=== PATIENT | female | born 1940 | race Native Hawaiian/Other Pacific Islander ===

== ENCOUNTER 2018-08-18 05:52 | Day surgery (SDC) | payer MEDICARE ==
[2018-08-13 08:36] VITALS: BMI 22.1
[2018-08-18] MEDS ORDERED: ceFAZolin IV 1 gm in Dextrose 1 GM/50 ML BAG IVPB ONE (06:59)
[2018-08-18] MEDS ORDERED: HEPARIN-NS 5,000 UNITS/500 ML 10,000 UNIT/1,000 ML BAG IV ONE (06:59)
[2018-08-18 07:07] LABS: CALCIUM 9.6 mg/dl (8.6-10.4)
[2018-08-18] MEDS ORDERED: Propofol 10 mg/ml Inj (20 ML) ONE (07:57)
[2018-08-18] MEDS ORDERED: Midazolam 2 MG/2 ML VIAL ONE (07:57)
[2018-08-18] MEDS ORDERED: Lidocaine Hydrochloride 5 ML INJ ONE (08:01)
--- NOTE | 2018-08-18 10:10 | PCM.SURG1 ---
Surgeon's Initial Post Op Note - Surgeon's Notes Surgeon: Linda Senior Executive Assistant: Pritesh Krause PGY-3 Jose J Murphy MS3 Type of Anesthesia: General LMA Anesthesia Administered By: Luis F Pre-Operative Diagnosis: ESRD Operative Findings: patent right IJ, good left radial and cephalic vein Post-Operative Diagnosis: ESRD Operation Performed: Right IJ permacath, Left radial cephalic snuffbox AV fistula Specimen/Specimens Removed: none Estimated Blood Loss: EBL {In ML}: 10 Blood Products Given: N/A Drains Used: No Drains Post-Op Condition: Good Date of Surgery/Procedure: 08/18/18 Time of Surgery/Procedure: 09:00
[2018-08-18] MEDS ORDERED: HYDROmorphone 0.5 mg/0.5 ml ISec IVP PRN (10:13)
[2018-08-18] MEDS ORDERED: Oxycodone/Acetaminophen 5/325 mg Tab PO PRN (10:15)
--- NOTE | 2018-08-18 11:47 | RAD ---
Date of service: 08/18/2018 HISTORY: permacath in PACU COMPARISON: 08/13/2018 FINDINGS: Right-sided PermCath terminates at the cavoatrial junction. LUNGS: The lungs are clear. PLEURA: No pleural effusions or pneumothorax. CARDIOVASCULAR: There is mild cardiomegaly. There are atherosclerotic aortic arch calcification present. OSSEOUS STRUCTURES: Within normal limits for the patient's age. VISUALIZED UPPER ABDOMEN: Normal. OTHER FINDINGS: None. IMPRESSION: Right PermCath terminates at the cavoatrial junction. No acute findings.
[2018-08-18 12:56] VITALS: RESP 16
[2018-08-18 15:42] VITALS: BP 147/68; PULSE 80; TEMP 97.8; O2SAT 100
--- NOTE | 2018-08-18 19:29 | OP ---
PROCEDURE DATE: 08/18/2018 PREOPERATIVE DIAGNOSIS: Renal failure. POSTOPERATIVE DIAGNOSIS: Renal failure. PROCEDURES CARRIED OUT: Placement of Perm-A-Cath right jugular vein with C-arm fluoroscopy ultrasound guidance with micropuncture technique and two snuffbox fistula left wrist. SURGEON: Jignesh Mckeon Jr., MD PHYSICIAN OFFICE NURSE: Pritesh Krause DO ANESTHESIOLOGIST: Elliott Kerns DO INDICATIONS: The patient is an older woman with renal insufficiency, now here requiring dialysis. OPERATIVE FINDINGS: Perm-A-Cath was inserted uneventfully via the right jugular vein, originally on the right chest wall, went to the right jugular vein, terminated at superior vena cava and right atrium. DESCRIPTION OF PROCEDURE: The patient was given general anesthesia, intravenous antibiotics. Using ultrasound guidance, the right jugular vein was punctured and under fluoroscopic control, guidewire was advanced centrally and exchanged for an 0.03 FiberWire into the inferior vena cava. Sheath dilator passed. Catheter passed. Catheter positioned appropriately, checked for flow and secured to the skin, sutured into position. Blood loss 10 mL. We then re-draped and turned our attention to the left arm, though there was not a good cephalic vein in the upper arm. This vein was actually a basilic brachial vein, but because of the need for two stages, I went with the snuffbox fistula at the wrist. This went quite well. The donor vessel was 1.5 mm to 2.5 mm cephalic vein. The patient's vessels were exposed, controlled, Afrin given, and end-to-side anastomosis carried out from the end of the cephalic vein to the side of the superficial radial artery. After this had been done, there was excellent flow. This was carried out using loop magnification and heparin anticoagulation. After this had been appropriately placed into position, the skin was closed with nylon sutures. Blood loss for both procedures was primarily about 10 to 15 mL. OPERATION CARRIED OUT: Perm-A-Cath right jugular vein with C-arm fluoroscopy, ultrasound-guided puncture, and micropuncture technique and two arteriovenous fistula snuffbox type left arm. Ultrasound image of the neck shows the vein was 12 mm in diameter with normal compressibility and no intraluminal thrombosis. Jignesh Mckeon Jr., MD cc: Ajay Thomas MD
--- NOTE | 2018-08-19 12:34 | RAD ---
Date of service: 08/18/2018 PROCEDURE: Intraoperative Fluoroscopy. HISTORY: END RENAL FAILURE FINDINGS: Fluoroscopic assistance was provided for right-sided PermCath placement. Please refer to the operative report from DAVID Talavera.
== END 2018-08-18 15:40 | disposition home or self-care (01) ==
LOC: C.SDS 05:52
PROVIDERS: ATTEND Surgery Vascular Surgery
DX: I12.0 Hypertensive chronic kidney disease with stage 5 chronic kidney disease or end stage renal disease (principal); N18.6 End stage renal disease; Q61.2 Polycystic kidney, adult type
CPT/HCPCS: 36415; 36558; 36821; 71045; 77001; 80048; C1750; J0690; J1170; J1644; J2250; J2405; J2704; J3010

== ENCOUNTER 2018-08-22 11:48 | Inpatient (IN) | payer MEDICARE ==
[2018-08-22 11:48] VITALS: BMI 22.1
[2018-08-22 12:53] LABS: BASO % 0.3 % (0.0-2.0); EOS # 0.1 K/uL (0.0-0.7); EOS % 1.4 % (0.0-4.0); HEMOGLOBIN 8.5 g/dL (11.0-16.0); LYMPH # 1.7 K/uL (1.0-4.3); LYMPH % 22.7 % (20.0-40.0); MEAN CELL VOLUME 95.4 fL (81.0-99.0); MEAN CORPUSCULAR HEMOGLOBIN 31.2 pg (27.0-31.0); MEAN CORPUSCULAR HGB CONC 32.7 g/dL (33.0-37.0); MEAN PLATELET VOLUME 8.1 fL (7.2-11.7); MONO # 0.8 K/uL (0.0-0.8); MONO % 10.7 % (0.0-10.0); NEUT # 4.8 K/uL (1.8-7.0); NEUT % 64.9 % (50.0-75.0); RBC 2.71 Mil/uL (3.80-5.20); RED CELL DISTRIBUTION WIDTH 12.5 % (11.5-14.5); WHITE BLOOD COUNT 7.4 K/uL (4.8-10.8)
[2018-08-22 13:01] LABS: INR 0.9
[2018-08-22 13:11] LABS: ALB/GLOB RATIO 1.3 (1.0-2.1); ALBUMIN 4.2 g/dL (3.5-5.0); ALT/SGPT 12 U/L (9-52); AST/SGOT 47 U/L (14-36); BLOOD UREA NITROGEN 72 mg/dL (7-17); CALCIUM 9.6 mg/dl (8.6-10.4); GFR NON-AFRICAN AMERICAN 10
[2018-08-22 13:18] LABS: PROTHROMBIN TIME 9.7 SECONDS (9.7-12.2)
[2018-08-22 13:23] LABS: B-TYPE NATRIURETIC PEPTIDE 702 pg/mL (0-900)
--- NOTE | 2018-08-22 13:47 | C.PDOC ---
History Of Present Illness 78 y/o female presents to ED sent by Dr. Thomas for admission for dialysis. Patient was recently at his office and was sent to ED for first time dialysis. Patient has no physical complaints at this time. Time Seen by Provider: 08/22/18 12:09 Chief Complaint (Nursing): Female Genitourinary History Per: Patient History/Exam Limitations: no limitations Onset/Duration Of Symptoms: Days Current Symptoms Are (Timing): Still Present Past Medical History Reviewed: Historical Data, Nursing Documentation, Vital Signs Vital Signs: Last Vital Signs Temp 99.2 F 08/22/18 12:03 Pulse 90 08/22/18 12:03 Resp 17 08/22/18 12:03 BP 165/96 H 08/22/18 12:03 Pulse Ox 100 08/22/18 12:03 - Medical History PMH: Anemia, Anxiety, Arthritis, Gall Bladder Disease, HTN, Hypercholesterolemia, Hyperlipidemia, Osteoporosis, Chronic Kidney Disease Surgical History: Cholecystectomy Family History: States: No Known Family Hx - Social History Hx Alcohol Use: No Hx Substance Use: No - Immunization History Hx Tetanus Toxoid Vaccination: Yes Hx Influenza Vaccination: Yes Hx Pneumococcal Vaccination: Yes Review Of Systems Constitutional: Negative for: Fever, Chills Cardiovascular: Negative for: Chest Pain Respiratory: Negative for: Cough, Shortness of Breath Gastrointestinal: Negative for: Nausea, Vomiting Physical Exam - Physical Exam Appears: Non-toxic, No Acute Distress Skin: Warm, Dry, No Rash Head: Atraumatic, Normacephalic Eye(s): bilateral: Normal Inspection Oral Mucosa: Moist Neck: Supple Chest: Other (Right chest catheter) Cardiovascular: Rhythm Regular Respiratory: Normal Breath Sounds, No Rales, No Rhonchi, No Wheezing Gastrointestinal/Abdominal: Soft, No Tenderness, No Guarding, No Rebound Extremity: Normal ROM, Capillary Refill (<2 seconds), No Deformity, Other (left wrist shunt with good thrill and bruit) Neurological/Psych: Oriented x3, Normal Speech, Normal Cognition ED Course And Treatment - Laboratory Results Result Diagrams: 08/22/18 12:49 08/22/18 12:49 ECG: Interpreted By Me, Viewed By Me ECG Rhythm: Sinus Rhythm Rate From EC (BPM) O2 Sat by Pulse Oximetry: 100 (RA) Pulse Ox Interpretation: Normal Disposition - Disposition Disposition: HOSPITALIZED Disposition Time: 13:15 Condition: STABLE - Clinical Impression Clinical Impression: ESRD (end stage renal disease), ESRD needing dialysis - Scribe Statement The provider has reviewed the documentation as recorded by the Dharmeshibmarine Corbett All medical record entries made by the Dharmeshibmarine were at my direction and personally dictated by me. I have reviewed the chart and agree that the record accurately reflects my personal performance of the history, physical exam, medical decision making, and the department course for this patient. I have also personally directed, reviewed, and agree with the discharge instructions and disposition.
--- NOTE | 2018-08-22 15:09 | CP.PCM.CON ---
History of Present Illness - History of Present Illness History of Present Illness: 78y/o FF sent to ED with uremic symptoms Recently pt with weight loss, increasing poor appetite associated with rising creatinine. Known CKD related to HTN Other PMH: HTN DDD Osteoporosis Dyslipidemia Chronic anemia PSH: choleycystectomy AV fistula cataracts FH- No CKD Social- no ETOH. ssmoking, illicit drug use Meds- see list Review of Systems - Constitutional Constitutional: Lethargy, Weakness - EENT Eyes: absent: As Per HPI, Blind Spots, Blurred Vision, Change in Vision, Decreased Night Vision, Diplopia, Discharge, Dry Eye, Exophthalmos, Floaters, Irritation, Itchy Eyes, Loss of Peripheral Vision, Pain, Photophobia, Requires Corrective Lenses, Sees Flashes, Spots in Vision, Tunnel Vision, Other Visual Disturbances, Loss of Vision, Other Nose/Mouth/Throat: absent: As Per HPI, Epistaxis, Nasal Congestion, Nasal Discharge, Nasal Obstruction, Nasal Trauma, Nose Pain, Post Nasal Drip, Sinus Pain, Sinus Pressure, Bleeding Gums, Change in Voice, Dental Pain, Dry Mouth, Dysphagia, Halitosis, Hoarsness, Lip Swelling, Mouth Lesions, Mouth Pain, Odynophagia, Sore Throat, Throat Swelling, Tongue Swelling, Facial Pain, Neck Pain, Neck Mass, Other - Cardiovascular Cardiovascular: Dyspnea on Exertion, Lightheadedness - Respiratory Respiratory: Dyspnea on Exertion - Gastrointestinal Gastrointestinal: Early Satiety, Nausea - Genitourinary Genitourinary: Voiding Freq/Small Amts - Musculoskeletal Musculoskeletal: Muscle Weakness, Myalgias - Neurological Neurological: Weakness Past Patient History - Infectious Disease Hx of Infectious Diseases: None - Past Medical History & Family History Past Medical History?: Yes - Past Social History Smoking Status: Never Smoked Chewing Tobacco Use: No Cigar Use: No Alcohol: None Drugs: Denies Home Situation {Lives}: Alone - CARDIAC Hx Hypercholesterolemia: Yes Hx Hypertension: Yes - PULMONARY Hx Respiratory Disorders: No - NEUROLOGICAL Hx Neurological Disorder: No - HEENT Hx HEENT Problems: Yes Hx Cataracts: Yes (iol) - RENAL Hx Chronic Kidney Disease: Yes - ENDOCRINE/METABOLIC Hx Endocrine Disorders: No - HEMATOLOGICAL/ONCOLOGICAL Hx Anemia: Yes - INTEGUMENTARY Hx Dermatological Problems: No - MUSCULOSKELETAL/RHEUMATOLOGICAL Hx Arthritis: Yes Hx Osteoporosis: Yes - GASTROINTESTINAL Hx Gall Bladder Disease: Yes - GENITOURINARY/GYNECOLOGICAL Hx Genitourinary Disorders: No - PSYCHIATRIC Hx Anxiety: Yes Hx Substance Use: No - SURGICAL HISTORY Hx Cholecystectomy: Yes - ANESTHESIA Hx Anesthesia: Yes Hx Anesthesia Reactions: No Hx Malignant Hyperthermia: No Meds Allergies/Adverse Reactions: Allergies Allergy/AdvReac Type Severity Reaction Status Date / Time aspirin Allergy Intermediate RASH Verified 08/22/18 11:58 shellfish derived Allergy Intermediate RASH Verified 08/22/18 11:58 seafood Allergy Intermediate RASH Uncoded 08/22/18 11:58 Physical Exam - Constitutional Appears: Non-toxic, Chronically Ill - Head Exam Head Exam: ATRAUMATIC, NORMAL INSPECTION - Eye Exam Eye Exam: EOMI, Normal appearance - Neck Exam Neck exam: Positive for: Normal Inspection. Negative for: Tenderness - Respiratory Exam Respiratory Exam: Clear to Auscultation Bilateral, NORMAL BREATHING PATTERN - Cardiovascular Exam Cardiovascular Exam: REGULAR RHYTHM, +S1 - GI/Abdominal Exam GI & Abdominal Exam: Soft. absent: Tenderness - Extremities Exam Extremities exam: Positive for: normal inspection. Negative for: tenderness - Neurological Exam Neurological exam: Alert, CN II-XII Intact - Skin Skin Exam: Dry, Warm Results - Vital Signs Recent Vital Signs: Last Vital Signs Temp 99.2 F 08/22/18 12:03 Pulse 90 08/22/18 12:03 Resp 17 08/22/18 12:03 BP 165/96 H 08/22/18 12:03 Pulse Ox 100 08/22/18 13:54 - Labs Result Diagrams: 08/22/18 12:49 08/22/18 12:49 Labs: Laboratory Results - last 24 hr 08/22/18 08/22/18 08/22/18 12:49 12:49 12:49 WBC 7.4 RBC 2.71 L Hgb 8.5 L Hct 25.9 L MCV 95.4 MCH 31.2 H MCHC 32.7 L RDW 12.5 Plt Count 142 MPV 8.1 Neut % (Auto) 64.9 Lymph % (Auto) 22.7 Mcclain % (Auto) 10.7 H Eos % (Auto) 1.4 Baso % (Auto) 0.3 Neut # (Auto) 4.8 Lymph # (Auto) 1.7 Mcclain # (Auto) 0.8 Eos # (Auto) 0.1 Baso # (Auto) 0.0 PT 9.7 INR 0.9 APTT 34 Sodium 142 Potassium 5.1 Chloride 109 H Carbon Dioxide 20 L Anion Gap 18 BUN 72 H Creatinine 4.3 H Est GFR ( Amer) 12 Est GFR (Non-Af Amer) 10 Random Glucose 93 Calcium 9.6 Phosphorus 4.2 Magnesium 2.1 Total Bilirubin 0.5 AST 47 H ALT 12 Alkaline Phosphatase 97 Troponin I < 0.0120 NT-Pro-B Natriuret Pep 702 Total Protein 7.5 Albumin 4.2 Globulin 3.3 Albumin/Globulin Ratio 1.3 Assessment & Plan (1) CKD (chronic kidney disease) stage 5, GFR less than 15 ml/min Status: Acute (2) Hypertensive chronic kidney disease with stage 5 chronic kidney disease or end stage renal disease Status: Acute (3) Chronic disease anemia Status: Acute (4) DDD (degenerative disc disease), cervical Status: Acute - Assessment and Plan (Free Text) Plan: Arrange for HD Use permcath; await AV F maturation Check hep panel, PTH. iron stores Will need outpt dialysis placement
[2018-08-22 17:29] LABS: HEPATITIS B SURFACE AG Negative (NEGATIVE)
[2018-08-22 17:34] LABS: HEPATITIS B CORE AB NEGATIVE (NEGATIVE)
[2018-08-22] MEDS ORDERED: Epoetin Alfa 10,000 unit/ml Dialysis IV ONE (17:43)
[2018-08-22 17:46] LABS: HEPATITIS C ANTIBODY NEGATIVE (NEGATIVE)
[2018-08-22 17:48] LABS: IRON 16 ug/dL (37-170)
[2018-08-22 17:58] LABS: % IRON SATURATION 6 (20-55); TOTAL IRON BINDING CAPACITY 258 ug/dL (250-450)
--- NOTE | 2018-08-23 10:32 | CP.PCM.PN ---
Subjective - Date & Time of Evaluation Date of Evaluation: 08/23/18 Time of Evaluation: 10:30 - Subjective Subjective: presently on dialysis comfortable supine states sob usual neck,hand and knee pain ROS no cheest pain no abdomenal pain n,v,d no dysuria see above Objective - Vital Signs/Intake and Output Vital Signs (last 24 hours): Temp Pulse Resp BP Pulse Ox 97.6 F 89 20 135/80 99 08/23/18 09:20 08/23/18 09:20 08/23/18 09:20 08/23/18 09:50 08/23/18 09:20 - Medications Medications: Current Medications Acetaminophen (Tylenol 325mg Tab) 650 mg PO Q4 PRN PRN Reason: Pain, moderate (4-7) Last Admin: 08/23/18 07:53 Dose: 650 mg Amlodipine Besylate (Norvasc) 5 mg PO DAILY [facility] Epoetin Santosh (Procrit) 10,000 unit IV MWF [facility] Ferrous Sulfate (Feosol) 325 mg PO DAILY [facility] Heparin Sodium (Porcine) (Heparin) 3,700 units IVP ONCE ONE Stop: 08/23/18 17:55 Heparin Sodium (Porcine) (Heparin) 5,000 units SC Q12 [facility] Metoprolol Succinate (Toprol Xl) 25 mg PO BID [facility] Pantoprazole Sodium (Protonix Ec Tab) 40 mg PO DAILY [facility] Rosuvastatin Calcium (Crestor) 2.5 mg PO HS SUE - Labs Labs: 08/22/18 12:49 08/22/18 12:49 PT 9.7 SECONDS (9.7-12.2) 08/22/18 12:49 INR 0.9 08/22/18 12:49 APTT 34 SECONDS (21-34) 08/22/18 12:49 - Constitutional Appears: No Acute Distress - Eye Exam Eye Exam: Normal appearance - ENT Exam ENT Exam: Mucous Membranes Moist - Respiratory Exam Respiratory Exam: Clear to Ausculation Bilateral - Cardiovascular Exam Cardiovascular Exam: REGULAR RHYTHM. absent: JVD - GI/Abdominal Exam GI & Abdominal Exam: Soft. absent: Distended, Tenderness - Extremities Exam Extremities Exam: absent: Calf Tenderness - Neurological Exam Neurological Exam: Altered, Awake - Psychiatric Exam Psychiatric exam: Flat Affect - Skin Skin Exam: Dry Assessment and Plan (1) DDD (degenerative disc disease), cervical Status: Acute (2) ESRD needing dialysis Status: Acute - Assessment and Plan (Free Text) Plan: try to remove one kg next dialysis 08/25
[2018-08-23] MEDS: Metoprolol Succinate 25 mg XL Tab PO SCH ×2 (10:46→17:52)
[2018-08-23] MEDS: Pantoprazole 40 mg EC Tab PO SCH (12:31)
--- NOTE | 2018-08-23 17:58 | CP.PCM.HP ---
History of Present Illness - History of Present Illness History of Present Illness: 78 yo female was sent by her match marker( Dr Thomas ) to [facility] for a hemodialysis. Known to have a hypertension, an ESRD from a polycystic disease, a hypercholesterolemia, an emphysema, an anemia of chronic disease, a degenerative cervical and lumbar dics disease, a diverticulosis of the colon, an osteoporosis, she has been feeling generalized weakness with poor appetite. Her BUN and creatinine have been raising recently. Her medications include Protonix, Amlodipine, Metoprolol, Pravachol. She denies any cigarette smoking, any alcohol abuse, Present on Admission - Present on Admission Any Indicators Present on Admission: No Review of Systems - Constitutional Constitutional: Anorexia, Daytime Sleepiness, Fatigue, Frequent Falls, Weakness - Musculoskeletal Musculoskeletal: Arthralgias, Muscle Weakness - Neurological Neurological: Disequilibrium, Weakness - Psychiatric Psychiatric: Anxiety - Endocrine Endocrine: Fatigue Past Patient History - Infectious Disease Hx of Infectious Diseases: None - Past Medical History & Family History Past Medical History?: Yes - Past Social History Smoking Status: Never Smoked Chewing Tobacco Use: No Cigar Use: No Alcohol: None Drugs: Denies Home Situation {Lives}: Alone Domestic Violence: Negative - CARDIAC Hx Hypercholesterolemia: Yes Hx Hypertension: Yes - PULMONARY Hx Respiratory Disorders: No - NEUROLOGICAL Hx Neurological Disorder: No - HEENT Hx HEENT Problems: Yes Hx Cataracts: Yes (iol) - RENAL Hx Chronic Kidney Disease: Yes - ENDOCRINE/METABOLIC Hx Endocrine Disorders: No - HEMATOLOGICAL/ONCOLOGICAL Hx Anemia: Yes - INTEGUMENTARY Hx Dermatological Problems: No - MUSCULOSKELETAL/RHEUMATOLOGICAL Hx Arthritis: Yes Hx Osteoporosis: Yes Hx Unsteady Gait: Yes - GASTROINTESTINAL Hx Gall Bladder Disease: Yes - GENITOURINARY/GYNECOLOGICAL Hx Genitourinary Disorders: No - PSYCHIATRIC Hx Anxiety: Yes Hx Substance Use: No - SURGICAL HISTORY Hx Surgeries: Yes Hx Cataract Extraction: Yes Hx Cholecystectomy: Yes - ANESTHESIA Hx Anesthesia: Yes Hx Anesthesia Reactions: No Hx Malignant Hyperthermia: No Meds Allergies/Adverse Reactions: Allergies Allergy/AdvReac Type Severity Reaction Status Date / Time aspirin Allergy Intermediate RASH Verified 08/22/18 11:58 shellfish derived Allergy Intermediate RASH Verified 08/22/18 11:58 seafood Allergy Intermediate RASH Uncoded 08/22/18 11:58 Physical Exam - Constitutional Appears: No Acute Distress, Chronically Ill - Head Exam Head Exam: NORMAL INSPECTION - Eye Exam Eye Exam: Normal appearance Pupil Exam: NORMAL ACCOMODATION - ENT Exam ENT Exam: Normal Exam - Neck Exam Neck exam: Positive for: Normal Inspection - Respiratory Exam Respiratory Exam: Clear to Auscultation Bilateral, NORMAL BREATHING PATTERN - Cardiovascular Exam Cardiovascular Exam: REGULAR RHYTHM, Systolic Murmur - GI/Abdominal Exam GI & Abdominal Exam: Normal Bowel Sounds, Soft - Rectal Exam Rectal Exam: Deferred - Extremities Exam Extremities exam: Positive for: normal inspection - Back Exam Back exam: NORMAL INSPECTION - Neurological Exam Neurological exam: Alert, CN II-XII Intact, Oriented x3, Reflexes Normal - Psychiatric Exam Psychiatric exam: Anxious - Skin Skin Exam: Dry, Intact, Normal Color, Warm Results - Vital Signs Recent Vital Signs: Last Vital Signs Temp 98.7 F 08/23/18 15:35 Pulse 75 08/23/18 15:47 Resp 20 08/23/18 15:35 BP 113/68 08/23/18 15:35 Pulse Ox 99 08/23/18 15:35 - Labs Result Diagrams: 08/22/18 12:49 08/22/18 12:49 Labs: Laboratory Results - last 24 hr 08/22/18 08/22/18 08/22/18 16:22 17:23 17:23 TIBC 258 % Saturation 6 L Ferritin 197.0 Hep Bs Antibody Negative Assessment & Plan (1) CKD (chronic kidney disease) stage 5, GFR less than 15 ml/min Assessment and Plan: For HD as per nephrologists. Status: Acute (2) Chronic disease anemia Assessment and Plan: On Procrit. Status: Acute (3) Hypertension Assessment and Plan: On Amlodipine, Metoprolol. Status: Acute Decision To Admit - Pt Status Changed To: Hospital Disposition Of: Inpatient - Admit Certification Admit to Inpatient:: After my assessment, the patient will require h ospitalization for at least two midnights. This is because of the severity of symptoms shown, intensity of services needed, and/or the medical risk in this patient being treated as an outpatient. - InPatient: Physician Admission Certification:: After my assessments, the patient needs hospitalization for at least 2 midnights. - . Bed Request Type: Telemetry Admitting Physician: Justin Nazario
[2018-08-23] MEDS: Rosuvastatin Calcium 2.5 mg Tab PO SCH (21:36)
[2018-08-24] MEDS: Pantoprazole 40 mg EC Tab PO SCH (10:46)
[2018-08-24] MEDS: Metoprolol Succinate 25 mg XL Tab PO SCH ×2 (10:46→17:32)
[2018-08-24] MEDS: Rosuvastatin Calcium 2.5 mg Tab PO SCH (21:14)
--- NOTE | 2018-08-25 02:46 | CP.PCM.PCO ---
Addendum entered and electronically signed by Giovanni Stafford 08/25/18 02:46: House Doctor Note: Paged for itchy & SOB. Per nursing staff, patient is complaining of severe itch following her dose of ultram. Patient seen and examined at bedside. Patient lying in bed, in no acute distress. Patient vitals WNL. Physical exam reveals no SOB, chest pain, hives on skin. 1 X Benadryl ordered for itch. No further intervention warranted at this time. Original Note:
[2018-08-25] MEDS: Pantoprazole 40 mg EC Tab PO SCH (09:52)
[2018-08-25] MEDS: Metoprolol Succinate 25 mg XL Tab PO SCH ×2 (09:53→18:34)
[2018-08-25 10:58] LABS: BASO % 0.6 % (0.0-2.0); EOS # 0.2 K/uL (0.0-0.7); EOS % 3.3 % (0.0-4.0); HEMOGLOBIN 8.5 g/dL (11.0-16.0); LYMPH # 2.1 K/uL (1.0-4.3); MEAN CELL VOLUME 95.2 fL (81.0-99.0); MEAN CORPUSCULAR HEMOGLOBIN 31.7 pg (27.0-31.0); MEAN CORPUSCULAR HGB CONC 33.3 g/dL (33.0-37.0); MEAN PLATELET VOLUME 8.4 fL (7.2-11.7); MONO # 0.6 K/uL (0.0-0.8); MONO % 10.5 % (0.0-10.0); NEUT # 3.2 K/uL (1.8-7.0); NEUT % 51.6 % (50.0-75.0); RBC 2.68 Mil/uL (3.80-5.20); RED CELL DISTRIBUTION WIDTH 12.6 % (11.5-14.5); WHITE BLOOD COUNT 6.1 K/uL (4.8-10.8)
--- NOTE | 2018-08-25 12:13 | CP.PCM.PN ---
Subjective - Date & Time of Evaluation Date of Evaluation: 08/25/18 Time of Evaluation: 12:11 - Subjective Subjective: Feels better BP was low post HD 08/23 Fe stores very low appetite same Objective - Vital Signs/Intake and Output Vital Signs (last 24 hours): Temp Pulse Resp BP Pulse Ox 98.3 F 74 18 160/71 H 97 08/25/18 07:07 08/25/18 09:49 08/25/18 07:07 08/25/18 09:49 08/25/18 08:00 Intake and Output: 08/25/18 08/25/18 06:59 18:59 Intake Total 300 Balance 300 - Medications Medications: Current Medications Acetaminophen (Tylenol 325mg Tab) 650 mg PO Q4 PRN PRN Reason: Pain, Mild (1-3) Amlodipine Besylate (Norvasc) 5 mg PO DAILY [facility] Last Admin: 08/25/18 09:53 Dose: Not Given Docusate Sodium (Colace) 100 mg PO BID [facility] Last Admin: 08/25/18 09:52 Dose: 100 mg Epoetin Santosh (Procrit) 10,000 unit IV MWF [facility] Ferrous Sulfate (Feosol) 325 mg PO DAILY [facility] Last Admin: 08/25/18 09:52 Dose: 325 mg Heparin Sodium (Porcine) (Heparin) 5,000 units SC Q12 [facility] Last Admin: 08/25/18 09:52 Dose: 5,000 units Metoprolol Succinate (Toprol Xl) 25 mg PO BID [facility] Last Admin: 08/25/18 09:53 Dose: Not Given Pantoprazole Sodium (Protonix Ec Tab) 40 mg PO DAILY [facility] Last Admin: 08/25/18 09:52 Dose: 40 mg Rosuvastatin Calcium (Crestor) 2.5 mg PO HS [facility] Last Admin: 08/24/18 21:14 Dose: 2.5 mg Tramadol HCl (Ultram) 50 mg PO Q6 PRN PRN Reason: Pain, moderate (4-7) Last Admin: 08/24/18 21:18 Dose: 50 mg - Labs Labs: 08/25/18 10:40 08/22/18 12:49 PT 9.7 SECONDS (9.7-12.2) 08/22/18 12:49 INR 0.9 08/22/18 12:49 APTT 34 SECONDS (21-34) 08/22/18 12:49 - Constitutional Appears: No Acute Distress, Chronically Ill - Head Exam Head Exam: ATRAUMATIC, NORMAL INSPECTION - Eye Exam Eye Exam: EOMI, Normal appearance - Neck Exam Neck Exam: Normal Inspection. absent: Tenderness - Respiratory Exam Respiratory Exam: Clear to Ausculation Bilateral, NORMAL BREATHING PATTERN - Cardiovascular Exam Cardiovascular Exam: REGULAR RHYTHM, +S1 - GI/Abdominal Exam GI & Abdominal Exam: Soft. absent: Tenderness - Extremities Exam Extremities Exam: Normal Inspection. absent: Tenderness - Neurological Exam Neurological Exam: Awake, CN II-XII Intact - Skin Skin Exam: Dry, Warm Assessment and Plan (1) CKD (chronic kidney disease) stage 5, GFR less than 15 ml/min Status: Acute (2) Hypertensive chronic kidney disease with stage 5 chronic kidney disease or end stage renal disease Status: Acute (3) Chronic disease anemia Status: Acute (4) DDD (degenerative disc disease), cervical Status: Acute (5) ESRD (end stage renal disease) Status: Acute - Assessment and Plan (Free Text) Plan: IV Fe check PTH Dialysis MWF, less UF Will need HD placement
[2018-08-25] MEDS ORDERED: Ferric Sodium Gluconat Complex 62.5 mg/5 ml Vial IVPB SCH (12:15)
[2018-08-25] MEDS: Ferric Sodium Gluconat Complex 125 MG in Sodium Chloride 0.9% 100 ML IVPB SCH (16:28)
[2018-08-25] MEDS: Epoetin Alfa 10,000 unit/ml Dialysis IV SCH (16:36)
--- NOTE | 2018-08-25 17:16 | CARD ---
APPROVED REPORT Date of service: 08/22/2018 EKG Measurement Heart [id number] <Conclusion> Normal sinus rhythm Septal infarct, age undetermined Abnormal ECG
[2018-08-25] MEDS ORDERED: Pantoprazole 40 mg EC Tab PO ONE (20:45)
[2018-08-25] MEDS: Rosuvastatin Calcium 2.5 mg Tab PO SCH (21:12)
--- NOTE | 2018-08-25 23:14 | CP.PCM.PN ---
Subjective - Date & Time of Evaluation Date of Evaluation: 08/25/18 Time of Evaluation: 21:00 - Subjective Subjective: Patient had one episode of chest tonight. Stat ECG reveals an RSR with a first degree AV block but no acute ST-T wave change. The chest pain resolved spontaneously. One stat dose of Protonix 40 mg Po was ordered. The patient had a normal Lexiscan stress test a few weeks ago. Objective - Vital Signs/Intake and Output Vital Signs (last 24 hours): Temp Pulse Resp BP Pulse Ox 98.4 F 79 20 133/63 100 08/25/18 20:22 08/25/18 21:35 08/25/18 20:22 08/25/18 20:37 08/25/18 20:22 Intake and Output: 08/25/18 08/26/18 18:59 06:59 Intake Total 450 400 Balance 450 400 - Medications Medications: Current Medications Acetaminophen (Tylenol 325mg Tab) 650 mg PO Q4 PRN PRN Reason: Pain, Mild (1-3) Last Admin: 08/25/18 18:33 Dose: 650 mg Amlodipine Besylate (Norvasc) 5 mg PO DAILY [facility] Last Admin: 08/25/18 09:53 Dose: Not Given Docusate Sodium (Colace) 100 mg PO BID [facility] Last Admin: 08/25/18 18:32 Dose: 100 mg Epoetin Santosh (Procrit) 10,000 unit IV MWF [facility] Last Admin: 08/25/18 16:36 Dose: 10,000 unit Heparin Sodium (Porcine) (Heparin) 5,000 units SC Q12 [facility] Last Admin: 08/25/18 21:12 Dose: 5,000 units Ferric Sodium Gluconate Complex 125 mg/ Sodium Chloride 110 mls @ 110 mls/hr IVPB DAILY [facility] Stop: 09/02/18 13:01 Last Admin: 08/25/18 16:28 Dose: 110 mls/hr Metoprolol Succinate (Toprol Xl) 25 mg PO BID [facility] Last Admin: 08/25/18 18:34 Dose: Not Given Pantoprazole Sodium (Protonix Ec Tab) 40 mg PO DAILY [facility] Last Admin: 08/25/18 09:52 Dose: 40 mg Rosuvastatin Calcium (Crestor) 2.5 mg PO HS [facility] Last Admin: 08/25/18 21:12 Dose: 2.5 mg - Labs Labs: 08/25/18 10:40 08/22/18 12:49 PT 9.7 SECONDS (9.7-12.2) 08/22/18 12:49 INR 0.9 08/22/18 12:49 APTT 34 SECONDS (21-34) 08/22/18 12:49 - Constitutional Appears: Well, No Acute Distress - Head Exam Head Exam: NORMAL INSPECTION - Eye Exam Eye Exam: Normal appearance Pupil Exam: NORMAL ACCOMODATION - ENT Exam ENT Exam: Normal Exam - Neck Exam Neck Exam: Normal Inspection - Respiratory Exam Respiratory Exam: Clear to Ausculation Bilateral, NORMAL BREATHING PATTERN - Cardiovascular Exam Cardiovascular Exam: REGULAR RHYTHM - GI/Abdominal Exam GI & Abdominal Exam: Soft, Normal Bowel Sounds - Rectal Exam Rectal Exam: Deferred - Extremities Exam Extremities Exam: Normal Inspection - Back Exam Back Exam: NORMAL INSPECTION - Neurological Exam Neurological Exam: Alert, Awake - Psychiatric Exam Psychiatric exam: Anxious - Skin Skin Exam: Dry, Intact, Normal Color, Warm Assessment and Plan (1) CKD (chronic kidney disease) stage 5, GFR less than 15 ml/min Assessment & Plan: Hemodialysis as per Nephrologists. Status: Chronic (2) Chronic disease anemia Assessment & Plan: Patient is on Ferlicit IV. Status: Chronic (3) Hypertension Status: Chronic
[2018-08-26] MEDS: Metoprolol Succinate 25 mg XL Tab PO SCH ×2 (10:07→17:29)
[2018-08-26] MEDS: Pantoprazole 40 mg EC Tab PO SCH (10:08)
[2018-08-26] MEDS: Ferric Sodium Gluconat Complex 125 MG in Sodium Chloride 0.9% 100 ML IVPB SCH (10:09)
--- NOTE | 2018-08-26 10:13 | CP.PCM.PN ---
Subjective - Date & Time of Evaluation Date of Evaluation: 08/26/18 Time of Evaluation: 10:12 - Subjective Subjective: seen and examined no events bp stable felt tired after hd yesterday c/o pain at [facility] site Objective - Vital Signs/Intake and Output Vital Signs (last 24 hours): Temp Pulse Resp BP Pulse Ox 98.2 F 80 20 130/71 97 08/26/18 08:01 08/26/18 10:05 08/26/18 08:01 08/26/18 10:05 08/26/18 08:01 Intake and Output: 08/26/18 08/26/18 06:59 18:59 Intake Total 400 Balance 400 - Medications Medications: Current Medications Acetaminophen (Tylenol 325mg Tab) 650 mg PO Q4 PRN PRN Reason: Pain, Mild (1-3) Last Admin: 08/25/18 18:33 Dose: 650 mg Docusate Sodium (Colace) 100 mg PO BID [facility] Last Admin: 08/26/18 10:07 Dose: 100 mg Epoetin Santosh (Procrit) 10,000 unit IV MWF [facility] Last Admin: 08/25/18 16:36 Dose: 10,000 unit Ferric Sodium Gluconate Complex 125 mg/ Sodium Chloride 110 mls @ 110 mls/hr IVPB DAILY [facility] Stop: 09/02/18 13:01 Last Admin: 08/26/18 10:09 Dose: 110 mls/hr Metoprolol Succinate (Toprol Xl) 25 mg PO BID [facility] Last Admin: 08/26/18 10:07 Dose: 25 mg Pantoprazole Sodium (Protonix Ec Tab) 40 mg PO DAILY [facility] Last Admin: 08/26/18 10:08 Dose: 40 mg Rosuvastatin Calcium (Crestor) 2.5 mg PO HS [facility] Last Admin: 08/25/18 21:12 Dose: 2.5 mg - Labs Labs: 08/25/18 10:40 08/22/18 12:49 PT 9.7 SECONDS (9.7-12.2) 08/22/18 12:49 INR 0.9 08/22/18 12:49 APTT 34 SECONDS (21-34) 08/22/18 12:49 - Constitutional Appears: Non-toxic, No Acute Distress - Head Exam Head Exam: NORMAL INSPECTION, NORMOCEPHALIC - Eye Exam Eye Exam: Normal appearance, PERRL - ENT Exam ENT Exam: Mucous Membranes Moist, Normal Exam - Neck Exam Neck Exam: Full ROM, Normal Inspection - Respiratory Exam Respiratory Exam: Clear to Ausculation Bilateral, NORMAL BREATHING PATTERN - Cardiovascular Exam Cardiovascular Exam: REGULAR RHYTHM, RRR - GI/Abdominal Exam GI & Abdominal Exam: Soft, Normal Bowel Sounds - Extremities Exam Extremities Exam: Full ROM (lue avf w/ thrill. rt chest permcath), Normal Inspection - Neurological Exam Neurological Exam: Alert, Awake, Oriented x3 - Psychiatric Exam Psychiatric exam: Normal Affect, Normal Mood - Skin Skin Exam: Dry, Intact Assessment and Plan (1) ESRD (end stage renal disease) Status: Acute (2) Chronic disease anemia Status: Chronic (3) Hypertension Status: Chronic - Assessment and Plan (Free Text) Assessment: plan for hd tomorrow christina / iv iron dc norvasc outpt placement
--- NOTE | 2018-08-26 12:22 | CARD ---
APPROVED REPORT Date of service: 08/25/2018 EKG Measurement Heart [id number] <Conclusion> Sinus rhythm with AV dissociation and Accelerated Junctional rhythm Abnormal ECG
--- NOTE | 2018-08-26 15:13 | CP.PCM.PN ---
Subjective - Date & Time of Evaluation Date of Evaluation: 08/26/18 Time of Evaluation: 14:30 - Subjective Subjective: Patient complaining of weakness with HD> Is receiving PT. She expressed the desire to be discharged to a subacute rehab because she lives alone at home, and she will not be able to care for herself. Objective - Vital Signs/Intake and Output Vital Signs (last 24 hours): Temp Pulse Resp BP Pulse Ox 98.2 F 80 20 130/71 97 08/26/18 08:01 08/26/18 10:05 08/26/18 08:01 08/26/18 10:05 08/26/18 08:01 Intake and Output: 08/26/18 08/26/18 06:59 18:59 Intake Total 400 300 Balance 400 300 - Medications Medications: Current Medications Acetaminophen (Tylenol 325mg Tab) 650 mg PO Q4 PRN PRN Reason: Pain, Mild (1-3) Last Admin: 08/25/18 18:33 Dose: 650 mg Docusate Sodium (Colace) 100 mg PO BID [facility] Last Admin: 08/26/18 10:07 Dose: 100 mg Epoetin Santosh (Procrit) 10,000 unit IV MWF [facility] Last Admin: 08/25/18 16:36 Dose: 10,000 unit Ferric Sodium Gluconate Complex 125 mg/ Sodium Chloride 110 mls @ 110 mls/hr IVPB DAILY [facility] Stop: 09/02/18 13:01 Last Admin: 08/26/18 10:09 Dose: 110 mls/hr Metoprolol Succinate (Toprol Xl) 25 mg PO BID [facility] Last Admin: 08/26/18 10:07 Dose: 25 mg Pantoprazole Sodium (Protonix Ec Tab) 40 mg PO DAILY [facility] Last Admin: 08/26/18 10:08 Dose: 40 mg Rosuvastatin Calcium (Crestor) 2.5 mg PO HS [facility] Last Admin: 08/25/18 21:12 Dose: 2.5 mg - Labs Labs: 08/25/18 10:40 08/22/18 12:49 PT 9.7 SECONDS (9.7-12.2) 08/22/18 12:49 INR 0.9 08/22/18 12:49 APTT 34 SECONDS (21-34) 08/22/18 12:49 - Constitutional Appears: Well, No Acute Distress - Head Exam Head Exam: NORMAL INSPECTION - Eye Exam Eye Exam: Normal appearance Pupil Exam: NORMAL ACCOMODATION - ENT Exam ENT Exam: Normal Exam - Neck Exam Neck Exam: Normal Inspection - Respiratory Exam Respiratory Exam: Clear to Ausculation Bilateral, NORMAL BREATHING PATTERN - Cardiovascular Exam Cardiovascular Exam: REGULAR RHYTHM, Murmur - GI/Abdominal Exam GI & Abdominal Exam: Soft, Normal Bowel Sounds - Rectal Exam Rectal Exam: Deferred - Extremities Exam Extremities Exam: Normal Inspection - Back Exam Back Exam: NORMAL INSPECTION - Neurological Exam Neurological Exam: Alert, Awake, Oriented x3 - Psychiatric Exam Psychiatric exam: Anxious - Skin Skin Exam: Dry, Intact, Normal Color, Warm Assessment and Plan (1) CKD (chronic kidney disease) stage 5, GFR less than 15 ml/min Assessment & Plan: HD as per nephrologists. Status: Chronic (2) Chronic disease anemia Assessment & Plan: On Ferrilicit IV. Status: Chronic (3) Hypertension Assessment & Plan: To continue BP meds. Status: Chronic
[2018-08-26] MEDS: Rosuvastatin Calcium 2.5 mg Tab PO SCH (21:18)
[2018-08-27] MEDS: Ferric Sodium Gluconat Complex 125 MG in Sodium Chloride 0.9% 100 ML IVPB SCH (09:33)
[2018-08-27] MEDS: Metoprolol Succinate 25 mg XL Tab PO SCH ×2 (09:38→19:00)
[2018-08-27] MEDS: Pantoprazole 40 mg EC Tab PO SCH (09:38)
--- NOTE | 2018-08-27 13:45 | CP.PCM.PN ---
Subjective - Date & Time of Evaluation Date of Evaluation: 08/27/18 Time of Evaluation: 13:43 - Subjective Subjective: For dialysis now Had c/o weakness post last HD BP controlled Still with poor appetite Objective - Vital Signs/Intake and Output Vital Signs (last 24 hours): Temp Pulse Resp BP Pulse Ox 97.7 F 79 20 160/70 H 97 08/27/18 07:00 08/27/18 09:32 08/27/18 07:00 08/27/18 09:32 08/27/18 07:00 Intake and Output: 08/27/18 08/27/18 06:59 18:59 Intake Total 400 Balance 400 - Medications Medications: Current Medications Acetaminophen (Tylenol 325mg Tab) 650 mg PO Q4 PRN PRN Reason: Pain, Mild (1-3) Last Admin: 08/26/18 21:55 Dose: 650 mg Docusate Sodium (Colace) 100 mg PO BID [facility] Last Admin: 08/27/18 09:38 Dose: 100 mg Epoetin Santosh (Procrit) 10,000 unit IV MWF [facility] Last Admin: 08/25/18 16:36 Dose: 10,000 unit Ferric Sodium Gluconate Complex 125 mg/ Sodium Chloride 110 mls @ 110 mls/hr IVPB DAILY [facility] Stop: 09/02/18 13:01 Last Admin: 08/27/18 09:33 Dose: 110 mls/hr Metoprolol Succinate (Toprol Xl) 25 mg PO BID [facility] Last Admin: 08/27/18 09:38 Dose: Not Given Pantoprazole Sodium (Protonix Ec Tab) 40 mg PO DAILY [facility] Last Admin: 08/27/18 09:38 Dose: 40 mg Rosuvastatin Calcium (Crestor) 2.5 mg PO HS [facility] Last Admin: 08/26/18 21:18 Dose: 2.5 mg - Labs Labs: 08/25/18 10:40 08/22/18 12:49 PT 9.7 SECONDS (9.7-12.2) 08/22/18 12:49 INR 0.9 08/22/18 12:49 APTT 34 SECONDS (21-34) 08/22/18 12:49 - Constitutional Appears: No Acute Distress, Chronically Ill - Head Exam Head Exam: ATRAUMATIC, NORMAL INSPECTION - Eye Exam Eye Exam: EOMI, Normal appearance - Neck Exam Neck Exam: Normal Inspection. absent: Tenderness - Respiratory Exam Respiratory Exam: Clear to Ausculation Bilateral, NORMAL BREATHING PATTERN - Cardiovascular Exam Cardiovascular Exam: REGULAR RHYTHM, +S1 - GI/Abdominal Exam GI & Abdominal Exam: Soft. absent: Tenderness - Extremities Exam Extremities Exam: Normal Inspection. absent: Tenderness - Neurological Exam Neurological Exam: Awake, CN II-XII Intact - Skin Skin Exam: Dry, Warm Assessment and Plan (1) CKD (chronic kidney disease) stage 5, GFR less than 15 ml/min Status: Chronic (2) Hypertensive chronic kidney disease with stage 5 chronic kidney disease or end stage renal disease Status: Acute (3) Chronic disease anemia Status: Chronic (4) DDD (degenerative disc disease), cervical Status: Acute (5) ESRD (end stage renal disease) Status: Acute - Assessment and Plan (Free Text) Plan: Decrease UF goal at dialysis HD MWF [facility], IV Fe Will need outpt dialysis placement
[2018-08-27] MEDS: Epoetin Alfa 10,000 unit/ml Dialysis IV SCH (15:34)
[2018-08-27] MEDS: Rosuvastatin Calcium 2.5 mg Tab PO SCH (22:06)
--- NOTE | 2018-08-27 23:51 | CP.PCM.PN ---
Subjective - Date & Time of Evaluation Date of Evaluation: 08/27/18 Time of Evaluation: 14:00 - Subjective Subjective: Patient still complaining of generalized weakness. Objective - Vital Signs/Intake and Output Vital Signs (last 24 hours): Temp Pulse Resp BP Pulse Ox 97.9 F 75 18 157/85 H 100 08/27/18 17:43 08/27/18 17:43 08/27/18 17:43 08/27/18 17:43 08/27/18 17:43 - Medications Medications: Current Medications Acetaminophen (Tylenol 325mg Tab) 650 mg PO Q4 PRN PRN Reason: Pain, Mild (1-3) Last Admin: 08/26/18 21:55 Dose: 650 mg Docusate Sodium (Colace) 100 mg PO BID [facility] Last Admin: 08/27/18 19:00 Dose: 100 mg Epoetin Santosh (Procrit) 10,000 unit IV MWF [facility] Last Admin: 08/27/18 15:34 Dose: 10,000 unit Ferric Sodium Gluconate Complex 125 mg/ Sodium Chloride 110 mls @ 110 mls/hr IVPB DAILY [facility] Stop: 09/02/18 13:01 Last Admin: 08/27/18 09:33 Dose: 110 mls/hr Metoprolol Succinate (Toprol Xl) 25 mg PO BID [facility] Last Admin: 08/27/18 19:00 Dose: 25 mg Pantoprazole Sodium (Protonix Ec Tab) 40 mg PO DAILY [facility] Last Admin: 08/27/18 09:38 Dose: 40 mg Rosuvastatin Calcium (Crestor) 2.5 mg PO HS [facility] Last Admin: 08/27/18 22:06 Dose: 2.5 mg - Labs Labs: 08/25/18 10:40 08/22/18 12:49 PT 9.7 SECONDS (9.7-12.2) 08/22/18 12:49 INR 0.9 08/22/18 12:49 APTT 34 SECONDS (21-34) 08/22/18 12:49 - Constitutional Appears: Well, No Acute Distress - Head Exam Head Exam: NORMAL INSPECTION - Eye Exam Eye Exam: Normal appearance - ENT Exam ENT Exam: Normal Exam - Neck Exam Neck Exam: Normal Inspection - Respiratory Exam Respiratory Exam: Clear to Ausculation Bilateral, NORMAL BREATHING PATTERN - Cardiovascular Exam Cardiovascular Exam: REGULAR RHYTHM - GI/Abdominal Exam GI & Abdominal Exam: Soft, Normal Bowel Sounds - Rectal Exam Rectal Exam: Deferred - Extremities Exam Extremities Exam: Normal Inspection - Back Exam Back Exam: NORMAL INSPECTION - Neurological Exam Neurological Exam: Alert, Awake - Psychiatric Exam Psychiatric exam: Anxious - Skin Skin Exam: Dry, Intact, Normal Color, Warm Assessment and Plan (1) CKD (chronic kidney disease) stage 5, GFR less than 15 ml/min Assessment & Plan: To continue HD as pe Nephrologists. Status: Chronic (2) Chronic disease anemia Assessment & Plan: On Ferrous sulfate. Status: Chronic (3) Hypertension Status: Chronic
[2018-08-28] MEDS: Metoprolol Succinate 25 mg XL Tab PO SCH ×2 (09:33→17:16)
--- NOTE | 2018-08-28 09:34 | CP.PCM.PN ---
Subjective - Date & Time of Evaluation Date of Evaluation: 08/28/18 Time of Evaluation: : - Subjective Subjective: s/p dialysis 08/27 Feels better not dyspnea, better appetite wants to go to rehab/OR center on rx for chronic anemia Objective - Vital Signs/Intake and Output Vital Signs (last 24 hours): Temp Pulse Resp BP Pulse Ox 98.5 F 60 19 136/70 20 L 08/28/18 08:00 08/28/18 08:00 08/28/18 08:00 08/28/18 08:00 08/28/18 08:00 - Medications Medications: Current Medications Acetaminophen (Tylenol 325mg Tab) 650 mg PO Q4 PRN PRN Reason: Pain, Mild (1-3) Last Admin: 08/26/18 21:55 Dose: 650 mg Docusate Sodium (Colace) 100 mg PO BID [facility] Last Admin: 08/27/18 19:00 Dose: 100 mg Epoetin Santosh (Procrit) 10,000 unit IV MWF [facility] Last Admin: 08/27/18 15:34 Dose: 10,000 unit Ferric Sodium Gluconate Complex 125 mg/ Sodium Chloride 110 mls @ 110 mls/hr IVPB DAILY [facility] Stop: 09/02/18 13:01 Last Admin: 08/27/18 09:33 Dose: 110 mls/hr Metoprolol Succinate (Toprol Xl) 25 mg PO BID [facility] Last Admin: 08/27/18 19:00 Dose: 25 mg Pantoprazole Sodium (Protonix Ec Tab) 40 mg PO DAILY [facility] Last Admin: 08/27/18 09:38 Dose: 40 mg Rosuvastatin Calcium (Crestor) 2.5 mg PO HS [facility] Last Admin: 08/27/18 22:06 Dose: 2.5 mg - Labs Labs: 08/25/18 10:40 08/22/18 12:49 PT 9.7 SECONDS (9.7-12.2) 08/22/18 12:49 INR 0.9 08/22/18 12:49 APTT 34 SECONDS (21-34) 08/22/18 12:49 - Constitutional Appears: No Acute Distress, Chronically Ill - Head Exam Head Exam: ATRAUMATIC, NORMAL INSPECTION - Eye Exam Eye Exam: EOMI, Normal appearance - Neck Exam Neck Exam: Normal Inspection. absent: Tenderness - Respiratory Exam Respiratory Exam: Clear to Ausculation Bilateral, Respiratory Distress, NORMAL BREATHING PATTERN - Cardiovascular Exam Cardiovascular Exam: REGULAR RHYTHM, +S1 - GI/Abdominal Exam GI & Abdominal Exam: Soft. absent: Tenderness - Extremities Exam Extremities Exam: Normal Inspection. absent: Tenderness - Neurological Exam Neurological Exam: Awake, CN II-XII Intact - Skin Skin Exam: Dry, Warm Assessment and Plan (1) CKD (chronic kidney disease) stage 5, GFR less than 15 ml/min Status: Chronic (2) Hypertensive chronic kidney disease with stage 5 chronic kidney disease or end stage renal disease Status: Acute (3) Chronic disease anemia Status: Chronic (4) DDD (degenerative disc disease), cervical Status: Acute (5) ESRD (end stage renal disease) Status: Acute - Assessment and Plan (Free Text) Plan: Dialysis MWF Same meds Outpt dialysis arranged
[2018-08-28] MEDS: Pantoprazole 40 mg EC Tab PO SCH (09:38)
[2018-08-28] MEDS: Ferric Sodium Gluconat Complex 125 MG in Sodium Chloride 0.9% 100 ML IVPB SCH (09:46)
[2018-08-28] MEDS: Rosuvastatin Calcium 2.5 mg Tab PO SCH (21:21)
--- NOTE | 2018-08-28 23:32 | CP.PCM.PN ---
Subjective - Date & Time of Evaluation Date of Evaluation: 08/28/18 Time of Evaluation: 20:00 - Subjective Subjective: Patient feels better, stronger, with better appetite. Objective - Vital Signs/Intake and Output Vital Signs (last 24 hours): Temp Pulse Resp BP Pulse Ox 98.3 F 73 20 136/69 97 08/28/18 15:41 08/28/18 22:32 08/28/18 15:41 08/28/18 15:41 08/28/18 15:41 Intake and Output: 08/28/18 08/29/18 18:59 06:59 Intake Total 500 Balance 500 - Medications Medications: Current Medications Acetaminophen (Tylenol 325mg Tab) 650 mg PO Q4 PRN PRN Reason: Pain, Mild (1-3) Last Admin: 08/26/18 21:55 Dose: 650 mg Docusate Sodium (Colace) 100 mg PO BID [facility] Last Admin: 08/28/18 17:16 Dose: 100 mg Epoetin Santosh (Procrit) 10,000 unit IV MWF [facility] Last Admin: 08/27/18 15:34 Dose: 10,000 unit Ferric Sodium Gluconate Complex 125 mg/ Sodium Chloride 110 mls @ 110 mls/hr IVPB DAILY [facility] Stop: 09/02/18 13:01 Last Admin: 08/28/18 09:46 Dose: 110 mls/hr Metoprolol Succinate (Toprol Xl) 25 mg PO BID [facility] Last Admin: 08/28/18 17:16 Dose: 25 mg Pantoprazole Sodium (Protonix Ec Tab) 40 mg PO DAILY [facility] Last Admin: 08/28/18 09:38 Dose: 40 mg Rosuvastatin Calcium (Crestor) 2.5 mg PO HS [facility] Last Admin: 08/28/18 21:21 Dose: 2.5 mg - Labs Labs: 08/25/18 10:40 08/22/18 12:49 PT 9.7 SECONDS (9.7-12.2) 08/22/18 12:49 INR 0.9 08/22/18 12:49 APTT 34 SECONDS (21-34) 08/22/18 12:49 - Constitutional Appears: Well, No Acute Distress - Head Exam Head Exam: NORMAL INSPECTION - Eye Exam Eye Exam: Normal appearance Pupil Exam: NORMAL ACCOMODATION - ENT Exam ENT Exam: Normal Exam - Neck Exam Neck Exam: Normal Inspection - Respiratory Exam Respiratory Exam: Clear to Ausculation Bilateral, NORMAL BREATHING PATTERN - Cardiovascular Exam Cardiovascular Exam: REGULAR RHYTHM - GI/Abdominal Exam GI & Abdominal Exam: Soft, Normal Bowel Sounds - Rectal Exam Rectal Exam: Deferred - Extremities Exam Extremities Exam: Normal Inspection - Back Exam Back Exam: NORMAL INSPECTION - Neurological Exam Neurological Exam: Alert, Awake, Oriented x3 - Psychiatric Exam Psychiatric exam: Anxious - Skin Skin Exam: Dry, Intact, Normal Color, Warm Assessment and Plan (1) CKD (chronic kidney disease) stage 5, GFR less than 15 ml/min Assessment & Plan: Hemodialysis as per Nephrologists. Status: Chronic (2) Chronic disease anemia Assessment & Plan: On Ferrous sulfate. Status: Chronic (3) Hypertension Assessment & Plan: Controlled. Status: Chronic
[2018-08-29] MEDS: Metoprolol Succinate 25 mg XL Tab PO SCH ×2 (09:53→17:04)
[2018-08-29] MEDS: Pantoprazole 40 mg EC Tab PO SCH (09:53)
[2018-08-29] MEDS: Ferric Sodium Gluconat Complex 125 MG in Sodium Chloride 0.9% 100 ML IVPB SCH (11:20)
[2018-08-29] MEDS: Epoetin Alfa 10,000 unit/ml Dialysis IV SCH (11:21)
--- NOTE | 2018-08-29 14:06 | CP.PCM.PN ---
Subjective - Date & Time of Evaluation Date of Evaluation: 08/29/18 Time of Evaluation: 14:04 - Subjective Subjective: Stable dialysis now BP controlled Better appetite AV fistula with thrill Objective - Vital Signs/Intake and Output Vital Signs (last 24 hours): Temp Pulse Resp BP Pulse Ox 98.5 F 60 18 124/65 98 08/29/18 12:50 08/29/18 12:50 08/29/18 12:50 08/29/18 12:50 08/29/18 12:50 Intake and Output: 08/29/18 08/29/18 06:59 18:59 Intake Total 500 Balance 500 - Medications Medications: Current Medications Acetaminophen (Tylenol 325mg Tab) 650 mg PO Q4 PRN PRN Reason: Pain, Mild (1-3) Last Admin: 08/26/18 21:55 Dose: 650 mg Docusate Sodium (Colace) 100 mg PO BID [facility] Last Admin: 08/29/18 09:52 Dose: Not Given Epoetin Santosh (Procrit) 10,000 unit IV MWF [facility] Last Admin: 08/29/18 11:21 Dose: 10,000 unit Ferric Sodium Gluconate Complex 125 mg/ Sodium Chloride 110 mls @ 110 mls/hr IVPB DAILY [facility] Stop: 09/02/18 13:01 Last Admin: 08/29/18 11:20 Dose: 110 mls/hr Metoprolol Succinate (Toprol Xl) 25 mg PO BID [facility] Last Admin: 08/29/18 09:53 Dose: Not Given Pantoprazole Sodium (Protonix Ec Tab) 40 mg PO DAILY [facility] Last Admin: 08/29/18 09:53 Dose: Not Given Rosuvastatin Calcium (Crestor) 2.5 mg PO HS [facility] Last Admin: 08/28/18 21:21 Dose: 2.5 mg - Labs Labs: 08/25/18 10:40 08/22/18 12:49 PT 9.7 SECONDS (9.7-12.2) 08/22/18 12:49 INR 0.9 08/22/18 12:49 APTT 34 SECONDS (21-34) 08/22/18 12:49 - Constitutional Appears: No Acute Distress, Chronically Ill - Head Exam Head Exam: ATRAUMATIC, NORMAL INSPECTION - Eye Exam Eye Exam: EOMI, Normal appearance - Neck Exam Neck Exam: Normal Inspection. absent: Tenderness - Cardiovascular Exam Cardiovascular Exam: REGULAR RHYTHM, +S1 - GI/Abdominal Exam GI & Abdominal Exam: Soft. absent: Tenderness - Extremities Exam Extremities Exam: Normal Inspection. absent: Tenderness - Neurological Exam Neurological Exam: Awake, CN II-XII Intact - Skin Skin Exam: Dry, Warm Assessment and Plan (1) CKD (chronic kidney disease) stage 5, GFR less than 15 ml/min Status: Chronic (2) Hypertensive chronic kidney disease with stage 5 chronic kidney disease or end stage renal disease Status: Acute (3) Chronic disease anemia Status: Chronic (4) DDD (degenerative disc disease), cervical Status: Acute (5) ESRD (end stage renal disease) Status: Acute - Assessment and Plan (Free Text) Plan: Same dialysis await outpt HD placement
[2018-08-29] MEDS: Rosuvastatin Calcium 2.5 mg Tab PO SCH (21:10)
--- NOTE | 2018-08-29 23:55 | CP.PCM.PN ---
Subjective - Date & Time of Evaluation Date of Evaluation: 08/29/18 Time of Evaluation: 20:30 - Subjective Subjective: Patient feels better, stronger and with better appetite. Objective - Vital Signs/Intake and Output Vital Signs (last 24 hours): Temp Pulse Resp BP Pulse Ox 98.9 F 73 20 138/77 100 08/29/18 15:00 08/29/18 16:29 08/29/18 15:00 08/29/18 15:00 08/29/18 15:00 Intake and Output: 08/29/18 08/30/18 18:59 06:59 Intake Total 300 400 Balance 300 400 - Medications Medications: Current Medications Acetaminophen (Tylenol 325mg Tab) 650 mg PO Q4 PRN PRN Reason: Pain, Mild (1-3) Last Admin: 08/29/18 18:58 Dose: 650 mg Docusate Sodium (Colace) 100 mg PO BID [facility] Last Admin: 08/29/18 17:04 Dose: 100 mg Epoetin Santosh (Procrit) 10,000 unit IV MWF [facility] Last Admin: 08/29/18 11:21 Dose: 10,000 unit Ferric Sodium Gluconate Complex 125 mg/ Sodium Chloride 110 mls @ 110 mls/hr IVPB DAILY [facility] Stop: 09/02/18 13:01 Last Admin: 08/29/18 11:20 Dose: 110 mls/hr Metoprolol Succinate (Toprol Xl) 25 mg PO BID [facility] Last Admin: 08/29/18 17:04 Dose: 25 mg Pantoprazole Sodium (Protonix Ec Tab) 40 mg PO DAILY [facility] Last Admin: 08/29/18 09:53 Dose: Not Given Rosuvastatin Calcium (Crestor) 2.[address] [facility] Last Admin: 08/29/18 21:10 Dose: 2.5 mg - Labs Labs: 08/25/18 10:40 08/22/18 12:49 PT 9.7 SECONDS (9.7-12.2) 08/22/18 12:49 INR 0.9 08/22/18 12:49 APTT 34 SECONDS (21-34) 08/22/18 12:49 - Constitutional Appears: Well, No Acute Distress - Head Exam Head Exam: NORMOCEPHALIC - Eye Exam Eye Exam: Normal appearance Pupil Exam: NORMAL ACCOMODATION - ENT Exam ENT Exam: Normal Exam - Neck Exam Neck Exam: Normal Inspection - Respiratory Exam Respiratory Exam: Clear to Ausculation Bilateral, NORMAL BREATHING PATTERN - Cardiovascular Exam Cardiovascular Exam: REGULAR RHYTHM - GI/Abdominal Exam GI & Abdominal Exam: Soft, Normal Bowel Sounds - Rectal Exam Rectal Exam: Deferred - Extremities Exam Extremities Exam: Normal Inspection - Back Exam Back Exam: NORMAL INSPECTION - Neurological Exam Neurological Exam: Alert, Awake, Oriented x3 - Psychiatric Exam Psychiatric exam: Anxious - Skin Skin Exam: Dry, Intact, Warm Assessment and Plan (1) CKD (chronic kidney disease) stage 5, GFR less than 15 ml/min Assessment & Plan: HD as per Nephrologists. Status: Chronic (2) Chronic disease anemia Status: Chronic (3) Hypertension Status: Chronic
[2018-08-30] MEDS: Pantoprazole 40 mg EC Tab PO SCH (09:25)
[2018-08-30] MEDS: Metoprolol Succinate 25 mg XL Tab PO SCH ×2 (09:26→18:09)
[2018-08-30] MEDS: Ferric Sodium Gluconat Complex 125 MG in Sodium Chloride 0.9% 100 ML IVPB SCH (09:29)
--- NOTE | 2018-08-30 10:03 | CP.PCM.PN ---
Subjective - Date & Time of Evaluation Date of Evaluation: 08/30/18 Time of Evaluation: 10:01 - Subjective Subjective: Notes reviewed Sitting up in bed Feels better overall Tolerating dialysis No cp or palp No sob or cough IV IRon received Appetite ok 10 point ros negative other than stated above Objective - Vital Signs/Intake and Output Vital Signs (last 24 hours): Temp Pulse Resp BP Pulse Ox 98.4 F 76 20 123/72 99 08/30/18 07:00 08/30/18 09:26 08/30/18 07:00 08/30/18 09:26 08/30/18 07:00 Intake and Output: 08/30/18 08/30/18 06:59 18:59 Intake Total 400 Balance 400 - Medications Medications: Current Medications Acetaminophen (Tylenol 325mg Tab) 650 mg PO Q4 PRN PRN Reason: Pain, Mild (1-3) Last Admin: 08/29/18 18:58 Dose: 650 mg Docusate Sodium (Colace) 100 mg PO BID [facility] Last Admin: 08/30/18 09:26 Dose: 100 mg Epoetin Santosh (Procrit) 10,000 unit IV MWF [facility] Last Admin: 08/29/18 11:21 Dose: 10,000 unit Ferric Sodium Gluconate Complex 125 mg/ Sodium Chloride 110 mls @ 110 mls/hr IVPB DAILY [facility] Stop: 09/02/18 13:01 Last Admin: 08/30/18 09:29 Dose: 110 mls/hr Metoprolol Succinate (Toprol Xl) 25 mg PO BID [facility] Last Admin: 08/30/18 09:26 Dose: 25 mg Pantoprazole Sodium (Protonix Ec Tab) 40 mg PO DAILY [facility] Last Admin: 08/30/18 09:25 Dose: 40 mg Rosuvastatin Calcium (Crestor) 2.5 mg PO HS [facility] Last Admin: 08/29/18 21:10 Dose: 2.5 mg - Labs Labs: 08/25/18 10:40 08/22/18 12:49 PT 9.7 SECONDS (9.7-12.2) 08/22/18 12:49 INR 0.9 08/22/18 12:49 APTT 34 SECONDS (21-34) 08/22/18 12:49 - Constitutional Appears: Well, Non-toxic - Head Exam Head Exam: ATRAUMATIC, NORMAL INSPECTION - ENT Exam ENT Exam: Mucous Membranes Moist, Normal Oropharynx - Neck Exam Neck Exam: absent: Lymphadenopathy, Thyromegaly - Respiratory Exam Respiratory Exam: Clear to Ausculation Bilateral. absent: Rhonchi, Wheezes - Cardiovascular Exam Cardiovascular Exam: +S1, +S2. absent: JVD - GI/Abdominal Exam GI & Abdominal Exam: Soft, Normal Bowel Sounds - Extremities Exam Extremities Exam: Pedal Edema. absent: Tenderness - Neurological Exam Neurological Exam: Alert, Awake, Oriented x3 - Psychiatric Exam Psychiatric exam: Normal Affect, Normal Mood - Skin Skin Exam: Dry, Intact Assessment and Plan (1) DDD (degenerative disc disease), cervical Status: Acute (2) ESRD (end stage renal disease) Status: Acute (3) Chronic disease anemia Status: Chronic (4) Hypertension Status: Chronic - Assessment and Plan (Free Text) Assessment: Tolerating dialysis well Maintain schedule Bp acceptable Continue christina for anemia Continue current care
--- NOTE | 2018-08-30 17:12 | CP.PCM.PN ---
Subjective - Date & Time of Evaluation Date of Evaluation: 08/30/18 Time of Evaluation: 17:09 - Subjective Subjective: Patient feels stronger, with better appetite, but constipated. Objective - Vital Signs/Intake and Output Vital Signs (last 24 hours): Temp Pulse Resp BP Pulse Ox 98.4 F 64 20 126/61 99 08/30/18 15:00 08/30/18 16:44 08/30/18 15:00 08/30/18 15:00 08/30/18 15:00 Intake and Output: 08/30/18 08/30/18 06:59 18:59 Intake Total 400 Balance 400 - Medications Medications: Current Medications Acetaminophen (Tylenol 325mg Tab) 650 mg PO Q4 PRN PRN Reason: Pain, Mild (1-3) Last Admin: 08/29/18 18:58 Dose: 650 mg Docusate Sodium (Colace) 100 mg PO BID [facility] Last Admin: 08/30/18 09:26 Dose: 100 mg Epoetin Santosh (Procrit) 10,000 unit IV MWF [facility] Last Admin: 08/29/18 11:21 Dose: 10,000 unit Ferric Sodium Gluconate Complex 125 mg/ Sodium Chloride 110 mls @ 110 mls/hr IVPB DAILY [facility] Stop: 09/02/18 13:01 Last Admin: 08/30/18 09:29 Dose: 110 mls/hr Metoprolol Succinate (Toprol Xl) 25 mg PO BID [facility] Last Admin: 08/30/18 09:26 Dose: 25 mg Pantoprazole Sodium (Protonix Ec Tab) 40 mg PO DAILY [facility] Last Admin: 08/30/18 09:25 Dose: 40 mg Rosuvastatin Calcium (Crestor) 2.5 mg PO [facility] Last Admin: 08/29/18 21:10 Dose: 2.5 mg - Labs Labs: 08/25/18 10:40 08/22/18 12:49 PT 9.7 SECONDS (9.7-12.2) 08/22/18 12:49 INR 0.9 08/22/18 12:49 APTT 34 SECONDS (21-34) 08/22/18 12:49 - Constitutional Appears: Well, No Acute Distress - Head Exam Head Exam: NORMAL INSPECTION - Eye Exam Eye Exam: Normal appearance - ENT Exam ENT Exam: Normal Exam - Neck Exam Neck Exam: Normal Inspection - Respiratory Exam Respiratory Exam: Clear to Ausculation Bilateral, NORMAL BREATHING PATTERN - Cardiovascular Exam Cardiovascular Exam: REGULAR RHYTHM - GI/Abdominal Exam GI & Abdominal Exam: Soft, Normal Bowel Sounds - Rectal Exam Rectal Exam: Deferred - Extremities Exam Extremities Exam: Normal Inspection - Back Exam Back Exam: NORMAL INSPECTION - Neurological Exam Neurological Exam: Alert, Awake, Normal Gait, Oriented x3 - Psychiatric Exam Psychiatric exam: Anxious - Skin Skin Exam: Dry, Intact, Normal Color, Warm Assessment and Plan (1) CKD (chronic kidney disease) stage 5, GFR less than 15 ml/min Status: Chronic (2) Chronic disease anemia Status: Chronic (3) Hypertension Status: Chronic
[2018-08-30] MEDS: Rosuvastatin Calcium 2.5 mg Tab PO SCH (21:17)
[2018-08-31] MEDS: Metoprolol Succinate 25 mg XL Tab PO SCH ×2 (09:02→17:00)
[2018-08-31] MEDS: Pantoprazole 40 mg EC Tab PO SCH (09:03)
[2018-08-31] MEDS: Ferric Sodium Gluconat Complex 125 MG in Sodium Chloride 0.9% 100 ML IVPB SCH (09:56)
[2018-08-31] MEDS: Rosuvastatin Calcium 2.5 mg Tab PO SCH (21:09)
[2018-09-01] MEDS: Pantoprazole 40 mg EC Tab PO SCH (09:07)
[2018-09-01] MEDS: Metoprolol Succinate 25 mg XL Tab PO SCH ×2 (09:07→17:05)
--- NOTE | 2018-09-01 10:54 | CP.PCM.PN ---
Subjective - Date & Time of Evaluation Date of Evaluation: 09/01/18 Time of Evaluation: 10:51 - Subjective Subjective: Seen at dialysis Feels better, no dyspnea, CPs, n, v. Better appetite UF 700ml Outpt dialysis arranged Objective - Vital Signs/Intake and Output Vital Signs (last 24 hours): Temp Pulse Resp BP Pulse Ox 98.1 F 74 16 184/88 H 100 09/01/18 09:10 09/01/18 09:10 09/01/18 09:10 09/01/18 09:10 09/01/18 08:23 Intake and Output: 09/01/18 09/01/18 06:59 18:59 Intake Total 540 Balance 540 - Medications Medications: Current Medications Acetaminophen (Tylenol 325mg Tab) 650 mg PO Q4 PRN PRN Reason: Pain, Mild (1-3) Last Admin: 08/29/18 18:58 Dose: 650 mg Docusate Sodium (Colace) 100 mg PO BID [facility] Last Admin: 09/01/18 09:07 Dose: Not Given Epoetin Santosh (Procrit) 10,000 unit IV MWF [facility] Last Admin: 08/29/18 11:21 Dose: 10,000 unit Ferric Sodium Gluconate Complex 125 mg/ Sodium Chloride 110 mls @ 110 mls/hr IVPB DAILY [facility] Stop: 09/02/18 13:01 Last Admin: 08/31/18 09:56 Dose: 110 mls/hr Lactulose (Enulose) 20 gm PO HS PRN PRN Reason: Constipation Last Admin: 08/30/18 22:01 Dose: 20 gm Metoprolol Succinate (Toprol Xl) 25 mg PO BID [facility] Last Admin: 09/01/18 09:07 Dose: Not Given Pantoprazole Sodium (Protonix Ec Tab) 40 mg PO DAILY [facility] Last Admin: 09/01/18 09:07 Dose: Not Given Rosuvastatin Calcium (Crestor) 2.5 mg PO HS [facility] Last Admin: 08/31/18 21:09 Dose: 2.5 mg - Labs Labs: 08/25/18 10:40 08/22/18 12:49 PT 9.7 SECONDS (9.7-12.2) 08/22/18 12:49 INR 0.9 08/22/18 12:49 APTT 34 SECONDS (21-34) 08/22/18 12:49 - Constitutional Appears: No Acute Distress, Chronically Ill - Head Exam Head Exam: ATRAUMATIC, NORMAL INSPECTION - Eye Exam Eye Exam: EOMI, Normal appearance - Neck Exam Neck Exam: Normal Inspection. absent: Tenderness - Respiratory Exam Respiratory Exam: Clear to Ausculation Bilateral, NORMAL BREATHING PATTERN - Cardiovascular Exam Cardiovascular Exam: REGULAR RHYTHM, +S1 - GI/Abdominal Exam GI & Abdominal Exam: Soft. absent: Tenderness - Extremities Exam Extremities Exam: Normal Inspection. absent: Tenderness - Neurological Exam Neurological Exam: Awake, CN II-XII Intact - Skin Skin Exam: Dry, Warm Assessment and Plan (1) CKD (chronic kidney disease) stage 5, GFR less than 15 ml/min Status: Chronic (2) Hypertensive chronic kidney disease with stage 5 chronic kidney disease or end stage renal disease Status: Acute (3) Chronic disease anemia Status: Chronic (4) DDD (degenerative disc disease), cervical Status: Acute (5) ESRD (end stage renal disease) Status: Acute - Assessment and Plan (Free Text) Plan: Doing well now Same meds Dialysis MWF Outpt dialysis arranged Can be sent home post dialysis as deemed by medicine
[2018-09-01] MEDS ORDERED: Ferric Sodium Gluconat Complex 62.5 mg/5 ml Vial ONE (11:24)
[2018-09-01] MEDS: Epoetin Alfa 10,000 unit/ml Dialysis IV SCH (11:24)
[2018-09-01] MEDS: Ferric Sodium Gluconat Complex 125 MG in Sodium Chloride 0.9% 100 ML IVPB SCH (12:23)
[2018-09-01] MEDS: Rosuvastatin Calcium 2.5 mg Tab PO SCH (21:21)
--- NOTE | 2018-09-01 22:51 | CP.PCM.PN ---
Subjective - Date & Time of Evaluation Date of Evaluation: 09/01/18 Time of Evaluation: 20:30 - Subjective Subjective: Patient feels well.Tolerates HD . Objective - Vital Signs/Intake and Output Vital Signs (last 24 hours): Temp Pulse Resp BP Pulse Ox 98.6 F 76 20 145/71 98 09/01/18 15:00 09/01/18 15:00 09/01/18 15:00 09/01/18 15:00 09/01/18 15:00 Intake and Output: 09/01/18 09/02/18 18:59 06:59 Intake Total 300 Balance 300 - Medications Medications: Current Medications Acetaminophen (Tylenol 325mg Tab) 650 mg PO Q4 PRN PRN Reason: Pain, Mild (1-3) Last Admin: 09/01/18 22:33 Dose: 650 mg Docusate Sodium (Colace) 100 mg PO BID [facility] Last Admin: 09/01/18 17:05 Dose: 100 mg Epoetin Santosh (Procrit) 10,000 unit IV MWF [facility] Last Admin: 09/01/18 11:24 Dose: 10,000 unit Heparin Sodium (Porcine) (Heparin) 3,700 units IVP MWF [facility] Last Admin: 09/01/18 12:27 Dose: 3,700 units Ferric Sodium Gluconate Complex 125 mg/ Sodium Chloride 110 mls @ 110 mls/hr IVPB DAILY [facility] Stop: 09/02/18 13:01 Last Admin: 09/01/18 12:23 Dose: 110 mls/hr Lactulose (Enulose) 20 gm PO HS PRN PRN Reason: Constipation Last Admin: 08/30/18 22:01 Dose: 20 gm Metoprolol Succinate (Toprol Xl) 25 mg PO BID [facility] Last Admin: 09/01/18 17:05 Dose: 25 mg Pantoprazole Sodium (Protonix Ec Tab) 40 mg PO DAILY [facility] Last Admin: 09/01/18 09:07 Dose: Not Given Rosuvastatin Calcium (Crestor) 2.5 mg PO HS [facility] Last Admin: 09/01/18 21:21 Dose: 2.5 mg - Labs Labs: 08/25/18 10:40 08/22/18 12:49 PT 9.7 SECONDS (9.7-12.2) 08/22/18 12:49 INR 0.9 08/22/18 12:49 APTT 34 SECONDS (21-34) 08/22/18 12:49 - Constitutional Appears: Well, No Acute Distress - Head Exam Head Exam: NORMAL INSPECTION - Eye Exam Eye Exam: Normal appearance Pupil Exam: NORMAL ACCOMODATION - ENT Exam ENT Exam: Normal Exam - Neck Exam Neck Exam: Normal Inspection - Respiratory Exam Respiratory Exam: Clear to Ausculation Bilateral, NORMAL BREATHING PATTERN - Cardiovascular Exam Cardiovascular Exam: REGULAR RHYTHM - GI/Abdominal Exam GI & Abdominal Exam: Soft, Hernia, Normal Bowel Sounds - Rectal Exam Rectal Exam: Deferred - Exam Exam: NORMAL INSPECTION - Extremities Exam Extremities Exam: Normal Inspection - Back Exam Back Exam: NORMAL INSPECTION - Neurological Exam Neurological Exam: Alert, Awake, Normal Gait, Oriented x3 - Psychiatric Exam Psychiatric exam: Anxious - Skin Skin Exam: Dry, Intact, Normal Color, Warm Assessment and Plan (1) CKD (chronic kidney disease) stage 5, GFR less than 15 ml/min Assessment & Plan: HD as per Nephrologists. Status: Chronic (2) Chronic disease anemia Assessment & Plan: On Ferrous sulfate. Status: Chronic (3) Hypertension Assessment & Plan: Controlled. Status: Chronic
[2018-09-02 07:56] LABS: BASO % 0.6 % (0.0-2.0); EOS # 0.1 K/uL (0.0-0.7); EOS % 1.9 % (0.0-4.0); HEMOGLOBIN 9.8 g/dL (11.0-16.0); MONO # 0.9 K/uL (0.0-0.8); WHITE BLOOD COUNT 6.1 K/uL (4.8-10.8)
[2018-09-02 08:04] LABS: LYMPH % 32.8 % (20.0-40.0); MEAN CORPUSCULAR HEMOGLOBIN 32.5 pg (27.0-31.0); MEAN CORPUSCULAR HGB CONC 32.8 g/dL (33.0-37.0); MEAN PLATELET VOLUME 8.5 fL (7.2-11.7); MONO % 14.6 % (0.0-10.0); NEUT % 50.1 % (50.0-75.0); NRBC % 0.3 % (0.0-2.0); RBC 3.01 Mil/uL (3.80-5.20); RED CELL DISTRIBUTION WIDTH 16.5 % (11.5-14.5)
[2018-09-02 08:05] LABS: MEAN CELL VOLUME 99.1 fL (81.0-99.0)
[2018-09-02 08:28] LABS: ALB/GLOB RATIO 1.3 (1.0-2.1); ALBUMIN 3.8 g/dL (3.5-5.0); CALCIUM 8.7 mg/dl (8.6-10.4)
[2018-09-02] MEDS: Ferric Sodium Gluconat Complex 125 MG in Sodium Chloride 0.9% 100 ML IVPB SCH (09:27)
[2018-09-02] MEDS: Pantoprazole 40 mg EC Tab PO SCH (09:27)
[2018-09-02] MEDS: Metoprolol Succinate 25 mg XL Tab PO SCH ×2 (09:27→17:08)
--- NOTE | 2018-09-02 11:31 | CP.PCM.PN ---
Subjective - Date & Time of Evaluation Date of Evaluation: 09/02/18 Time of Evaluation: 11:30 - Subjective Subjective: seen and examined no complaints s/p hd yesterday Objective - Vital Signs/Intake and Output Vital Signs (last 24 hours): Temp Pulse Resp BP Pulse Ox 98.2 F 65 20 165/79 H 99 09/02/18 07:00 09/02/18 09:02 09/02/18 07:00 09/02/18 09:02 09/02/18 07:00 Intake and Output: 09/02/18 09/02/18 06:59 18:59 Intake Total 300 Balance 300 - Medications Medications: Current Medications Acetaminophen (Tylenol 325mg Tab) 650 mg PO Q4 PRN PRN Reason: Pain, Mild (1-3) Last Admin: 09/01/18 22:33 Dose: 650 mg Docusate Sodium (Colace) 100 mg PO BID [facility] Last Admin: 09/02/18 09:26 Dose: 100 mg Epoetin Santosh (Procrit) 10,000 unit IV MWF [facility] Last Admin: 09/01/18 11:24 Dose: 10,000 unit Heparin Sodium (Porcine) (Heparin) 3,700 units IVP MWF [facility] Last Admin: 09/01/18 12:27 Dose: 3,700 units Ferric Sodium Gluconate Complex 125 mg/ Sodium Chloride 110 mls @ 110 mls/hr IVPB DAILY [facility] Stop: 09/02/18 13:01 Last Admin: 09/02/18 09:27 Dose: 110 mls/hr Lactulose (Enulose) 20 gm PO HS PRN PRN Reason: Constipation Last Admin: 08/30/18 22:01 Dose: 20 gm Metoprolol Succinate (Toprol Xl) 25 mg PO BID [facility] Last Admin: 09/02/18 09:27 Dose: 25 mg Pantoprazole Sodium (Protonix Ec Tab) 40 mg PO DAILY [facility] Last Admin: 09/02/18 09:27 Dose: 40 mg Rosuvastatin Calcium (Crestor) 2.5 mg PO HS [facility] Last Admin: 09/01/18 21:21 Dose: 2.5 mg - Labs Labs: 09/02/18 07:46 09/02/18 07:46 PT 9.7 SECONDS (9.7-12.2) 08/22/18 12:49 INR 0.9 08/22/18 12:49 APTT 34 SECONDS (21-34) 08/22/18 12:49 - Constitutional Appears: No Acute Distress, Chronically Ill - Head Exam Head Exam: NORMAL INSPECTION, NORMOCEPHALIC - Eye Exam Eye Exam: Normal appearance, PERRL - ENT Exam ENT Exam: Mucous Membranes Moist, Normal Exam - Respiratory Exam Respiratory Exam: Clear to Ausculation Bilateral, NORMAL BREATHING PATTERN - Cardiovascular Exam Cardiovascular Exam: REGULAR RHYTHM, RRR - GI/Abdominal Exam GI & Abdominal Exam: Distended, Soft - Extremities Exam Extremities Exam: Full ROM, Normal Inspection - Neurological Exam Neurological Exam: Alert, Awake - Psychiatric Exam Psychiatric exam: Normal Affect, Normal Mood - Skin Skin Exam: Dry, Intact, Warm Assessment and Plan (1) ESRD (end stage renal disease) Status: Acute (2) Chronic disease anemia Status: Chronic (3) Hypertension Status: Chronic - Assessment and Plan (Free Text) Assessment: maintain hd mwf bp acceptable hgb stable stable for dc from renal standpoint
[2018-09-02] MEDS: Rosuvastatin Calcium 2.5 mg Tab PO SCH (21:11)
--- NOTE | 2018-09-03 01:01 | CP.PCM.PN ---
Subjective - Date & Time of Evaluation Date of Evaluation: 09/02/18 Time of Evaluation: 21:00 - Subjective Subjective: Patient feels better, but still weak. Tolerates HD well. Objective - Vital Signs/Intake and Output Vital Signs (last 24 hours): Temp Pulse Resp BP Pulse Ox 98.9 F 63 20 166/79 H 95 09/03/18 00:00 09/03/18 00:00 09/03/18 00:00 09/03/18 00:00 09/03/18 00:00 Intake and Output: 09/02/18 09/03/18 18:59 06:59 Intake Total 400 500 Balance 400 500 - Medications Medications: Current Medications Acetaminophen (Tylenol 325mg Tab) 650 mg PO Q4 PRN PRN Reason: Pain, Mild (1-3) Last Admin: 09/01/18 22:33 Dose: 650 mg Docusate Sodium (Colace) 100 mg PO BID [facility] Last Admin: 09/02/18 17:08 Dose: 100 mg Epoetin Santosh (Procrit) 10,000 unit IV [facility] Last Admin: 09/01/18 11:24 Dose: 10,000 unit Heparin Sodium (Porcine) (Heparin) 3,700 units IVP [facility] Last Admin: 09/01/18 12:27 Dose: 3,700 units Lactulose (Enulose) 20 gm PO HS PRN PRN Reason: Constipation Last Admin: 08/30/18 22:01 Dose: 20 gm Metoprolol Succinate (Toprol Xl) 25 mg PO BID [facility] Last Admin: 09/02/18 17:08 Dose: 25 mg Pantoprazole Sodium (Protonix Ec Tab) 40 mg PO DAILY [facility] Last Admin: 09/02/18 09:27 Dose: 40 mg Rosuvastatin Calcium (Crestor) 2.5 mg PO HS [facility] Last Admin: 09/02/18 21:11 Dose: 2.5 mg - Labs Labs: 09/02/18 07:46 09/02/18 07:46 PT 9.7 SECONDS (9.7-12.2) 08/22/18 12:49 INR 0.9 08/22/18 12:49 APTT 34 SECONDS (21-34) 08/22/18 12:49 - Constitutional Appears: No Acute Distress - Head Exam Head Exam: NORMAL INSPECTION - Eye Exam Eye Exam: Normal appearance - ENT Exam ENT Exam: Normal Exam - Neck Exam Neck Exam: Normal Inspection - Respiratory Exam Respiratory Exam: Clear to Ausculation Bilateral, NORMAL BREATHING PATTERN - Cardiovascular Exam Cardiovascular Exam: REGULAR RHYTHM - GI/Abdominal Exam GI & Abdominal Exam: Soft, Normal Bowel Sounds - Rectal Exam Rectal Exam: Deferred - Exam Exam: NORMAL INSPECTION - Extremities Exam Extremities Exam: Normal Inspection - Back Exam Back Exam: NORMAL INSPECTION - Neurological Exam Neurological Exam: Alert, Awake, Oriented x3 - Psychiatric Exam Psychiatric exam: Anxious - Skin Skin Exam: Dry, Intact, Warm Assessment and Plan (1) CKD (chronic kidney disease) stage 5, GFR less than 15 ml/min Status: Chronic (2) Chronic disease anemia Status: Chronic (3) Hypertension Status: Chronic
[2018-09-03] MEDS: Epoetin Alfa 10,000 unit/ml Dialysis IV SCH (09:59)
[2018-09-03] MEDS: Pantoprazole 40 mg EC Tab PO SCH (11:00)
[2018-09-03] MEDS: Metoprolol Succinate 25 mg XL Tab PO SCH ×2 (11:00→17:10)
--- NOTE | 2018-09-03 13:29 | CP.PCM.PN ---
Subjective - Date & Time of Evaluation Date of Evaluation: 09/03/18 Time of Evaluation: 13:27 - Subjective Subjective: seen on HD 2.5 kg uf AVF with good bruit feels better waiting for rehab no fever no chest pain no sob no nausea no vomiting no change in urine no rash Objective - Vital Signs/Intake and Output Vital Signs (last 24 hours): Temp Pulse Resp BP Pulse Ox 97.8 F 70 18 125/77 99 09/03/18 09:00 09/03/18 09:00 09/03/18 09:00 09/03/18 11:30 09/03/18 09:00 Intake and Output: 09/03/18 09/03/18 06:59 18:59 Intake Total 500 Balance 500 - Medications Medications: Current Medications Acetaminophen (Tylenol 325mg Tab) 650 mg PO Q4 PRN PRN Reason: Pain, Mild (1-3) Last Admin: 09/01/18 22:33 Dose: 650 mg Docusate Sodium (Colace) 100 mg PO BID [facility] Last Admin: 09/03/18 11:00 Dose: Not Given Epoetin Santosh (Procrit) 10,000 unit IV [facility] Last Admin: 09/03/18 09:59 Dose: 10,000 unit Heparin Sodium (Porcine) (Heparin) 3,700 units IVP [facility] Last Admin: 09/03/18 09:59 Dose: 3,700 units Lactulose (Enulose) 20 gm PO HS PRN PRN Reason: Constipation Last Admin: 08/30/18 22:01 Dose: 20 gm Metoprolol Succinate (Toprol Xl) 25 mg PO BID [facility] Last Admin: 09/03/18 11:00 Dose: Not Given Pantoprazole Sodium (Protonix Ec Tab) 40 mg PO DAILY [facility] Last Admin: 09/03/18 11:00 Dose: Not Given Rosuvastatin Calcium (Crestor) 2.5 mg PO HS [facility] Last Admin: 09/02/18 21:11 Dose: 2.5 mg - Labs Labs: 09/02/18 07:46 09/02/18 07:46 PT 9.7 SECONDS (9.7-12.2) 08/22/18 12:49 INR 0.9 08/22/18 12:49 APTT 34 SECONDS (21-34) 08/22/18 12:49 - Constitutional Appears: No Acute Distress, Chronically Ill - Head Exam Head Exam: ATRAUMATIC, NORMAL INSPECTION - Eye Exam Eye Exam: EOMI, Normal appearance - ENT Exam ENT Exam: Mucous Membranes Moist - Neck Exam Neck Exam: Full ROM. absent: Lymphadenopathy - Respiratory Exam Respiratory Exam: Clear to Ausculation Bilateral. absent: Decreased Breath Sounds - Cardiovascular Exam Cardiovascular Exam: REGULAR RHYTHM. absent: Rubs - GI/Abdominal Exam GI & Abdominal Exam: Soft. absent: Tenderness - Extremities Exam Extremities Exam: Full ROM. absent: Pedal Edema Assessment and Plan - Assessment and Plan (Free Text) Assessment: stable from renal for discharge planning, micheline placement
[2018-09-03] MEDS: Rosuvastatin Calcium 2.5 mg Tab PO SCH (21:28)
--- NOTE | 2018-09-03 22:49 | CP.PCM.PN ---
Subjective - Date & Time of Evaluation Date of Evaluation: 09/03/18 Time of Evaluation: 20:00 - Subjective Subjective: Patient tolerated HD. Still with generalized weakness. Objective - Vital Signs/Intake and Output Vital Signs (last 24 hours): Temp Pulse Resp BP Pulse Ox 98.2 F 72 20 121/65 100 09/03/18 15:00 09/03/18 15:00 09/03/18 15:00 09/03/18 15:00 09/03/18 15:00 Intake and Output: 09/03/18 09/04/18 18:59 06:59 Intake Total 400 Balance 400 - Medications Medications: Current Medications Acetaminophen (Tylenol 325mg Tab) 650 mg PO Q4 PRN PRN Reason: Pain, Mild (1-3) Last Admin: 09/01/18 22:33 Dose: 650 mg Docusate Sodium (Colace) 100 mg PO BID [facility] Last Admin: 09/03/18 17:10 Dose: 100 mg Epoetin Santosh (Procrit) 10,000 unit IV MWF [facility] Last Admin: 09/03/18 09:59 Dose: 10,000 unit Heparin Sodium (Porcine) (Heparin) 3,700 units IVP MWF [facility] Last Admin: 09/03/18 09:59 Dose: 3,700 units Lactulose (Enulose) 20 gm PO HS PRN PRN Reason: Constipation Last Admin: 08/30/18 22:01 Dose: 20 gm Metoprolol Succinate (Toprol Xl) 25 mg PO BID [facility] Last Admin: 09/03/18 17:10 Dose: Not Given Pantoprazole Sodium (Protonix Ec Tab) 40 mg PO DAILY [facility] Last Admin: 09/03/18 11:00 Dose: Not Given Rosuvastatin Calcium (Crestor) 2.5 mg PO HS [facility] Last Admin: 09/03/18 21:28 Dose: 2.5 mg - Labs Labs: 09/02/18 07:46 09/02/18 07:46 PT 9.7 SECONDS (9.7-12.2) 08/22/18 12:49 INR 0.9 08/22/18 12:49 APTT 34 SECONDS (21-34) 08/22/18 12:49 - Constitutional Appears: Well, No Acute Distress - Head Exam Head Exam: NORMAL INSPECTION - Eye Exam Eye Exam: Normal appearance Pupil Exam: NORMAL ACCOMODATION - ENT Exam ENT Exam: Normal Exam - Neck Exam Neck Exam: Normal Inspection - Respiratory Exam Respiratory Exam: Clear to Ausculation Bilateral, NORMAL BREATHING PATTERN - Cardiovascular Exam Cardiovascular Exam: REGULAR RHYTHM - GI/Abdominal Exam GI & Abdominal Exam: Soft, Normal Bowel Sounds - Rectal Exam Rectal Exam: Deferred - Exam Exam: NORMAL INSPECTION - Extremities Exam Extremities Exam: Normal Inspection - Back Exam Back Exam: NORMAL INSPECTION - Neurological Exam Neurological Exam: Alert, Awake, Oriented x3 - Psychiatric Exam Psychiatric exam: Anxious - Skin Skin Exam: Dry, Intact, Normal Color, Warm Assessment and Plan (1) CKD (chronic kidney disease) stage 5, GFR less than 15 ml/min Assessment & Plan: On HD Status: Chronic (2) Chronic disease anemia Assessment & Plan: On ferrous sulfate. Status: Chronic (3) Hypertension Assessment & Plan: controlled. Status: Chronic
[2018-09-04] MEDS: Metoprolol Succinate 25 mg XL Tab PO SCH ×2 (09:08→17:30)
[2018-09-04] MEDS: Pantoprazole 40 mg EC Tab PO SCH (09:29)
--- NOTE | 2018-09-04 09:32 | CP.PCM.PN ---
Subjective - Date & Time of Evaluation Date of Evaluation: 09/04/18 Time of Evaluation: 09:30 - Subjective Subjective: Doing better overall Last HD 09/03- well tolerated Hg increased to 9.8 Still weak, considering rehab Outpt dialysis arranged Objective - Vital Signs/Intake and Output Vital Signs (last 24 hours): Temp Pulse Resp BP Pulse Ox 98.6 F 65 20 105/62 95 09/04/18 07:00 09/04/18 07:00 09/04/18 07:00 09/04/18 07:00 09/04/18 07:00 Intake and Output: 09/04/18 09/04/18 06:59 18:59 Intake Total 400 Balance 400 - Medications Medications: Current Medications Acetaminophen (Tylenol 325mg Tab) 650 mg PO Q4 PRN PRN Reason: Pain, Mild (1-3) Last Admin: 09/01/18 22:33 Dose: 650 mg Docusate Sodium (Colace) 100 mg PO BID [facility] Last Admin: 09/04/18 09:29 Dose: 100 mg Epoetin Santosh (Procrit) 10,000 unit IV MWF [facility] Last Admin: 09/03/18 09:59 Dose: 10,000 unit Heparin Sodium (Porcine) (Heparin) 3,700 units IVP MWF [facility] Last Admin: 09/03/18 09:59 Dose: 3,700 units Lactulose (Enulose) 20 gm PO HS PRN PRN Reason: Constipation Last Admin: 08/30/18 22:01 Dose: 20 gm Metoprolol Succinate (Toprol Xl) 25 mg PO BID [facility] Last Admin: 09/04/18 09:08 Dose: Not Given Pantoprazole Sodium (Protonix Ec Tab) 40 mg PO DAILY [facility] Last Admin: 09/04/18 09:29 Dose: 40 mg Rosuvastatin Calcium (Crestor) 2.5 mg PO HS [facility] Last Admin: 09/03/18 21:28 Dose: 2.5 mg - Labs Labs: 09/02/18 07:46 09/02/18 07:46 PT 9.7 SECONDS (9.7-12.2) 08/22/18 12:49 INR 0.9 08/22/18 12:49 APTT 34 SECONDS (21-34) 08/22/18 12:49 - Constitutional Appears: No Acute Distress, Chronically Ill - Head Exam Head Exam: ATRAUMATIC, NORMAL INSPECTION - Eye Exam Eye Exam: EOMI, Normal appearance - Neck Exam Neck Exam: Normal Inspection. absent: Tenderness - Respiratory Exam Respiratory Exam: Clear to Ausculation Bilateral, NORMAL BREATHING PATTERN - Cardiovascular Exam Cardiovascular Exam: REGULAR RHYTHM, +S1 - GI/Abdominal Exam GI & Abdominal Exam: Soft. absent: Tenderness - Extremities Exam Extremities Exam: Normal Inspection. absent: Tenderness - Neurological Exam Neurological Exam: Awake, CN II-XII Intact - Skin Skin Exam: Dry, Warm Assessment and Plan (1) CKD (chronic kidney disease) stage 5, GFR less than 15 ml/min Status: Chronic (2) Hypertensive chronic kidney disease with stage 5 chronic kidney disease or end stage renal disease Status: Acute (3) Chronic disease anemia Status: Chronic (4) DDD (degenerative disc disease), cervical Status: Acute (5) ESRD (end stage renal disease) Status: Acute - Assessment and Plan (Free Text) Plan: Same dialysis MWF Outpt dialysis when stable
[2018-09-04] MEDS: Rosuvastatin Calcium 2.5 mg Tab PO SCH (21:27)
--- NOTE | 2018-09-04 23:43 | CP.PCM.PN ---
Subjective - Date & Time of Evaluation Date of Evaluation: 09/04/18 Time of Evaluation: 20:00 - Subjective Subjective: Patient tolerates HD, but still weak, with slight unsteady gait and episodes of palpitation from exertion. Objective - Vital Signs/Intake and Output Vital Signs (last 24 hours): Temp Pulse Resp BP Pulse Ox 98.6 F 68 20 104/64 100 09/04/18 23:26 09/04/18 23:26 09/04/18 23:26 09/04/18 23:26 09/04/18 23:26 - Medications Medications: Current Medications Acetaminophen (Tylenol 325mg Tab) 650 mg PO Q4 PRN PRN Reason: Pain, Mild (1-3) Last Admin: 09/01/18 22:33 Dose: 650 mg Docusate Sodium (Colace) 100 mg PO BID [facility] Last Admin: 09/04/18 17:30 Dose: 100 mg Epoetin Santosh (Procrit) 10,000 unit IV MWF [facility] Last Admin: 09/03/18 09:59 Dose: 10,000 unit Heparin Sodium (Porcine) (Heparin) 3,700 units IVP F [facility] Last Admin: 09/03/18 09:59 Dose: 3,700 units Lactulose (Enulose) 20 gm PO HS PRN PRN Reason: Constipation Last Admin: 08/30/18 22:01 Dose: 20 gm Metoprolol Succinate (Toprol Xl) 25 mg PO BID [facility] Last Admin: 09/04/18 17:30 Dose: 25 mg Pantoprazole Sodium (Protonix Ec Tab) 40 mg PO DAILY [facility] Last Admin: 09/04/18 09:29 Dose: 40 mg Rosuvastatin Calcium (Crestor) 2.5 mg PO HS [facility] Last Admin: 09/04/18 21:27 Dose: 2.5 mg - Labs Labs: 09/02/18 07:46 09/02/18 07:46 PT 9.7 SECONDS (9.7-12.2) 08/22/18 12:49 INR 0.9 08/22/18 12:49 APTT 34 SECONDS (21-34) 08/22/18 12:49 - Constitutional Appears: Well, No Acute Distress - Head Exam Head Exam: NORMAL INSPECTION - Eye Exam Eye Exam: Normal appearance Pupil Exam: NORMAL ACCOMODATION - ENT Exam ENT Exam: Normal Exam - Neck Exam Neck Exam: Normal Inspection - Respiratory Exam Respiratory Exam: Clear to Ausculation Bilateral, NORMAL BREATHING PATTERN - Cardiovascular Exam Cardiovascular Exam: REGULAR RHYTHM - GI/Abdominal Exam GI & Abdominal Exam: Soft, Normal Bowel Sounds - Rectal Exam Rectal Exam: Deferred - Back Exam Back Exam: NORMAL INSPECTION - Neurological Exam Neurological Exam: Alert, Awake, Oriented x3 - Psychiatric Exam Psychiatric exam: Anxious - Skin Skin Exam: Dry, Intact Assessment and Plan (1) CKD (chronic kidney disease) stage 5, GFR less than 15 ml/min Assessment & Plan: HD as per Nephrologists. Patient is still weak, needs more PT, and she lives alone at home. Status: Chronic (2) Chronic disease anemia Status: Chronic (3) Hypertension Status: Chronic
[2018-09-05] MEDS: Metoprolol Succinate 25 mg XL Tab PO SCH ×2 (09:13→17:14)
[2018-09-05] MEDS: Pantoprazole 40 mg EC Tab PO SCH (09:13)
[2018-09-05 10:17] LABS: BASO % 0.5 % (0.0-2.0); EOS # 0.2 K/uL (0.0-0.7); EOS % 2.8 % (0.0-4.0); HEMOGLOBIN 10.8 g/dL (11.0-16.0); LYMPH # 1.7 K/uL (1.0-4.3); LYMPH % 28.5 % (20.0-40.0); MEAN CELL VOLUME 100.5 fL (81.0-99.0); MEAN CORPUSCULAR HEMOGLOBIN 32.7 pg (27.0-31.0); MEAN CORPUSCULAR HGB CONC 32.5 g/dL (33.0-37.0); MEAN PLATELET VOLUME 8.8 fL (7.2-11.7); MONO # 0.7 K/uL (0.0-0.8); MONO % 12.8 % (0.0-10.0); NEUT # 3.2 K/uL (1.8-7.0); NEUT % 55.4 % (50.0-75.0); NRBC % 0.2 % (0.0-2.0); RBC 3.3 Mil/uL (3.80-5.20); RED CELL DISTRIBUTION WIDTH 17.1 % (11.5-14.5); WHITE BLOOD COUNT 5.9 K/uL (4.8-10.8)
[2018-09-05] MEDS: Epoetin Alfa 10,000 unit/ml Dialysis IV SCH (10:21)
[2018-09-05 10:30] LABS: ALB/GLOB RATIO 1.3 (1.0-2.1); ALBUMIN 4.1 g/dL (3.5-5.0); CALCIUM 9.1 mg/dl (8.6-10.4)
--- NOTE | 2018-09-05 13:16 | CP.PCM.PN ---
Subjective - Date & Time of Evaluation Date of Evaluation: 09/05/18 Time of Evaluation: 13:14 - Subjective Subjective: Seen at dialysis Feels better Rehab denied? HTN controlled labs acceptable Objective - Vital Signs/Intake and Output Vital Signs (last 24 hours): Temp Pulse Resp BP Pulse Ox 97.7 F 70 18 138/77 100 09/05/18 12:30 09/05/18 12:30 09/05/18 12:30 09/05/18 12:30 09/05/18 12:30 - Medications Medications: Current Medications Acetaminophen (Tylenol 325mg Tab) 650 mg PO Q4 PRN PRN Reason: Pain, Mild (1-3) Last Admin: 09/01/18 22:33 Dose: 650 mg Docusate Sodium (Colace) 100 mg PO BID [facility] Last Admin: 09/05/18 09:13 Dose: Not Given Epoetin Santosh (Procrit) 10,000 unit IV MWF [facility] Last Admin: 09/05/18 10:21 Dose: 10,000 unit Heparin Sodium (Porcine) (Heparin) 3,700 units IVP MWF [facility] Last Admin: 09/05/18 10:20 Dose: 3,700 units Lactulose (Enulose) 20 gm PO HS PRN PRN Reason: Constipation Last Admin: 08/30/18 22:01 Dose: 20 gm Metoprolol Succinate (Toprol Xl) 25 mg PO BID [facility] Last Admin: 09/05/18 09:13 Dose: Not Given Pantoprazole Sodium (Protonix Ec Tab) 40 mg PO DAILY [facility] Last Admin: 09/05/18 09:13 Dose: Not Given Rosuvastatin Calcium (Crestor) 2.5 mg PO HS [facility] Last Admin: 09/04/18 21:27 Dose: 2.5 mg - Labs Labs: 09/05/18 10:06 09/05/18 10:06 PT 9.7 SECONDS (9.7-12.2) 08/22/18 12:49 INR 0.9 08/22/18 12:49 APTT 34 SECONDS (21-34) 08/22/18 12:49 - Constitutional Appears: No Acute Distress, Chronically Ill - Head Exam Head Exam: ATRAUMATIC, NORMAL INSPECTION - Eye Exam Eye Exam: EOMI, Normal appearance - Neck Exam Neck Exam: Normal Inspection. absent: Tenderness - Respiratory Exam Respiratory Exam: Clear to Ausculation Bilateral, NORMAL BREATHING PATTERN - Cardiovascular Exam Cardiovascular Exam: REGULAR RHYTHM, +S1 - GI/Abdominal Exam GI & Abdominal Exam: Soft. absent: Tenderness - Extremities Exam Extremities Exam: Normal Inspection. absent: Tenderness - Neurological Exam Neurological Exam: Awake, CN II-XII Intact - Skin Skin Exam: Dry, Warm Assessment and Plan (1) CKD (chronic kidney disease) stage 5, GFR less than 15 ml/min Status: Chronic (2) Hypertensive chronic kidney disease with stage 5 chronic kidney disease or end stage renal disease Status: Acute (3) Chronic disease anemia Status: Chronic (4) DDD (degenerative disc disease), cervical Status: Acute (5) ESRD (end stage renal disease) Status: Acute - Assessment and Plan (Free Text) Plan: dialysis MWF Same meds Await placement
[2018-09-05] MEDS: Rosuvastatin Calcium 2.5 mg Tab PO SCH (21:52)
--- NOTE | 2018-09-05 23:39 | CP.PCM.PN ---
Subjective - Date & Time of Evaluation Date of Evaluation: 09/05/18 Time of Evaluation: 21:00 - Subjective Subjective: Patient tolerates HD today, but still weak, with unsteady gait. Objective - Vital Signs/Intake and Output Vital Signs (last 24 hours): Temp Pulse Resp BP Pulse Ox 98.0 F 75 20 137/73 99 09/05/18 15:10 09/05/18 15:10 09/05/18 15:10 09/05/18 15:10 09/05/18 15:10 - Medications Medications: Current Medications Acetaminophen (Tylenol 325mg Tab) 650 mg PO Q4 PRN PRN Reason: Pain, Mild (1-3) Last Admin: 09/01/18 22:33 Dose: 650 mg Docusate Sodium (Colace) 100 mg PO BID [facility] Last Admin: 09/05/18 17:14 Dose: 100 mg Epoetin Santosh ([facility]crit) [facility] Last Admin: 09/05/18 10:21 Dose: 10,000 unit Heparin Sodium (Porcine) (Heparin) 3,700 units IVP [facility] Last Admin: 09/05/18 10:20 Dose: 3,700 units Lactulose (Enulose) 20 gm PO HS PRN PRN Reason: Constipation Last Admin: 08/30/18 22:01 Dose: 20 gm Metoprolol Succinate (Toprol Xl) 25 mg PO BID [facility] Last Admin: 09/05/18 17:14 Dose: 25 mg Pantoprazole Sodium (Protonix Ec Tab) 40 mg PO DAILY [facility] Last Admin: 09/05/18 09:13 Dose: Not Given Rosuvastatin Calcium (Crestor) 2.5 mg PO HS [facility] Last Admin: 09/05/18 21:52 Dose: 2.5 mg - Labs Labs: 09/05/18 10:06 09/05/18 10:06 PT 9.7 SECONDS (9.7-12.2) 08/22/18 12:49 INR 0.9 08/22/18 12:49 APTT 34 SECONDS (21-34) 08/22/18 12:49 - Constitutional Appears: Well, No Acute Distress - Head Exam Head Exam: NORMAL INSPECTION - Eye Exam Eye Exam: Normal appearance Pupil Exam: NORMAL ACCOMODATION - ENT Exam ENT Exam: Normal Exam - Neck Exam Neck Exam: Normal Inspection - Respiratory Exam Respiratory Exam: Clear to Ausculation Bilateral, NORMAL BREATHING PATTERN - Cardiovascular Exam Cardiovascular Exam: REGULAR RHYTHM - GI/Abdominal Exam GI & Abdominal Exam: Soft, Normal Bowel Sounds - Rectal Exam Rectal Exam: Deferred - Exam Exam: NORMAL INSPECTION - Extremities Exam Extremities Exam: Normal Inspection - Back Exam Back Exam: NORMAL INSPECTION - Neurological Exam Neurological Exam: Alert, Awake, Oriented x3 - Psychiatric Exam Psychiatric exam: Anxious - Skin Skin Exam: Dry, Intact, Normal Color, Warm Assessment and Plan (1) CKD (chronic kidney disease) stage 5, GFR less than 15 ml/min Assessment & Plan: On HD. Status: Chronic (2) Chronic disease anemia Assessment & Plan: On Procrit. Today Hgb: 10.8 Status: Chronic (3) Hypertension Assessment & Plan: Controlled with meds. Status: Chronic
[2018-09-06] MEDS: Metoprolol Succinate 25 mg XL Tab PO SCH ×3 (09:24→18:13)
[2018-09-06] MEDS: Pantoprazole 40 mg EC Tab PO SCH (09:24)
--- NOTE | 2018-09-06 10:08 | CP.PCM.PN ---
Subjective - Date & Time of Evaluation Date of Evaluation: 09/06/18 Time of Evaluation: 10:06 - Subjective Subjective: pt seen and examine doing well no complaints no SOB had HD yesterday ROS- 10 point ros negative Objective - Vital Signs/Intake and Output Vital Signs (last 24 hours): Temp Pulse Resp BP Pulse Ox 97.9 F 65 20 108/66 98 09/06/18 08:03 09/06/18 08:03 09/06/18 08:03 09/06/18 08:03 09/06/18 08:03 - Medications Medications: Current Medications Acetaminophen (Tylenol 325mg Tab) 650 mg PO Q4 PRN PRN Reason: Pain, Mild (1-3) Last Admin: 09/01/18 22:33 Dose: 650 mg Docusate Sodium (Colace) 100 mg PO BID [facility] Last Admin: 09/06/18 09:24 Dose: 100 mg Epoetin Santosh (Procrit) 10,000 unit IV MWF [facility] Last Admin: 09/05/18 10:21 Dose: 10,000 unit Heparin Sodium (Porcine) (Heparin) 3,700 units IVP [facility] Last Admin: 09/05/18 10:20 Dose: 3,700 units Lactulose (Enulose) 20 gm PO HS PRN PRN Reason: Constipation Last Admin: 08/30/18 22:01 Dose: 20 gm Metoprolol Succinate (Toprol Xl) 25 mg PO BID [facility] Last Admin: 09/06/18 09:24 Dose: 25 mg Pantoprazole Sodium (Protonix Ec Tab) 40 mg PO DAILY [facility] Last Admin: 09/06/18 09:24 Dose: 40 mg Rosuvastatin Calcium (Crestor) 2.5 mg PO HS [facility] Last Admin: 09/05/18 21:52 Dose: 2.5 mg - Labs Labs: 09/05/18 10:06 09/05/18 10:06 PT 9.7 SECONDS (9.7-12.2) 08/22/18 12:49 INR 0.9 08/22/18 12:49 APTT 34 SECONDS (21-34) 08/22/18 12:49 - Constitutional Appears: Well, Non-toxic - Head Exam Head Exam: ATRAUMATIC, NORMOCEPHALIC - Eye Exam Eye Exam: EOMI, PERRL - ENT Exam ENT Exam: Mucous Membranes Moist - Neck Exam Neck Exam: Full ROM - Respiratory Exam Respiratory Exam: Clear to Ausculation Bilateral. absent: Rhonchi, Wheezes - Cardiovascular Exam Cardiovascular Exam: REGULAR RHYTHM, +S1, +S2 - GI/Abdominal Exam GI & Abdominal Exam: Soft. absent: Tenderness - Extremities Exam Extremities Exam: Full ROM. absent: Pedal Edema - Neurological Exam Neurological Exam: Alert, Awake, Oriented x3 - Psychiatric Exam Psychiatric exam: Normal Affect, Normal Mood - Skin Skin Exam: Normal Color, Warm Assessment and Plan (1) DDD (degenerative disc disease), cervical Status: Acute (2) ESRD (end stage renal disease) Status: Acute (3) Hypertensive chronic kidney disease with stage 5 chronic kidney disease or end stage renal disease Status: Acute (4) Chronic disease anemia Status: Chronic (5) Hypertension Status: Chronic - Assessment and Plan (Free Text) Plan: HD MWF next HD saturday BP stable discharge planning
[2018-09-06] MEDS: Rosuvastatin Calcium 2.5 mg Tab PO SCH (22:09)
--- NOTE | 2018-09-07 01:02 | CP.PCM.PN ---
Subjective - Date & Time of Evaluation Date of Evaluation: 09/06/18 Time of Evaluation: 20:30 - Subjective Subjective: Patient has no specific complaint. Weak, receiving PT. Objective - Vital Signs/Intake and Output Vital Signs (last 24 hours): Temp Pulse Resp BP Pulse Ox 98.0 F 70 20 105/60 95 09/07/18 00:00 09/07/18 00:00 09/07/18 00:00 09/07/18 00:00 09/07/18 00:00 - Medications Medications: Current Medications Acetaminophen (Tylenol 325mg Tab) 650 mg PO Q4 PRN PRN Reason: Pain, Mild (1-3) Last Admin: 09/01/18 22:33 Dose: 650 mg Docusate Sodium (Colace) 100 mg PO BID [facility] Last Admin: 09/06/18 18:12 Dose: 100 mg Epoetin Santosh (Procrit) 10,000 unit IV MWF [facility] Last Admin: 09/05/18 10:21 Dose: 10,000 unit Heparin Sodium (Porcine) (Heparin) 3,700 units IVP [facility] Last Admin: 09/05/18 10:20 Dose: 3,700 units Lactulose (Enulose) 20 gm PO HS PRN PRN Reason: Constipation Last Admin: 08/30/18 22:01 Dose: 20 gm Metoprolol Succinate (Toprol Xl) 25 mg PO BID [facility] Last Admin: 09/06/18 18:13 Dose: Not Given Pantoprazole Sodium (Protonix Ec Tab) 40 mg PO DAILY [facility] Last Admin: 09/06/18 09:24 Dose: 40 mg Rosuvastatin Calcium (Crestor) 2.5 mg PO HS [facility] Last Admin: 09/06/18 22:09 Dose: 2.5 mg - Labs Labs: 09/05/18 10:06 09/05/18 10:06 PT 9.7 SECONDS (9.7-12.2) 08/22/18 12:49 INR 0.9 08/22/18 12:49 APTT 34 SECONDS (21-34) 08/22/18 12:49 - Constitutional Appears: Well, No Acute Distress - Head Exam Head Exam: NORMAL INSPECTION - Eye Exam Eye Exam: Normal appearance - ENT Exam ENT Exam: Normal Exam - Neck Exam Neck Exam: Normal Inspection - Respiratory Exam Respiratory Exam: Clear to Ausculation Bilateral, NORMAL BREATHING PATTERN - Cardiovascular Exam Cardiovascular Exam: REGULAR RHYTHM - GI/Abdominal Exam GI & Abdominal Exam: Soft, Normal Bowel Sounds - Rectal Exam Rectal Exam: Deferred - Extremities Exam Extremities Exam: Normal Inspection - Back Exam Back Exam: NORMAL INSPECTION - Neurological Exam Neurological Exam: Alert, Awake, Oriented x3 - Psychiatric Exam Psychiatric exam: Anxious - Skin Skin Exam: Dry, Intact, Warm Assessment and Plan (1) CKD (chronic kidney disease) stage 5, GFR less than 15 ml/min Assessment & Plan: HD as per Nephrologists. Status: Chronic (2) Chronic disease anemia Assessment & Plan: On Procrit Status: Chronic (3) Hypertension Assessment & Plan: Controlled by meds. Status: Chronic
[2018-09-07] MEDS: Pantoprazole 40 mg EC Tab PO SCH (10:00)
[2018-09-07] MEDS: Metoprolol Succinate 25 mg XL Tab PO SCH ×2 (10:00→17:52)
[2018-09-07] MEDS: Rosuvastatin Calcium 2.5 mg Tab PO SCH (21:56)
--- NOTE | 2018-09-08 10:01 | CP.PCM.PN ---
Subjective - Date & Time of Evaluation Date of Evaluation: 09/08/18 Time of Evaluation: 10:00 - Subjective Subjective: seen and examined in hd no complaints 10 point ROS negative Objective - Vital Signs/Intake and Output Vital Signs (last 24 hours): Temp Pulse Resp BP Pulse Ox 98.4 F 67 16 160/90 H 97 09/08/18 09:20 09/08/18 09:20 09/08/18 09:20 09/08/18 09:35 09/08/18 09:20 - Medications Medications: Current Medications Acetaminophen (Tylenol 325mg Tab) 650 mg PO Q4 PRN PRN Reason: Pain, Mild (1-3) Last Admin: 09/01/18 22:33 Dose: 650 mg Docusate Sodium (Colace) 100 mg PO BID [facility] Last Admin: 09/07/18 17:52 Dose: 100 mg Epoetin Santosh (Procrit) 10,000 unit IV MWF [facility] Last Admin: 09/05/18 10:21 Dose: 10,000 unit Heparin Sodium (Porcine) (Heparin) 3,700 units IVP [facility] Last Admin: 09/05/18 10:20 Dose: 3,700 units Lactulose (Enulose) 20 gm PO HS PRN PRN Reason: Constipation Last Admin: 08/30/18 22:01 Dose: 20 gm Metoprolol Succinate (Toprol Xl) 25 mg PO BID [facility] Last Admin: 09/07/18 17:52 Dose: 25 mg Pantoprazole Sodium (Protonix Ec Tab) 40 mg PO DAILY [facility] Last Admin: 09/07/18 10:00 Dose: 40 mg Rosuvastatin Calcium (Crestor) 2.5 mg PO HS [facility] Last Admin: 09/07/18 21:56 Dose: 2.5 mg - Labs Labs: 09/05/18 10:06 09/05/18 10:06 PT 9.7 SECONDS (9.7-12.2) 08/22/18 12:49 INR 0.9 08/22/18 12:49 APTT 34 SECONDS (21-34) 08/22/18 12:49 - Constitutional Appears: No Acute Distress, Chronically Ill - Head Exam Head Exam: NORMAL INSPECTION, NORMOCEPHALIC - Eye Exam Eye Exam: Normal appearance, PERRL - ENT Exam ENT Exam: Mucous Membranes Moist, Normal Exam - Neck Exam Neck Exam: Full ROM, Normal Inspection - Respiratory Exam Respiratory Exam: Clear to Ausculation Bilateral, NORMAL BREATHING PATTERN - Cardiovascular Exam Cardiovascular Exam: REGULAR RHYTHM, RRR - GI/Abdominal Exam GI & Abdominal Exam: Distended, Soft - Extremities Exam Extremities Exam: Normal Inspection (lue avf) - Neurological Exam Neurological Exam: Alert, Awake, Oriented x3 - Psychiatric Exam Psychiatric exam: Normal Affect, Normal Mood - Skin Skin Exam: Normal Color, Warm Assessment and Plan (1) ESRD (end stage renal disease) Status: Acute (2) Chronic disease anemia Status: Chronic (3) Hypertension Status: Chronic - Assessment and Plan (Free Text) Assessment: maintain hd outpt hd placement hgb at goal
[2018-09-08] MEDS: Metoprolol Succinate 25 mg XL Tab PO SCH (10:08)
[2018-09-08] MEDS: Pantoprazole 40 mg EC Tab PO SCH (10:08)
[2018-09-08] MEDS: Epoetin Alfa 10,000 unit/ml Dialysis IV SCH (10:56)
[2018-09-08 15:39] VITALS: BP 112/70; PULSE 72; RESP 20; TEMP 98; O2SAT 96
--- NOTE | 2018-09-08 16:05 | CP.PCM.PN ---
Subjective - Date & Time of Evaluation Date of Evaluation: 09/08/18 Time of Evaluation: 16:05 Objective - Vital Signs/Intake and Output Vital Signs (last 24 hours): Temp Pulse Resp BP Pulse Ox 98 F 72 20 112/70 96 09/08/18 15:38 09/08/18 15:38 09/08/18 15:38 09/08/18 15:38 09/08/18 15:38 - Medications Medications: Current Medications Epoetin Santosh (Procrit) 10,000 unit IV [facility] Last Admin: 09/08/18 10:56 Dose: 10,000 unit Heparin Sodium (Porcine) (Heparin) 3,700 units IVP [facility] Last Admin: 09/08/18 12:09 Dose: 3,700 units Lactulose (Enulose) 20 gm PO HS PRN PRN Reason: Constipation Last Admin: 08/30/18 22:01 Dose: 20 gm Metoprolol Succinate (Toprol Xl) 25 mg PO BID [facility] Last Admin: 09/08/18 10:08 Dose: Not Given Pantoprazole Sodium (Protonix Ec Tab) 40 mg PO DAILY [facility] Last Admin: 09/08/18 10:08 Dose: Not Given Rosuvastatin Calcium (Crestor) 2.5 mg PO HS [facility] Last Admin: 09/07/18 21:56 Dose: 2.5 mg - Labs Labs: 09/05/18 10:06 09/05/18 10:06 PT 9.7 SECONDS (9.7-12.2) 08/22/18 12:49 INR 0.9 08/22/18 12:49 APTT 34 SECONDS (21-34) 08/22/18 12:49 Assessment and Plan - Assessment and Plan (Free Text) Assessment: FOLLOW UP WITH DR OBRIEN IN HIS OFFICE IN 1-2 WEEK -----CALL FOR APPOINTMENT FOLLOW UP WITH DR DE SANTIAGO -----CALL FOR APPOINTMENT CONTINUE HOME MEDICATION ACTIVITY TOLERATED HEMODIALYSIS ORDER CALL DR OBRIEN OR GO TO THE EMERGENCY ROOM IF SYMPTOM RETURN OR WORSENING
== END 2018-09-08 17:26 | disposition home or self-care (01) | DRG 682 ==
LOC: C.ER 11:48 → C.9E 13:43 → C.6T 16:07 → C.5S 16:38 → OBSVTOIN 08-25 10:42 → C.5S 09-02 22:11
PROVIDERS: ADMIT Internal Medicine Cardiovascular Disease; ATTEND Internal Medicine Cardiovascular Disease
PROC: 5A1D70Z Performance of Urinary Filtration, Intermittent, Less than 6 Hours Per Day (ICD-10-PCS; principal; 2018-08-22)
PROC: 5A1D70Z Performance of Urinary Filtration, Intermittent, Less than 6 Hours Per Day (ICD-10-PCS; 2018-08-25)
PROC: 5A1D70Z Performance of Urinary Filtration, Intermittent, Less than 6 Hours Per Day (ICD-10-PCS; 2018-08-27)
PROC: 5A1D70Z Performance of Urinary Filtration, Intermittent, Less than 6 Hours Per Day (ICD-10-PCS; 2018-09-03)
PROC: 5A1D70Z Performance of Urinary Filtration, Intermittent, Less than 6 Hours Per Day (ICD-10-PCS; 2018-09-05)
PROC: 5A1D70Z Performance of Urinary Filtration, Intermittent, Less than 6 Hours Per Day (ICD-10-PCS; 2018-09-08)
DX: I12.0 Hypertensive chronic kidney disease with stage 5 chronic kidney disease or end stage renal disease (principal); N18.6 End stage renal disease; D63.8 Anemia in other chronic diseases classified elsewhere; J43.9 Emphysema, unspecified; M50.30 Other cervical disc degeneration, unspecified cervical region; M81.0 Age-related osteoporosis without current pathological fracture; I44.0 Atrioventricular block, first degree; M51.36 Other intervertebral disc degeneration, lumbar region; K57.30 Diverticulosis of large intestine without perforation or abscess without bleeding; E78.5 Hyperlipidemia, unspecified; E78.00 Pure hypercholesterolemia, unspecified; K59.00 Constipation, unspecified; L29.9 Pruritus, unspecified; T40.4X5A Adverse effect of other synthetic narcotics, initial encounter; Z90.49 Acquired absence of other specified parts of digestive tract; Z88.6 Allergy status to analgesic agent; Z91.013 Allergy to seafood

== ENCOUNTER 2018-09-24 10:51 | Inpatient (IN) | payer MEDICARE ==
[2018-09-24 10:51] VITALS: BMI 22.1
--- NOTE | 2018-09-24 12:46 | C.PDOC ---
History Of Present Illness 78 year old female with PMHx of HTN and kidney problems on dialysis presents to the ED referred by Dr. Thomas for abnormal bloodwork. Patient also complains of sweats, fevers, and chills for 5 days. Denies any nausea, vomiting, diarrhea, chest pain, shortness of breath, palpitations or any other symptoms. Reports left leg pain. Denies any trauma, falls, weakness, or numbness. Time Seen by Provider: 09/24/18 12:19 Chief Complaint (Nursing): Abnormal Labs History Per: Patient, Family (daughter) History/Exam Limitations: no limitations Onset/Duration Of Symptoms: Days (5) Current Symptoms Are (Timing): Still Present Reports Recently: Treated By A Physician Past Medical History Reviewed: Historical Data, Nursing Documentation, Vital Signs Vital Signs: Last Vital Signs Temp 98.9 F 09/24/18 11:01 Pulse 93 H 09/24/18 11:01 Resp 20 09/24/18 11:01 BP 113/71 09/24/18 11:01 Pulse Ox 99 09/24/18 11:01 - Medical History PMH: Anemia, Anxiety, Arthritis, Gall Bladder Disease, HTN, Hypercholestero lemia, Hyperlipidemia, Osteoporosis, Chronic Kidney Disease Surgical History: Cholecystectomy - [facility] (08/25/18) Family History: States: No Known Family Hx - Social History Hx Alcohol Use: No Hx Substance Use: No - Immunization History Hx Tetanus Toxoid Vaccination: Yes Hx Influenza Vaccination: Yes Hx Pneumococcal Vaccination: Yes Review Of Systems Constitutional: Positive for: Fever, Chills, Sweats Cardiovascular: Negative for: Chest Pain, Palpitations Respiratory: Negative for: Shortness of Breath Gastrointestinal: Negative for: Nausea, Vomiting, Abdominal Pain, Diarrhea Musculoskeletal: Positive for: Leg Pain (left) Neurological: Negative for: Weakness, Numbness Physical Exam - Physical Exam Appears: Non-toxic, No Acute Distress, Other (thin, frail ) Skin: Warm, Dry, No Rash, Other (4 intact sutures on left hand, clean and dry. fistule with thrill and bruit ) Head: Normacephalic Eye(s): bilateral: Normal Inspection Nose: Normal Oral Mucosa: Moist Neck: Supple Chest: Other (dialysis catheter noted to right upper chest wall, nontender, no streaking, no drainage, mild erythema to insertion site ) Cardiovascular: Rhythm Regular Respiratory: No Rales, No Rhonchi, No Wheezing, Other (speaking full sentences) Gastrointestinal/Abdominal: Soft, No Tenderness, No Guarding, No Rebound Extremity: Normal ROM, No Tenderness, No Pedal Edema, Capillary Refill (less than 2 sec to b/l legs ), No Deformity, No Swelling Extremity: Bilateral: Atraumatic, Normal Color And Temperature, Normal ROM Pulses: Left Dorsalis Pedis: Normal, Right Dorsalis Pedis: Normal Neurological/Psych: Oriented x3, Normal Speech Gait: Steady ED Course And Treatment - Laboratory Results Result Diagrams: 09/28/18 07:05 09/28/18 07:06 ECG: Interpreted By Me, Viewed By Me ECG Rhythm: Sinus Rhythm ECG Interpretation: No Acute Changes Interpretation Of ECG: normal intervals. normal axis. no ST elevations. Rate From EC O2 Sat by Pulse Oximetry: 99 (RA) Pulse Ox Interpretation: Normal - Other Rad CXR X-Ray: Viewed By Me, Read By Radiologist Interpretation: Accession No. : [id number]. Patient Name / ID : MARLYN TOMLINSON / [id number]. Exam Date : 09/24/2018 12:54:37 ( Approved ). Study Comment : Sex / Age : F / [id number]. Creator : Valentín Amezquita MD. Dictator : Valentín Amezquita MD. Production Truck Driver : Residential Gas Heat Technician : Valentín Amezquita MD. Approver2 : Report Date : 09/24/2018 14:31:23. My Comment : . Date of service: 09/24/2018. HISTORY: Pneumonia. COMPARISON: 08/18/2018. TECHNIQUE: Chest PA and lateral. FINDINGS: LUNGS: No active pulmonary disease. PLEURA: No significant pleural effusion identified. No pneumothorax apparent. CARDIOVASCULAR: Atherosclerotic calcifications identified primarily aortic arch. Venous access catheter in stable, satisfactory position. Stable cardiomegaly. No pulmonary vascular congestion. OSSEOUS STRUCTURES: No significant abnormalities. VISUALIZED UPPER ABDOMEN: Normal. OTHER FINDINGS: None. IMPRESSION: No active disease. Specifically, no pulmonary infiltrates. No significant interval change compared to the prior examination(s). Medical Decision Making Medical Decision Making: Plan - Blood cultures - Urine culture - Bloodwork - EKG - CXR - UA 1500 Dr. Thomas with patient at bedside. States gram negative rods grew in blood cultures. Recommends Gentamycin and will dialyze later on. Will consult with Dr. David for permacath. Will admit to PCP. Disposition - Disposition Disposition: HOSPITALIZED Disposition Time: 15:00 Condition: STABLE - POA Present On Arrival: None - Clinical Impression Clinical Impression: Line sepsis associated with dialysis catheter, ESRD (end stage renal disease) on dialysis, Chronic disease anemia, Thrombocytopenia - Scribe Statement The provider has reviewed the documentation as recorded by the Scribmarine Kebede All medical record entries made by the Dharmeshibe were at my direction and personally dictated by me. I have reviewed the chart and agree that the record accurately reflects my personal performance of the history, physical exam, medical decision making, and the department course for this patient. I have also personally directed, reviewed, and agree with the discharge instructions and disposition.
[2018-09-24 13:13] LABS: BASO % 0.1 % (0.0-2.0); EOS # 0.1 K/uL (0.0-0.7); HEMOGLOBIN 10.2 g/dL (11.0-16.0); LYMPH # 0.7 K/uL (1.0-4.3); LYMPH % 6.2 % (20.0-40.0); MEAN PLATELET VOLUME 9.3 fL (7.2-11.7); MONO # 0.9 K/uL (0.0-0.8)
[2018-09-24 13:25] LABS: EOS % 0.6 % (0.0-4.0); MEAN CORPUSCULAR HEMOGLOBIN 32.2 pg (27.0-31.0); MEAN CORPUSCULAR HGB CONC 33.3 g/dL (33.0-37.0); MONO % 8.1 % (0.0-10.0); NEUT # 9.1 K/uL (1.8-7.0); RBC 3.17 Mil/uL (3.80-5.20); RED CELL DISTRIBUTION WIDTH 14.8 % (11.5-14.5)
[2018-09-24 13:26] LABS: PLATELET COUNT 82 K/uL (130-400); WHITE BLOOD COUNT 10.7 K/uL (4.8-10.8)
[2018-09-24 13:31] LABS: VENOUS BLOOD GAS BASE EXCESS 8.2 mmol/L (0.0-2.0); VENOUS BLOOD GAS PCO2 44 mmHg (40-60); VENOUS BLOOD GAS PO2 40 mm/Hg (30-55); VENOUS BLOOD PH 7.48 (7.32-7.43)
[2018-09-24 13:41] LABS: ALBUMIN 3.3 g/dL (3.5-5.0); CALCIUM 8.3 mg/dl (8.6-10.4)
[2018-09-24 13:47] LABS: TROPONIN I 0.022 ng/mL (0.00-0.120)
[2018-09-24 13:58] LABS: BANDS 3 % (0-2); LYMPHOCYTE 8 % (20-40); MONOCYTE 4 % (0-10); NEUTROPHIL 85 % (50-75); TOTAL CELLS COUNTED 100
[2018-09-24 13:59] LABS: ANISOCYTOSIS SLIGHT; HYPOCHROMIC SLIGHT; PLATELET ESTIMATE DECREASED (NORMAL); POIKILOCYTOSIS SLIGHT
--- NOTE | 2018-09-24 14:35 | RAD ---
Date of service: 09/24/2018 HISTORY: Pneumonia. COMPARISON: 08/18/2018. TECHNIQUE: Chest PA and lateral FINDINGS: LUNGS: No active pulmonary disease. PLEURA: No significant pleural effusion identified. No pneumothorax apparent. CARDIOVASCULAR: Atherosclerotic calcifications identified primarily aortic arch. Venous access catheter in stable, satisfactory position. Stable cardiomegaly No pulmonary vascular congestion. OSSEOUS STRUCTURES: No significant abnormalities. VISUALIZED UPPER ABDOMEN: Normal. OTHER FINDINGS: None. IMPRESSION: No active disease. Specifically, no pulmonary infiltrates. No significant interval change compared to the prior examination(s).
[2018-09-24 14:59] LABS: SQUAMOUS EPITHIAL 4 /hpf (0-5); URINE AMORPHOUS SEDIMENT OCC /ul (<OCC); URINE BACTERIA MOD (<OCC); URINE BILIRUBIN NEGATIVE (NEGATIVE); URINE BLOOD 2+ (NEGATIVE); URINE CLARITY Hazy (Clear); URINE COLOR Yellow (YELLOW); URINE GLUCOSE (UA) NORMAL (Normal); URINE LEUKOCYTE ESTERASE 1+ Leu/uL (Negative); URINE PROTEIN 2+ mg/dL (NEGATIVE); URINE UROBILINOGEN NORMAL mg/dL (0.2-1.0)
--- NOTE | 2018-09-24 15:12 | CP.PCM.CON ---
History of Present Illness - History of Present Illness History of Present Illness: 78 year old female with PMHx of HTN and ESRD on dialysis presents to the ED referred by Dr. Thomas for fevers, chills,+GNR bacteremia. Patient also complains of sweats, fevers, and chills for 5 days. Denies any nausea, vomiting, diarrhea, chest pain, shortness of breath, palpitations or any other symptoms. Reports left leg pain. Denies any trauma, falls, weakness, or numbness. Has been on dialysis x 1 mo via right permcath PMH: ESRD HTN PSH: AV F choleycystectomy Review of Systems - Constitutional Constitutional: Chills, Fever - EENT Eyes: absent: As Per HPI, Blind Spots, Blurred Vision, Change in Vision, Decreased Night Vision, Diplopia, Discharge, Dry Eye, Exophthalmos, Floaters, Irritation, Itchy Eyes, Loss of Peripheral Vision, Pain, Photophobia, Requires Corrective Lenses, Sees Flashes, Spots in Vision, Tunnel Vision, Other Visual Disturbances, Loss of Vision, Other Ears: absent: As Per HPI, Decreased Hearing, Ear Discharge, Ear Pain, Tinnitus, Abnormal Hearing, Disequilibrium, Dizziness, Other Nose/Mouth/Throat: absent: As Per HPI, Epistaxis, Nasal Congestion, Nasal Discharge, Nasal Obstruction, Nasal Trauma, Nose Pain, Post Nasal Drip, Sinus Pain, Sinus Pressure, Bleeding Gums, Change in Voice, Dental Pain, Dry Mouth, Dysphagia, Halitosis, Hoarsness, Lip Swelling, Mouth Lesions, Mouth Pain, Odyn ophagia, Sore Throat, Throat Swelling, Tongue Swelling, Facial Pain, Neck Pain, Neck Mass, Other - Cardiovascular Cardiovascular: absent: As Per HPI, Acrocyanosis, Chest Pain, Chest Pain at Rest, Chest Pain with Activity, Claudication, Diaphoresis, Dyspnea, Dyspnea on Exertion, Edema, Irregular Heart Rhythm, Pain Radiating to Arm/Neck/Jaw, Leg Edema, Leg Ulcers, Lightheadedness, Orthopnea, Palpitations, Paroxysmal Nocturnal Dyspnea, Pedal Edema, Radiating Pain, Rapid Heart Rate, Slow Heart Rate, Syncope, Other - Respiratory Respiratory: absent: As Per HPI, Cough, Dyspnea, Hemoptysis, Dyspnea on Exertion, Wheezing, Snoring, Stridor, Pain on Inspiration, Chest Congestion, Excessive Mucous Production, Change in Mucous Color, Pain with Coughing, Other - Gastrointestinal Gastrointestinal: absent: As Per HPI, Abdominal Pain, Belching, Bloating, Change in Bowel Habits, Change in Stool Character, Coffee Ground Emesis, Constipation, Cramping, Diarrhea, Dyspepsia, Dysphagia, Early Satiety, Excessive Flatus, Fecal Incontinence, Heartburn, Hematemesis, Hematochezia, Loose Stools, Melena, Nausea, Odynophagia, Temesmus, Vomiting, Other - Genitourinary Genitourinary: As Per HPI - Musculoskeletal Musculoskeletal: Muscle Weakness, Myalgias - Neurological Neurological: Weakness Past Patient History - Infectious Disease Hx of Infectious Diseases: None - Past Medical History & Family History Past Medical History?: Yes Past Family History: Reviewed and not pertinent - Past Social History Smoking Status: Never Smoked Chewing Tobacco Use: No Cigar Use: No Alcohol: None Drugs: Denies Home Situation {Lives}: Alone - CARDIAC Hx Hypercholesterolemia: Yes Hx Hypertension: Yes - PULMONARY Hx Respiratory Disorders: No - NEUROLOGICAL Hx Neurological Disorder: No - HEENT Hx HEENT Problems: Yes Hx Cataracts: Yes (iol) - RENAL Hx Chronic Kidney Disease: Yes - ENDOCRINE/METABOLIC Hx Endocrine Disorders: No - HEMATOLOGICAL/ONCOLOGICAL Hx Anemia: Yes - INTEGUMENTARY Hx Dermatological Problems: No - MUSCULOSKELETAL/RHEUMATOLOGICAL Hx Arthritis: Yes Hx Osteoporosis: Yes - GASTROINTESTINAL Hx Gall Bladder Disease: Yes - GENITOURINARY/GYNECOLOGICAL Hx Genitourinary Disorders: No - PSYCHIATRIC Hx Anxiety: Yes Hx Substance Use: No - SURGICAL HISTORY Hx Cholecystectomy: Yes - ANESTHESIA Hx Anesthesia: Yes Hx Anesthesia Reactions: No Hx Malignant Hyperthermia: No Meds Allergies/Adverse Reactions: Allergies Allergy/AdvReac Type Severity Reaction Status Date / Time aspirin Allergy Intermediate RASH Verified 09/24/18 11:02 shellfish derived Allergy Intermediate RASH Verified 09/24/18 11:02 seafood Allergy Intermediate RASH Uncoded 09/24/18 11:02 Physical Exam - Constitutional Appears: No Acute Distress, Agitated, Chronically Ill - Head Exam Head Exam: ATRAUMATIC, NORMAL INSPECTION - Eye Exam Eye Exam: EOMI, Normal appearance - Neck Exam Neck exam: Positive for: Normal Inspection. Negative for: Tenderness - Respiratory Exam Respiratory Exam: Clear to Auscultation Bilateral, NORMAL BREATHING PATTERN - Cardiovascular Exam Cardiovascular Exam: REGULAR RHYTHM, +S1 - GI/Abdominal Exam GI & Abdominal Exam: Soft. absent: Tenderness - Extremities Exam Extremities exam: Positive for: normal inspection. Negative for: tenderness - Neurological Exam Neurological exam: Alert, CN II-XII Intact - Skin Skin Exam: Dry, Warm Results - Vital Signs Recent Vital Signs: Last Vital Signs Temp 98.9 F 09/24/18 11:01 Pulse 93 H 09/24/18 11:01 Resp 20 09/24/18 11:01 BP 113/71 09/24/18 11:01 Pulse Ox 99 09/24/18 13:12 - Labs Result Diagrams: 09/24/18 13:02 09/24/18 13:02 Labs: Laboratory Results - last 24 hr 09/24/18 09/24/18 09/24/18 13:01 13:02 13:02 WBC 10.7 D RBC 3.17 L Hgb 10.2 L Hct 30.8 L MCV 97.0 D MCH 32.2 H MCHC 33.3 RDW 14.8 H Plt Count 82 L D MPV 9.3 Neut % (Auto) 85.0 H Lymph % (Auto) 6.2 L [place] % (Auto) 8.1 Eos % (Auto) 0.6 Baso % (Auto) 0.1 Neut # (Auto) 9.1 H Lymph # (Auto) 0.7 L [place] # (Auto) 0.9 H Eos # (Auto) 0.1 Baso # (Auto) 0.0 Neutrophils % (Manual) 85 H Band Neutrophils % 3 H Lymphocytes % (Manual) 8 L Monocytes % (Manual) 4 Platelet Estimate Decreased L Hypochromasia (manual) Slight Poikilocytosis (manual Slight Anisocytosis (manual) Slight pO2 40 VBG pH 7.48 H VBG pCO2 44 VBG HCO3 30.8 VBG Total CO2 34.2 H VBG Base Excess 8.2 H VBG Potassium 3.6 Sodium 138.0 135 Chloride 102.0 94 L Glucose 155 H Lactate 1.6 Potassium 3.6 Carbon Dioxide 28 Anion Gap 17 BUN 51 H Creatinine 7.0 H Est GFR ( Amer) 7 Est GFR (Non-Af Amer) 6 Random Glucose 152 H Calcium 8.3 L Total Bilirubin 0.7 AST 96 H D ALT 33 Alkaline Phosphatase 130 H Troponin I 0.0220 Total Protein 6.5 Albumin 3.3 L Globulin 3.2 Albumin/Globulin Ratio 1.0 Venous Blood Potassium 3.6 Urine Color Urine Clarity Urine pH Ur Specific [place] Urine Protein Urine Glucose (UA) Urine Ketones Urine Blood Urine Nitrate Urine Bilirubin Urine Urobilinogen Ur Leukocyte Esterase Urine WBC (Auto) Urine RBC (Auto) Ur Squamous Epith Cells Amorphous Sediment Urine Bacteria 09/24/18 14:40 WBC RBC Hgb Hct MCV MCH MCHC RDW Plt Count MPV Neut % (Auto) Lymph % (Auto) [place] % (Auto) Eos % (Auto) Baso % (Auto) Neut # (Auto) Lymph # (Auto) [place] # (Auto) Eos # (Auto) Baso # (Auto) Neutrophils % (Manual) Band Neutrophils % Lymphocytes % (Manual) Monocytes % (Manual) Platelet Estimate Hypochromasia (manual) Poikilocytosis (manual Anisocytosis (manual) pO2 VBG pH VBG pCO2 VBG HCO3 VBG Total CO2 VBG Base Excess VBG Potassium Sodium Chloride Glucose Lactate Potassium Carbon Dioxide Anion Gap BUN Creatinine Est GFR ( Amer) Est GFR (Non-Af Amer) Random Glucose Calcium Total Bilirubin AST ALT Alkaline Phosphatase Troponin I Total Protein Albumin Globulin Albumin/Globulin Ratio Venous Blood Potassium Urine Color Yellow Urine Clarity Hazy Urine pH 5.0 Ur Specific [place] 1.014 Urine Protein 2+ H Urine Glucose (UA) Normal Urine Ketones Negative Urine Blood 2+ H Urine Nitrate Negative Urine Bilirubin Negative Urine Urobilinogen Normal Ur Leukocyte Esterase 1+ H Urine WBC (Auto) 7 H Urine RBC (Auto) 5 H Ur Squamous Epith Cells 4 Amorphous Sediment Occ H Urine Bacteria Mod H Assessment & Plan (1) DDD (degenerative disc disease), cervical Status: Acute (2) Line sepsis associated with dialysis catheter Status: Acute (3) Bacteremia Status: Acute (4) ESRD (end stage renal disease) Status: Acute (5) CKD (chronic kidney disease) stage 5, GFR less than 15 ml/min Status: Chronic - Assessment and Plan (Free Text) Plan: Needs cath explantation New cath IV ABs HD to be rescheduled
[2018-09-24] MEDS ORDERED: Gentamicin 80 mg in 0.9% NS 80 MG/100 ML BAG IVPB ONE (17:00)
--- NOTE | 2018-09-24 17:44 | CP.PCM.CON ---
History of Present Illness - History of Present Illness History of Present Illness: Vascular surgery consult for Dr. Mckeon Consulted for infected permacath Pt is a 78F with ESRD who underwent a permacath placement and left hand AVF one month ago by Dr. Mckeon. She has been having fevers for 5 days and had a blood culture positive for gram negative rods in Dialysis recently per Dr. Thomas, so was referred to the ER for permacath removal and new access. Patient denies any chest pain, SOB, purulent drainage or erythema at the site, any complications with HD, nausea, vomiting, edema, dysuria, diarrhea or any other symptoms. PMH: ESRD on HD, DJD, HLD, HTN, gastritis, polycystic kidney disease, osteoporosis PSH: L snuffbox AVF, permacath ALL: ASA, shellfish (rash) Social: denies any smoking, occasional ETOH use, no illicit substances Review of Systems - Review of Systems All systems: reviewed and no additional remarkable complaints except (as per HPI) Past Patient History - Infectious Disease Hx of Infectious Diseases: None - Past Medical History & Family History Past Medical History?: Yes Past Family History: Reviewed and not pertinent - Past Social History Smoking Status: Never Smoked Chewing Tobacco Use: No Cigar Use: No Alcohol: Occasional Drugs: Denies Home Situation {Lives}: Alone - CARDIAC Hx Hypercholesterolemia: Yes Hx Hypertension: Yes - PULMONARY Hx Respiratory Disorders: No - NEUROLOGICAL Hx Neurological Disorder: No - HEENT Hx HEENT Problems: Yes Hx Cataracts: Yes (iol) - RENAL Hx Chronic Kidney Disease: Yes - ENDOCRINE/METABOLIC Hx Endocrine Disorders: No - HEMATOLOGICAL/ONCOLOGICAL Hx Anemia: Yes - INTEGUMENTARY Hx Dermatological Problems: No - MUSCULOSKELETAL/RHEUMATOLOGICAL Hx Arthritis: Yes Hx Osteoporosis: Yes - GASTROINTESTINAL Hx Gall Bladder Disease: Yes - GENITOURINARY/GYNECOLOGICAL Hx Genitourinary Disorders: No - PSYCHIATRIC Hx Anxiety: Yes Hx Substance Use: No - SURGICAL HISTORY Hx Cholecystectomy: Yes - ANESTHESIA Hx Anesthesia: Yes Hx Anesthesia Reactions: No Hx Malignant Hyperthermia: No Meds Allergies/Adverse Reactions: Allergies Allergy/AdvReac Type Severity Reaction Status Date / Time aspirin Allergy Intermediate RASH Verified 09/24/18 11:02 shellfish derived Allergy Intermediate RASH Verified 09/24/18 11:02 seafood Allergy Intermediate RASH Uncoded 09/24/18 11:02 - Medications Medications: Current Medications Gentamicin Sulfate/Sodium Chloride (Gentamicin 80mg/100ml Ns) 80 mg in 100 mls @ 100 mls/hr IVPB ONCE ONE; Protocol Stop: 09/24/18 17:59 Last Admin: 09/24/18 16:22 Dose: 100 mls/hr Physical Exam - Constitutional Appears: Well, Non-toxic, No Acute Distress - Head Exam Head Exam: ATRAUMATIC, NORMOCEPHALIC - Eye Exam Eye Exam: Normal appearance. absent: Conjunctival injection, Scleral icterus - ENT Exam ENT Exam: Mucous Membranes Moist, Normal Oropharynx - Neck Exam Additional comments: permacath in place in the right neck with no overlying erythema, drainage, or bleeding, non-tender - Respiratory Exam Respiratory Exam: NORMAL BREATHING PATTERN. absent: Accessory Muscle Use, Respiratory Distress - Cardiovascular Exam Cardiovascular Exam: RRR - GI/Abdominal Exam GI & Abdominal Exam: Soft. absent: Distended, Tenderness - Extremities Exam Extremities exam: Positive for: pedal pulses present. Negative for: calf tenderness, pedal edema - Back Exam Back exam: absent: CVA tenderness (L), CVA tenderness (R) - Neurological Exam Neurological exam: Alert, Oriented x3 - Psychiatric Exam Psychiatric exam: Normal Affect, Normal Mood - Skin Skin Exam: Dry, Normal Color, Warm Results - Vital Signs Recent Vital Signs: Last Vital Signs Temp 100.6 F H 09/24/18 15:37 Pulse 145 H 09/24/18 15:37 Resp 16 09/24/18 15:37 BP 91/47 L 09/24/18 15:37 Pulse Ox 99 09/24/18 17:05 - Labs Result Diagrams: 09/24/18 13:02 09/24/18 13:02 Labs: Laboratory Results - last 24 hr 09/24/18 09/24/18 09/24/18 13:01 13:02 13:02 WBC 10.7 D RBC 3.17 L Hgb 10.2 L Hct 30.8 L MCV 97.0 D MCH 32.2 H MCHC 33.3 RDW 14.8 H Plt Count 82 L D MPV 9.3 Neut % (Auto) 85.0 H Lymph % (Auto) 6.2 L [place] % (Auto) 8.1 Eos % (Auto) 0.6 Baso % (Auto) 0.1 Neut # (Auto) 9.1 H Lymph # (Auto) 0.7 L [place] # (Auto) 0.9 H Eos # (Auto) 0.1 Baso # (Auto) 0.0 Neutrophils % (Manual) 85 H Band Neutrophils % 3 H Lymphocytes % (Manual) 8 L Monocytes % (Manual) 4 Platelet Estimate Decreased L Hypochromasia (manual) Slight Poikilocytosis (manual Slight Anisocytosis (manual) Slight pO2 40 VBG pH 7.48 H VBG pCO2 44 VBG HCO3 30.8 VBG Total CO2 34.2 H VBG Base Excess 8.2 H VBG Potassium 3.6 Sodium 138.0 135 Chloride 102.0 94 L Glucose 155 H Lactate 1.6 Potassium 3.6 Carbon Dioxide 28 Anion Gap 17 BUN 51 H Creatinine 7.0 H Est GFR ( Amer) 7 Est GFR (Non-Af Amer) 6 Random Glucose 152 H Calcium 8.3 L Total Bilirubin 0.7 AST 96 H D ALT 33 Alkaline Phosphatase 130 H Troponin I 0.0220 Total Protein 6.5 Albumin 3.3 L Globulin 3.2 Albumin/Globulin Ratio 1.0 Venous Blood Potassium 3.6 Urine Color Urine Clarity Urine pH Ur Specific [place] Urine Protein Urine Glucose (UA) Urine Ketones Urine Blood Urine Nitrate Urine Bilirubin Urine Urobilinogen Ur Leukocyte Esterase Urine WBC (Auto) Urine RBC (Auto) Ur Squamous Epith Cells Amorphous Sediment Urine Bacteria 09/24/18 14:40 WBC RBC Hgb Hct MCV MCH MCHC RDW Plt Count MPV Neut % (Auto) Lymph % (Auto) [place] % (Auto) Eos % (Auto) Baso % (Auto) Neut # (Auto) Lymph # (Auto) [place] # (Auto) Eos # (Auto) Baso # (Auto) Neutrophils % (Manual) Band Neutrophils % Lymphocytes % (Manual) Monocytes % (Manual) Platelet Estimate Hypochromasia (manual) Poikilocytosis (manual Anisocytosis (manual) pO2 VBG pH VBG pCO2 VBG HCO3 VBG Total CO2 VBG Base Excess VBG Potassium Sodium Chloride Glucose Lactate Potassium Carbon Dioxide Anion Gap BUN Creatinine Est GFR ( Amer) Est GFR (Non-Af Amer) Random Glucose Calcium Total Bilirubin AST ALT Alkaline Phosphatase Troponin I Total Protein Albumin Globulin Albumin/Globulin Ratio Venous Blood Potassium Urine Color Yellow Urine Clarity Hazy Urine pH 5.0 Ur Specific [place] 1.014 Urine Protein 2+ H Urine Glucose (UA) Normal Urine Ketones Negative Urine Blood 2+ H Urine Nitrate Negative Urine Bilirubin Negative Urine Urobilinogen Normal Ur Leukocyte Esterase 1+ H Urine WBC (Auto) 7 H Urine RBC (Auto) 5 H Ur Squamous Epith Cells 4 Amorphous Sediment Occ H Urine Bacteria Mod H Assessment & Plan - Assessment and Plan (Free Text) Assessment: 78F with bacteremia, possibly infected right permacath Plan: Remove permacath at bedside this evening OR tomorrow for permacath insertion tomorrow NPO after midnight PRN pain medication Antibiotics per ID Discussed with Dr. Linda Dhillon, PGY2
[2018-09-24] MEDS: Meropenem 500 MG in Sodium Chloride 0.9% 100 ML IVPB SCH (22:40)
--- NOTE | 2018-09-24 23:02 | CP.PCM.HP ---
History of Present Illness - History of Present Illness History of Present Illness: 78 yo [place] female was sent by Dr Thomas to the ED at [facility] because her blood culture 2 days ago at the dialysis center revealed G negative rods. Known have an ESRD from a polycystic kidney disease, a HPTN, a COPD, a hyper cholesterolemia, a DJD and osteoporosis, she had a permacath and an AV shunt inserted a month ago. For the past 5 days, she has having fever, chills, generalized weakness and poor appetite. She was started on Gentamycin IV in the ED, and Merem by Dr Rubio. Present on Admission - Present on Admission Any Indicators Present on Admission: No Review of Systems - Constitutional Constitutional: Anorexia, Chills, Fever, Weakness Past Patient History - Infectious Disease Hx of Infectious Diseases: None - Past Medical History & Family History Past Medical History?: Yes Past Family History: Reviewed and not pertinent - Past Social History Smoking Status: Never Smoked Chewing Tobacco Use: No Cigar Use: No Alcohol: Occasional Drugs: Denies Home Situation {Lives}: Alone - CARDIAC Hx Hypercholesterolemia: Yes Hx Hypertension: Yes - PULMONARY Hx Respiratory Disorders: No - NEUROLOGICAL Hx Neurological Disorder: No - HEENT Hx HEENT Problems: Yes Hx Cataracts: Yes (iol) - RENAL Hx Chronic Kidney Disease: Yes - ENDOCRINE/METABOLIC Hx Endocrine Disorders: No - HEMATOLOGICAL/ONCOLOGICAL Hx Anemia: Yes - INTEGUMENTARY Hx Dermatological Problems: No - MUSCULOSKELETAL/RHEUMATOLOGICAL Hx Arthritis: Yes Hx Osteoporosis: Yes - GASTROINTESTINAL Hx Gall Bladder Disease: Yes - GENITOURINARY/GYNECOLOGICAL Hx Genitourinary Disorders: No - PSYCHIATRIC Hx Anxiety: Yes Hx Substance Use: No - SURGICAL HISTORY Hx Cholecystectomy: Yes - ANESTHESIA Hx Anesthesia: Yes Hx Anesthesia Reactions: No Hx Malignant Hyperthermia: No Meds Allergies/Adverse Reactions: Allergies Allergy/AdvReac Type Severity Reaction Status Date / Time aspirin Allergy Intermediate RASH Verified 09/24/18 11:02 shellfish derived Allergy Intermediate RASH Verified 09/24/18 11:02 seafood Allergy Intermediate RASH Uncoded 09/24/18 11:02 Physical Exam - Constitutional Appears: No Acute Distress, Chronically Ill - Head Exam Head Exam: NORMAL INSPECTION - Eye Exam Eye Exam: Normal appearance - ENT Exam ENT Exam: Normal Exam - Respiratory Exam Respiratory Exam: Clear to Auscultation Bilateral, NORMAL BREATHING PATTERN - Cardiovascular Exam Cardiovascular Exam: REGULAR RHYTHM - GI/Abdominal Exam GI & Abdominal Exam: Normal Bowel Sounds, Soft - Rectal Exam Rectal Exam: Deferred - Exam Exam: NORMAL INSPECTION - Extremities Exam Extremities exam: Positive for: normal inspection - Back Exam Back exam: NORMAL INSPECTION - Neurological Exam Neurological exam: Alert - Psychiatric Exam Psychiatric exam: Anxious - Skin Skin Exam: Dry, Intact, Normal Color, Warm Results - Vital Signs Recent Vital Signs: Last Vital Signs Temp 97.8 F 09/24/18 18:04 Pulse 73 09/24/18 18:04 Resp 20 09/24/18 18:04 BP 94/50 L 09/24/18 18:04 Pulse Ox 96 09/24/18 18:04 - Labs Result Diagrams: 09/24/18 13:02 09/24/18 13:02 Labs: Laboratory Results - last 24 hr 09/24/18 09/24/18 09/24/18 13:01 13:02 13:02 WBC 10.7 D RBC 3.17 L Hgb 10.2 L Hct 30.8 L MCV 97.0 D MCH 32.2 H MCHC 33.3 RDW 14.8 H Plt Count 82 L D MPV 9.3 Neut % (Auto) 85.0 H Lymph % (Auto) 6.2 L [place] % (Auto) 8.1 Eos % (Auto) 0.6 Baso % (Auto) 0.1 Neut # (Auto) 9.1 H Lymph # (Auto) 0.7 L [place] # (Auto) 0.9 H Eos # (Auto) 0.1 Baso # (Auto) 0.0 Neutrophils % (Manual) 85 H Band Neutrophils % 3 H Lymphocytes % (Manual) 8 L Monocytes % (Manual) 4 Platelet Estimate Decreased L Hypochromasia (manual) Slight Poikilocytosis (manual Slight Anisocytosis (manual) Slight pO2 40 VBG pH 7.48 H VBG pCO2 44 VBG HCO3 30.8 VBG Total CO2 34.2 H VBG Base Excess 8.2 H VBG Potassium 3.6 Sodium 138.0 135 Chloride 102.0 94 L Glucose 155 H Lactate 1.6 Potassium 3.6 Carbon Dioxide 28 Anion Gap 17 BUN 51 H Creatinine 7.0 H Est GFR ( Amer) 7 Est GFR (Non-Af Amer) 6 POC Glucose (mg/dL) Random Glucose 152 H Calcium 8.3 L Total Bilirubin 0.7 AST 96 H D ALT 33 Alkaline Phosphatase 130 H Troponin I 0.0220 Total Protein 6.5 Albumin 3.3 L Globulin 3.2 Albumin/Globulin Ratio 1.0 Venous Blood Potassium 3.6 Urine Color Urine Clarity Urine pH Ur Specific [place] Urine Protein Urine Glucose (UA) Urine Ketones Urine Blood Urine Nitrate Urine Bilirubin Urine Urobilinogen Ur Leukocyte Esterase Urine WBC (Auto) Urine RBC (Auto) Ur Squamous Epith Cells Amorphous Sediment Urine Bacteria 09/24/18 09/24/18 14:40 21:52 WBC RBC Hgb Hct MCV MCH MCHC RDW Plt Count MPV Neut % (Auto) Lymph % (Auto) [place] % (Auto) Eos % (Auto) Baso % (Auto) Neut # (Auto) Lymph # (Auto) [place] # (Auto) Eos # (Auto) Baso # (Auto) Neutrophils % (Manual) Band Neutrophils % Lymphocytes % (Manual) Monocytes % (Manual) Platelet Estimate Hypochromasia (manual) Poikilocytosis (manual Anisocytosis (manual) pO2 VBG pH VBG pCO2 VBG HCO3 VBG Total CO2 VBG Base Excess VBG Potassium Sodium Chloride Glucose Lactate Potassium Carbon Dioxide Anion Gap BUN Creatinine Est GFR ( Amer) Est GFR (Non-Af Amer) POC Glucose (mg/dL) 223 H Random Glucose Calcium Total Bilirubin AST ALT Alkaline Phosphatase Troponin I Total Protein Albumin Globulin Albumin/Globulin Ratio Venous Blood Potassium Urine Color Yellow Urine Clarity Hazy Urine pH 5.0 Ur Specific [place] 1.014 Urine Protein 2+ H Urine Glucose (UA) Normal Urine Ketones Negative Urine Blood 2+ H Urine Nitrate Negative Urine Bilirubin Negative Urine Urobilinogen Normal Ur Leukocyte Esterase 1+ H Urine WBC (Auto) 7 H Urine RBC (Auto) 5 H Ur Squamous Epith Cells 4 Amorphous Sediment Occ H Urine Bacteria Mod H Assessment & Plan (1) Line sepsis associated with dialysis catheter Assessment and Plan: Scheduled to have Permacath removed and insertion of a new one. Status: Acute (2) Bacteremia due to Gram-negative bacteria Assessment and Plan: On IV Meropenem. Status: Acute (3) ESRD (end stage renal disease) on dialysis Status: Acute (4) ESRD (end stage renal disease) on dialysis Assessment and Plan: HD as per Nephrologists. Status: Acute Decision To Admit - Pt Status Changed To: Hospital Disposition Of: Inpatient - Admit Certification Admit to Inpatient:: After my assessment, the patient will require hospitalization for at least two midnights. This is because of the severity of symptoms shown, intensity of services needed, and/or the medical risk in this patient being treated as an outpatient. - InPatient: Physician Admission Certification:: After my assessments, the patient requires hospitalization for at least 2 midnights. - . Bed Request Type: Regular Admitting Physician: Justin Nazario
[2018-09-25 07:16] LABS: BASO % 0.2 % (0.0-2.0); EOS # 0.1 K/uL (0.0-0.7); EOS % 0.6 % (0.0-4.0); HEMOGLOBIN 9.7 g/dL (11.0-16.0); LYMPH # 1.3 K/uL (1.0-4.3); LYMPH % 13.7 % (20.0-40.0); MEAN CELL VOLUME 97.7 fL (81.0-99.0); MEAN CORPUSCULAR HEMOGLOBIN 31.9 pg (27.0-31.0); MEAN CORPUSCULAR HGB CONC 32.7 g/dL (33.0-37.0); MONO # 1.8 K/uL (0.0-0.8); MONO % 18.8 % (0.0-10.0); NEUT # 6.2 K/uL (1.8-7.0); NEUT % 66.7 % (50.0-75.0); RBC 3.04 Mil/uL (3.80-5.20); RED CELL DISTRIBUTION WIDTH 15.9 % (11.5-14.5); WHITE BLOOD COUNT 9.4 K/uL (4.8-10.8)
[2018-09-25 08:14] LABS: ALB/GLOB RATIO 1.1 (1.0-2.1); ALT/SGPT 35 U/L (9-52); AST/SGOT 74 U/L (14-36); BLOOD UREA NITROGEN 56 mg/dL (7-17); CALCIUM 7.9 mg/dl (8.6-10.4); GFR NON-AFRICAN AMERICAN 6
[2018-09-25] MEDS ORDERED: Lidocaine Hydrochloride 10 ML INJ ONE (09:16)
[2018-09-25] MEDS ORDERED: HEPARIN-NS 5,000 UNITS/500 ML 5,000 UNIT/500 ML BAG IV ONE (09:17)
[2018-09-25] MEDS: Meropenem 500 MG in Sodium Chloride 0.9% 100 ML IVPB SCH ×3 (09:54→22:08)
--- NOTE | 2018-09-25 09:58 | CP.PCM.PN ---
Subjective - Date & Time of Evaluation Date of Evaluation: 09/25/18 Time of Evaluation: 09:55 - Subjective Subjective: Permcath explanted Feels better On IV ABs for GNR bacteremia For new cath then dialysis today Tired due to poor sleeping Objective - Vital Signs/Intake and Output Vital Signs (last 24 hours): Temp Pulse Resp BP Pulse Ox 98.8 F 63 20 103/59 L 98 09/25/18 08:17 09/25/18 08:17 09/25/18 08:17 09/25/18 08:17 09/25/18 08:17 - Medications Medications: Current Medications Acetaminophen (Tylenol 325mg Tab) 650 mg PO Q6 PRN PRN Reason: Fever >100.4 F Last Admin: 09/24/18 22:41 Dose: 650 mg Amlodipine Besylate (Norvasc) 5 mg PO DAILY [facility] Docusate Sodium (Colace) 100 mg PO BID [facility] Ferrous Sulfate (Feosol) 325 mg PO DAILY [facility] Heparin Sodium (Porcine) (Heparin) 5,000 units SC Q8 [facility] Last Admin: 09/24/18 22:41 Dose: Not Given Home Med (Alendronate [Fosamax]) 70 mg PO QWK [facility] Meropenem 500 mg/ Sodium (Chloride) 100 mls @ 100 mls/hr IVPB Q12H [facility]; Protocol Last Admin: 09/24/18 22:40 Dose: 100 mls/hr Metoprolol Succinate (Toprol Xl) 25 mg PO BID [facility] Pantoprazole Sodium (Protonix Ec Tab) 40 mg PO DAILY [facility] Rosuvastatin Calcium (Crestor) 5 mg PO HS [facility] Last Admin: 09/24/18 22:41 Dose: 5 mg - Labs Labs: 09/25/18 07:06 09/25/18 07:06 - Constitutional Appears: No Acute Distress, Chronically Ill - Head Exam Head Exam: ATRAUMATIC, NORMAL INSPECTION - Eye Exam Eye Exam: EOMI, Normal appearance - Neck Exam Neck Exam: Normal Inspection. absent: Tenderness - Respiratory Exam Respiratory Exam: Clear to Ausculation Bilateral, NORMAL BREATHING PATTERN - Cardiovascular Exam Cardiovascular Exam: REGULAR RHYTHM, +S1 - GI/Abdominal Exam GI & Abdominal Exam: Soft. absent: Tenderness - Extremities Exam Extremities Exam: Normal Inspection. absent: Tenderness - Neurological Exam Neurological Exam: Awake, CN II-XII Intact - Skin Skin Exam: Dry, Warm Assessment and Plan (1) DDD (degenerative disc disease), cervical Status: Acute (2) Line sepsis associated with dialysis catheter Status: Acute (3) Bacteremia Status: Acute (4) ESRD (end stage renal disease) Status: Acute (5) CKD (chronic kidney disease) stage 5, GFR less than 15 ml/min Status: Chronic - Assessment and Plan (Free Text) Plan: Dialysis today post new permcath IV ABS Add EPO
[2018-09-25] MEDS: Pantoprazole 40 mg EC Tab PO SCH (10:00)
[2018-09-25] MEDS: Metoprolol Succinate 25 mg XL Tab PO SCH ×2 (10:01→18:00)
[2018-09-25] MEDS ORDERED: Propofol 10 mg/ml Inj (20 ML) ONE (15:24)
[2018-09-25] MEDS ORDERED: Oxycodone/Acetaminophen 5/325 mg Tab PO PRN (16:11)
--- NOTE | 2018-09-25 16:13 | PCM.SURG1 ---
Surgeon's Initial Post Op Note - Surgeon's Notes Surgeon: Dr. Mckeon Termite Technician: Dr. Jimenez PGY-4 Type of Anesthesia: IV Sedation, Local Pre-Operative Diagnosis: Renal failure Operative Findings: placement confirmed via fluoro Post-Operative Diagnosis: Renal failure Operation Performed: Right IJ Permacath Specimen/Specimens Removed: none Estimated Blood Loss: EBL {In ML}: 15 Blood Products Given: N/A Drains Used: No Drains Post-Op Condition: Fair Date of Surgery/Procedure: 09/25/18 Time of Surgery/Procedure: 16:13
[2018-09-25] MEDS ORDERED: HYDROmorphone 0.5 mg/0.5 ml ISec IVP PRN (16:28)
[2018-09-25] MEDS ORDERED: Sodium Chloride 0.9% 1,000 ML IV SCH (16:30)
--- NOTE | 2018-09-25 16:35 | RAD ---
Date of service: 09/25/2018 PROCEDURE: Intraoperative Fluoroscopy. HISTORY: RENAL FAILURE FINDINGS: Fluoroscopic assistance was provided. Fluoroscopy time = 15.9 sec. Radiation dose = 1.33 mGy. Please refer to the operative report from DAVID Talavera.
[2018-09-25] MEDS ORDERED: HYDROmorphone 0.5 mg/0.5 ml ISec ONE (16:45)
--- NOTE | 2018-09-25 17:19 | RAD ---
Date of service: 09/25/2018 HISTORY: Status post r IJ Permacath COMPARISON: No prior. FINDINGS: In situ right IJ PermCath with tip in the possibly within the RA/IVC junction. LUNGS: No acute consolidation.. PLEURA: No significant pleural effusion identified, no pneumothorax apparent. CARDIOVASCULAR: Heart size is mildly enlarged.. Normal cardiac size. No pulmonary vascular congestion. OSSEOUS STRUCTURES: Mild multilevel degenerative spondylosis of the thoracic spine with mild dextroscoliosis centered in the lower thoracic region. VISUALIZED UPPER ABDOMEN: Normal. OTHER FINDINGS: None. IMPRESSION: No in situ right IJ PermCath with tip in the possibly within the RA/SVC junction.
--- NOTE | 2018-09-25 19:53 | CP.PCM.CON ---
History of Present Illness - History of Present Illness History of Present Illness: 78 year old female with PMHx of ESRD on dialysis is admitted for for fevers, chills, +GNR bacteremia. Patient also complains of sweats, fevers, and chills for 5 days. Denies any nausea, vomiting, diarrhea, chest pain, shortness of breath, palpitations or any other symptoms. Reports left leg pain. Denies any trauma, falls, weakness, or numbness. Referred for ID eval of sepsis, bacteremia PSH: AV F choleycystectomy Review of Systems - Review of Systems All systems: reviewed and no additional remarkable complaints except - Constitutional Constitutional: As Per HPI, Chills, Fever, Malaise - EENT Eyes: absent: As Per HPI, Blind Spots, Blurred Vision, Change in Vision, Decreased Night Vision, Diplopia, Discharge, Dry Eye, Exophthalmos, Floaters, Ir ritation, Itchy Eyes, Loss of Peripheral Vision, Pain, Photophobia, Requires Corrective Lenses, Sees Flashes, Spots in Vision, Tunnel Vision, Other Visual Disturbances, Loss of Vision, Other Ears: absent: As Per HPI, Decreased Hearing, Ear Discharge, Ear Pain, Tinnitus, Abnormal Hearing, Disequilibrium, Dizziness, Other Nose/Mouth/Throat: absent: As Per HPI, Epistaxis, Nasal Congestion, Nasal Discharge, Nasal Obstruction, Nasal Trauma, Nose Pain, Post Nasal Drip, Sinus Pain, Sinus Pressure, Bleeding Gums, Change in Voice, Dental Pain, Dry Mouth, Dysphagia, Halitosis, Hoarsness, Lip Swelling, Mouth Lesions, Mouth Pain, Odynophagia, Sore Throat, Throat Swelling, Tongue Swelling, Facial Pain, Neck Pain, Neck Mass, Other - Breasts Breasts: absent: As Per HPI, Change in Shape, Mass, Pain, Nipple Discharge, Nipple Inversion, Skin Changes, Swelling, Other - Cardiovascular Cardiovascular: As Per HPI - Respiratory Respiratory: absent: As Per HPI, Cough, Dyspnea, Hemoptysis, Dyspnea on Exertion, Wheezing, Snoring, Stridor, Pain on Inspiration, Chest Congestion, Excessive Mucous Production, Change in Mucous Color, Pain with Coughing, Other - Gastrointestinal Gastrointestinal: absent: As Per HPI, Abdominal Pain, Belching, Bloating, Change in Bowel Habits, Change in Stool Character, Coffee Ground Emesis, Constipation, Cramping, Diarrhea, Dyspepsia, Dysphagia, Early Satiety, Excessive Flatus, Fecal Incontinence, Heartburn, Hematemesis, Hematochezia, Loose Stools, Melena, Nausea, Odynophagia, Temesmus, Vomiting, Other - Genitourinary Genitourinary: absent: As Per HPI, Change in Urinary Stream, Difficulty Urinating, Dysuria, Flank Pain, Hematuria, Pyuria, Nocturia, Urinary Incontinence, Urinary Frequency, Urinary Hesitance, Urinary Urgency, Voiding Freq/Small Amts, Freq UTI, Hx Renal/Bladder Calculi, Hx /Renal Surgery, Bladder Distension, Other - Reproductive: Female Reproductive:Female: absent: As Per HPI, Amenorrhea, Amenorrhea/ Control, Currently Menstual, Cycle <21 Days, Cycle >35 Days, Cycle Variable, Menses 1-7 Days, Menses >/= 8 Days, Menses Variable, Cycle > 4 Weeks Between, No Menses for 6 Months, Heavy Menses, Light Menses, Normal Menses, Spotting Between Cycles, S/P Hysterectomy, Menopausal, Post Menopausal, Premenarche, Abnormal Vaginal Bleeding, Dysmenorrhea, Dyspareunia, Genital Lesions, Genital Pruritis, Pelvic Pain, Prolapse Symptoms, Sexual Dysfunction, Vaginal Discharge, Vaginal Dryness, Vaginal Odor, Vaginal Pruritis, Other - Menstruation Menstruation: absent: As Per HPI, Amenorrhea, Amenorrhea/ Control, Currently Menstual, Cycle <21 Days, Cycle >35 Days, Cycle Variable, Menses 1-7 Days, Menses >/= 8 Days, Menses Variable, Cycle > 4 Weeks Between, No Menses for 6 Months, Heavy Menses, Light Menses, Normal Menses, Spotting Between Cycles, S/P Hysterectomy, Menopausal, Post Menopausal, Premenarche, Abnormal Vaginal Bleeding, Dysmenorrhea, Other - Musculoskeletal Musculoskeletal: absent: As Per HPI, Abnormal Gait, Arthralgias, Atrophy, Back Pain, Deformity, Joint Swelling, Limited Range of Motion, Loss of Height, Muscle Cramps, Muscle Weakness, Myalgias, Neck Pain, Numbness, Radiating Pain into Limb, Stiffness, Tingling, Other - Integumentary Integumentary: As Per HPI - Neurological Neurological: absent: As Per HPI, Abnormal Gait, Abnormal Hearing, Abnormal Movements, Abnormal Speech, Behavioral Changes, Burning Sensations, Confusion, Convulsions, Disequilibrium, Dizziness, Numbness, Focal Weakness, Frequent Falls, Headaches, Lack of Coordination, Loss of Vision, Memory Loss, Paresth esias, Radicular Pain, Restless Legs, Sensory Deficit, Syncope, Tingling, Tremor, Vertigo, Weakness, Other Visual Disturbances, Other - Psychiatric Psychiatric: absent: As Per HPI, Abnormal Sleep Pattern, Anhedonia, Anxiety, Auditory Hallucinations, Behavioral Changes, Change in Appetite, Change in Libido, Confusion, Depression, Difficulty Concentrating, Hallucinations, Homicidal Ideation, Hopelessness, Irritability, Memory Loss, Mood Swings, Panic Attacks, Paranoia, Suicidal Ideation, Visual Hallucinations, Tactile Hallucinations, Other - Endocrine Endocrine: absent: As Per HPI, Change in Body Appearance, Change in Libido, Cold Intolorance, Deepening of Voice, Excessive Sweating, Fatigue, Flushing, Heat Intolorance, Increase in Ring/Shoe/Hat Size, Palpitations, Polydipsia, Polyphagia, Polyuria, Other - Hematologic/Lymphatic Hematologic: absent: As Per HPI, Easy Bleeding, Easy Bruising, Lymphadenopathy, Other Past Patient History - Infectious Disease Hx of Infectious Diseases: None - Past Medical History & Family History Past Medical History?: Yes Past Family History: Reviewed and not pertinent - Past Social History Smoking Status: Never Smoked Chewing Tobacco Use: No Cigar Use: No Alcohol: None Drugs: Denies Home Situation {Lives}: Alone - CARDIAC Hx Hypercholesterolemia: Yes Hx Hypertension: Yes - PULMONARY Hx Respiratory Disorders: No - NEUROLOGICAL Hx Neurological Disorder: No - HEENT Hx HEENT Problems: Yes Hx Cataracts: Yes (iol) - RENAL Hx Chronic Kidney Disease: Yes - ENDOCRINE/METABOLIC Hx Endocrine Disorders: No - HEMATOLOGICAL/ONCOLOGICAL Hx Anemia: Yes - INTEGUMENTARY Hx Dermatological Problems: No - MUSCULOSKELETAL/RHEUMATOLOGICAL Hx Arthritis: Yes Hx Osteoporosis: Yes - GASTROINTESTINAL Hx Gall Bladder Disease: Yes - GENITOURINARY/GYNECOLOGICAL Hx Genitourinary Disorders: No - PSYCHIATRIC Hx Anxiety: Yes Hx Substance Use: No - SURGICAL HISTORY Hx Cholecystectomy: Yes - ANESTHESIA Hx Anesthesia: Yes Hx Anesthesia Reactions: No Hx Malignant Hyperthermia: No Meds Allergies/Adverse Reactions: Allergies Allergy/AdvReac Type Severity Reaction Status Date / Time aspirin Allergy Intermediate RASH Verified 09/24/18 11:02 shellfish derived Allergy Intermediate RASH Verified 09/24/18 11:02 seafood Allergy Intermediate RASH Uncoded 09/24/18 11:02 - Medications Medications: Current Medications Acetaminophen (Tylenol 325mg Tab) 650 mg PO Q6 PRN PRN Reason: Fever >100.4 F Amlodipine Besylate (Norvasc) 5 mg PO DAILY [facility] Docusate Sodium (Colace) 100 mg PO BID SUE Ferrous Sulfate (Feosol) 325 mg PO DAILY [facility] Heparin Sodium (Porcine) (Heparin) 5,000 units SC Q8 SUE Home Med (Alendronate [Fosamax]) 70 mg PO QWK SUE Metoprolol Succinate (Toprol Xl) 25 mg PO BID SUE Pantoprazole Sodium (Protonix Ec Tab) 40 mg PO DAILY SUE Rosuvastatin Calcium (Crestor) 5 mg PO HS SUE Physical Exam - Constitutional Appears: Non-toxic, Chronically Ill - Head Exam Head Exam: NORMOCEPHALIC - Eye Exam Eye Exam: PERRL Pupil Exam: NORMAL ACCOMODATION - ENT Exam ENT Exam: Mucous Membranes Dry - Neck Exam Neck exam: Positive for: Full Rom - Respiratory Exam Respiratory Exam: Decreased Breath Sounds, Clear to Auscultation Bilateral - Cardiovascular Exam Cardiovascular Exam: REGULAR RHYTHM, +S1, +S2 - GI/Abdominal Exam GI & Abdominal Exam: Diminished Bowel Sounds, Soft - Rectal Exam Rectal Exam: Deferred - Exam Exam: NORMAL INSPECTION - Extremities Exam Extremities exam: Positive for: full ROM - Back Exam Back exam: absent: CVA tenderness (L), CVA tenderness (R), FULL ROM, muscle spasm, NORMAL INSPECTION, paraspinal tenderness, rash noted, tenderness, vertebral tenderness - Neurological Exam Neurological exam: Alert, CN II-XII Intact, Oriented x3 - Psychiatric Exam Psychiatric exam: Depressed - Skin Skin Exam: Dry Results - Vital Signs Recent Vital Signs: Last Vital Signs Temp 97.8 F 09/24/18 18:04 Pulse 73 09/24/18 18:04 Resp 20 09/24/18 18:04 BP 94/50 L 09/24/18 18:04 Pulse Ox 96 09/24/18 18:04 - Labs Result Diagrams: 09/24/18 13:02 09/24/18 13:02 Labs: Laboratory Results - last 24 hr 09/24/18 09/24/18 09/24/18 13:01 13:02 13:02 WBC 10.7 D RBC 3.17 L Hgb 10.2 L Hct 30.8 L MCV 97.0 D MCH 32.2 H MCHC 33.3 RDW 14.8 H Plt Count 82 L D MPV 9.3 Neut % (Auto) 85.0 H Lymph % (Auto) 6.2 L Hardeman % (Auto) 8.1 Eos % (Auto) 0.6 Baso % (Auto) 0.1 Neut # (Auto) 9.1 H Lymph # (Auto) 0.7 L Hardeman # (Auto) 0.9 H Eos # (Auto) 0.1 Baso # (Auto) 0.0 Neutrophils % (Manual) 85 H Band Neutrophils % 3 H Lymphocytes % (Manual) 8 L Monocytes % (Manual) 4 Platelet Estimate Decreased L Hypochromasia (manual) Slight Poikilocytosis (manual Slight Anisocytosis (manual) Slight pO2 40 VBG pH 7.48 H VBG pCO2 44 VBG HCO3 30.8 VBG Total CO2 34.2 H VBG Base Excess 8.2 H VBG Potassium 3.6 Sodium 138.0 135 Chloride 102.0 94 L Glucose 155 H Lactate 1.6 Potassium 3.6 Carbon Dioxide 28 Anion Gap 17 BUN 51 H Creatinine 7.0 H Est GFR ( Amer) 7 Est GFR (Non-Af Amer) 6 Random Glucose 152 H Calcium 8.3 L Total Bilirubin 0.7 AST 96 H D ALT 33 Alkaline Phosphatase 130 H Troponin I 0.0220 Total Protein 6.5 Albumin 3.3 L Globulin 3.2 Albumin/Globulin Ratio 1.0 Venous Blood Potassium 3.6 Urine Color Urine Clarity Urine pH Ur Specific Stearns Urine Protein Urine Glucose (UA) Urine Ketones Urine Blood Urine Nitrate Urine Bilirubin Urine Urobilinogen Ur Leukocyte Esterase Urine WBC (Auto) Urine RBC (Auto) Ur Squamous Epith Cells Amorphous Sediment Urine Bacteria 09/24/18 14:40 WBC RBC Hgb Hct MCV MCH MCHC RDW Plt Count MPV Neut % (Auto) Lymph % (Auto) Hardeman % (Auto) Eos % (Auto) Baso % (Auto) Neut # (Auto) Lymph # (Auto) Hardeman # (Auto) Eos # (Auto) Baso # (Auto) Neutrophils % (Manual) Band Neutrophils % Lymphocytes % (Manual) Monocytes % (Manual) Platelet Estimate Hypochromasia (manual) Poikilocytosis (manual Anisocytosis (manual) pO2 VBG pH VBG pCO2 VBG HCO3 VBG Total CO2 VBG Base Excess VBG Potassium Sodium Chloride Glucose Lactate Potassium Carbon Dioxide Anion Gap BUN Creatinine Est GFR ( Amer) Est GFR (Non-Af Amer) Random Glucose Calcium Total Bilirubin AST ALT Alkaline Phosphatase Troponin I Total Protein Albumin Globulin Albumin/Globulin Ratio Venous Blood Potassium Urine Color Yellow Urine Clarity Hazy Urine pH 5.0 Ur Specific Stearns 1.014 Urine Protein 2+ H Urine Glucose (UA) Normal Urine Ketones Negative Urine Blood 2+ H Urine Nitrate Negative Urine Bilirubin Negative Urine Urobilinogen Normal Ur Leukocyte Esterase 1+ H Urine WBC (Auto) 7 H Urine RBC (Auto) 5 H Ur Squamous Epith Cells 4 Amorphous Sediment Occ H Urine Bacteria Mod H Assessment & Plan (1) Bacteremia Status: Acute (2) DDD (degenerative disc disease), cervical Status: Acute (3) Line sepsis associated with dialysis catheter Status: Acute (4) ESRD (end stage renal disease) Status: Acute - Assessment and Plan (Free Text) Assessment: await cultures line removal/ replacement IV antibiotics Past Patient History - Infectious Disease Hx of Infectious Diseases: None - Past Medical History & Family History Past Medical History?: Yes - Past Social History Smoking Status: Never Smoked - CARDIAC Hx Hypercholesterolemia: Yes Hx Hypertension: Yes - PULMONARY Hx Respiratory Disorders: No - NEUROLOGICAL Hx Neurological Disorder: No - HEENT Hx HEENT Problems: Yes Hx Cataracts: Yes (iol) - RENAL Hx Chronic Kidney Disease: Yes Hx Dialysis: Yes Type of Dialysis Access: right chest permacath - ENDOCRINE/METABOLIC Hx Endocrine Disorders: No - HEMATOLOGICAL/ONCOLOGICAL Hx Anemia: Yes - INTEGUMENTARY Hx Dermatological Problems: No - MUSCULOSKELETAL/RHEUMATOLOGICAL Hx Arthritis: Yes (HIPS, R KNEE) - GASTROINTESTINAL Hx Gall Bladder Disease: Yes - GENITOURINARY/GYNECOLOGICAL Hx Genitourinary Disorders: No - PSYCHIATRIC Hx Anxiety: Yes Hx Substance Use: No - SURGICAL HISTORY Hx Cholecystectomy: Yes - ANESTHESIA Hx Anesthesia: Yes Hx Anesthesia Reactions: No Hx Malignant Hyperthermia: No Has any member of the family had a problem w/ anesthesia?: No Meds Allergies/Adverse Reactions: Allergies Allergy/AdvReac Type Severity Reaction Status Date / Time aspirin Allergy Intermediate RASH Verified 09/24/18 11:02 shellfish derived Allergy Intermediate RASH Verified 09/24/18 11:02 seafood Allergy Intermediate RASH Uncoded 09/24/18 11:02 - Medications Medications: Current Medications Acetaminophen (Tylenol 325mg Tab) 650 mg PO Q6 PRN PRN Reason: Fever >100.4 F Last Admin: 09/24/18 22:41 Dose: 650 mg Amlodipine Besylate (Norvasc) 5 mg PO DAILY [facility] Last Admin: 09/25/18 10:01 Dose: Not Given Docusate Sodium (Colace) 100 mg PO BID [facility] Last Admin: 09/25/18 10:00 Dose: 100 mg Epoetin Santosh (Procrit) 10,000 unit IV TTS [facility] Ferrous Sulfate (Feosol) 325 mg PO DAILY [facility] Last Admin: 09/25/18 10:00 Dose: 325 mg Heparin Sodium (Porcine) (Heparin) 5,000 units SC Q8 [facility] Last Admin: 09/24/18 22:41 Dose: Not Given Meropenem 500 mg/ Sodium (Chloride) 100 mls @ 100 mls/hr IVPB Q12H [facility]; Protocol Last Admin: 09/25/18 09:54 Dose: 100 mls/hr Sodium Chloride (Sodium Chloride 0.9%) 1,000 mls @ 75 mls/hr IV .[id number] [facility] Metoprolol Succinate (Toprol Xl) 25 mg PO BID [facility] Last Admin: 09/25/18 10:01 Dose: Not Given Oxycodone/Acetaminophen (Percocet 5/325 Mg Tab) 1 tab PO Q4H PRN PRN Reason: Pain, moderate (4-7) Stop: 09/28/18 16:12 Pantoprazole Sodium (Protonix Ec Tab) 40 mg PO DAILY [facility] Last Admin: 09/25/18 10:00 Dose: 40 mg Rosuvastatin Calcium (Crestor) 5 mg PO HS [facility] Last Admin: 09/24/18 22:41 Dose: 5 mg Zolpidem Tartrate (Ambien) 5 mg PO HS PRN PRN Reason: Insomnia Results - Vital Signs Recent Vital Signs: Last Vital Signs Temp 97.6 F 09/25/18 17:25 Pulse 82 09/25/18 17:25 Resp 10 L 09/25/18 17:25 BP 97/51 L 09/25/18 17:25 Pulse Ox 96 09/25/18 17:25 - Labs Result Diagrams: 09/25/18 07:06 09/25/18 07:06 Labs: Laboratory Results - last 24 hr 09/24/18 09/25/18 09/25/18 21:52 07:06 07:06 WBC 9.4 RBC 3.04 L Hgb 9.7 L Hct 29.7 L MCV 97.7 MCH 31.9 H MCHC 32.7 L RDW 15.9 H Plt Count 81 L MPV 9.0 Neut % (Auto) 66.7 Lymph % (Auto) 13.7 L Hardeman % (Auto) 18.8 H Eos % (Auto) 0.6 Baso % (Auto) 0.2 Neut # (Auto) 6.2 Lymph # (Auto) 1.3 Hardeman # (Auto) 1.8 H Eos # (Auto) 0.1 Baso # (Auto) 0.0 Sodium 135 Potassium 3.6 Chloride 98 Carbon Dioxide 28 Anion Gap 13 BUN 56 H Creatinine 6.8 H Est GFR ( Amer) 7 Est GFR (Non-Af Amer) 6 POC Glucose (mg/dL) 223 H Random Glucose 98 Calcium 7.9 L Phosphorus 2.7 Magnesium 2.5 H Total Bilirubin 0.7 AST 74 H D ALT 35 Alkaline Phosphatase 169 H D Troponin I < 0.0120 Total Protein 5.8 L Albumin 3.0 L Globulin 2.8 Albumin/Globulin Ratio 1.1 09/25/18 09/25/18 07:13 11:35 WBC RBC Hgb Hct MCV MCH MCHC RDW Plt Count MPV Neut % (Auto) Lymph % (Auto) Hardeman % (Auto) Eos % (Auto) Baso % (Auto) Neut # (Auto) Lymph # (Auto) Hardeman # (Auto) Eos # (Auto) Baso # (Auto) Sodium Potassium Chloride Carbon Dioxide Anion Gap BUN Creatinine Est GFR ( Amer) Est GFR (Non-Af Amer) POC Glucose (mg/dL) 91 87 Random Glucose Calcium Phosphorus Magnesium Total Bilirubin AST ALT Alkaline Phosphatase Troponin I Total Protein Albumin Globulin Albumin/Globulin Ratio Assessment & Plan (1) Bacteremia Status: Acute (2) DDD (degenerative disc disease), cervical Status: Acute (3) Line sepsis associated with dialysis catheter Status: Acute (4) ESRD (end stage renal disease) Status: Acute
--- NOTE | 2018-09-25 22:14 | CP.PCM.PN ---
Subjective - Date & Time of Evaluation Date of Evaluation: 09/25/18 Time of Evaluation: 10:00 - Subjective Subjective: Patient still feels weak. Old Permacath removed, new one inserted. Patient was complaining of an episode of chest pain this AM, but a stat ECG is nnormal. Patient is on Merem for a gram negative bacteremia. Objective - Vital Signs/Intake and Output Vital Signs (last 24 hours): Temp Pulse Resp BP Pulse Ox 98 F 89 18 144/73 100 09/25/18 21:20 09/25/18 22:05 09/25/18 22:05 09/25/18 22:05 09/25/18 22:05 Intake and Output: 09/25/18 09/26/18 18:59 06:59 Intake Total 405 Balance 405 - Medications Medications: Current Medications Acetaminophen (Tylenol 325mg Tab) 650 mg PO Q6 PRN PRN Reason: Fever >100.4 F Last Admin: 09/24/18 22:41 Dose: 650 mg Amlodipine Besylate (Norvasc) 5 mg PO DAILY [facility] Last Admin: 09/25/18 10:01 Dose: Not Given Docusate Sodium (Colace) 100 mg PO BID [facility] Last Admin: 09/25/18 18:00 Dose: Not Given Epoetin Santosh (Procrit) 10,000 unit IV TTS [facility] Ferrous Sulfate (Feosol) 325 mg PO DAILY [facility] Last Admin: 09/25/18 10:00 Dose: 325 mg Heparin Sodium (Porcine) (Heparin) 5,000 units SC Q8 [facility] Last Admin: 09/24/18 22:41 Dose: Not Given Meropenem 500 mg/ Sodium (Chloride) 100 mls @ 100 mls/hr IVPB Q12H [facility]; Protocol Last Admin: 09/25/18 22:08 Dose: 100 mls/hr Sodium Chloride (Sodium Chloride 0.9%) 1,000 mls @ 75 mls/hr IV .[id number] [facility] Metoprolol Succinate (Toprol Xl) 25 mg PO BID [facility] Last Admin: 09/25/18 18:00 Dose: Not Given Oxycodone/Acetaminophen (Percocet 5/325 Mg Tab) 1 tab PO Q4H PRN PRN Reason: Pain, moderate (4-7) Stop: 09/28/18 16:12 Pantoprazole Sodium (Protonix Ec Tab) 40 mg PO DAILY [facility] Last Admin: 09/25/18 10:00 Dose: 40 mg Rosuvastatin Calcium (Crestor) 5 mg PO HS [facility] Last Admin: 09/25/18 22:08 Dose: 5 mg Zolpidem Tartrate (Ambien) 5 mg PO HS PRN PRN Reason: Insomnia Last Admin: 09/25/18 22:07 Dose: 5 mg - Labs Labs: 09/25/18 07:06 09/25/18 07:06 - Constitutional Appears: No Acute Distress - Head Exam Head Exam: NORMAL INSPECTION - Eye Exam Eye Exam: Normal appearance - ENT Exam ENT Exam: Normal Exam - Neck Exam Neck Exam: Normal Inspection - Respiratory Exam Respiratory Exam: Clear to Ausculation Bilateral, NORMAL BREATHING PATTERN - Cardiovascular Exam Cardiovascular Exam: REGULAR RHYTHM - GI/Abdominal Exam GI & Abdominal Exam: Soft, Normal Bowel Sounds - Rectal Exam Rectal Exam: Deferred - Extremities Exam Extremities Exam: Normal Inspection - Back Exam Back Exam: NORMAL INSPECTION - Neurological Exam Neurological Exam: Alert, Awake, Oriented x3 - Psychiatric Exam Psychiatric exam: Anxious - Skin Skin Exam: Dry, Intact, Normal Color Assessment and Plan (1) Line sepsis associated with dialysis catheter Status: Acute (2) Bacteremia due to Gram-negative bacteria Assessment & Plan: On Meropenem IV. 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 Status: Acute
--- NOTE | 2018-09-26 03:37 | OP ---
PROCEDURE DATE: 09/25/2018 PREOPERATIVE DIAGNOSIS: Renal failure POSTOPERATIVE DIAGNOSIS: Renal failure. PROCEDURE CARRIED OUT: Placement of Perm-A-Cath, right jugular vein, with C-arm fluoroscopy, ultrasound-guided puncture, and micropuncture technique. SURGEON: Jignesh Mckeon Jr., MD PRODUCTION STAGE MANAGER: Scarlett Jimenez DO ANESTHESIOLOGIST: . 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 She previously had a Perm-A-Cath in the right jugular vein, which was removed 24 hours ago because of a positive blood culture, gram-negative organisms. OPERATIVE FINDINGS: The jugular vein is patent on the right side, which shows a new entry point and new exit site, a new catheter. We placed a new device on the right side. The catheter originated on the right chest wall, went to the jugular vein and terminated in the superior vena cava. This was flushed with heparinized saline with excellent return, secured to the skin with silk sutures. Blood loss for the procedure is 20 mL. Ultrasound image of the neck showed the vein is widely patent, diameter approximately 15 mm, normal compressibility and no intraluminal defects. Operation carried out, Perm-A-Cath, right jugular vein, with C-arm fluoroscopy and ultrasound. Jignesh Mckeon Jr., MD
[2018-09-26] MEDS: Pantoprazole 40 mg EC Tab PO SCH (11:01)
[2018-09-26] MEDS: Metoprolol Succinate 25 mg XL Tab PO SCH ×2 (11:01→18:22)
[2018-09-26] MEDS: Meropenem 500 MG in Sodium Chloride 0.9% 100 ML IVPB SCH ×2 (11:03→20:39)
--- NOTE | 2018-09-26 12:23 | CARD ---
APPROVED REPORT Date of service: 09/25/2018 EKG Measurement Heart [id number] <Conclusion> Normal sinus rhythm Normal ECG
--- NOTE | 2018-09-26 14:06 | CP.PCM.PN ---
Subjective - Date & Time of Evaluation Date of Evaluation: 09/26/18 Time of Evaluation: 14:04 - Subjective Subjective: Feels better New HD cath inserted- old one removed Stable HD 09/25 E.Coli bacteremia noted as outpt; cultures positive in hospital Objective - Vital Signs/Intake and Output Vital Signs (last 24 hours): Temp Pulse Resp BP Pulse Ox 98.1 F 76 20 113/67 97 09/26/18 08:00 09/26/18 08:00 09/26/18 08:00 09/26/18 08:00 09/26/18 08:00 - Medications Medications: Current Medications Acetaminophen (Tylenol 325mg Tab) 650 mg PO Q6 PRN PRN Reason: Fever >100.4 F Last Admin: 09/24/18 22:41 Dose: 650 mg Amlodipine Besylate (Norvasc) 5 mg PO DAILY [facility] Last Admin: 09/26/18 11:02 Dose: 5 mg Docusate Sodium (Colace) 100 mg PO BID [facility] Last Admin: 09/26/18 11:01 Dose: 100 mg Epoetin Santosh (Procrit) 10,000 unit IV TTS [facility] Ferrous Sulfate (Feosol) 325 mg PO DAILY [facility] Last Admin: 09/26/18 11:01 Dose: 325 mg Heparin Sodium (Porcine) (Heparin) 5,000 units SC Q8 [facility] Last Admin: 09/24/18 22:41 Dose: Not Given Meropenem 500 mg/ Sodium (Chloride) 100 mls @ 100 mls/hr IVPB Q12H [facility]; Protocol Last Admin: 09/26/18 11:03 Dose: 100 mls/hr Sodium Chloride (Sodium Chloride 0.9%) 1,000 mls @ 75 mls/hr IV .[id number] [facility] Last Admin: 09/25/18 16:30 Dose: Not Given Metoprolol Succinate (Toprol Xl) 25 mg PO BID [facility] Last Admin: 09/26/18 11:01 Dose: 25 mg Oxycodone/Acetaminophen (Percocet 5/325 Mg Tab) 1 tab PO Q4H PRN PRN Reason: Pain, moderate (4-7) Stop: 09/28/18 16:12 Pantoprazole Sodium (Protonix Ec Tab) 40 mg PO DAILY [facility] Last Admin: 09/26/18 11:01 Dose: 40 mg Rosuvastatin Calcium (Crestor) 5 mg PO HS SUE Last Admin: 09/25/18 22:08 Dose: 5 mg Zolpidem Tartrate (Ambien) 5 mg PO HS PRN PRN Reason: Insomnia Last Admin: 09/25/18 22:07 Dose: 5 mg - Labs Labs: 09/25/18 07:06 09/25/18 07:06 - Constitutional Appears: No Acute Distress, Chronically Ill - Head Exam Head Exam: ATRAUMATIC, NORMAL INSPECTION - Eye Exam Eye Exam: EOMI, Normal appearance - Neck Exam Neck Exam: Normal Inspection. absent: Tenderness - Respiratory Exam Respiratory Exam: Clear to Ausculation Bilateral, NORMAL BREATHING PATTERN - Cardiovascular Exam Cardiovascular Exam: REGULAR RHYTHM, +S1 - GI/Abdominal Exam GI & Abdominal Exam: Soft. absent: Tenderness - Extremities Exam Extremities Exam: Normal Inspection. absent: Tenderness - Neurological Exam Neurological Exam: Awake, CN II-XII Intact - Skin Skin Exam: Dry, Warm Assessment and Plan (1) DDD (degenerative disc disease), cervical Status: Acute (2) Line sepsis associated with dialysis catheter Status: Acute (3) Bacteremia Status: Acute (4) ESRD (end stage renal disease) Status: Acute (5) CKD (chronic kidney disease) stage 5, GFR less than 15 ml/min Status: Chronic - Assessment and Plan (Free Text) Plan: Dialysis TTS IV ABs Await maturation AV F
--- NOTE | 2018-09-26 17:16 | CP.PCM.PN ---
Subjective - Date & Time of Evaluation Date of Evaluation: 09/26/18 Time of Evaluation: 07:00 - Subjective Subjective: VASCULAR SURGERY PROGRESS NOTE FOR DR. ASHER Patient seen and examined at bedside. Pt had dialysis yesterday via Right Permacath. Objective - Vital Signs/Intake and Output Vital Signs (last 24 hours): Temp Pulse Resp BP Pulse Ox 98.2 F 73 20 108/57 L 96 09/26/18 15:00 09/26/18 15:00 09/26/18 15:00 09/26/18 15:00 09/26/18 15:00 Intake and Output: 09/26/18 09/26/18 06:59 18:59 Intake Total 600 Balance 600 - Medications Medications: Current Medications Acetaminophen (Tylenol 325mg Tab) 650 mg PO Q6 PRN PRN Reason: Fever >100.4 F Last Admin: 09/24/18 22:41 Dose: 650 mg Amlodipine Besylate (Norvasc) 5 mg PO DAILY [facility] Last Admin: 09/26/18 11:02 Dose: 5 mg Docusate Sodium (Colace) 100 mg PO BID [facility] Last Admin: 09/26/18 11:01 Dose: 100 mg Epoetin Santosh (Procrit) 10,000 unit IV TTS [facility] Ferrous Sulfate (Feosol) 325 mg PO DAILY [facility] Last Admin: 09/26/18 11:01 Dose: 325 mg Heparin Sodium (Porcine) (Heparin) 5,000 units SC Q8 [facility] Last Admin: 09/24/18 22:41 Dose: Not Given Meropenem 500 mg/ Sodium (Chloride) 100 mls @ 100 mls/hr IVPB Q12H [facility]; Protocol Last Admin: 09/26/18 11:03 Dose: 100 mls/hr Sodium Chloride (Sodium Chloride 0.9%) 1,000 mls @ 75 mls/hr IV .[id number] [facility] Last Admin: 09/25/18 16:30 Dose: Not Given Metoprolol Succinate (Toprol Xl) 25 mg PO BID [facility] Last Admin: 09/26/18 11:01 Dose: 25 mg Oxycodone/Acetaminophen (Percocet 5/325 Mg Tab) 1 tab PO Q4H PRN PRN Reason: Pain, moderate (4-7) Stop: 09/28/18 16:12 Pantoprazole Sodium (Protonix Ec Tab) 40 mg PO DAILY [facility] Last Admin: 09/26/18 11:01 Dose: 40 mg Rosuvastatin Calcium (Crestor) 5 mg PO HS [facility] Last Admin: 09/25/18 22:08 Dose: 5 mg Zolpidem Tartrate (Ambien) 5 mg PO HS PRN PRN Reason: Insomnia Last Admin: 09/25/18 22:07 Dose: 5 mg - Labs Labs: 09/25/18 07:06 09/25/18 07:06 - Constitutional Appears: Non-toxic, No Acute Distress - Neck Exam Additional comments: Right IJ Permacath No edema - Extremities Exam Additional comments: + thrill L AVF Assessment and Plan - Assessment and Plan (Free Text) Assessment: 78 with ESRD s/p Right IJ Permacath POD#1 - Doing well post op - No further vascular intervention necessary - Discussed plan with Dr. Linda Jimenez PGY-4
--- NOTE | 2018-09-26 17:18 | CARD ---
APPROVED REPORT Date of service: 09/24/2018 EKG Measurement Heart [id number] <Conclusion> Normal sinus rhythm Normal ECG
--- NOTE | 2018-09-26 18:50 | CP.PCM.PN ---
Subjective - Date & Time of Evaluation Date of Evaluation: 09/26/18 Time of Evaluation: 09:00 - Subjective Subjective: cultures again positive will need to repeat- if cultures remain positive will need to remove new catheter as well Objective - Vital Signs/Intake and Output Vital Signs (last 24 hours): Temp Pulse Resp BP Pulse Ox 98.2 F 73 20 108/57 L 96 09/26/18 15:00 09/26/18 15:00 09/26/18 15:00 09/26/18 15:00 09/26/18 15:00 Intake and Output: 09/26/18 09/26/18 06:59 18:59 Intake Total 600 Balance 600 - Medications Medications: Current Medications Acetaminophen (Tylenol 325mg Tab) 650 mg PO Q6 PRN PRN Reason: Fever >100.4 F Last Admin: 09/24/18 22:41 Dose: 650 mg Acetaminophen (Tylenol 325mg Tab) 650 mg PO Q6 PRN PRN Reason: Pain, moderate (4-7) Amlodipine Besylate (Norvasc) 5 mg PO DAILY [facility] Last Admin: 09/26/18 11:02 Dose: 5 mg Docusate Sodium (Colace) 100 mg PO BID [facility] Last Admin: 09/26/18 18:22 Dose: 100 mg Epoetin Santosh (Procrit) 10,000 unit IV TTS [facility] Ferrous Sulfate (Feosol) 325 mg PO DAILY [facility] Last Admin: 09/26/18 11:01 Dose: 325 mg Heparin Sodium (Porcine) (Heparin) 5,000 units SC Q8 [facility] Last Admin: 09/24/18 22:41 Dose: Not Given Meropenem 500 mg/ Sodium (Chloride) 100 mls @ 100 mls/hr IVPB Q12H [facility]; Protocol Last Admin: 09/26/18 11:03 Dose: 100 mls/hr Sodium Chloride (Sodium Chloride 0.9%) 1,000 mls @ 75 mls/hr IV .[id number] [facility] Last Admin: 09/25/18 16:30 Dose: Not Given Metoprolol Succinate (Toprol Xl) 25 mg PO BID [facility] Last Admin: 09/26/18 18:22 Dose: Not Given Oxycodone/Acetaminophen (Percocet 5/325 Mg Tab) 1 tab PO Q4H PRN PRN Reason: Pain, moderate (4-7) Stop: 09/28/18 16:12 Pantoprazole Sodium (Protonix Ec Tab) 40 mg PO DAILY [facility] Last Admin: 09/26/18 11:01 Dose: 40 mg Rosuvastatin Calcium (Crestor) 5 mg PO HS [facility] Last Admin: 09/25/18 22:08 Dose: 5 mg Zolpidem Tartrate (Ambien) 5 mg PO HS PRN PRN Reason: Insomnia Last Admin: 09/25/18 22:07 Dose: 5 mg - Labs Labs: 09/25/18 07:06 09/25/18 07:06 - Constitutional Appears: Non-toxic, Chronically Ill - Head Exam Head Exam: NORMOCEPHALIC - Eye Exam Eye Exam: absent: Scleral icterus - ENT Exam ENT Exam: Mucous Membranes Dry - Neck Exam Neck Exam: absent: Lymphadenopathy - Respiratory Exam Respiratory Exam: Decreased Breath Sounds - Cardiovascular Exam Cardiovascular Exam: REGULAR RHYTHM - GI/Abdominal Exam GI & Abdominal Exam: Distended - Rectal Exam Rectal Exam: Deferred - Exam Exam: NORMAL INSPECTION - Extremities Exam Extremities Exam: absent: Pedal Edema - Back Exam Back Exam: absent: CVA tenderness (L), CVA tenderness (R) Assessment and Plan (1) Bacteremia Status: Acute (2) DDD (degenerative disc disease), cervical Status: Acute (3) Line sepsis associated with dialysis catheter Status: Acute (4) ESRD (end stage renal disease) Status: Acute - Assessment and Plan (Free Text) Assessment: cultures again positive will need to repeat- if cultures remain positive will need to remove new catheter as well
[2018-09-26] MEDS ORDERED: guaiFENesin DM 200 mg-20 mg/10 ml UD PO PRN (19:26)
--- NOTE | 2018-09-26 23:01 | CP.PCM.PN ---
Subjective - Date & Time of Evaluation Date of Evaluation: 09/26/18 Time of Evaluation: 18:30 - Subjective Subjective: Patient feels better today. Afebrile, improved appetite. Blood culture grew G(-) bacteria. On Merem. For HD in AM. Objective - Vital Signs/Intake and Output Vital Signs (last 24 hours): Temp Pulse Resp BP Pulse Ox 98.0 F 73 20 108/57 L 96 09/26/18 19:47 09/26/18 15:00 09/26/18 15:00 09/26/18 15:00 09/26/18 15:00 Intake and Output: 09/26/18 09/27/18 18:59 06:59 Intake Total 600 Balance 600 - Medications Medications: Current Medications Acetaminophen (Tylenol 325mg Tab) 650 mg PO Q6 PRN PRN Reason: Fever >100.4 F Last Admin: 09/24/18 22:41 Dose: 650 mg Acetaminophen (Tylenol 325mg Tab) 650 mg PO Q6 PRN PRN Reason: Pain, moderate (4-7) Last Admin: 09/26/18 18:47 Dose: 650 mg Amlodipine Besylate (Norvasc) 5 mg PO DAILY [facility] Last Admin: 09/26/18 11:02 Dose: 5 mg Docusate Sodium (Colace) 100 mg PO BID [facility] Last Admin: 09/26/18 18:22 Dose: 100 mg Epoetin Santosh (Procrit) 10,000 unit IV TTS [facility] Ferrous Sulfate (Feosol) 325 mg PO DAILY [facility] Last Admin: 09/26/18 11:01 Dose: 325 mg Guaifenesin/Dextromethorphan (Robitussin Dm) 10 ml PO Q4H PRN PRN Reason: Cough and congestion Heparin Sodium (Porcine) (Heparin) 5,000 units SC Q8 [facility] Last Admin: 09/24/18 22:41 Dose: Not Given Meropenem 500 mg/ Sodium (Chloride) 100 mls @ 100 mls/hr IVPB Q12H [facility]; Protocol Last Admin: 09/26/18 20:39 Dose: 100 mls/hr Sodium Chloride (Sodium Chloride 0.9%) 1,000 mls @ 75 mls/hr IV .[id number] [facility] Last Admin: 09/25/18 16:30 Dose: Not Given Gentamicin Sulfate 80 mg/ (Sodium Chloride) 102 mls @ 100 mls/hr IVPB MWF [facility]; Protocol Metoprolol Succinate (Toprol Xl) 25 mg PO BID [facility] Last Admin: 09/26/18 18:22 Dose: Not Given Oxycodone/Acetaminophen (Percocet 5/325 Mg Tab) 1 tab PO Q4H PRN PRN Reason: Pain, moderate (4-7) Stop: 09/28/18 16:12 Pantoprazole Sodium (Protonix Ec Tab) 40 mg PO DAILY [facility] Last Admin: 09/26/18 11:01 Dose: 40 mg Rosuvastatin Calcium (Crestor) 5 mg PO HS [facility] Last Admin: 09/26/18 21:21 Dose: 5 mg Zolpidem Tartrate (Ambien) 5 mg PO HS PRN PRN Reason: Insomnia Last Admin: 09/25/18 22:07 Dose: 5 mg - Labs Labs: 09/25/18 07:06 09/25/18 07:06 - Constitutional Appears: Well, Chronically Ill - Head Exam Head Exam: NORMAL INSPECTION - Eye Exam Eye Exam: Normal appearance - ENT Exam ENT Exam: Normal Exam - Neck Exam Neck Exam: Normal Inspection - Respiratory Exam Respiratory Exam: Clear to Ausculation Bilateral, NORMAL BREATHING PATTERN - Cardiovascular Exam Cardiovascular Exam: REGULAR RHYTHM - GI/Abdominal Exam GI & Abdominal Exam: Soft, Normal Bowel Sounds - Rectal Exam Rectal Exam: Deferred - Extremities Exam Extremities Exam: Normal Inspection - Back Exam Back Exam: NORMAL INSPECTION - Neurological Exam Neurological Exam: Alert, Awake, Oriented x3 - Psychiatric Exam Psychiatric exam: Anxious - Skin Skin Exam: Dry, Intact, Normal Color Assessment and Plan (1) Line sepsis associated with dialysis catheter Assessment & Plan: S/p removal the old Permacath and insertion of a new one. On IV Merem. Status: Acute (2) Bacteremia due to Gram-negative bacteria Assessment & Plan: On IV Meropenem. Status: Acute (3) ESRD (end stage renal disease) on dialysis Assessment & Plan: HD as per Nephrologists. Status: Acute
[2018-09-27] MEDS: Meropenem 500 MG in Sodium Chloride 0.9% 100 ML IVPB SCH ×3 (09:40→21:50)
[2018-09-27] MEDS: Pantoprazole 40 mg EC Tab PO SCH ×2 (09:40→12:30)
[2018-09-27] MEDS: Metoprolol Succinate 25 mg XL Tab PO SCH ×2 (09:41→17:55)
--- NOTE | 2018-09-27 10:57 | CP.PCM.PN ---
Subjective - Date & Time of Evaluation Date of Evaluation: 09/27/18 Time of Evaluation: 11:00 - Subjective Subjective: presently on dialysois awake alert comfortable ROS pain over catheter no chest pain no sob no n/v/d no dysuria headache Objective - Vital Signs/Intake and Output Vital Signs (last 24 hours): Temp Pulse Resp BP Pulse Ox 98.1 F 80 18 109/63 99 09/27/18 09:00 09/27/18 09:00 09/27/18 09:00 09/27/18 09:30 09/27/18 09:00 Intake and Output: 09/27/18 09/27/18 06:59 18:59 Intake Total 550 Balance 550 - Medications Medications: Current Medications Acetaminophen (Tylenol 325mg Tab) 650 mg PO Q6 PRN PRN Reason: Fever >100.4 F Last Admin: 09/24/18 22:41 Dose: 650 mg Acetaminophen (Tylenol 325mg Tab) 650 mg PO Q6 PRN PRN Reason: Pain, moderate (4-7) Last Admin: 09/26/18 18:47 Dose: 650 mg Amlodipine Besylate (Norvasc) 5 mg PO DAILY [facility] Last Admin: 09/27/18 09:40 Dose: Not Given Docusate Sodium (Colace) 100 mg PO BID [facility] Last Admin: 09/27/18 09:40 Dose: Not Given Epoetin Santosh (Procrit) 10,000 unit IV TTS [facility] Ferrous Sulfate (Feosol) 325 mg PO DAILY [facility] Last Admin: 09/27/18 09:40 Dose: Not Given Guaifenesin/Dextromethorphan (Robitussin Dm) 10 ml PO Q4H PRN PRN Reason: Cough and congestion Last Admin: 09/26/18 23:34 Dose: 10 ml Heparin Sodium (Porcine) (Heparin) 5,000 units SC Q8 [facility] Last Admin: 09/24/18 22:41 Dose: Not Given Meropenem 500 mg/ Sodium (Chloride) 100 mls @ 100 mls/hr IVPB Q12H [facility]; Protocol Last Admin: 09/27/18 09:40 Dose: Not Given Sodium Chloride (Sodium Chloride 0.9%) 1,000 mls @ 75 mls/hr IV .[id number] [facility] Last Admin: 09/25/18 16:30 Dose: Not Given Gentamicin Sulfate 80 mg/ (Sodium Chloride) 102 mls @ 100 mls/hr IVPB MWF [facility]; Protocol Metoprolol Succinate (Toprol Xl) 25 mg PO BID [facility] Last Admin: 09/27/18 09:41 Dose: Not Given Oxycodone/Acetaminophen (Percocet 5/325 Mg Tab) 1 tab PO Q4H PRN PRN Reason: Pain, moderate (4-7) Stop: 09/28/18 16:12 Last Admin: 09/27/18 08:23 Dose: 1 tab Pantoprazole Sodium (Protonix Ec Tab) 40 mg PO DAILY [facility] Last Admin: 09/27/18 09:40 Dose: Not Given Rosuvastatin Calcium (Crestor) 5 mg PO HS [facility] Last Admin: 09/26/18 21:21 Dose: 5 mg Zolpidem Tartrate (Ambien) 5 mg PO HS PRN PRN Reason: Insomnia Last Admin: 09/25/18 22:07 Dose: 5 mg - Labs Labs: 09/25/18 07:06 09/25/18 07:06 - Constitutional Appears: No Acute Distress - ENT Exam ENT Exam: Mucous Membranes Moist - Respiratory Exam Respiratory Exam: Clear to Ausculation Bilateral, NORMAL BREATHING PATTERN - Cardiovascular Exam Cardiovascular Exam: REGULAR RHYTHM - GI/Abdominal Exam GI & Abdominal Exam: Soft. absent: Distended, Tenderness - Extremities Exam Extremities Exam: absent: Calf Tenderness - Psychiatric Exam Psychiatric exam: Normal Affect - Skin Skin Exam: Dry Assessment and Plan (1) Bacteremia Status: Acute (2) ESRD (end stage renal disease) on dialysis Status: Acute (3) Line sepsis associated with dialysis catheter Status: Acute (4) Hypertension Status: Chronic - Assessment and Plan (Free Text) Plan: minimal uf
[2018-09-27] MEDS: Epoetin Alfa 10,000 unit/ml Dialysis IV SCH ×2 (11:59→12:01)
[2018-09-28 07:17] LABS: BASO % 0.5 % (0.0-2.0); EOS # 0.3 K/uL (0.0-0.7); EOS % 4.6 % (0.0-4.0); HEMOGLOBIN 10.1 g/dL (11.0-16.0); LYMPH # 2.3 K/uL (1.0-4.3); LYMPH % 33.4 % (20.0-40.0); MEAN CELL VOLUME 97.2 fL (81.0-99.0); MEAN CORPUSCULAR HEMOGLOBIN 31.5 pg (27.0-31.0); MEAN CORPUSCULAR HGB CONC 32.4 g/dL (33.0-37.0); MEAN PLATELET VOLUME 8.2 fL (7.2-11.7); MONO # 1.3 K/uL (0.0-0.8); MONO % 19.8 % (0.0-10.0); NEUT # 2.8 K/uL (1.8-7.0); NEUT % 41.7 % (50.0-75.0); RBC 3.19 Mil/uL (3.80-5.20); RED CELL DISTRIBUTION WIDTH 15.7 % (11.5-14.5); WHITE BLOOD COUNT 6.7 K/uL (4.8-10.8)
[2018-09-28 07:50] LABS: ALBUMIN 2.9 g/dL (3.5-5.0); CALCIUM 7.8 mg/dl (8.6-10.4)
[2018-09-28] MEDS: Meropenem 500 MG in Sodium Chloride 0.9% 100 ML IVPB SCH ×2 (08:48→21:18)
[2018-09-28] MEDS: Pantoprazole 40 mg EC Tab PO SCH (09:20)
[2018-09-28] MEDS: Metoprolol Succinate 25 mg XL Tab PO SCH ×2 (09:20→17:47)
--- NOTE | 2018-09-28 10:09 | CP.PCM.PN ---
Subjective - Date & Time of Evaluation Date of Evaluation: 09/27/18 Time of Evaluation: 19:30 - Subjective Subjective: Patient tolerated HD well. Blood culture revealed E.Coli sensitive to Ampicillin.l Objective - Vital Signs/Intake and Output Vital Signs (last 24 hours): Temp Pulse Resp BP Pulse Ox 98.5 F 78 20 135/67 98 09/28/18 08:13 09/28/18 08:13 09/28/18 08:13 09/28/18 08:13 09/28/18 08:13 Intake and Output: 09/28/18 09/28/18 06:59 18:59 Intake Total 500 120 Balance 500 120 - Medications Medications: Current Medications Acetaminophen (Tylenol 325mg Tab) 650 mg PO Q6 PRN PRN Reason: Fever >100.4 F Last Admin: 09/24/18 22:41 Dose: 650 mg Acetaminophen (Tylenol 325mg Tab) 650 mg PO Q6 PRN PRN Reason: Pain, moderate (4-7) Last Admin: 09/26/18 18:47 Dose: 650 mg Amlodipine Besylate (Norvasc) 5 mg PO DAILY [facility] Last Admin: 09/28/18 09:20 Dose: 5 mg Docusate Sodium (Colace) 100 mg PO BID [facility] Last Admin: 09/28/18 09:20 Dose: 100 mg Epoetin Santosh (Procrit) 10,000 unit IV TTS [facility] Last Admin: 09/27/18 12:01 Dose: 10,000 unit Ferrous Sulfate (Feosol) 325 mg PO DAILY [facility] Last Admin: 09/28/18 09:20 Dose: 325 mg Guaifenesin/Dextromethorphan (Robitussin Dm) 10 ml PO Q4H PRN PRN Reason: Cough and congestion Last Admin: 09/26/18 23:34 Dose: 10 ml Heparin Sodium (Porcine) (Heparin) 5,000 units SC Q8 [facility] Last Admin: 09/28/18 06:15 Dose: 5,000 units Meropenem 500 mg/ Sodium (Chloride) 100 mls @ 100 mls/hr IVPB Q12H [facility]; Protocol Last Admin: 09/28/18 08:48 Dose: 100 mls/hr Sodium Chloride (Sodium Chloride 0.9%) 1,000 mls @ 75 mls/hr IV .[id number] [facility] Last Admin: 09/25/18 16:30 Dose: Not Given Gentamicin Sulfate 80 mg/ (Sodium Chloride) 102 mls @ 100 mls/hr IVPB MWF [facility]; Protocol Metoprolol Succinate (Toprol Xl) 25 mg PO BID [facility] Last Admin: 09/28/18 09:20 Dose: 25 mg Oxycodone/Acetaminophen (Percocet 5/325 Mg Tab) 1 tab PO Q4H PRN PRN Reason: Pain, moderate (4-7) Stop: 09/28/18 16:12 Last Admin: 09/27/18 08:23 Dose: 1 tab Pantoprazole Sodium (Protonix Ec Tab) 40 mg PO DAILY [facility] Last Admin: 09/28/18 09:20 Dose: 40 mg Rosuvastatin Calcium (Crestor) 5 mg PO HS [facility] Last Admin: 09/27/18 21:52 Dose: 5 mg Zolpidem Tartrate (Ambien) 5 mg PO HS PRN PRN Reason: Insomnia Last Admin: 09/27/18 22:00 Dose: 5 mg - Labs Labs: 09/28/18 07:05 09/28/18 07:06 - Constitutional Appears: Well, Chronically Ill - Head Exam Head Exam: NORMOCEPHALIC - Eye Exam Eye Exam: Normal appearance Pupil Exam: NORMAL ACCOMODATION - ENT Exam ENT Exam: Normal Exam - Neck Exam Neck Exam: Normal Inspection - Respiratory Exam Respiratory Exam: Clear to Ausculation Bilateral, NORMAL BREATHING PATTERN - Cardiovascular Exam Cardiovascular Exam: REGULAR RHYTHM - GI/Abdominal Exam GI & Abdominal Exam: Soft, Normal Bowel Sounds - Rectal Exam Rectal Exam: Deferred - Extremities Exam Extremities Exam: Normal Inspection - Back Exam Back Exam: NORMAL INSPECTION - Neurological Exam Neurological Exam: Alert, Awake, Oriented x3 - Psychiatric Exam Psychiatric exam: Anxious - Skin Skin Exam: Dry, Intact, Normal Color, Warm Assessment and Plan (1) Line sepsis associated with dialysis catheter Assessment & Plan: Old Permacath removed. Status: Acute (2) Bacteremia due to Gram-negative bacteria Assessment & Plan: On IV antibiotics. Status: Acute (3) ESRD (end stage renal disease) on dialysis Assessment & Plan: HD as per Nephrologists. Status: Acute
--- NOTE | 2018-09-28 18:22 | CP.PCM.PN ---
Subjective - Date & Time of Evaluation Date of Evaluation: 09/28/18 Time of Evaluation: 09:00 - Subjective Subjective: repeat blood c/s so far neg cont rx Objective - Vital Signs/Intake and Output Vital Signs (last 24 hours): Temp Pulse Resp BP Pulse Ox 98.7 F 63 20 119/64 99 09/28/18 16:00 09/28/18 16:00 09/28/18 16:00 09/28/18 16:00 09/28/18 16:00 Intake and Output: 09/28/18 09/28/18 06:59 18:59 Intake Total 500 340 Balance 500 340 - Medications Medications: Current Medications Acetaminophen (Tylenol 325mg Tab) 650 mg PO Q6 PRN PRN Reason: Fever >100.4 F Last Admin: 09/24/18 22:41 Dose: 650 mg Acetaminophen (Tylenol 325mg Tab) 650 mg PO Q6 PRN PRN Reason: Pain, moderate (4-7) Last Admin: 09/26/18 18:47 Dose: 650 mg Amlodipine Besylate (Norvasc) 5 mg PO DAILY [facility] Last Admin: 09/28/18 09:20 Dose: 5 mg Docusate Sodium (Colace) 100 mg PO BID [facility] Last Admin: 09/28/18 17:47 Dose: 100 mg Epoetin Santosh (Procrit) 10,000 unit IV TTS [facility] Last Admin: 09/27/18 12:01 Dose: 10,000 unit Ferrous Sulfate (Feosol) 325 mg PO DAILY [facility] Last Admin: 09/28/18 09:20 Dose: 325 mg Guaifenesin/Dextromethorphan (Robitussin Dm) 10 ml PO Q4H PRN PRN Reason: Cough and congestion Last Admin: 09/26/18 23:34 Dose: 10 ml Heparin Sodium (Porcine) (Heparin) 5,000 units SC Q8 [facility] Last Admin: 09/28/18 15:10 Dose: 5,000 units Meropenem 500 mg/ Sodium (Chloride) 100 mls @ 100 mls/hr IVPB Q12H [facility]; Protocol Last Admin: 09/28/18 08:48 Dose: 100 mls/hr Sodium Chloride (Sodium Chloride 0.9%) 1,000 mls @ 75 mls/hr IV .[id number] [facility] Last Admin: 09/25/18 16:30 Dose: Not Given Gentamicin Sulfate 80 mg/ (Sodium Chloride) 102 mls @ 100 mls/hr IVPB MWF [facility]; Protocol Metoprolol Succinate (Toprol Xl) 25 mg PO BID [facility] Last Admin: 09/28/18 17:47 Dose: 25 mg Pantoprazole Sodium (Protonix Ec Tab) 40 mg PO DAILY [facility] Last Admin: 09/28/18 09:20 Dose: 40 mg Rosuvastatin Calcium (Crestor) 5 mg PO HS [facility] Last Admin: 09/27/18 21:52 Dose: 5 mg Zolpidem Tartrate (Ambien) 5 mg PO HS PRN PRN Reason: Insomnia Last Admin: 09/27/18 22:00 Dose: 5 mg - Labs Labs: 09/28/18 07:05 09/28/18 07:06 - Constitutional Appears: Well - Head Exam Head Exam: ATRAUMATIC, NORMAL INSPECTION, NORMOCEPHALIC - Eye Exam Eye Exam: EOMI, Normal appearance, PERRL Pupil Exam: NORMAL ACCOMODATION, PERRL - ENT Exam ENT Exam: Mucous Membranes Moist, Normal Exam - Neck Exam Neck Exam: Full ROM, Normal Inspection. absent: Lymphadenopathy - Respiratory Exam Respiratory Exam: Clear to Ausculation Bilateral, NORMAL BREATHING PATTERN - Cardiovascular Exam Cardiovascular Exam: REGULAR RHYTHM, +S1, +S2. absent: Murmur - GI/Abdominal Exam GI & Abdominal Exam: Soft, Normal Bowel Sounds. absent: Tenderness - Rectal Exam Rectal Exam: NORMAL INSPECTION - Exam Exam: absent: Scrotal Swelling, Testicular Tenderness, Uretheral Discharge, Testicular Vertical Lie, Bladder Distension - Extremities Exam Extremities Exam: Full ROM, Normal Capillary Refill, Normal Inspection. absent: Joint Swelling, Pedal Edema - Back Exam Back Exam: NORMAL INSPECTION - Neurological Exam Neurological Exam: Alert, Awake, CN II-XII Intact, Normal Gait, Oriented x3 - Psychiatric Exam Psychiatric exam: Normal Affect, Normal Mood - Skin Skin Exam: Dry, Intact, Normal Color, Warm Assessment and Plan (1) Bacteremia Status: Acute (2) DDD (degenerative disc disease), cervical Status: Acute (3) Line sepsis associated with dialysis catheter Status: Acute (4) ESRD (end stage renal disease) Status: Acute - Assessment and Plan (Free Text) Assessment: cont iv antibiotics for 14 days
[2018-09-29] MEDS: Pantoprazole 40 mg EC Tab PO SCH (10:27)
[2018-09-29] MEDS: Meropenem 500 MG in Sodium Chloride 0.9% 100 ML IVPB SCH (10:28)
[2018-09-29] MEDS: Metoprolol Succinate 25 mg XL Tab PO SCH ×2 (10:30→18:17)
--- NOTE | 2018-09-29 11:42 | CP.PCM.PN ---
Subjective - Date & Time of Evaluation Date of Evaluation: 09/29/18 Time of Evaluation: 11:38 - Subjective Subjective: Feels better No more fevers, chills Repoeat C+S negative to date Possible urosepsis as opposed to line sepsis For dialysis today - scheduled changed Objective - Vital Signs/Intake and Output Vital Signs (last 24 hours): Temp Pulse Resp BP Pulse Ox 98.9 F 90 20 115/76 90 L 09/29/18 08:43 09/29/18 08:43 09/29/18 08:43 09/29/18 08:43 09/29/18 08:43 Intake and Output: 09/29/18 09/29/18 06:59 18:59 Intake Total 620 Balance 620 - Medications Medications: Current Medications Acetaminophen (Tylenol 325mg Tab) 650 mg PO Q6 PRN PRN Reason: Fever >100.4 F Last Admin: 09/24/18 22:41 Dose: 650 mg Amlodipine Besylate (Norvasc) 5 mg PO DAILY [facility] Last Admin: 09/29/18 10:29 Dose: Not Given Docusate Sodium (Colace) 100 mg PO BID [facility] Last Admin: 09/29/18 10:27 Dose: 100 mg Epoetin Santosh (Procrit) 10,000 unit IV TTS [facility] Last Admin: 09/27/18 12:01 Dose: 10,000 unit Ferrous Sulfate (Feosol) 325 mg PO DAILY [facility] Last Admin: 09/29/18 10:27 Dose: 325 mg Guaifenesin/Dextromethorphan (Robitussin Dm) 10 ml PO Q4H PRN PRN Reason: Cough and congestion Last Admin: 09/26/18 23:34 Dose: 10 ml Heparin Sodium (Porcine) (Heparin) 5,000 units SC Q8 [facility] Last Admin: 09/29/18 06:05 Dose: 5,000 units Meropenem 500 mg/ Sodium (Chloride) 100 mls @ 100 mls/hr IVPB Q12H [facility]; Protocol Last Admin: 09/29/18 10:28 Dose: 100 mls/hr Sodium Chloride (Sodium Chloride 0.9%) 1,000 mls @ 75 mls/hr IV .[id number] [facility] Last Admin: 09/25/18 16:30 Dose: Not Given Gentamicin Sulfate 80 mg/ (Sodium Chloride) 102 mls @ 100 mls/hr IVPB MWF [facility]; Protocol Last Admin: 09/29/18 08:39 Dose: 100 mls/hr Metoprolol Succinate (Toprol Xl) 25 mg PO BID [facility] Last Admin: 09/29/18 10:30 Dose: Not Given Pantoprazole Sodium (Protonix Ec Tab) 40 mg PO DAILY [facility] Last Admin: 09/29/18 10:27 Dose: 40 mg Rosuvastatin Calcium (Crestor) 5 mg PO HS [facility] Last Admin: 09/28/18 21:23 Dose: 5 mg Zolpidem Tartrate (Ambien) 5 mg PO HS PRN PRN Reason: Insomnia Last Admin: 09/28/18 21:21 Dose: 5 mg - Labs Labs: 09/28/18 07:05 09/28/18 07:06 - Constitutional Appears: No Acute Distress, Chronically Ill - Head Exam Head Exam: NORMAL INSPECTION, NORMOCEPHALIC - Eye Exam Eye Exam: EOMI, Normal appearance - Neck Exam Neck Exam: Normal Inspection. absent: Tenderness - Respiratory Exam Respiratory Exam: Clear to Ausculation Bilateral, NORMAL BREATHING PATTERN - Cardiovascular Exam Cardiovascular Exam: REGULAR RHYTHM, +S1 - GI/Abdominal Exam GI & Abdominal Exam: Soft. absent: Tenderness - Extremities Exam Extremities Exam: Normal Inspection. absent: Tenderness - Neurological Exam Neurological Exam: Awake, CN II-XII Intact - Skin Skin Exam: Dry, Warm Assessment and Plan (1) DDD (degenerative disc disease), cervical Status: Acute (2) Bacteremia Status: Acute (3) ESRD (end stage renal disease) Status: Acute (4) CKD (chronic kidney disease) stage 5, GFR less than 15 ml/min Status: Chronic - Assessment and Plan (Free Text) Plan: Same ABs as per ID Dialysis today, MWF now Follow repeat cultures
--- NOTE | 2018-09-29 12:00 | CP.PCM.PN ---
Subjective - Date & Time of Evaluation Date of Evaluation: 09/29/18 Time of Evaluation: 07:00 - Subjective Subjective: afeb nad Objective - Vital Signs/Intake and Output Vital Signs (last 24 hours): Temp Pulse Resp BP Pulse Ox 98.9 F 90 20 115/76 90 L 09/29/18 08:43 09/29/18 08:43 09/29/18 08:43 09/29/18 08:43 09/29/18 08:43 Intake and Output: 09/29/18 09/29/18 06:59 18:59 Intake Total 620 Balance 620 - Medications Medications: Current Medications Acetaminophen (Tylenol 325mg Tab) 650 mg PO Q6 PRN PRN Reason: Fever >100.4 F Last Admin: 09/24/18 22:41 Dose: 650 mg Amlodipine Besylate (Norvasc) 5 mg PO DAILY [facility] Last Admin: 09/29/18 10:29 Dose: Not Given Docusate Sodium (Colace) 100 mg PO BID [facility] Last Admin: 09/29/18 10:27 Dose: 100 mg Epoetin Santosh (Procrit) 10,000 unit IV TTS [facility] Last Admin: 09/27/18 12:01 Dose: 10,000 unit Ferrous Sulfate (Feosol) 325 mg PO DAILY [facility] Last Admin: 09/29/18 10:27 Dose: 325 mg Guaifenesin/Dextromethorphan (Robitussin Dm) 10 ml PO Q4H PRN PRN Reason: Cough and congestion Last Admin: 09/26/18 23:34 Dose: 10 ml Heparin Sodium (Porcine) (Heparin) 5,000 units SC Q8 [facility] Last Admin: 09/29/18 06:05 Dose: 5,000 units Sodium Chloride (Sodium Chloride 0.9%) 1,000 mls @ 75 mls/hr IV .[id number] [facility] Last Admin: 09/25/18 16:30 Dose: Not Given Gentamicin Sulfate 80 mg/ (Sodium Chloride) 102 mls @ 100 mls/hr IVPB MWF [facility]; Protocol Last Admin: 09/29/18 08:39 Dose: 100 mls/hr Cefepime HCl (Maxipime Iv 1 Gm Premix) 1 gm in 50 mls @ 100 mls/hr IVPB Q24H [facility]; Protocol Metoprolol Succinate (Toprol Xl) 25 mg PO BID [facility] Last Admin: 09/29/18 10:30 Dose: Not Given Pantoprazole Sodium (Protonix Ec Tab) 40 mg PO DAILY [facility] Last Admin: 09/29/18 10:27 Dose: 40 mg Rosuvastatin Calcium (Crestor) 5 mg PO HS [facility] Last Admin: 09/28/18 21:23 Dose: 5 mg Zolpidem Tartrate (Ambien) 5 mg PO HS PRN PRN Reason: Insomnia Last Admin: 09/28/18 21:21 Dose: 5 mg - Labs Labs: 09/28/18 07:05 09/28/18 07:06 - Constitutional Appears: Non-toxic, Chronically Ill - Head Exam Head Exam: NORMOCEPHALIC - Eye Exam Eye Exam: absent: Scleral icterus - ENT Exam ENT Exam: Mucous Membranes Dry - Neck Exam Neck Exam: absent: Lymphadenopathy - Respiratory Exam Respiratory Exam: Decreased Breath Sounds Assessment and Plan (1) Bacteremia Status: Acute (2) DDD (degenerative disc disease), cervical Status: Acute (3) Line sepsis associated with dialysis catheter Status: Acute (4) ESRD (end stage renal disease) Status: Acute - Assessment and Plan (Free Text) Assessment: cont rx x 14 days switch to cefepime 1 g daily
[2018-09-29] MEDS: Cefepime IV 1 gm in Dextrose 1 GM/50 ML BAG IVPB SCH (12:23)
[2018-09-29] MEDS: Epoetin Alfa 10,000 unit/ml Dialysis IV SCH (16:28)
--- NOTE | 2018-09-29 22:43 | CP.PCM.PN ---
Subjective - Date & Time of Evaluation Date of Evaluation: 09/29/18 Time of Evaluation: 19:00 - Subjective Subjective: Patient felt better today, with better appetite. Afebrile. Now on Maxipime. Objective - Vital Signs/Intake and Output Vital Signs (last 24 hours): Temp Pulse Resp BP Pulse Ox 98.0 F 73 16 144/73 97 09/29/18 22:26 09/29/18 13:15 09/29/18 13:15 09/29/18 16:15 09/29/18 13:15 Intake and Output: 09/29/18 09/30/18 18:59 06:59 Intake Total 650 Balance 650 - Medications Medications: Current Medications Acetaminophen (Tylenol 325mg Tab) 650 mg PO Q6 PRN PRN Reason: Headache Last Admin: 09/29/18 22:26 Dose: 650 mg Amlodipine Besylate (Norvasc) 5 mg PO DAILY [facility] Last Admin: 09/29/18 10:29 Dose: Not Given Docusate Sodium (Colace) 100 mg PO BID [facility] Last Admin: 09/29/18 18:17 Dose: 100 mg Epoetin Santosh (Procrit) 10,000 unit IV TTS [facility] Last Admin: 09/29/18 16:28 Dose: 10,000 unit Ferrous Sulfate (Feosol) 325 mg PO DAILY [facility] Last Admin: 09/29/18 10:27 Dose: 325 mg Guaifenesin/Dextromethorphan (Robitussin Dm) 10 ml PO Q4H PRN PRN Reason: Cough and congestion Last Admin: 09/26/18 23:34 Dose: 10 ml Heparin Sodium (Porcine) (Heparin) 5,000 units SC Q8 [facility] Last Admin: 09/29/18 22:29 Dose: 5,000 units Sodium Chloride (Sodium Chloride 0.9%) 1,000 mls @ 75 mls/hr IV .[id number] [facility] Last Admin: 09/25/18 16:30 Dose: Not Given Cefepime HCl (Maxipime Iv 1 Gm Premix) 1 gm in 50 mls @ 100 mls/hr IVPB Q24H [facility]; Protocol Last Admin: 09/29/18 12:23 Dose: 100 mls/hr Metoprolol Succinate (Toprol Xl) 25 mg PO BID [facility] Last Admin: 09/29/18 18:17 Dose: 25 mg Pantoprazole Sodium (Protonix Ec Tab) 40 mg PO DAILY [facility] Last Admin: 09/29/18 10:27 Dose: 40 mg Rosuvastatin Calcium (Crestor) 5 mg PO HS [facility] Last Admin: 09/29/18 22:25 Dose: 5 mg Zolpidem Tartrate (Ambien) 5 mg PO HS PRN PRN Reason: Insomnia Last Admin: 09/28/18 21:21 Dose: 5 mg - Labs Labs: 09/28/18 07:05 09/28/18 07:06 - Constitutional Appears: Well, No Acute Distress - Head Exam Head Exam: NORMAL INSPECTION - Eye Exam Eye Exam: Normal appearance Pupil Exam: NORMAL ACCOMODATION - ENT Exam ENT Exam: Normal Exam - Neck Exam Neck Exam: Normal Inspection - Respiratory Exam Respiratory Exam: Clear to Ausculation Bilateral, NORMAL BREATHING PATTERN - Cardiovascular Exam Cardiovascular Exam: REGULAR RHYTHM - GI/Abdominal Exam GI & Abdominal Exam: Soft, Normal Bowel Sounds - Rectal Exam Rectal Exam: Deferred - Exam Exam: NORMAL INSPECTION - Extremities Exam Extremities Exam: Normal Inspection - Back Exam Back Exam: NORMAL INSPECTION - Neurological Exam Neurological Exam: Alert, Awake, Oriented x3 - Psychiatric Exam Psychiatric exam: Anxious - Skin Skin Exam: Dry, Normal Color, Warm Assessment and Plan (1) Line sepsis associated with dialysis catheter Assessment & Plan: S/p removal of the old Permacath. Status: Acute (2) Bacteremia due to Gram-negative bacteria Assessment & Plan: On IV Maxipime. Status: Acute (3) ESRD (end stage renal disease) on dialysis Assessment & Plan: HD as per Nephrologists. Status: Acute
[2018-09-30 00:55] VITALS: RESP 20
[2018-09-30] MEDS: Pantoprazole 40 mg EC Tab PO SCH (09:45)
[2018-09-30] MEDS: Metoprolol Succinate 25 mg XL Tab PO SCH ×2 (09:45→18:10)
[2018-09-30] MEDS: Epoetin Alfa 10,000 unit/ml Dialysis IV SCH (10:00)
[2018-09-30] MEDS: Cefepime IV 1 gm in Dextrose 1 GM/50 ML BAG IVPB SCH (12:00)
--- NOTE | 2018-09-30 12:33 | CP.PCM.PN ---
Subjective - Date & Time of Evaluation Date of Evaluation: 09/30/18 Time of Evaluation: 12:28 - Subjective Subjective: seen and examined s/p hd yesterday rt permcath repeat blood cx neg, on cefepime per ID denies any f/c/sob/cp/rash/n/v/d/dysuria/headache c/o dizziness this am, now resolved Objective - Vital Signs/Intake and Output Vital Signs (last 24 hours): Temp Pulse Resp BP Pulse Ox 99.4 F 66 20 130/71 99 09/30/18 00:00 09/30/18 00:00 09/30/18 00:00 09/30/18 00:00 09/30/18 12:14 Intake and Output: 09/30/18 09/30/18 06:59 18:59 Intake Total 650 Balance 650 - Medications Medications: Current Medications Acetaminophen (Tylenol 325mg Tab) 650 mg PO Q6 PRN PRN Reason: Headache Last Admin: 09/29/18 22:26 Dose: 650 mg Amlodipine Besylate (Norvasc) 5 mg PO DAILY [facility] Last Admin: 09/30/18 09:45 Dose: 5 mg Docusate Sodium (Colace) 100 mg PO BID [facility] Last Admin: 09/30/18 09:45 Dose: 100 mg Epoetin Santosh (Procrit) 10,000 unit IV TTS [facility] Last Admin: 09/29/18 16:28 Dose: 10,000 unit Ferrous Sulfate (Feosol) 325 mg PO DAILY [facility] Last Admin: 09/30/18 09:45 Dose: 325 mg Guaifenesin/Dextromethorphan (Robitussin Dm) 10 ml PO Q4H PRN PRN Reason: Cough and congestion Last Admin: 09/26/18 23:34 Dose: 10 ml Heparin Sodium (Porcine) (Heparin) 5,000 units SC Q8 [facility] Last Admin: 09/30/18 06:02 Dose: 5,000 units Cefepime HCl (Maxipime Iv 1 Gm Premix) 1 gm in 50 mls @ 100 mls/hr IVPB Q24H [facility]; Protocol Last Admin: 09/29/18 12:23 Dose: 100 mls/hr Metoprolol Succinate (Toprol Xl) 25 mg PO BID [facility] Last Admin: 09/30/18 09:45 Dose: 25 mg Pantoprazole Sodium (Protonix Ec Tab) 40 mg PO DAILY [facility] Last Admin: 09/30/18 09:45 Dose: 40 mg Rosuvastatin Calcium (Crestor) 5 mg PO HS [facility] Last Admin: 09/29/18 22:25 Dose: 5 mg Zolpidem Tartrate (Ambien) 5 mg PO HS PRN PRN Reason: Insomnia Last Admin: 09/28/18 21:21 Dose: 5 mg - Labs Labs: 09/28/18 07:05 09/28/18 07:06 - Constitutional Appears: Non-toxic, No Acute Distress, Chronically Ill - Head Exam Head Exam: NORMAL INSPECTION, NORMOCEPHALIC - Eye Exam Eye Exam: Normal appearance, PERRL - ENT Exam ENT Exam: Mucous Membranes Moist, Normal Exam - Neck Exam Neck Exam: Full ROM, Normal Inspection - Respiratory Exam Respiratory Exam: Clear to Ausculation Bilateral, NORMAL BREATHING PATTERN - Cardiovascular Exam Cardiovascular Exam: REGULAR RHYTHM, RRR - GI/Abdominal Exam GI & Abdominal Exam: Distended, Soft - Extremities Exam Extremities Exam: Full ROM, Normal Inspection - Neurological Exam Neurological Exam: Alert, Awake, Oriented x3 - Psychiatric Exam Psychiatric exam: Normal Affect, Normal Mood - Skin Skin Exam: Dry, Intact, Warm Assessment and Plan (1) Bacteremia Status: Acute (2) Bacteremia due to Gram-negative bacteria Status: Acute (3) ESRD (end stage renal disease) on dialysis Status: Acute (4) Chronic disease anemia Status: Chronic - Assessment and Plan (Free Text) Assessment: probable urosepsis on antibiotics. line changed maintain hd
--- NOTE | 2018-09-30 17:23 | CP.PCM.PN ---
Subjective - Date & Time of Evaluation Date of Evaluation: 09/30/18 Time of Evaluation: 11:00 - Subjective Subjective: alert, awake, denies sob or chest pains, lungs clear, NAD. Objective - Vital Signs/Intake and Output Vital Signs (last 24 hours): Temp Pulse Resp BP Pulse Ox 98.7 F 61 20 140/76 99 09/30/18 08:00 09/30/18 08:00 09/30/18 08:00 09/30/18 08:00 09/30/18 12:14 Intake and Output: 09/30/18 09/30/18 06:59 18:59 Intake Total 650 350 Balance 650 350 - Medications Medications: Current Medications Acetaminophen (Tylenol 325mg Tab) 650 mg PO Q6 PRN PRN Reason: Headache Last Admin: 09/29/18 22:26 Dose: 650 mg Amlodipine Besylate (Norvasc) 5 mg PO DAILY [facility] Last Admin: 09/30/18 09:45 Dose: 5 mg Docusate Sodium (Colace) 100 mg PO BID [facility] Last Admin: 09/30/18 09:45 Dose: 100 mg Epoetin Santosh (Procrit) 10,000 unit IV TTS [facility] Last Admin: 09/30/18 10:00 Dose: Not Given Ferrous Sulfate (Feosol) 325 mg PO DAILY [facility] Last Admin: 09/30/18 09:45 Dose: 325 mg Guaifenesin/Dextromethorphan (Robitussin Dm) 10 ml PO Q4H PRN PRN Reason: Cough and congestion Last Admin: 09/26/18 23:34 Dose: 10 ml Heparin Sodium (Porcine) (Heparin) 5,000 units SC Q8 [facility] Last Admin: 09/30/18 14:20 Dose: 5,000 units Cefepime HCl (Maxipime Iv 1 Gm Premix) 1 gm in 50 mls @ 100 mls/hr IVPB Q24H [facility]; Protocol Last Admin: 09/30/18 12:00 Dose: 100 mls/hr Metoprolol Succinate (Toprol Xl) 25 mg PO BID [facility] Last Admin: 09/30/18 09:45 Dose: 25 mg Pantoprazole Sodium (Protonix Ec Tab) 40 mg PO DAILY [facility] Last Admin: 09/30/18 09:45 Dose: 40 mg Rosuvastatin Calcium (Crestor) 5 mg PO HS [facility] Last Admin: 09/29/18 22:25 Dose: 5 mg Zolpidem Tartrate (Ambien) 5 mg PO HS PRN PRN Reason: Insomnia Last Admin: 09/28/18 21:21 Dose: 5 mg - Labs Labs: 09/28/18 07:05 09/28/18 07:06 Assessment and Plan - Assessment and Plan (Free Text) Assessment: 78 year old female with ESRD on HD admitted with line sepsis, seen and examined. Alert, awake, denies any pain or distress. Cleared by DR Rubio for rehab and for iv cefepime 1 gm daily for 7 more [address] with DR Nazario plan to discharge to [facility] today.
[2018-09-30 17:26] VITALS: BP 128/67; PULSE 74; TEMP 98.4; O2SAT 95
[2018-10-01] MEDS ORDERED: Home Med 1 UNIT (Alendronate [Fosamax] 70 MG) PO SCH (10:00)
== END 2018-09-30 23:45 | DRG 314 ==
LOC: C.ER 10:51 → C.9E 16:50 → C.3T 20:07
PROVIDERS: ADMIT Internal Medicine Cardiovascular Disease; ATTEND Internal Medicine Cardiovascular Disease
PROC: 5A1D70Z Performance of Urinary Filtration, Intermittent, Less than 6 Hours Per Day (ICD-10-PCS; 2018-09-25)
PROC: 02HV33Z Insertion of Infusion Device into Superior Vena Cava, Percutaneous Approach (ICD-10-PCS; principal; 2018-09-25 12:30)
DX: T82.7XXA Infection and inflammatory reaction due to other cardiac and vascular devices, implants and grafts, initial encounter (principal); N18.6 End stage renal disease; R65.20 Severe sepsis without septic shock; A41.51 Sepsis due to Escherichia coli [E. coli]; Q61.3 Polycystic kidney, unspecified; I12.0 Hypertensive chronic kidney disease with stage 5 chronic kidney disease or end stage renal disease; J44.9 Chronic obstructive pulmonary disease, unspecified; Z99.2 Dependence on renal dialysis; M50.30 Other cervical disc degeneration, unspecified cervical region; E78.00 Pure hypercholesterolemia, unspecified; Y84.6 Urinary catheterization as the cause of abnormal reaction of the patient, or of later complication, without mention of misadventure at the time of the procedure; Y84.1 Kidney dialysis as the cause of abnormal reaction of the patient, or of later complication, without mention of misadventure at the time of the procedure

== ENCOUNTER 2018-11-24 12:31 | Inpatient (IN) | payer MEDICARE ==
[2018-11-24 12:47] VITALS: BMI 20.6
--- NOTE | 2018-11-24 13:23 | CP.PCM.CON ---
History of Present Illness - History of Present Illness History of Present Illness: 78y/o FF sent to ED with fevers, temps 102.9 Has been on dialysis x 3 mos, previous with line infection. AV fistula not maturing- new permcath had been inserted few weeks ago. Recently pt with weight loss, increasing poor appetite associated with rising creatinine, needed to start dialysis few mos ago. Known CKD related to HTN Other PMH: HTN DDD Osteoporosis Dyslipidemia Chronic anemia PSH: choleycystectomy AV fistula cataracts FH- No CKD Social- no ETOH. ssmoking, illicit drug use Review of Systems - Constitutional Constitutional: Fatigue, Fever, Weakness - EENT Eyes: absent: As Per HPI, Blind Spots, Blurred Vision, Change in Vision, Decreased Night Vision, Diplopia, Discharge, Dry Eye, Exophthalmos, Floaters, Irritation, Itchy Eyes, Loss of Peripheral Vision, Pain, Photophobia, Requires Corrective Lenses, Sees Flashes, Spots in Vision, Tunnel Vision, Other Visual Disturbances, Loss of Vision, Other Ears: absent: As Per HPI, Decreased Hearing, Ear Discharge, Ear Pain, Tinnitus, Abnormal Hearing, Disequilibrium, Dizziness, Other Nose/Mouth/Throat: absent: As Per HPI, Epistaxis, Nasal Congestion, Nasal Discharge, Nasal Obstruction, Nasal Trauma, Nose Pain, Post Nasal Drip, Sinus Pain, Sinus Pressure, Bleeding Gums, Change in Voice, Dental Pain, Dry Mouth, Dysphagia, Halitosis, Hoarsness, Lip Swelling, Mouth Lesions, Mouth Pain, Odynophagia, Sore Throat, Throat Swelling, Tongue Swelling, Facial Pain, Neck Pain, Neck Mass, Other - Cardiovascular Cardiovascular: Dyspnea on Exertion - Respiratory Respiratory: absent: As Per HPI, Cough, Dyspnea, Hemoptysis, Dyspnea on Exertio n, Wheezing, Snoring, Stridor, Pain on Inspiration, Chest Congestion, Excessive Mucous Production, Change in Mucous Color, Pain with Coughing, Other - Gastrointestinal Gastrointestinal: Early Satiety - Genitourinary Genitourinary: As Per HPI - Musculoskeletal Musculoskeletal: Muscle Weakness, Myalgias - Neurological Neurological: Weakness Past Patient History - Infectious Disease Hx of Infectious Diseases: None - Past Medical History & Family History Past Medical History?: Yes Past Family History: Reviewed and not pertinent - Past Social History Smoking Status: Never Smoked Chewing Tobacco Use: No Cigar Use: No Alcohol: None Drugs: Denies Home Situation {Lives}: Usp - CARDIAC Hx Cardiac Disorders: Yes Hx Hypercholesterolemia: Yes Hx Hypertension: Yes - PULMONARY Hx Respiratory Disorders: No - NEUROLOGICAL Hx Neurological Disorder: No - HEENT Hx HEENT Problems: Yes Hx Cataracts: Yes (iol) - RENAL Hx Chronic Kidney Disease: Yes - ENDOCRINE/METABOLIC Hx Endocrine Disorders: No - HEMATOLOGICAL/ONCOLOGICAL Hx Blood Disorders: Yes Hx Anemia: Yes - INTEGUMENTARY Hx Dermatological Problems: No - MUSCULOSKELETAL/RHEUMATOLOGICAL Hx Musculoskeletal Disorders: Yes Hx Arthritis: Yes Hx Osteoporosis: Yes - GASTROINTESTINAL Hx Gastrointestinal Disorders: Yes Hx Gall Bladder Disease: Yes - GENITOURINARY/GYNECOLOGICAL Hx Genitourinary Disorders: No - PSYCHIATRIC Hx Psychophysiologic Disorder: Yes Hx Anxiety: Yes Hx Substance Use: No - SURGICAL HISTORY Hx Surgeries: Yes Hx Cholecystectomy: Yes - ANESTHESIA Hx Anesthesia: Yes Hx Anesthesia Reactions: No Hx Malignant Hyperthermia: No Meds Allergies/Adverse Reactions: Allergies Allergy/AdvReac Type Severity Reaction Status Date / Time aspirin Allergy Intermediate RASH Verified 11/24/18 12:47 shellfish derived Allergy Intermediate RASH Verified 11/24/18 12:47 seafood Allergy Intermediate RASH Uncoded 11/24/18 12:47 Physical Exam - Constitutional Appears: No Acute Distress, Chronically Ill - Head Exam Head Exam: ATRAUMATIC, NORMAL INSPECTION - Eye Exam Eye Exam: EOMI, Normal appearance - Neck Exam Neck exam: Positive for: Normal Inspection. Negative for: Tenderness - Respiratory Exam Respiratory Exam: Clear to Auscultation Bilateral, NORMAL BREATHING PATTERN - Cardiovascular Exam Cardiovascular Exam: REGULAR RHYTHM, +S1 - GI/Abdominal Exam GI & Abdominal Exam: Soft. absent: Tenderness - Extremities Exam Extremities exam: Positive for: normal inspection. Negative for: tenderness - Neurological Exam Neurological exam: Alert, CN II-XII Intact - Skin Skin Exam: Dry, Warm Results - Vital Signs Recent Vital Signs: Last Vital Signs Temp 100.7 F H 11/24/18 12:48 Pulse 96 H 11/24/18 12:48 Resp 17 11/24/18 12:48 BP 96/48 L 11/24/18 12:48 Pulse Ox 97 11/24/18 12:48 Assessment & Plan (1) Line sepsis associated with dialysis catheter Status: Acute (2) ESRD (end stage renal disease) Status: Acute (3) Hypertensive chronic kidney disease with stage 5 chronic kidney disease or end stage renal disease Status: Acute (4) Line sepsis associated with dialysis catheter Status: Acute (5) Hypertension Status: Chronic - Assessment and Plan (Free Text) Plan: Likely with repeat episode of line sepsis s/p dialysis today Needs blood cultures Consider AV fistula revision once infection dx and treated IV ABs
[2018-11-24] MEDS ORDERED: Vancomycin 1 gm/NS 200 ml 1 GM/200 ML BAG IVPB STA (13:31)
[2018-11-24] MEDS ORDERED: Piperacill/Tazo 3.375gm in Dex 3.375 GM/50 ML BAG IVPB STA (13:31)
--- NOTE | 2018-11-24 13:36 | C.PDOC ---
History Of Present Illness Patient is a 78 year female, with a PMHx of ESRD and Permacath infection in 09/2018, who is brought in to the ED from her residential for a fever. Patient is s/p hemodialysis and was also given tylenol prior to arrival. Patient denies any focal symptoms, CP, SOB, vomiting, and diarrhea. FROM NH FOR FEVER. PS DENIES FOCAL SX. 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 HO PERMACATH INFXN 09/2018. EXAM NONTOXIC HEENT NEG LUNGS CTA B/L NO W/R/R ABD NEG REMAINDER NEG ESRD on HD secondary to a polycystic kidney disease, a hypertension, a hypercholesterolemia, a COPD. She had an AV shunt and a Permacath inserted by Dr Derick Jr 08/2018. SP TX Merem IV by Dr Rubio ( ID). Next day ( ), the old Permacath was removed and a new one was inserted by Dr Sepulveda. Blood culture revealed E, Coli sensitive to Ampicillicin. Merem was switched to Cefepime IV by Dr Reis on . The urine culture also grew a Gram negative bacteria. The patient did well with IV antibiotic and hemodialysis. Time Seen by Provider: 11/24/18 13:05 Chief Complaint (Nursing): Fever History Per: Patient, EMS History/Exam Limitations: no limitations Onset/Duration Of Symptoms: Hrs Current Symptoms Are (Timing): Still Present Associated Symptoms: Fever. denies: Vomiting, Diarrhea, Other (CP and SOB) Recent travel outside of the [place]: No Additional History Per: Patient Past Medical History Reviewed: Historical Data, Nursing Documentation, Vital Signs Vital Signs: Last Vital Signs Temp 100.7 F H 11/24/18 12:48 Pulse 96 H 11/24/18 12:48 Resp 17 11/24/18 12:48 BP 96/48 L 11/24/18 12:48 Pulse Ox 97 11/24/18 12:48 - Medical History PMH: Anemia, Anxiety, Arthritis, Gall Bladder Disease, HTN, Hypercholesterolemia, Hyperlipidemia, Osteoporosis, Chronic Kidney Disease Surgical History: Cholecystectomy - [facility] (09/24/18) INSERTION OF INFUSION DEV INTO SUP VENA CAVA, PERC APPROACH (09/24/18) Family History: States: Unknown Family Hx - Social History Hx Tobacco Use: No Hx Alcohol Use: No Hx Substance Use: No - Immunization History Hx Tetanus Toxoid Vaccination: Yes Hx Influenza Vaccination: Yes Hx Pneumococcal Vaccination: Yes Review Of Systems Constitutional: Positive for: Fever Cardiovascular: Negative for: Chest Pain Respiratory: Negative for: Shortness of Breath Gastrointestinal: Negative for: Vomiting, Diarrhea Neurological: Negative for: Weakness, Numbness, Dizziness Physical Exam - Physical Exam Appears: Non-toxic, No Acute Distress Skin: Normal Color, Warm, Dry Head: Atraumatic, Normacephalic Eye(s): bilateral: Normal Inspection Ear(s): Bilateral: Normal Nose: Normal Oral Mucosa: Moist Throat: Normal Neck: Normal ROM, Supple Chest: Symmetrical, No Deformity Cardiovascular: Rhythm Regular, No Murmur Respiratory: Normal Breath Sounds, No Rales, No Rhonchi, No Wheezing Gastrointestinal/Abdominal: Soft, No Tenderness, No Guarding, No Rebound Extremity: Normal ROM Neurological/Psych: Oriented x3, Normal Speech, Normal Cognition ED Course And Treatment - Laboratory Results Result Diagrams: 11/24/18 14:16 11/24/18 14:16 ECG: Interpreted By Me ECG Rhythm: Sinus Rhythm ECG Interpretation: Normal Rate From EC O2 Sat by Pulse Oximetry: 97 (on RA) Pulse Ox Interpretation: Normal - Radiology CXR: Interpreted by Me CXR Interpretation: Yes: No Acute Disease - Other Rad CXR X-Ray: Viewed By Me, Read By Radiologist Interpretation: Impression: No active disease. Progress Note: VBG, EKG, Bloodwork, CXR, Urine Culture ordered and reviewed. Vancomycin 1gm in 200ml IVPB and Zosyn 3.375 gm in 50ml IVPB administered. Progress - Re-Evaluation Re-evaluation Note: 11/24/18 13:30 D/W DR DE SANTIAGO AWARE OF ER FINDINGS WILL CONSULT 11/24/18 15:08 D/W DR Charmaine OBRIEN AWARE OF ER FINDINGS WILL ADMIT - Data Reviewed Data Reviewed: Lab, Diagnostic imaging, EKG, Old records Disposition Counseled Patient/Family Regarding: Studies Performed, Diagnosis - Disposition Disposition: HOSPITALIZED Disposition Time: 15:09 Condition: SERIOUS - POA Present On Arrival: Poor Glycemic Control - Clinical Impression Clinical Impression: Line sepsis associated with dialysis catheter, ESRD (end stage renal disease) on dialysis - Scribe Statement The provider has reviewed the documentation as recorded by the Margarito Galaviz All medical record entries made by the Scribe were at my direction and personally dictated by me. I have reviewed the chart and agree that the record accurately reflects my personal performance of the history, physical exam, medical decision making, and the department course for this patient. I have also personally directed, reviewed, and agree with the discharge instructions and disposition.
[2018-11-24 14:35] LABS: BASO # 0.1 K/uL (0.0-0.2); BASO % 0.7 % (0.0-2.0); EOS % 0.3 % (0.0-4.0); HEMOGLOBIN 8.8 g/dL (11.0-16.0); LYMPH % 7.7 % (20.0-40.0); MEAN CELL VOLUME 97.3 fL (81.0-99.0); MEAN CORPUSCULAR HEMOGLOBIN 32.1 pg (27.0-31.0); MEAN PLATELET VOLUME 7.7 fL (7.2-11.7); MONO % 8.1 % (0.0-10.0); NEUT # 10.5 K/uL (1.8-7.0); NEUT % 83.2 % (50.0-75.0); NRBC % 0.4 % (0.0-2.0); RBC 2.73 Mil/uL (3.80-5.20); RED CELL DISTRIBUTION WIDTH 15.5 % (11.5-14.5)
[2018-11-24 14:36] LABS: VENOUS BLOOD GAS BASE EXCESS 13.2 mmol/L (0.0-2.0); VENOUS BLOOD GAS PCO2 45 mmHg (40-60); VENOUS BLOOD GAS PO2 38 mm/Hg (30-55); VENOUS BLOOD PH 7.53 (7.32-7.43)
[2018-11-24 14:38] LABS: PLATELET COUNT 116 K/uL (130-400); WHITE BLOOD COUNT 12.6 K/uL (4.8-10.8)
[2018-11-24 14:40] LABS: CALCIUM 8.4 mg/dl (8.6-10.4)
[2018-11-24 14:41] LABS: ALB/GLOB RATIO 1.2 (1.0-2.1); ALBUMIN 3.8 g/dL (3.5-5.0)
[2018-11-24 14:46] LABS: INR 1.2; PROTHROMBIN TIME 12.8 SECONDS (9.7-12.2)
[2018-11-24 14:55] LABS: BANDS 9 % (0-2); LYMPHOCYTE 6 % (20-40); MONOCYTE 6 % (0-10); NEUTROPHIL 79 % (50-75); PLATELET ESTIMATE SLIGHTLY DECREASED (NORMAL); TOTAL CELLS COUNTED 100
[2018-11-24 14:57] LABS: ANISOCYTOSIS SLIGHT
[2018-11-24] MEDS ORDERED: Vancomycin 1 GM 1 GM/250 ML BAG IVPB ONE (15:10)
[2018-11-24] MEDS ORDERED: Piperacillin/Tazobact 3.375 gm 100 ML IVPB ONE (15:10)
[2018-11-24] MEDS ORDERED: Sodium Chloride 0.9% 250 ML IV ONE (15:15)
--- NOTE | 2018-11-24 15:30 | RAD ---
Date of service: 11/24/2018 HISTORY: Sepsis Patient COMPARISON: 09/25/2018 FINDINGS: LUNGS: No active pulmonary disease. PLEURA: No significant pleural effusion identified, no pneumothorax apparent. CARDIOVASCULAR: There is atherosclerotic calcification of the aortic arch. Normal cardiac size. Tunneled right central venous dialysis catheter. No congestive change. OSSEOUS STRUCTURES: No significant abnormalities. VISUALIZED UPPER ABDOMEN: Normal. OTHER FINDINGS: None. IMPRESSION: No active disease.
--- NOTE | 2018-11-24 19:47 | CP.PCM.HP ---
History of Present Illness - History of Present Illness History of Present Illness: 78 years old female sent from [facility] because of fever for one day with poor appetite. She denies any sore throat, cough, diarrhea, vomiting, abdominal pain. She was hospitalized on August 2018 for a line sepsis. A new Permacath was inserted by Dr Sepulveda. Blood culture at that time grew E Coli. She received Maxipime and sent to subacute rehabilitation. She is known to have a hypertension, a polycystic renal disease with an ESRD on hemodialysis, a COPD, an osteoporosis. Present on Admission - Present on Admission Any Indicators Present on Admission: No Review of Systems - Constitutional Constitutional: Anorexia, Chills, Fever Past Patient History - Infectious Disease Hx of Infectious Diseases: None - Past Medical History & Family History Past Medical History?: Yes Past Family History: Reviewed and not pertinent - Past Social History Smoking Status: Never Smoked Chewing Tobacco Use: No Cigar Use: No Alcohol: None Drugs: Denies Home Situation {Lives}: Alf Domestic Violence: Negative - CARDIAC Hx Hypercholesterolemia: Yes Hx Hypertension: Yes - PULMONARY Hx Respiratory Disorders: No - NEUROLOGICAL Hx Neurological Disorder: No - HEENT Hx HEENT Problems: Yes Hx Cataracts: Yes (iol) - RENAL Hx Chronic Kidney Disease: Yes - ENDOCRINE/METABOLIC Hx Endocrine Disorders: No - HEMATOLOGICAL/ONCOLOGICAL Hx Anemia: Yes - INTEGUMENTARY Hx Dermatological Problems: No - MUSCULOSKELETAL/RHEUMATOLOGICAL Hx Arthritis: Yes Hx Osteoporosis: Yes - GASTROINTESTINAL Hx Gall Bladder Disease: Yes - GENITOURINARY/GYNECOLOGICAL Hx Genitourinary Disorders: No - PSYCHIATRIC Hx Anxiety: Yes Hx Substance Use: No - SURGICAL HISTORY Hx Cholecystectomy: Yes - ANESTHESIA Hx Anesthesia: Yes Hx Anesthesia Reactions: No Hx Malignant Hyperthermia: No Meds Allergies/Adverse Reactions: Allergies Allergy/AdvReac Type Severity Reaction Status Date / Time aspirin Allergy Intermediate RASH Verified 11/24/18 12:47 shellfish derived Allergy Intermediate RASH Verified 11/24/18 12:47 seafood Allergy Intermediate RASH Uncoded 11/24/18 12:47 Physical Exam - Constitutional Appears: No Acute Distress, Chronically Ill - Head Exam Head Exam: NORMAL INSPECTION - Eye Exam Eye Exam: Normal appearance Pupil Exam: NORMAL ACCOMODATION - ENT Exam ENT Exam: Normal Exam - Neck Exam Neck exam: Positive for: Normal Inspection - Respiratory Exam Respiratory Exam: Clear to Auscultation Bilateral, NORMAL BREATHING PATTERN - Cardiovascular Exam Cardiovascular Exam: REGULAR RHYTHM - GI/Abdominal Exam GI & Abdominal Exam: Normal Bowel Sounds, Soft - Rectal Exam Rectal Exam: Deferred - Extremities Exam Extremities exam: Positive for: normal inspection - Back Exam Back exam: NORMAL INSPECTION - Neurological Exam Neurological exam: Alert, Normal Gait, Oriented x3 - Psychiatric Exam Psychiatric exam: Anxious - Skin Skin Exam: Dry, Intact, Normal Color, Warm Results - Vital Signs Recent Vital Signs: Last Vital Signs Temp 102.3 F H 11/24/18 19:03 Pulse 98 H 11/24/18 19:03 Resp 20 11/24/18 19:03 BP 90/44 L 11/24/18 19:03 Pulse Ox 95 11/24/18 19:03 - Labs Result Diagrams: 11/24/18 14:16 11/24/18 14:16 Labs: Laboratory Results - last 24 hr 11/24/18 11/24/18 11/24/18 14:16 14:16 14:16 WBC 12.6 H D RBC 2.73 L Hgb 8.8 L Hct 26.5 L MCV 97.3 MCH 32.1 H MCHC 33.0 RDW 15.5 H Plt Count 116 L D MPV 7.7 Neut % (Auto) 83.2 H Lymph % (Auto) 7.7 L King % (Auto) 8.1 Eos % (Auto) 0.3 Baso % (Auto) 0.7 Neut # (Auto) 10.5 H Lymph # (Auto) 1.0 King # (Auto) 1.0 H Eos # (Auto) 0.0 Baso # (Auto) 0.1 Neutrophils % (Manual) 79 H Band Neutrophils % 9 H Lymphocytes % (Manual) 6 L Monocytes % (Manual) 6 Platelet Estimate Slightly decreased L Anisocytosis (manual) Slight PT 12.8 H INR 1.2 APTT 32 pO2 VBG pH VBG pCO2 VBG HCO3 VBG Total CO2 VBG O2 Sat (Calc) VBG Base Excess VBG Potassium Glucose Lactate Sodium 137 Potassium 4.5 Chloride 91 L Carbon Dioxide 35 H Anion Gap 15 BUN 37 H Creatinine 3.4 H Est GFR ( Amer) 16 Est GFR (Non-Af Amer) 13 Random Glucose 121 H D Calcium 8.4 L Phosphorus 3.5 Magnesium 2.1 Total Bilirubin 1.3 AST 109 H D ALT 42 Alkaline Phosphatase 148 H D Total Protein 7.2 Albumin 3.8 Globulin 3.3 Albumin/Globulin Ratio 1.2 Venous Blood Potassium Influenza Typ A,B (EIA) 11/24/18 11/24/18 14:30 14:32 WBC RBC Hgb Hct MCV MCH MCHC RDW Plt Count MPV Neut % (Auto) Lymph % (Auto) King % (Auto) Eos % (Auto) Baso % (Auto) Neut # (Auto) Lymph # (Auto) King # (Auto) Eos # (Auto) Baso # (Auto) Neutrophils % (Manual) Band Neutrophils % Lymphocytes % (Manual) Monocytes % (Manual) Platelet Estimate Anisocytosis (manual) PT INR APTT pO2 38 VBG pH 7.53 H VBG pCO2 45 VBG HCO3 34.7 VBG Total CO2 39.0 H VBG O2 Sat (Calc) 80.3 H VBG Base Excess 13.2 H VBG Potassium 3.6 Glucose 121 H Lactate 1.8 Sodium 139.0 Potassium Chloride 103.0 Carbon Dioxide Anion Gap BUN Creatinine Est GFR ( Amer) Est GFR (Non-Af Amer) Random Glucose Calcium Phosphorus Magnesium Total Bilirubin AST ALT Alkaline Phosphatase Total Protein Albumin Globulin Albumin/Globulin Ratio Venous Blood Potassium 3.6 Influenza Typ A,B (EIA) Negative for flu a/b Assessment & Plan (1) Fever Assessment and Plan: R/o line sepsis. Blood, urine cultures. Status: Acute (2) ESRD (end stage renal disease) on dialysis Status: Acute (3) Hypertension Status: Acute (4) Hypertension Status: Acute Decision To Admit - Pt Status Changed To: Hospital Disposition Of: Inpatient - Admit Certification Admit to Inpatient:: After my assessment, the patient will require hospitalization for at least two midnights. This is because of the severity of symptoms shown, intensity of services needed, and/or the medical risk in this patient being treated as an outpatient. - InPatient: Physician Admission Certification:: After my assessments, the patient requires hospitalization for at least 2 midnights. - . Bed Request Type: Regular Admitting Physician: Justin Nazario
[2018-11-24] MEDS ORDERED: Oxycodone/Acetaminophen 5/325 mg Tab ONE (19:49)
[2018-11-24] MEDS: Oxycodone/Acetaminophen 5/325 mg Tab PO PRN (19:52)
[2018-11-24] MEDS ORDERED: Sodium Chloride 0.9% 500 ML IV ONE (22:23)
[2018-11-24] MEDS: Sodium Chloride 0.9% 1,000 ML IV SCH (23:30)
[2018-11-25 05:56] LABS: SQUAMOUS EPITHIAL 1 /hpf (0-5); URINE BACTERIA RARE (<OCC); URINE BILIRUBIN NEGATIVE (NEGATIVE); URINE BLOOD NEGATIVE (NEGATIVE); URINE CLARITY Clear (Clear); URINE COLOR Yellow (YELLOW); URINE GLUCOSE (UA) NORMAL (Normal); URINE LEUKOCYTE ESTERASE NEG Leu/uL (Negative); URINE PROTEIN 2+ mg/dL (NEGATIVE); URINE UROBILINOGEN NORMAL mg/dL (0.2-1.0)
--- NOTE | 2018-11-25 08:03 | CP.PCM.PN ---
Subjective - Date & Time of Evaluation Date of Evaluation: 11/25/18 Time of Evaluation: 08:02 - Subjective Subjective: low grade fever noted cultures GN rods low bp pt is awake and alert denies any sob pain dizziness ehadache n/v/d Objective - Vital Signs/Intake and Output Vital Signs (last 24 hours): Temp Pulse Resp BP Pulse Ox 99.4 F 88 18 82/46 L 100 11/25/18 07:30 11/25/18 07:30 11/25/18 07:30 11/25/18 07:30 11/25/18 07:30 - Medications Medications: Current Medications Acetaminophen (Tylenol 325mg Tab) 650 mg PO Q6 PRN PRN Reason: Fever >100.4 F Calcium Acetate (Phoslo) 667 mg PO TID REPLACED BY [facility] Diphenhydramine HCl (Benadryl) 25 mg PO Q8 PRN PRN Reason: itchiness Last Admin: 11/24/18 19:52 Dose: 25 mg Docusate Sodium (Colace) 100 mg PO BID REPLACED BY [facility] Heparin Sodium (Porcine) (Heparin) 5,000 units SC Q8 REPLACED BY [facility] Last Admin: 11/25/18 05:42 Dose: 5,000 units Sodium Chloride (Sodium Chloride 0.9%) 1,000 mls @ 42 mls/hr IV .[id number] REPLACED BY [facility] Last Admin: 11/24/18 23:30 Dose: 42 mls/hr Megestrol Acetate (Megace) 400 mg PO BID REPLACED BY [facility] Metoprolol Succinate (Toprol Xl) 25 mg PO DAILY REPLACED BY [facility] Oxycodone/Acetaminophen (Percocet 5/325 Mg Tab) 1 tab PO Q4 PRN PRN Reason: mod pain 4-6 Stop: 11/27/18 19:29 Last Admin: 11/24/18 19:52 Dose: 1 tab Pantoprazole Sodium (Protonix Ec Tab) 40 mg PO DAILY REPLACED BY [facility] Rosuvastatin Calcium (Crestor) 5 mg PO HS REPLACED BY [facility] Last Admin: 11/24/18 21:11 Dose: 5 mg Vitamin B Complex/Vit C/Folic Acid (Nephro-Valeria) 1 tab PO DAILY REPLACED BY [facility] - Labs Labs: 11/24/18 14:16 11/24/18 14:16 PT 12.8 SECONDS (9.7-12.2) H 11/24/18 14:16 INR 1.2 11/24/18 14:16 APTT 32 SECONDS (21-34) 11/24/18 14:16 - Constitutional Appears: No Acute Distress, Chronically Ill - Head Exam Head Exam: NORMAL INSPECTION, NORMOCEPHALIC - Eye Exam Eye Exam: Normal appearance, PERRL - ENT Exam ENT Exam: Mucous Membranes Moist, Normal Exam - Neck Exam Neck Exam: Normal Inspection - Respiratory Exam Respiratory Exam: Clear to Ausculation Bilateral, NORMAL BREATHING PATTERN - Cardiovascular Exam Cardiovascular Exam: REGULAR RHYTHM - GI/Abdominal Exam GI & Abdominal Exam: Distended, Soft - Extremities Exam Extremities Exam: Full ROM, Normal Inspection - Neurological Exam Neurological Exam: Alert, Awake, Oriented x3 - Skin Skin Exam: Dry, Intact Assessment and Plan (1) ESRD (end stage renal disease) on dialysis Status: Acute (2) Fever Status: Acute (3) Hypertension Status: Acute (4) Line sepsis associated with dialysis catheter Status: Acute - Assessment and Plan (Free Text) Assessment: hold norvasc gentle iv fluids needs permcath change broad spectrum antibiotics, recommend ID eval Plan for HD tomorrow
[2018-11-25] MEDS ORDERED: Sodium Chloride 0.9% 250 ML IV ONE (08:42)
[2018-11-25] MEDS: Metoprolol Succinate 25 mg XL Tab PO SCH (09:50)
[2018-11-25] MEDS: Megestrol Acetate 40 mg/ml Cup PO SCH ×2 (10:03→18:11)
[2018-11-25] MEDS: Pantoprazole 40 mg EC Tab PO SCH (10:03)
--- NOTE | 2018-11-25 10:12 | CP.PCM.CON ---
History of Present Illness - History of Present Illness History of Present Illness: admitted for line sepsis ? recurrent E coli bacteremia On IV antibiotics Hx ESRD PSH:AVF choleycystectomy Review of Systems - Review of Systems All systems: reviewed and no additional remarkable complaints except - Constitutional Constitutional: As Per HPI, Chills, Fever, Malaise - EENT Eyes: absent: As Per HPI, Blind Spots, Blurred Vision, Change in Vision, Decreased Night Vision, Diplopia, Discharge, Dry Eye, Exophthalmos, Floaters, Irritation, Itchy Eyes, Loss of Peripheral Vision, Pain, Photophobia, Requires Corrective Lenses, Sees Flashes, Spots in Vision, Tunnel Vision, Other Visual Disturbances, Loss of Vision, Other Ears: absent: As Per HPI, Decreased Hearing, Ear Discharge, Ear Pain, Tinnitus, Abnormal Hearing, Disequilibrium, Dizziness, Other Nose/Mouth/Throat: absent: As Per HPI, Epistaxis, Nasal Congestion, Nasal Discharge, Nasal Obstruction, Nasal Trauma, Nose Pain, Post Nasal Drip, Sinus Pain, Sinus Pressure, Bleeding Gums, Change in Voice, Dental Pain, Dry Mouth, Dysphagia, Halitosis, Hoarsness, Lip Swelling, Mouth Lesions, Mouth Pain, Odynophagia, Sore Throat, Throat Swelling, Tongue Swelling, Facial Pain, Neck Pain, Neck Mass, Other - Breasts Breasts: absent: As Per HPI, Change in Shape, Mass, Pain, Nipple Discharge, Nipple Inversion, Skin Changes, Swelling, Other - Cardiovascular Cardiovascular: As Per HPI - Respiratory Respiratory: absent: As Per HPI, Cough, Dyspnea, Hemoptysis, Dyspnea on Exertion, Wheezing, Snoring, Stridor, Pain on Inspiration, Chest Congestion, Excessive Mucous Production, Change in Mucous Color, Pain with Coughing, Other - Gastrointestinal Gastrointestinal: absent: As Per HPI, Abdominal Pain, Belching, Bloating, Change in Bowel Habits, Change in Stool Character, Coffee Ground Emesis, Constipation, Cramping, Diarrhea, Dyspepsia, Dysphagia, Early Satiety, Excessive Flatus, Fecal Incontinence, Heartburn, Hematemesis, Hematochezia, Loose Stools, Melena, Nausea, Odynophagia, Temesmus, Vomiting, Other - Genitourinary Genitourinary: absent: As Per HPI, Change in Urinary Stream, Difficulty Urinating, Dysuria, Flank Pain, Hematuria, Pyuria, Nocturia, Urinary Incontinence, Urinary Frequency, Urinary Hesitance, Urinary Urgency, Voiding Arjun q/Small Amts, Freq UTI, Hx Renal/Bladder Calculi, Hx /Renal Surgery, Bladder Distension, Other - Reproductive: Female Reproductive:Female: absent: As Per HPI, Amenorrhea, Amenorrhea/ Control, Currently Menstual, Cycle <21 Days, Cycle >35 Days, Cycle Variable, Menses 1-7 Days, Menses >/= 8 Days, Menses Variable, Cycle > 4 Weeks Between, No Menses for 6 Months, Heavy Menses, Light Menses, Normal Menses, Spotting Between Cycles, S/P Hysterectomy, Menopausal, Post Menopausal, Premenarche, Abnormal Vaginal Bleeding, Dysmenorrhea, Dyspareunia, Genital Lesions, Genital Pruritis, Pelvic Pain, Prolapse Symptoms, Sexual Dysfunction, Vaginal Discharge, Vaginal Dryness, Vaginal Odor, Vaginal Pruritis, Other - Menstruation Menstruation: absent: As Per HPI, Amenorrhea, Amenorrhea/ Control, Currently Menstual, Cycle <21 Days, Cycle >35 Days, Cycle Variable, Menses 1-7 Days, Menses >/= 8 Days, Menses Variable, Cycle > 4 Weeks Between, No Menses for 6 Months, Heavy Menses, Light Menses, Normal Menses, Spotting Between Cycles, S/P Hysterectomy, Menopausal, Post Menopausal, Premenarche, Abnormal Vaginal Bleeding, Dysmenorrhea, Other - Musculoskeletal Musculoskeletal: absent: As Per HPI, Abnormal Gait, Arthralgias, Atrophy, Back Pain, Deformity, Joint Swelling, Limited Range of Motion, Loss of Height, Muscle Cramps, Muscle Weakness, Myalgias, Neck Pain, Numbness, Radiating Pain into Limb, Stiffness, Tingling, Other - Integumentary Integumentary: As Per HPI - Neurological Neurological: absent: As Per HPI, Abnormal Gait, Abnormal Hearing, Abnormal Movements, Abnormal Speech, Behavioral Changes, Burning Sensations, Confusion, Convulsions, Disequilibrium, Dizziness, Numbness, Focal Weakness, Frequent Falls, Headaches, Lack of Coordination, Loss of Vision, Memory Loss, Paresthesias, Radicular Pain, Restless Legs, Sensory Deficit, Syncope, Tingling, Tremor, Vertigo, Weakness, Other Visual Disturbances, Other - Psychiatric Psychiatric: absent: As Per HPI, Abnormal Sleep Pattern, Anhedonia, Anxiety, Auditory Hallucinations, Behavioral Changes, Change in Appetite, Change in Libido, Confusion, Depression, Difficulty Concentrating, Hallucinations, Homicidal Ideation, Hopelessness, Irritability, Memory Loss, Mood Swings, Panic Attacks, Paranoia, Suicidal Ideation, Visual Hallucinations, Tactile Hallucinations, Other - Endocrine Endocrine: absent: As Per HPI, Change in Body Appearance, Change in Libido, Cold Intolorance, Deepening of Voice, Excessive Sweating, Fatigue, Flushing, Heat Intolorance, Increase in Ring/Shoe/Hat Size, Palpitations, Polydipsia, Polyphagia, Polyuria, Other - Hematologic/Lymphatic Hematologic: absent: As Per HPI, Easy Bleeding, Easy Bruising, Lymphadenopathy, Other Past Patient History - Infectious Disease Hx of Infectious Diseases: None - Past Medical History & Family History Past Medical History?: Yes Past Family History: Reviewed and not pertinent - Past Social History Smoking Status: Never Smoked Chewing Tobacco Use: No Cigar Use: No Alcohol: None Drugs: Denies Home Situation {Lives}: Snf Domestic Violence: Negative - CARDIAC Hx Hypercholesterolemia: Yes Hx Hypertension: Yes - PULMONARY Hx Respiratory Disorders: No - NEUROLOGICAL Hx Neurological Disorder: No - HEENT Hx HEENT Problems: Yes Hx Cataracts: Yes (iol) - RENAL Hx Chronic Kidney Disease: Yes - ENDOCRINE/METABOLIC Hx Endocrine Disorders: No - HEMATOLOGICAL/ONCOLOGICAL Hx Anemia: Yes - INTEGUMENTARY Hx Dermatological Problems: No - MUSCULOSKELETAL/RHEUMATOLOGICAL Hx Arthritis: Yes Hx Osteoporosis: Yes - GASTROINTESTINAL Hx Gall Bladder Disease: Yes - GENITOURINARY/GYNECOLOGICAL Hx Genitourinary Disorders: No - PSYCHIATRIC Hx Anxiety: Yes Hx Substance Use: No - SURGICAL HISTORY Hx Cholecystectomy: Yes - ANESTHESIA Hx Anesthesia: Yes Hx Anesthesia Reactions: No Hx Malignant Hyperthermia: No Meds Allergies/Adverse Reactions: Allergies Allergy/AdvReac Type Severity Reaction Status Date / Time aspirin Allergy Intermediate RASH Verified 11/24/18 12:47 shellfish derived Allergy Intermediate RASH Verified 11/24/18 12:47 seafood Allergy Intermediate RASH Uncoded 11/24/18 12:47 - Medications Medications: Current Medications Acetaminophen (Tylenol 325mg Tab) 650 mg PO Q6 PRN PRN Reason: Fever >100.4 F Calcium Acetate (Phoslo) 667 mg PO TID SUE Last Admin: 11/25/18 10:03 Dose: 667 mg Diphenhydramine HCl (Benadryl) 25 mg PO Q8 PRN PRN Reason: itchiness Last Admin: 11/24/18 19:52 Dose: 25 mg Docusate Sodium (Colace) 100 mg PO BID [facility] Last Admin: 11/25/18 10:03 Dose: 100 mg Heparin Sodium (Porcine) (Heparin) 5,000 units SC Q8 [facility] Last Admin: 11/25/18 05:42 Dose: 5,000 units Sodium Chloride (Sodium Chloride 0.9%) 1,000 mls @ 42 mls/hr IV .[id number] [facility] Last Admin: 11/24/18 23:30 Dose: 42 mls/hr Megestrol Acetate (Megace) 400 mg PO BID [facility] Last Admin: 11/25/18 10:03 Dose: 400 mg Metoprolol Succinate (Toprol Xl) 25 mg PO DAILY [facility] Last Admin: 11/25/18 09:50 Dose: Not Given Oxycodone/Acetaminophen (Percocet 5/325 Mg Tab) 1 tab PO Q4 PRN PRN Reason: mod pain 4-6 Stop: 11/27/18 19:29 Last Admin: 11/24/18 19:52 Dose: 1 tab Pantoprazole Sodium (Protonix Ec Tab) 40 mg PO DAILY [facility] Last Admin: 11/25/18 10:03 Dose: 40 mg Rosuvastatin Calcium (Crestor) 5 mg PO HS [facility] Last Admin: 11/24/18 21:11 Dose: 5 mg Vitamin B Complex/Vit C/Folic Acid (Nephro-Valeria) 1 tab PO DAILY [facility] Physical Exam - Constitutional Appears: Toxic, No Acute Distress - Head Exam Head Exam: ATRAUMATIC, NORMAL INSPECTION, NORMOCEPHALIC - Eye Exam Eye Exam: EOMI, Normal appearance, PERRL Pupil Exam: NORMAL ACCOMODATION, PERRL - ENT Exam ENT Exam: Mucous Membranes Moist, Normal Exam - Neck Exam Neck exam: Positive for: Normal Inspection - Respiratory Exam Respiratory Exam: Clear to Auscultation Bilateral, NORMAL BREATHING PATTERN - Cardiovascular Exam Cardiovascular Exam: REGULAR RHYTHM - GI/Abdominal Exam GI & Abdominal Exam: Normal Bowel Sounds, Soft. absent: Tenderness - Rectal Exam Rectal Exam: NORMAL INSPECTION - Extremities Exam Extremities exam: Positive for: normal inspection - Back Exam Back exam: NORMAL INSPECTION - Neurological Exam Neurological exam: Alert, CN II-XII Intact, Normal Gait, Oriented x3, Reflexes Normal - Psychiatric Exam Psychiatric exam: Normal Affect, Normal Mood - Skin Skin Exam: Dry, Intact, Normal Color, Warm Results - Vital Signs Recent Vital Signs: Last Vital Signs Temp 98.7 F 11/25/18 08:04 Pulse 82 11/25/18 09:49 Resp 18 11/25/18 09:49 BP 84/49 L 11/25/18 09:49 Pulse Ox 100 11/25/18 09:49 - Labs Result Diagrams: 11/26/18 06:09 11/26/18 06:00 Labs: Laboratory Results - last 24 hr 11/24/18 11/24/18 11/24/18 14:16 14:16 14:16 WBC 12.6 H D RBC 2.73 L Hgb 8.8 L Hct 26.5 L MCV 97.3 MCH 32.1 H MCHC 33.0 RDW 15.5 H Plt Count 116 L D MPV 7.7 Neut % (Auto) 83.2 H Lymph % (Auto) 7.7 L [place] % (Auto) 8.1 Eos % (Auto) 0.3 Baso % (Auto) 0.7 Neut # (Auto) 10.5 H Lymph # (Auto) 1.0 [place] # (Auto) 1.0 H Eos # (Auto) 0.0 Baso # (Auto) 0.1 Neutrophils % (Manual) 79 H Band Neutrophils % 9 H Lymphocytes % (Manual) 6 L Monocytes % (Manual) 6 Platelet Estimate Slightly decreased L Anisocytosis (manual) Slight PT 12.8 H INR 1.2 APTT 32 pO2 VBG pH VBG pCO2 VBG HCO3 VBG Total CO2 VBG O2 Sat (Calc) VBG Base Excess VBG Potassium Glucose Lactate Sodium 137 Potassium 4.5 Chloride 91 L Carbon Dioxide 35 H Anion Gap 15 BUN 37 H Creatinine 3.4 H Est GFR ( Amer) 16 Est GFR (Non-Af Amer) 13 Random Glucose 121 H D Lactic Acid Calcium 8.4 L Phosphorus 3.5 Magnesium 2.1 Total Bilirubin 1.3 AST 109 H D ALT 42 Alkaline Phosphatase 148 H D Total Protein 7.2 Albumin 3.8 Globulin 3.3 Albumin/Globulin Ratio 1.2 Venous Blood Potassium Urine Color Urine Clarity Urine pH Ur Specific [place] Urine Protein Urine Glucose (UA) Urine Ketones Urine Blood Urine Nitrate Urine Bilirubin Urine Urobilinogen Ur Leukocyte Esterase Urine WBC (Auto) Urine RBC (Auto) Ur Squamous Epith Cells Urine Bacteria Influenza Typ A,B (EIA) 11/24/18 11/24/18 11/25/18 14:30 14:32 05:47 WBC RBC Hgb Hct MCV MCH MCHC RDW Plt Count MPV Neut % (Auto) Lymph % (Auto) [place] % (Auto) Eos % (Auto) Baso % (Auto) Neut # (Auto) Lymph # (Auto) [place] # (Auto) Eos # (Auto) Baso # (Auto) Neutrophils % (Manual) Band Neutrophils % Lymphocytes % (Manual) Monocytes % (Manual) Platelet Estimate Anisocytosis (manual) PT INR APTT pO2 38 VBG pH 7.53 H VBG pCO2 45 VBG HCO3 34.7 VBG Total CO2 39.0 H VBG O2 Sat (Calc) 80.3 H VBG Base Excess 13.2 H VBG Potassium 3.6 Glucose 121 H Lactate 1.8 Sodium 139.0 Potassium Chloride 103.0 Carbon Dioxide Anion Gap BUN Creatinine Est GFR ( Amer) Est GFR (Non-Af Amer) Random Glucose Lactic Acid Calcium Phosphorus Magnesium Total Bilirubin AST ALT Alkaline Phosphatase Total Protein Albumin Globulin Albumin/Globulin Ratio Venous Blood Potassium 3.6 Urine Color Yellow Urine Clarity Clear Urine pH 8.0 Ur Specific [place] 1.013 Urine Protein 2+ H Urine Glucose (UA) Normal Urine Ketones Negative Urine Blood Negative Urine Nitrate Negative Urine Bilirubin Negative Urine Urobilinogen Normal Ur Leukocyte Esterase Neg Urine WBC (Auto) 1 Urine RBC (Auto) < 1 Ur Squamous Epith Cells 1 Urine Bacteria Rare Influenza Typ A,B (EIA) Negative for flu a/b 11/25/18 08:18 WBC RBC Hgb Hct MCV MCH MCHC RDW Plt Count MPV Neut % (Auto) Lymph % (Auto) [place] % (Auto) Eos % (Auto) Baso % (Auto) Neut # (Auto) Lymph # (Auto) [place] # (Auto) Eos # (Auto) Baso # (Auto) Neutrophils % (Manual) Band Neutrophils % Lymphocytes % (Manual) Monocytes % (Manual) Platelet Estimate Anisocytosis (manual) PT INR APTT pO2 VBG pH VBG pCO2 VBG HCO3 VBG Total CO2 VBG O2 Sat (Calc) VBG Base Excess VBG Potassium Glucose Lactate Sodium Potassium Chloride Carbon Dioxide Anion Gap BUN Creatinine Est GFR ( Amer) Est GFR (Non-Af Amer) Random Glucose Lactic Acid 0.8 Calcium Phosphorus Magnesium Total Bilirubin AST ALT Alkaline Phosphatase Total Protein Albumin Globulin Albumin/Globulin Ratio Venous Blood Potassium Urine Color Urine Clarity Urine pH Ur Specific [place] Urine Protein Urine Glucose (UA) Urine Ketones Urine Blood Urine Nitrate Urine Bilirubin Urine Urobilinogen Ur Leukocyte Esterase Urine WBC (Auto) Urine RBC (Auto) Ur Squamous Epith Cells Urine Bacteria Influenza Typ A,B (EIA) Assessment & Plan (1) ESRD (end stage renal disease) on dialysis Status: Acute (2) Fever Status: Acute (3) Line sepsis associated with dialysis catheter Status: Acute (4) Bacteremia Status: Acute (5) Bacteremia due to Gram-negative bacteria Status: Acute - Assessment and Plan (Free Text) Assessment: will need line removal replacement IV antibiotics
[2018-11-25] MEDS: Meropenem 500 MG in Sodium Chloride 0.9% 100 ML IVPB SCH ×2 (10:52→22:30)
--- NOTE | 2018-11-25 12:42 | CP.PCM.CON ---
<Alireza Moody S - Last Filed: 11/25/18 18:18> Meds Allergies/Adverse Reactions: Allergies Allergy/AdvReac Type Severity Reaction Status Date / Time aspirin Allergy Intermediate RASH Verified 11/24/18 12:47 shellfish derived Allergy Intermediate RASH Verified 11/24/18 12:47 seafood Allergy Intermediate RASH Uncoded 11/24/18 12:47 - Medications Medications: Current Medications Acetaminophen (Tylenol 325mg Tab) 650 mg PO Q6 PRN PRN Reason: Fever >100.4 F Calcium Acetate (Phoslo) 667 mg PO TID [facility] Last Admin: 11/25/18 17:36 Dose: 667 mg Diphenhydramine HCl (Benadryl) 25 mg PO Q8 PRN PRN Reason: itchiness Last Admin: 11/24/18 19:52 Dose: 25 mg Docusate Sodium (Colace) 100 mg PO BID [facility] Last Admin: 11/25/18 18:11 Dose: 100 mg Heparin Sodium (Porcine) (Heparin) 5,000 units SC Q8 [facility] Last Admin: 11/25/18 15:16 Dose: 5,000 units Sodium Chloride (Sodium Chloride 0.9%) 1,000 mls @ 42 mls/hr IV .[id number] [facility] Last Admin: 11/24/18 23:30 Dose: 42 mls/hr Meropenem 500 mg/ Sodium (Chloride) 100 mls @ 100 mls/hr IVPB Q12H [facility]; Protocol Last Admin: 11/25/18 10:52 Dose: 100 mls/hr Megestrol Acetate (Megace) 400 mg PO BID [facility] Last Admin: 11/25/18 18:11 Dose: 400 mg Metoprolol Succinate (Toprol Xl) 25 mg PO DAILY [facility] Last Admin: 11/25/18 09:50 Dose: Not Given Oxycodone/Acetaminophen (Percocet 5/325 Mg Tab) 1 tab PO Q4 PRN PRN Reason: mod pain 4-6 Stop: 11/27/18 19:29 Last Admin: 11/24/18 19:52 Dose: 1 tab Pantoprazole Sodium (Protonix Ec Tab) 40 mg PO DAILY [facility] Last Admin: 11/25/18 10:03 Dose: 40 mg Rosuvastatin Calcium (Crestor) 5 mg PO HS [facility] Last Admin: 11/24/18 21:11 Dose: 5 mg Vitamin B Complex/Vit C/Folic Acid (Nephro-Valeria) 1 tab PO DAILY [facility] Last Admin: 11/25/18 15:20 Dose: 1 tab Results - Vital Signs Recent Vital Signs: Last Vital Signs Temp 98.7 F 11/25/18 16:00 Pulse 75 11/25/18 17:14 Resp 12 11/25/18 17:14 BP 89/52 L 11/25/18 17:14 Pulse Ox 98 11/25/18 17:14 - Labs Result Diagrams: 11/24/18 14:16 11/24/18 14:16 Labs: Laboratory Results - last 24 hr 11/25/18 11/25/18 05:47 08:18 Lactic Acid 0.8 Urine Color Yellow Urine Clarity Clear Urine pH 8.0 Ur Specific [place] 1.013 Urine Protein 2+ H Urine Glucose (UA) Normal Urine Ketones Negative Urine Blood Negative Urine Nitrate Negative Urine Bilirubin Negative Urine Urobilinogen Normal Ur Leukocyte Esterase Neg Urine WBC (Auto) 1 Urine RBC (Auto) < 1 Ur Squamous Epith Cells 1 Urine Bacteria Rare Attending/Attestation - Attestation I have personally seen and examined this patient.: Yes I have fully participated in the care of the patient.: Yes I have reviewed all pertinent clinical information: Yes Notes (Text): 11/25/18 18:18 Patient seen and examined. 78-year-old female with end-stage renal disease on dialysis was transferred [facility] for chills and was found to be hypotensive with gram-negative in the blood Permacath catheter removed IV antibiotics started Case discussed with surgery and can use the AV shunt for dialysis ICU observation Pressors if needed <Shaun Ponce - Last Filed: 11/25/18 18:32> History of Present Illness - History of Present Illness History of Present Illness: PGY-1 ICU consult note for Dr Moody service cc: hyptension, fever Patient is a 78 year old female with pmhx of ESRD on HD MWF 2/2 polycystic disease, s/p permacath replacement 2/2 infection on 09/25, AV shunt placement, HTN, Hypercholesterolemia, COPD, osteoporosis, was brought [facility] ED from [facility] for fever for one day, as well as headaches, had hemodialysis yesterday. As per family at bedside patient had chills yesterday, and decreased appetite, as well as chronic pain. Patient denies any other symptoms shortness of breath, chest pain, diarrhea, abdominal pain and vomiting. Patient is noted to be hypotensive in the ED. Central line/blood cx shows negative rods and it is indicative of infection from permacath. Patient transferred to ICU for close monitoring. Overall, patient is feeling better that when she came in to the ED. no other complaints at this time. ALL: Aspirin, shellfish, seafood pmhx: ESRD on HD MWF, COPD, HTN, hypercholesterolemia, osteoporosis Shx: permacath replacement 09/25, AV shunt placement 09/25 Sochx: denies alcohol, tobacco or drug use Meds: reviewed Review of Systems - Review of Systems All systems: reviewed and no additional remarkable complaints except Review of Systems: as stated in HPI Past Patient History - Infectious Disease Hx of Infectious Diseases: None - Past Medical History & Family History Past Medical History?: Yes - Past Social History Smoking Status: Never Smoked - CARDIAC Hx Cardiac Disorders: Yes Hx Hypercholesterolemia: Yes Hx Hypertension: Yes - PULMONARY Hx Respiratory Disorders: No - NEUROLOGICAL Hx Neurological Disorder: No - HEENT Hx HEENT Problems: Yes Hx Cataracts: Yes (iol) - RENAL Hx Chronic Kidney Disease: Yes Date of Last Dialysis Treatment: 11/24/18 - ENDOCRINE/METABOLIC Hx Endocrine Disorders: No - HEMATOLOGICAL/ONCOLOGICAL Hx Blood Disorders: Yes Hx Anemia: Yes - INTEGUMENTARY Hx Dermatological Problems: No - MUSCULOSKELETAL/RHEUMATOLOGICAL Hx Musculoskeletal Disorders: Yes Hx Arthritis: Yes Hx Falls: No Hx Osteoporosis: Yes - GASTROINTESTINAL Hx Gastrointestinal Disorders: Yes Hx Gall Bladder Disease: Yes - GENITOURINARY/GYNECOLOGICAL Hx Genitourinary Disorders: No - PSYCHIATRIC Hx Psychophysiologic Disorder: Yes Hx Anxiety: Yes Hx Substance Use: No - SURGICAL HISTORY Hx Surgeries: Yes Hx Cholecystectomy: Yes Hx Vascular Access Device: Yes (08/14) - ANESTHESIA Hx Anesthesia: Yes Hx Anesthesia Reactions: No Hx Malignant Hyperthermia: No Meds - Medications Medications: Current Medications Acetaminophen (Tylenol 325mg Tab) 650 mg PO Q6 PRN PRN Reason: Fever >100.4 F Calcium Acetate (Phoslo) 667 mg PO TID [facility] Last Admin: 11/25/18 10:03 Dose: 667 mg Diphenhydramine HCl (Benadryl) 25 mg PO Q8 PRN PRN Reason: itchiness Last Admin: 11/24/18 19:52 Dose: 25 mg Docusate Sodium (Colace) 100 mg PO BID [facility] Last Admin: 11/25/18 10:03 Dose: 100 mg Heparin Sodium (Porcine) (Heparin) 5,000 units SC Q8 [facility] Last Admin: 11/25/18 05:42 Dose: 5,000 units Sodium Chloride (Sodium Chloride 0.9%) 1,000 mls @ 42 mls/hr IV .[id number] [facility] Last Admin: 11/24/18 23:30 Dose: 42 mls/hr Meropenem 500 mg/ Sodium (Chloride) 100 mls @ 100 mls/hr IVPB Q12H [facility]; Protocol Last Admin: 11/25/18 10:52 Dose: 100 mls/hr Megestrol Acetate (Megace) 400 mg PO BID [facility] Last Admin: 11/25/18 10:03 Dose: 400 mg Metoprolol Succinate (Toprol Xl) 25 mg PO DAILY [facility] Last Admin: 11/25/18 09:50 Dose: Not Given Oxycodone/Acetaminophen (Percocet 5/325 Mg Tab) 1 tab PO Q4 PRN PRN Reason: mod pain 4-6 Stop: 11/27/18 19:29 Last Admin: 11/24/18 19:52 Dose: 1 tab Pantoprazole Sodium (Protonix Ec Tab) 40 mg PO DAILY [facility] Last Admin: 11/25/18 10:03 Dose: 40 mg Rosuvastatin Calcium (Crestor) 5 mg PO HS [facility] Last Admin: 11/24/18 21:11 Dose: 5 mg Vitamin B Complex/Vit C/Folic Acid (Nephro-Valeria) 1 tab PO DAILY [facility] Physical Exam - Constitutional Appears: Well, Non-toxic, No Acute Distress - Head Exam Head Exam: ATRAUMATIC, NORMAL INSPECTION, NORMOCEPHALIC - Eye Exam Eye Exam: EOMI, Normal appearance - ENT Exam ENT Exam: Mucous Membranes Moist - Neck Exam Neck exam: Positive for: Normal Inspection - Respiratory Exam Respiratory Exam: Clear to Auscultation Bilateral, NORMAL BREATHING PATTERN. absent: Rales, Rhonchi, Wheezes - Cardiovascular Exam Cardiovascular Exam: REGULAR RHYTHM, +S1, +S2 - GI/Abdominal Exam GI & Abdominal Exam: Normal Bowel Sounds, Soft - Extremities Exam Extremities exam: Positive for: full ROM, normal inspection. Negative for: pedal edema, tenderness Additional comments: left AVF, palpable thrill - Back Exam Back exam: NORMAL INSPECTION - Neurological Exam Neurological exam: Alert, CN II-XII Intact, Oriented x3 - Psychiatric Exam Psychiatric exam: Normal Affect, Normal Mood - Skin Skin Exam: Dry, Normal Color Results - Vital Signs Recent Vital Signs: Last Vital Signs Temp 98.6 F 11/25/18 11:49 Pulse 82 11/25/18 12:19 Resp 20 11/25/18 12:19 BP 83/46 L 11/25/18 12:19 Pulse Ox 99 11/25/18 12:19 - Labs Result Diagrams: 11/24/18 14:16 11/24/18 14:16 Labs: Laboratory Results - last 24 hr 11/24/18 11/24/18 11/24/18 14:16 14:16 14:16 WBC 12.6 H D RBC 2.73 L Hgb 8.8 L Hct 26.5 L MCV 97.3 MCH 32.1 H MCHC 33.0 RDW 15.5 H Plt Count 116 L D MPV 7.7 Neut % (Auto) 83.2 H Lymph % (Auto) 7.7 L [place] % (Auto) 8.1 Eos % (Auto) 0.3 Baso % (Auto) 0.7 Neut # (Auto) 10.5 H Lymph # (Auto) 1.0 [place] # (Auto) 1.0 H Eos # (Auto) 0.0 Baso # (Auto) 0.1 Neutrophils % (Manual) 79 H Band Neutrophils % 9 H Lymphocytes % (Manual) 6 L Monocytes % (Manual) 6 Platelet Estimate Slightly decreased L Anisocytosis (manual) Slight PT 12.8 H INR 1.2 APTT 32 pO2 VBG pH VBG pCO2 VBG HCO3 VBG Total CO2 VBG O2 Sat (Calc) VBG Base Excess VBG Potassium Glucose Lactate Sodium 137 Potassium 4.5 Chloride 91 L Carbon Dioxide 35 H Anion Gap 15 BUN 37 H Creatinine 3.4 H Est GFR ( Amer) 16 Est GFR (Non-Af Amer) 13 Random Glucose 121 H D Lactic Acid Calcium 8.4 L Phosphorus 3.5 Magnesium 2.1 Total Bilirubin 1.3 AST 109 H D ALT 42 Alkaline Phosphatase 148 H D Total Protein 7.2 Albumin 3.8 Globulin 3.3 Albumin/Globulin Ratio 1.2 Venous Blood Potassium Urine Color Urine Clarity Urine pH Ur Specific [place] Urine Protein Urine Glucose (UA) Urine Ketones Urine Blood Urine Nitrate Urine Bilirubin Urine Urobilinogen Ur Leukocyte Esterase Urine WBC (Auto) Urine RBC (Auto) Ur Squamous Epith Cells Urine Bacteria Influenza Typ A,B (EIA) 11/24/18 11/24/18 11/25/18 14:30 14:32 05:47 WBC RBC Hgb Hct MCV MCH MCHC RDW Plt Count MPV Neut % (Auto) Lymph % (Auto) [place] % (Auto) Eos % (Auto) Baso % (Auto) Neut # (Auto) Lymph # (Auto) [place] # (Auto) Eos # (Auto) Baso # (Auto) Neutrophils % (Manual) Band Neutrophils % Lymphocytes % (Manual) Monocytes % (Manual) Platelet Estimate Anisocytosis (manual) PT INR APTT pO2 38 VBG pH 7.53 H VBG pCO2 45 VBG HCO3 34.7 VBG Total CO2 39.0 H VBG O2 Sat (Calc) 80.3 H VBG Base Excess 13.2 H VBG Potassium 3.6 Glucose 121 H Lactate 1.8 Sodium 139.0 Potassium Chloride 103.0 Carbon Dioxide Anion Gap BUN Creatinine Est GFR ( Amer) Est GFR (Non-Af Amer) Random Glucose Lactic Acid Calcium Phosphorus Magnesium Total Bilirubin AST ALT Alkaline Phosphatase Total Protein Albumin Globulin Albumin/Globulin Ratio Venous Blood Potassium 3.6 Urine Color Yellow Urine Clarity Clear Urine pH 8.0 Ur Specific [place] 1.013 Urine Protein 2+ H Urine Glucose (UA) Normal Urine Ketones Negative Urine Blood Negative Urine Nitrate Negative Urine Bilirubin Negative Urine Urobilinogen Normal Ur Leukocyte Esterase Neg Urine WBC (Auto) 1 Urine RBC (Auto) < 1 Ur Squamous Epith Cells 1 Urine Bacteria Rare Influenza Typ A,B (EIA) Negative for flu a/b 11/25/18 08:18 WBC RBC Hgb Hct MCV MCH MCHC RDW Plt Count MPV Neut % (Auto) Lymph % (Auto) [place] % (Auto) Eos % (Auto) Baso % (Auto) Neut # (Auto) Lymph # (Auto) [place] # (Auto) Eos # (Auto) Baso # (Auto) Neutrophils % (Manual) Band Neutrophils % Lymphocytes % (Manual) Monocytes % (Manual) Platelet Estimate Anisocytosis (manual) PT INR APTT pO2 VBG pH VBG pCO2 VBG HCO3 VBG Total CO2 VBG O2 Sat (Calc) VBG Base Excess VBG Potassium Glucose Lactate Sodium Potassium Chloride Carbon Dioxide Anion Gap BUN Creatinine Est GFR ( Amer) Est GFR (Non-Af Amer) Random Glucose Lactic Acid 0.8 Calcium Phosphorus Magnesium Total Bilirubin AST ALT Alkaline Phosphatase Total Protein Albumin Globulin Albumin/Globulin Ratio Venous Blood Potassium Urine Color Urine Clarity Urine pH Ur Specific [place] Urine Protein Urine Glucose (UA) Urine Ketones Urine Blood Urine Nitrate Urine Bilirubin Urine Urobilinogen Ur Leukocyte Esterase Urine WBC (Auto) Urine RBC (Auto) Ur Squamous Epith Cells Urine Bacteria Influenza Typ A,B (EIA) Assessment & Plan - Assessment and Plan (Free Text) Plan: Patient is 78 year old female with pmhx ESRD MWF HD, permacath infection and replacement on 08/2018, av fistula placement 08/2018, HTN, COPD brought to ED yesterdays for fever, chronic pain and low apetite s/p dialysis on saturday, blood culture positive for gram negative rods from permacath, surgery consulted for possible removal of permacath and eval of maturity of AVF left arm. Neuro AAO x3 no acute issues Cardio hypotensive several fluids given consider bolus fluid x1 for hypotension continue to monitor Pulm hx of COPD no current issues at this time GI Renal diet Protonix Colace Nephro hx of polycystic kidney disease ESRD MWF permacath (infected) and left AV fistula (matured?) Dr Thomas - Nephro consult Patient to continue HD ID septicemia 2/2 to permacath infection hx of previous permacath infection on 08/2018, removed and replaced WBC elevated blood and central line cx - gram negative rods - f/u official report given zosyn and vanco x 1 in ED on Meropenem IVPB Q12H ID consult - Dr Rubio Surgery consult - Dr Mckeon - to evaluate for permacath removal, av fistula eval for use PPX DVT: heparin GI: protonix Plan Discussed with Dr Fransisco Ponce, PGY-1 - Date & Time Date: 11/25/18 Time: 13:35
--- NOTE | 2018-11-25 13:40 | CP.PCM.CON ---
History of Present Illness - History of Present Illness History of Present Illness: Surgery consult note for Dr. Mckeon. 78 year old female with PMHx of ESRD (secondary to polycystic kidney diseaes)on HD MWF via R permacath, L AVF snuffbox, osteoporosis, HTN, presents to ED with persistent fever, fatigue. Patient states fever began on Saturday and was persistent into dialysis on Saturday despite Tylenol use and was referred to ED. Along with fever, patient had a headache and pain from her neck to upper shoulders. Patient states she feels much better presently. Patient has no further complaints. Surgery consulted for possible permacath infection and possible maturation and use of L AVF. Patient denies any kind of discharge from permacath site and had full dialysis yesterday. Patient denies headaches, chest pain, vision changes, SOB, abdominal pain, constipation, diarrhea, hematuria, dysuria. PMhx: ESRD (secondary to polycystic kidney diseaes)on HD MWF via R permacath, L AVF snuffbox, osteoporosis, HTN Meds: see chart PShx: Permacath replacement 09/25, AVF 08/18 Allergies: Aspirin, shellfish, seafood SHx: denies alcohol, tobacco or drug use Review of Systems - Review of Systems All systems: reviewed and no additional remarkable complaints except - Constitutional Constitutional: As Per HPI Past Patient History - Infectious Disease Hx of Infectious Diseases: None - Past Medical History & Family History Past Medical History?: Yes - Past Social History Smoking Status: Never Smoked - CARDIAC Hx Cardiac Disorders: Yes Hx Hypercholesterolemia: Yes Hx Hypertension: Yes - PULMONARY Hx Respiratory Disorders: No - NEUROLOGICAL Hx Neurological Disorder: No - HEENT Hx HEENT Problems: Yes Hx Cataracts: Yes (iol) - RENAL Hx Chronic Kidney Disease: Yes Date of Last Dialysis Treatment: 11/24/18 - ENDOCRINE/METABOLIC Hx Endocrine Disorders: No - HEMATOLOGICAL/ONCOLOGICAL Hx Blood Disorders: Yes Hx Anemia: Yes - INTEGUMENTARY Hx Dermatological Problems: No - MUSCULOSKELETAL/RHEUMATOLOGICAL Hx Musculoskeletal Disorders: Yes Hx Arthritis: Yes Hx Falls: No Hx Osteoporosis: Yes - GASTROINTESTINAL Hx Gastrointestinal Disorders: Yes Hx Gall Bladder Disease: Yes - GENITOURINARY/GYNECOLOGICAL Hx Genitourinary Disorders: No - PSYCHIATRIC Hx Psychophysiologic Disorder: Yes Hx Anxiety: Yes Hx Substance Use: No - SURGICAL HISTORY Hx Surgeries: Yes Hx Cholecystectomy: Yes Hx Vascular Access Device: Yes (08/14) - ANESTHESIA Hx Anesthesia: Yes Hx Anesthesia Reactions: No Hx Malignant Hyperthermia: No Meds Allergies/Adverse Reactions: Allergies Allergy/AdvReac Type Severity Reaction Status Date / Time aspirin Allergy Intermediate RASH Verified 11/24/18 12:47 shellfish derived Allergy Intermediate RASH Verified 11/24/18 12:47 seafood Allergy Intermediate RASH Uncoded 11/24/18 12:47 - Medications Medications: Current Medications Acetaminophen (Tylenol 325mg Tab) 650 mg PO Q6 PRN PRN Reason: Fever >100.4 F Calcium Acetate (Phoslo) 667 mg PO TID [facility] Last Admin: 11/25/18 10:03 Dose: 667 mg Diphenhydramine HCl (Benadryl) 25 mg PO Q8 PRN PRN Reason: itchiness Last Admin: 11/24/18 19:52 Dose: 25 mg Docusate Sodium (Colace) 100 mg PO BID [facility] Last Admin: 11/25/18 10:03 Dose: 100 mg Heparin Sodium (Porcine) (Heparin) 5,000 units SC Q8 [facility] Last Admin: 11/25/18 05:42 Dose: 5,000 units Sodium Chloride (Sodium Chloride 0.9%) 1,000 mls @ 42 mls/hr IV .[id number] [facility] Last Admin: 11/24/18 23:30 Dose: 42 mls/hr Meropenem 500 mg/ Sodium (Chloride) 100 mls @ 100 mls/hr IVPB Q12H [facility]; Protocol Last Admin: 11/25/18 10:52 Dose: 100 mls/hr Megestrol Acetate (Megace) 400 mg PO BID [facility] Last Admin: 11/25/18 10:03 Dose: 400 mg Metoprolol Succinate (Toprol Xl) 25 mg PO DAILY [facility] Last Admin: 11/25/18 09:50 Dose: Not Given Oxycodone/Acetaminophen (Percocet 5/325 Mg Tab) 1 tab PO Q4 PRN PRN Reason: mod pain 4-6 Stop: 11/27/18 19:29 Last Admin: 11/24/18 19:52 Dose: 1 tab Pantoprazole Sodium (Protonix Ec Tab) 40 mg PO DAILY [facility] Last Admin: 11/25/18 10:03 Dose: 40 mg Rosuvastatin Calcium (Crestor) 5 mg PO HS [facility] Last Admin: 11/24/18 21:11 Dose: 5 mg Vitamin B Complex/Vit C/Folic Acid (Nephro-Valeria) 1 tab PO DAILY [facility] Physical Exam - Constitutional Appears: Non-toxic, No Acute Distress - Head Exam Head Exam: NORMAL INSPECTION - Eye Exam Eye Exam: Normal appearance - ENT Exam ENT Exam: Mucous Membranes Moist - Neck Exam Neck exam: Positive for: Normal Inspection - Respiratory Exam Respiratory Exam: Clear to Auscultation Bilateral, NORMAL BREATHING PATTERN. absent: Rales, Rhonchi, Wheezes Additional comments: R permacath in place, no tenderness on palpation, dressing clean, dry, intact - Cardiovascular Exam Cardiovascular Exam: +S1, +S2. absent: Systolic Murmur - GI/Abdominal Exam GI & Abdominal Exam: Normal Bowel Sounds, Soft - Extremities Exam Extremities exam: Positive for: normal inspection. Negative for: calf tenderness, pedal edema Additional comments: Left wrist snuffbox AVF, palpable thrill - Back Exam Back exam: absent: CVA tenderness (L), CVA tenderness (R) - Neurological Exam Neurological exam: Alert, Oriented x3 - Psychiatric Exam Psychiatric exam: Normal Affect, Normal Mood - Skin Skin Exam: Normal Color, Warm Results - Vital Signs Recent Vital Signs: Last Vital Signs Temp 98.6 F 11/25/18 12:49 Pulse 84 11/25/18 12:49 Resp 14 11/25/18 12:49 BP 88/43 L 11/25/18 12:49 Pulse Ox 96 11/25/18 12:49 - Labs Result Diagrams: 11/24/18 14:16 11/24/18 14:16 Labs: Laboratory Results - last 24 hr 11/24/18 11/24/18 11/24/18 14:16 14:16 14:16 WBC 12.6 H D RBC 2.73 L Hgb 8.8 L Hct 26.5 L MCV 97.3 MCH 32.1 H MCHC 33.0 RDW 15.5 H Plt Count 116 L D MPV 7.7 Neut % (Auto) 83.2 H Lymph % (Auto) 7.7 L [place] % (Auto) 8.1 Eos % (Auto) 0.3 Baso % (Auto) 0.7 Neut # (Auto) 10.5 H Lymph # (Auto) 1.0 [place] # (Auto) 1.0 H Eos # (Auto) 0.0 Baso # (Auto) 0.1 Neutrophils % (Manual) 79 H Band Neutrophils % 9 H Lymphocytes % (Manual) 6 L Monocytes % (Manual) 6 Platelet Estimate Slightly decreased L Anisocytosis (manual) Slight PT 12.8 H INR 1.2 APTT 32 pO2 VBG pH VBG pCO2 VBG HCO3 VBG Total CO2 VBG O2 Sat (Calc) VBG Base Excess VBG Potassium Glucose Lactate Sodium 137 Potassium 4.5 Chloride 91 L Carbon Dioxide 35 H Anion Gap 15 BUN 37 H Creatinine 3.4 H Est GFR ( Amer) 16 Est GFR (Non-Af Amer) 13 Random Glucose 121 H D Lactic Acid Calcium 8.4 L Phosphorus 3.5 Magnesium 2.1 Total Bilirubin 1.3 AST 109 H D ALT 42 Alkaline Phosphatase 148 H D Total Protein 7.2 Albumin 3.8 Globulin 3.3 Albumin/Globulin Ratio 1.2 Venous Blood Potassium Urine Color Urine Clarity Urine pH Ur Specific [place] Urine Protein Urine Glucose (UA) Urine Ketones Urine Blood Urine Nitrate Urine Bilirubin Urine Urobilinogen Ur Leukocyte Esterase Urine WBC (Auto) Urine RBC (Auto) Ur Squamous Epith Cells Urine Bacteria Influenza Typ A,B (EIA) 11/24/18 11/24/18 11/25/18 14:30 14:32 05:47 WBC RBC Hgb Hct MCV MCH MCHC RDW Plt Count MPV Neut % (Auto) Lymph % (Auto) [place] % (Auto) Eos % (Auto) Baso % (Auto) Neut # (Auto) Lymph # (Auto) [place] # (Auto) Eos # (Auto) Baso # (Auto) Neutrophils % (Manual) Band Neutrophils % Lymphocytes % (Manual) Monocytes % (Manual) Platelet Estimate Anisocytosis (manual) PT INR APTT pO2 38 VBG pH 7.53 H VBG pCO2 45 VBG HCO3 34.7 VBG Total CO2 39.0 H VBG O2 Sat (Calc) 80.3 H VBG Base Excess 13.2 H VBG Potassium 3.6 Glucose 121 H Lactate 1.8 Sodium 139.0 Potassium Chloride 103.0 Carbon Dioxide Anion Gap BUN Creatinine Est GFR ( Amer) Est GFR (Non-Af Amer) Random Glucose Lactic Acid Calcium Phosphorus Magnesium Total Bilirubin AST ALT Alkaline Phosphatase Total Protein Albumin Globulin Albumin/Globulin Ratio Venous Blood Potassium 3.6 Urine Color Yellow Urine Clarity Clear Urine pH 8.0 Ur Specific [place] 1.013 Urine Protein 2+ H Urine Glucose (UA) Normal Urine Ketones Negative Urine Blood Negative Urine Nitrate Negative Urine Bilirubin Negative Urine Urobilinogen Normal Ur Leukocyte Esterase Neg Urine WBC (Auto) 1 Urine RBC (Auto) < 1 Ur Squamous Epith Cells 1 Urine Bacteria Rare Influenza Typ A,B (EIA) Negative for flu a/b 11/25/18 08:18 WBC RBC Hgb Hct MCV MCH MCHC RDW Plt Count MPV Neut % (Auto) Lymph % (Auto) [place] % (Auto) Eos % (Auto) Baso % (Auto) Neut # (Auto) Lymph # (Auto) [place] # (Auto) Eos # (Auto) Baso # (Auto) Neutrophils % (Manual) Band Neutrophils % Lymphocytes % (Manual) Monocytes % (Manual) Platelet Estimate Anisocytosis (manual) PT INR APTT pO2 VBG pH VBG pCO2 VBG HCO3 VBG Total CO2 VBG O2 Sat (Calc) VBG Base Excess VBG Potassium Glucose Lactate Sodium Potassium Chloride Carbon Dioxide Anion Gap BUN Creatinine Est GFR ( Amer) Est GFR (Non-Af Amer) Random Glucose Lactic Acid 0.8 Calcium Phosphorus Magnesium Total Bilirubin AST ALT Alkaline Phosphatase Total Protein Albumin Globulin Albumin/Globulin Ratio Venous Blood Potassium Urine Color Urine Clarity Urine pH Ur Specific [place] Urine Protein Urine Glucose (UA) Urine Ketones Urine Blood Urine Nitrate Urine Bilirubin Urine Urobilinogen Ur Leukocyte Esterase Urine WBC (Auto) Urine RBC (Auto) Ur Squamous Epith Cells Urine Bacteria Influenza Typ A,B (EIA) Assessment & Plan - Assessment and Plan (Free Text) Assessment: 78 yr female, ESRD on HD MWF, presented to ED septic, possible permacath infection Plan: - Removal of permacath - Will evaluate AVF for maturation - Abx per ID - Will d/w Dr. Linda Stafford, PGY1
[2018-11-25] MEDS: Multivitamin Vitamin B Complex (Nephro-Vite) Tab PO SCH (15:20)
[2018-11-25] MEDS: Sodium Chloride 0.9% 1,000 ML IV SCH (23:20)
--- NOTE | 2018-11-25 23:53 | CP.PCM.PN ---
Subjective - Date & Time of Evaluation Date of Evaluation: 11/25/18 Time of Evaluation: 19:30 - Subjective Subjective: Patient feels better. BP more stable. On Merem . Permacath removed. Will have HD via AV shunt. Blood cultures reveals G (-) rods. Objective - Vital Signs/Intake and Output Vital Signs (last 24 hours): Temp Pulse Resp BP Pulse Ox 98.5 F 73 20 94/51 L 100 11/25/18 20:00 11/25/18 22:35 11/25/18 22:35 11/25/18 22:35 11/25/18 22:35 Intake and Output: 11/25/18 11/26/18 18:59 06:59 Intake Total 408 268 Output Total 0 Balance 408 268 - Medications Medications: Current Medications Acetaminophen (Tylenol 325mg Tab) 650 mg PO Q6 PRN PRN Reason: Fever >100.4 F Calcium Acetate (Phoslo) 667 mg PO TID [facility] Last Admin: 11/25/18 17:36 Dose: 667 mg Diphenhydramine HCl (Benadryl) 25 mg PO Q8 PRN PRN Reason: itchiness Last Admin: 11/24/18 19:52 Dose: 25 mg Docusate Sodium (Colace) 100 mg PO BID [facility] Last Admin: 11/25/18 18:11 Dose: 100 mg Heparin Sodium (Porcine) (Heparin) 5,000 units SC Q8 [facility] Last Admin: 11/25/18 22:31 Dose: 5,000 units Sodium Chloride (Sodium Chloride 0.9%) 1,000 mls @ 42 mls/hr IV .[id number] [facility] Last Admin: 11/24/18 23:30 Dose: 42 mls/hr Meropenem 500 mg/ Sodium (Chloride) 100 mls @ 100 mls/hr IVPB Q12H [facility]; Protocol Last Admin: 11/25/18 22:30 Dose: 100 mls/hr Megestrol Acetate (Megace) 400 mg PO BID [facility] Last Admin: 11/25/18 18:11 Dose: 400 mg Metoprolol Succinate (Toprol Xl) 25 mg PO DAILY [facility] Last Admin: 11/25/18 09:50 Dose: Not Given Oxycodone/Acetaminophen (Percocet 5/325 Mg Tab) 1 tab PO Q4 PRN PRN Reason: mod pain 4-6 Stop: 11/27/18 19:29 Last Admin: 11/24/18 19:52 Dose: 1 tab Pantoprazole Sodium (Protonix Ec Tab) 40 mg PO DAILY [facility] Last Admin: 11/25/18 10:03 Dose: 40 mg Rosuvastatin Calcium (Crestor) 5 mg PO HS [facility] Last Admin: 11/25/18 21:46 Dose: 5 mg Vitamin B Complex/Vit C/Folic Acid (Nephro-Valeria) 1 tab PO DAILY [facility] Last Admin: 11/25/18 15:20 Dose: 1 tab - Labs Labs: 11/24/18 14:16 11/24/18 14:16 PT 12.8 SECONDS (9.7-12.2) H 11/24/18 14:16 INR 1.2 11/24/18 14:16 APTT 32 SECONDS (21-34) 11/24/18 14:16 - Constitutional Appears: No Acute Distress, Chronically Ill - Head Exam Head Exam: NORMOCEPHALIC - Eye Exam Eye Exam: Normal appearance - ENT Exam ENT Exam: Normal Exam - Neck Exam Neck Exam: Normal Inspection - Respiratory Exam Respiratory Exam: Clear to Ausculation Bilateral, NORMAL BREATHING PATTERN - Cardiovascular Exam Cardiovascular Exam: REGULAR RHYTHM - GI/Abdominal Exam GI & Abdominal Exam: Soft, Normal Bowel Sounds - Rectal Exam Rectal Exam: Deferred - Extremities Exam Extremities Exam: Normal Inspection - Back Exam Back Exam: NORMAL INSPECTION - Neurological Exam Neurological Exam: Alert, Awake, Oriented x3 - Psychiatric Exam Psychiatric exam: Anxious - Skin Skin Exam: Dry, Intact, Normal Color, Warm Assessment and Plan (1) Fever Assessment & Plan: Blod culture grew G(-) rods. Permacath removed. Status: Acute (2) ESRD (end stage renal disease) on dialysis Status: Acute (3) Hypertension Status: Acute
[2018-11-26 06:27] LABS: BASO % 0.2 % (0.0-2.0); EOS % 0.7 % (0.0-4.0); HEMOGLOBIN 7.2 g/dL (11.0-16.0); LYMPH # 1.1 K/uL (1.0-4.3); LYMPH % 14.8 % (20.0-40.0); MEAN CELL VOLUME 99.5 fL (81.0-99.0); MEAN CORPUSCULAR HGB CONC 32.2 g/dL (33.0-37.0); MEAN PLATELET VOLUME 9.1 fL (7.2-11.7); MONO # 0.7 K/uL (0.0-0.8); MONO % 9.2 % (0.0-10.0); NEUT # 5.5 K/uL (1.8-7.0); NEUT % 75.1 % (50.0-75.0); NRBC % 0.1 % (0.0-2.0); RBC 2.26 Mil/uL (3.80-5.20); RED CELL DISTRIBUTION WIDTH 15.8 % (11.5-14.5); WHITE BLOOD COUNT 7.4 K/uL (4.8-10.8)
[2018-11-26 06:34] LABS: ALBUMIN 2.9 g/dL (3.5-5.0); CALCIUM 7.2 mg/dl (8.6-10.4)
--- NOTE | 2018-11-26 08:47 | CP.PCM.PN ---
Subjective - Date & Time of Evaluation Date of Evaluation: 11/26/18 Time of Evaluation: 08:44 - Subjective Subjective: feels better HD today with AVF on AB BP still low, but asx no chest pain no sob no cough no wheezing afebrile no abdominal pain no rash no urinary issues no headache Objective - Vital Signs/Intake and Output Vital Signs (last 24 hours): Temp Pulse Resp BP Pulse Ox 98.9 F 65 17 96/53 L 100 11/26/18 04:00 11/26/18 07:02 11/26/18 07:02 11/26/18 07:02 11/26/18 07:02 Intake and Output: 11/26/18 11/26/18 06:59 18:59 Intake Total 604 42 Output Total 200 Balance 404 42 - Medications Medications: Current Medications Acetaminophen (Tylenol 325mg Tab) 650 mg PO Q6 PRN PRN Reason: Fever >100.4 F Calcium Acetate (Phoslo) 667 mg PO TID [facility] Last Admin: 11/25/18 17:36 Dose: 667 mg Diphenhydramine HCl (Benadryl) 25 mg PO Q8 PRN PRN Reason: itchiness Last Admin: 11/24/18 19:52 Dose: 25 mg Docusate Sodium (Colace) 100 mg PO BID [facility] Last Admin: 11/25/18 18:11 Dose: 100 mg Heparin Sodium (Porcine) (Heparin) 5,000 units SC Q8 [facility] Last Admin: 11/26/18 06:50 Dose: 5,000 units Sodium Chloride (Sodium Chloride 0.9%) 1,000 mls @ 42 mls/hr IV .[id number] [facility] Last Admin: 11/25/18 23:20 Dose: Not Given Meropenem 500 mg/ Sodium (Chloride) 100 mls @ 100 mls/hr IVPB Q12H [facility]; Protocol Last Admin: 11/25/18 22:30 Dose: 100 mls/hr Megestrol Acetate (Megace) 400 mg PO BID [facility] Last Admin: 11/25/18 18:11 Dose: 400 mg Metoprolol Succinate (Toprol Xl) 25 mg PO DAILY [facility] Last Admin: 11/25/18 09:50 Dose: Not Given Oxycodone/Acetaminophen (Percocet 5/325 Mg Tab) 1 tab PO Q4 PRN PRN Reason: mod pain 4-6 Stop: 11/27/18 19:29 Last Admin: 11/24/18 19:52 Dose: 1 tab Pantoprazole Sodium (Protonix Ec Tab) 40 mg PO DAILY [facility] Last Admin: 11/25/18 10:03 Dose: 40 mg Rosuvastatin Calcium (Crestor) 5 mg PO HS [facility] Last Admin: 11/25/18 21:46 Dose: 5 mg Vitamin B Complex/Vit C/Folic Acid (Nephro-Valeria) 1 tab PO DAILY [facility] Last Admin: 11/25/18 15:20 Dose: 1 tab - Labs Labs: 11/26/18 06:09 11/26/18 06:00 PT 12.8 SECONDS (9.7-12.2) H 11/24/18 14:16 INR 1.2 11/24/18 14:16 APTT 32 SECONDS (21-34) 11/24/18 14:16 - Constitutional Appears: Non-toxic, Chronically Ill - Head Exam Head Exam: ATRAUMATIC, NORMAL INSPECTION - Eye Exam Eye Exam: EOMI, Normal appearance - ENT Exam ENT Exam: Mucous Membranes Moist - Neck Exam Neck Exam: Full ROM. absent: Lymphadenopathy - Respiratory Exam Respiratory Exam: Clear to Ausculation Bilateral. absent: Accessory Muscle Use - Cardiovascular Exam Cardiovascular Exam: Tachycardia - GI/Abdominal Exam GI & Abdominal Exam: Soft. absent: Tenderness - Extremities Exam Extremities Exam: absent: Pedal Edema - Back Exam Back Exam: absent: CVA tenderness (L), CVA tenderness (R) - Neurological Exam Neurological Exam: Alert, Oriented x3 - Psychiatric Exam Psychiatric exam: Normal Affect Assessment and Plan - Assessment and Plan (Free Text) Assessment: CVC infection sepsis catheter out attempt use of AVF today blood transfusion with HD ECHO, if not done continue AB
[2018-11-26] MEDS: Metoprolol Succinate 25 mg XL Tab PO SCH (09:40)
[2018-11-26] MEDS: Multivitamin Vitamin B Complex (Nephro-Vite) Tab PO SCH (09:52)
[2018-11-26] MEDS: Megestrol Acetate 40 mg/ml Cup PO SCH ×2 (09:52→17:33)
[2018-11-26] MEDS: Pantoprazole 40 mg EC Tab PO SCH (09:53)
[2018-11-26] MEDS: Meropenem 500 MG in Sodium Chloride 0.9% 100 ML IVPB SCH ×2 (10:15→22:02)
--- NOTE | 2018-11-26 11:12 | CP.CCUPN ---
<Shaun Ponce - Last Filed: 11/26/18 16:17> CCU Subjective - Physician Review Subjective (Free Text): PGY-1 ICU progress note for Dr Fransisco collado Patient seen and examined at bedside today following dialysis attempt. Dialysis attempted to access left arm AVF but was unsuccessful. Patient is nervous about inability to use AVF and need to put another catheter for HD access. Patient complains of a headache and feeling weaker today. Patient denies chest pain, shortness of breath, abdominal pain, fever, chills, nausea or vomiting. Critical Care Time Spent (in minutes): 35 CCU Objective - Vital Signs / Intake & Output Vital Signs (Last 4 hours): Vital Signs Temp Pulse Resp BP Pulse Ox 11/26/18 10:00 90 18 96 11/26/18 09:58 77 13 98/55 L 11/26/18 09:44 80 16 113/63 100 11/26/18 09:29 81 15 97/53 L 100 11/26/18 09:14 86 17 104/53 L 100 11/26/18 09:02 96 H 21 111/59 L 100 11/26/18 09:00 93 H 20 100 11/26/18 08:02 61 17 88/49 L 100 11/26/18 08:00 98.5 F 63 18 99 Intake and Output (Last 8hrs): Intake & Output 11/25/18 11/26/18 11/26/18 22:59 06:59 14:59 Intake Total 514 336 476 Output Total 0 200 0 Balance 514 136 476 Intake: Intake, IV Amount 394 336 226 RFA 100 Right Forearm 294 336 226 Oral 120 250 Output: Urine 0 200 0 Urine, Voided 0 200 0 Other: # Bowel Movements 1 0 - Physical Exam Head: Positive for: Atraumatic, Normocephalic Extroacular Muscles: Positive for: EOMI Conjunctiva: Positive for: Normal Mouth: Positive for: Moist Mucous Membranes Neck: Positive for: Normal Range of Motion Respiratory/Chest: Positive for: Clear to Auscultation, Good Air Exchange Cardiovascular: Positive for: Regular Rate and Rhythm, Normal S1, S2 Abdomen: Positive for: Normal Bowel Sounds Upper Extremity: Positive for: Normal Inspection. Negative for: Edema Lower Extremity: Positive for: Normal Inspection. Negative for: Edema Neurological: Positive for: CN II-XII Intact Skin: Positive for: Warm, Dry Psychiatric: Positive for: Alert, Oriented x 3, Normal Insight, Normal Concentration - Medications Active Medications: Active Medications Generic Name Dose Route Start Last Admin Trade Name Freq PRN Reason Stop Dose Admin Acetaminophen 650 mg 11/24/18 19:20 Tylenol 325mg Tab PO Q6 PRN Fever >100.4 F Calcium Acetate 667 mg 11/25/18 10:00 11/26/18 09:53 Phoslo PO 667 mg TID [facility] Administration Diphenhydramine HCl 25 mg 11/24/18 19:28 11/24/18 19:52 Benadryl PO 25 mg Q8 PRN Administration itchiness Docusate Sodium 100 mg 11/25/18 10:00 11/26/18 09:52 Colace PO 100 mg BID [facility] Administration Heparin Sodium (Porcine) 5,000 units 11/24/18 22:00 11/26/18 06:50 Heparin SC 5,000 units Q8 [facility] Administration Meropenem 500 mg/ Sodium 100 mls @ 100 mls/hr 11/25/18 11:00 11/26/18 10:15 Chloride IVPB 100 mls/hr Q12H [facility] Administration Protocol Megestrol Acetate 400 mg 11/25/18 10:00 11/26/18 09:52 Megace PO 400 mg BID [facility] Administration Metoprolol Succinate 25 mg 11/25/18 10:00 11/26/18 09:40 Toprol Xl PO Not Given DAILY [facility] Oxycodone/Acetaminophen 1 tab 11/24/18 19:28 11/24/18 19:52 Percocet 5/325 Mg Tab PO 11/27/18 19:29 1 tab Q4 PRN Administration mod pain 4-6 Pantoprazole Sodium 40 mg 11/25/18 10:00 11/26/18 09:53 Protonix Ec Tab PO 40 mg DAILY [facility] Administration Rosuvastatin Calcium 5 mg 11/24/18 22:00 11/25/18 21:46 Crestor PO 5 mg HS [facility]UE Administration Vitamin B Complex/Vit C/Folic Acid 1 tab 11/25/18 10:00 11/26/18 09:52 Nephro-Valeria PO 1 tab DAILY [facility] Administration - Patient Studies Lab Studies: Microbiology Studies 11/24/18 15:23 Blood Culture - Preliminary Blood Gram Negative Heron Gram Stain - Final 11/24/18 14:20 Blood Culture - Preliminary Blood-Venous Gram Negative Heron Gram Stain - Final 11/25/18 05:47 Urine Culture - Final Urine Random No Growth (<1,000 CFU/ML) 11/24/18 14:16 Blood Culture - Preliminary Blood-Thru Central Line Gram Negative Heron Gram Stain - Final Lab Studies 11/26/18 11/26/18 11/26/18 Range/Units 08:43 06:09 06:00 WBC 7.4 (4.8-10.8) K/uL RBC 2.26 L (3.80-5.20) Mil/uL Hgb 7.2 L (11.0-16.0) g/dL Hct 22.5 L (34.0-47.0) % MCV 99.5 H D (81.0-99.0) fL MCH 32.0 H (27.0-31.0) pg MCHC 32.2 L (33.0-37.0) g/dL RDW 15.8 H (11.5-14.5) % Plt Count 88 L D (130-400) K/uL MPV 9.1 (7.2-11.7) fL Neut % (Auto) 75.1 H (50.0-75.0) % Lymph % (Auto) 14.8 L (20.0-40.0) % [place] % (Auto) 9.2 (0.0-10.0) % Eos % (Auto) 0.7 (0.0-4.0) % Baso % (Auto) 0.2 (0.0-2.0) % Neut # (Auto) 5.5 (1.8-7.0) K/uL Lymph # (Auto) 1.1 (1.0-4.3) K/uL [place] # (Auto) 0.7 (0.0-0.8) K/uL Eos # (Auto) 0.0 (0.0-0.7) K/uL Baso # (Auto) 0.0 (0.0-0.2) K/uL Sodium 138 (132-148) mmol/L Potassium 5.0 (3.6-5.2) mmol/L Chloride 101 (98-107) mmol/L Carbon Dioxide 26 (22-30) mmol/L Anion Gap 15 (10-20) BUN 65 H (7-17) mg/dL Creatinine 5.9 H (0.7-1.2) mg/dL Est GFR ( Amer) 8 Est GFR (Non-Af Amer) 7 Random Glucose 93 D (65-105) mg/dL Calcium 7.2 L (8.6-10.4) mg/dl Total Bilirubin 0.8 (0.2-1.3) mg/dL AST 60 H D (14-36) U/L ALT 36 (9-52) U/L Alkaline Phosphatase 125 (38-126) U/L Total Protein 5.9 L (6.3-8.3) g/dL Albumin 2.9 L D (3.5-5.0) g/dL Globulin 2.9 (2.2-3.9) gm/dL Albumin/Globulin Ratio 1.0 (1.0-2.1) Blood Type O POSITIVE Blood Type Confirm Cancelled Antibody Screen Negative Laboratory Results - last 24 hr 11/26/18 11/26/18 11/26/18 06:00 06:09 08:43 WBC 7.4 RBC 2.26 L Hgb 7.2 L Hct 22.5 L MCV 99.5 H D MCH 32.0 H MCHC 32.2 L RDW 15.8 H Plt Count 88 L D MPV 9.1 Neut % (Auto) 75.1 H Lymph % (Auto) 14.8 L [place] % (Auto) 9.2 Eos % (Auto) 0.7 Baso % (Auto) 0.2 Neut # (Auto) 5.5 Lymph # (Auto) 1.1 [place] # (Auto) 0.7 Eos # (Auto) 0.0 Baso # (Auto) 0.0 Sodium 138 Potassium 5.0 Chloride 101 Carbon Dioxide 26 Anion Gap 15 BUN 65 H Creatinine 5.9 H Est GFR ( Amer) 8 Est GFR (Non-Af Amer) 7 Random Glucose 93 D Calcium 7.2 L Total Bilirubin 0.8 AST 60 H D ALT 36 Alkaline Phosphatase 125 Total Protein 5.9 L Albumin 2.9 L D Globulin 2.9 Albumin/Globulin Ratio 1.0 Blood Type O POSITIVE Blood Type Confirm Cancelled Antibody Screen Negative Critical Care Progress Note - Nutrition Nutrition: Nutrition Category Date Time Status Renal Diet [DIET] Diets 11/25/18 Lunch Active Assessment/Plan - Assessment and Plan (Free Text) Plan: Patient is 78 year old female with PMHx ESRD MWF HD, permacath infection and replacement on 08/2018, AV fistula placement 08/2018, HTN, COPD brought to ED yesterday for fever, chronic pain and low appetite s/p dialysis on Saturday, blood culture positive for gram negative rods from permcath, surgery consulted for removal of permacath (removed 11/25) and evaluation of left arm AVF. During dialysis 11/26, AVF was accessed and unable to use; trialysis HD catheter to be inserted by surgical team. Neuro - AAOx3 - No acute issues Cardio - Hypotensive - Hx of HTN-- Hold HTN meds due to hypotension - Hx of Hyperlipidemiacontinue Crestor 5mg - monitor vitals Pulm - Hx of COPD - No current issues GI - Renal Diet - Nepro supplements - Protonix for ppx - Colace for constipation Renal - ESRD on HD MWF - hx of polycystic kidney disease - dialysis today, unable to use AVF, insert HD catheter until AVF heals to be used again - f/u Dr. Thomas recs - F/U Dr Mckeon recs Heme - H/H 7.2/22.5 - Plt count 88, down from 116 - hold Heparin ID - Septicemia 2/2 infected permacath - 11/24 Blood cx x3 positive for Gran Neg Bacteria - WBC 7.4 today - permacath removed 11/25 - continue Meropenem IVPB Q12H - monitor CBC - f/u ID recs PPX - Protonix for GI ppx - SCDs for DVT ppx - Tylenol PRN for fever Plan discussed with Dr. Fransisco Ponce, PGY-1 - Date & Time Date: 11/26/18 Time: 16:22 <Alireza Moody S - Last Filed: 11/26/18 17:50> CCU Objective - Vital Signs / Intake & Output Vital Signs (Last 4 hours): Vital Signs Temp Pulse Resp BP Pulse Ox 11/26/18 16:00 98.2 F 65 19 99 11/26/18 15:58 67 19 89/48 L 11/26/18 15:00 76 15 99 11/26/18 14:58 77 17 85/52 L 99 11/26/18 14:00 71 19 99 11/26/18 13:58 73 20 85/44 L Intake and Output (Last 8hrs): Intake & Output 11/26/18 11/26/18 11/26/18 06:59 14:59 22:59 Intake Total 336 676 0 Output Total 200 0 0 Balance 136 676 0 Intake: Intake, IV Amount 336 226 Right Forearm 336 226 Oral 450 0 Output: Urine 200 0 0 Urine, Voided 200 0 0 Other: # Bowel Movements 0 0 - Medications Active Medications: Active Medications Generic Name Dose Route Start Last Admin Trade Name Freq PRN Reason Stop Dose Admin Acetaminophen 650 mg 11/24/18 19:20 11/26/18 12:40 Tylenol 325mg Tab PO 650 mg Q6 PRN Administration Fever >100.4 F Calcium Acetate 667 mg 11/25/18 10:00 11/26/18 17:32 Phoslo PO 667 mg TID [facility]UE Administration Diphenhydramine HCl 25 mg 11/24/18 19:28 11/24/18 19:52 Benadryl PO 25 mg Q8 PRN Administration itchiness Docusate Sodium 100 mg 11/25/18 10:00 11/26/18 17:32 Colace PO 100 mg BID [facility] Administration Heparin Sodium (Porcine) 5,000 units 11/24/18 22:00 11/26/18 06:50 Heparin SC 5,000 units Q8 [facility]UE Administration Meropenem 500 mg/ Sodium 100 mls @ 100 mls/hr 11/25/18 11:00 11/26/18 10:15 Chloride IVPB 100 mls/hr Q12H [facility]UE Administration Protocol Megestrol Acetate 400 mg 11/25/18 10:00 11/26/18 17:33 Megace PO 400 mg BID [facility] Administration Metoprolol Succinate 25 mg 11/25/18 10:00 11/26/18 09:40 Toprol Xl PO Not Given DAILY [facility] Oxycodone/Acetaminophen 1 tab 11/24/18 19:28 11/26/18 17:27 Percocet 5/325 Mg Tab PO 11/27/18 19:29 1 tab Q4 PRN Administration mod pain 4-6 Pantoprazole Sodium 40 mg 11/25/18 10:00 11/26/18 09:53 Protonix Ec Tab PO 40 mg DAILY [facility] Administration Rosuvastatin Calcium 5 mg 11/24/18 22:00 11/25/18 21:46 Crestor PO 5 mg HS [facility]UE Administration Vitamin B Complex/Vit C/Folic Acid 1 tab 11/25/18 10:00 11/26/18 09:52 Nephro-Valeria PO 1 tab DAILY [facility] Administration - Patient Studies Lab Studies: Microbiology Studies 11/24/18 15:23 Blood Culture - Preliminary Blood Gram Negative Heron Gram Stain - Final 11/24/18 14:20 Blood Culture - Preliminary Blood-Venous Gram Negative Heron Gram Stain - Final 11/25/18 05:47 Urine Culture - Final Urine Random No Growth (<1,000 CFU/ML) Lab Studies 11/26/18 11/26/18 11/26/18 Range/Units 08:43 06:09 06:00 WBC 7.4 (4.8-10.8) K/uL RBC 2.26 L (3.80-5.20) Mil/uL Hgb 7.2 L (11.0-16.0) g/dL Hct 22.5 L (34.0-47.0) % MCV 99.5 H D (81.0-99.0) fL MCH 32.0 H (27.0-31.0) pg MCHC 32.2 L (33.0-37.0) g/dL RDW 15.8 H (11.5-14.5) % Plt Count 88 L D (130-400) K/uL MPV 9.1 (7.2-11.7) fL Neut % (Auto) 75.1 H (50.0-75.0) % Lymph % (Auto) 14.8 L (20.0-40.0) % [place] % (Auto) 9.2 (0.0-10.0) % Eos % (Auto) 0.7 (0.0-4.0) % Baso % (Auto) 0.2 (0.0-2.0) % Neut # (Auto) 5.5 (1.8-7.0) K/uL Lymph # (Auto) 1.1 (1.0-4.3) K/uL [place] # (Auto) 0.7 (0.0-0.8) K/uL Eos # (Auto) 0.0 (0.0-0.7) K/uL Baso # (Auto) 0.0 (0.0-0.2) K/uL Sodium 138 (132-148) mmol/L Potassium 5.0 (3.6-5.2) mmol/L Chloride 101 (98-107) mmol/L Carbon Dioxide 26 (22-30) mmol/L Anion Gap 15 (10-20) BUN 65 H (7-17) mg/dL Creatinine 5.9 H (0.7-1.2) mg/dL Est GFR ( Amer) 8 Est GFR (Non-Af Amer) 7 Random Glucose 93 D (65-105) mg/dL Calcium 7.2 L (8.6-10.4) mg/dl Total Bilirubin 0.8 (0.2-1.3) mg/dL AST 60 H D (14-36) U/L ALT 36 (9-52) U/L Alkaline Phosphatase 125 (38-126) U/L Total Protein 5.9 L (6.3-8.3) g/dL Albumin 2.9 L D (3.5-5.0) g/dL Globulin 2.9 (2.2-3.9) gm/dL Albumin/Globulin Ratio 1.0 (1.0-2.1) Blood Type O POSITIVE Blood Type Confirm Cancelled Antibody Screen Negative Laboratory Results - last 24 hr 11/26/18 11/26/18 11/26/18 06:00 06:09 08:43 WBC 7.4 RBC 2.26 L Hgb 7.2 L Hct 22.5 L MCV 99.5 H D MCH 32.0 H MCHC 32.2 L RDW 15.8 H Plt Count 88 L D MPV 9.1 Neut % (Auto) 75.1 H Lymph % (Auto) 14.8 L [place] % (Auto) 9.2 Eos % (Auto) 0.7 Baso % (Auto) 0.2 Neut # (Auto) 5.5 Lymph # (Auto) 1.1 [place] # (Auto) 0.7 Eos # (Auto) 0.0 Baso # (Auto) 0.0 Sodium 138 Potassium 5.0 Chloride 101 Carbon Dioxide 26 Anion Gap 15 BUN 65 H Creatinine 5.9 H Est GFR ( Amer) 8 Est GFR (Non-Af Amer) 7 Random Glucose 93 D Calcium 7.2 L Total Bilirubin 0.8 AST 60 H D ALT 36 Alkaline Phosphatase 125 Total Protein 5.9 L Albumin 2.9 L D Globulin 2.9 Albumin/Globulin Ratio 1.0 Blood Type O POSITIVE Blood Type Confirm Cancelled Antibody Screen Negative Critical Care Progress Note - Nutrition Nutrition: Nutrition Category Date Time Status Renal Diet [DIET] Diets 11/25/18 Lunch Active Attending/Attestation - Attestation I have personally seen and examined this patient.: Yes I have fully participated in the care of the patient.: Yes I have reviewed all pertinent clinical information: Yes Notes (Text): 11/26/18 17:49 Patient seen and examined in the intensive care unit. Patient is awake and responsive Dialysis catheter placed after the permacath was removed because of gram- negative bacilli in the blood Continue IV antibiotics Continue hemodialysis Seen by vascular for AV shunt
--- NOTE | 2018-11-26 15:48 | CP.PCM.PN ---
Subjective - Date & Time of Evaluation Date of Evaluation: 11/26/18 Time of Evaluation: 09:00 - Subjective Subjective: bp low blood c/s positive Objective - Vital Signs/Intake and Output Vital Signs (last 24 hours): Temp Pulse Resp BP Pulse Ox 98.5 F 76 15 85/52 L 99 11/26/18 12:00 11/26/18 15:00 11/26/18 15:00 11/26/18 14:58 11/26/18 15:00 Intake and Output: 11/26/18 11/26/18 06:59 18:59 Intake Total 604 676 Output Total 200 0 Balance 404 676 - Medications Medications: Current Medications Acetaminophen (Tylenol 325mg Tab) 650 mg PO Q6 PRN PRN Reason: Fever >100.4 F Last Admin: 11/26/18 12:40 Dose: 650 mg Calcium Acetate (Phoslo) 667 mg PO TID [facility] Last Admin: 11/26/18 13:18 Dose: 667 mg Diphenhydramine HCl (Benadryl) 25 mg PO Q8 PRN PRN Reason: itchiness Last Admin: 11/24/18 19:52 Dose: 25 mg Docusate Sodium (Colace) 100 mg PO BID [facility] Last Admin: 11/26/18 09:52 Dose: 100 mg Heparin Sodium (Porcine) (Heparin) 5,000 units SC Q8 [facility] Last Admin: 11/26/18 06:50 Dose: 5,000 units Meropenem 500 mg/ Sodium (Chloride) 100 mls @ 100 mls/hr IVPB Q12H [facility]; Protocol Last Admin: 11/26/18 10:15 Dose: 100 mls/hr Megestrol Acetate (Megace) 400 mg PO BID [facility] Last Admin: 11/26/18 09:52 Dose: 400 mg Metoprolol Succinate (Toprol Xl) 25 mg PO DAILY [facility] Last Admin: 11/26/18 09:40 Dose: Not Given Oxycodone/Acetaminophen (Percocet 5/325 Mg Tab) 1 tab PO Q4 PRN PRN Reason: mod pain 4-6 Stop: 11/27/18 19:29 Last Admin: 11/24/18 19:52 Dose: 1 tab Pantoprazole Sodium (Protonix Ec Tab) 40 mg PO DAILY [facility] Last Admin: 01/30/19 09:53 Dose: 40 mg Rosuvastatin Calcium (Crestor) 5 mg PO HS [facility] Last Admin: 11/25/18 21:46 Dose: 5 mg Vitamin B Complex/Vit C/Folic Acid (Nephro-Valeria) 1 tab PO DAILY [facility] Last Admin: 11/26/18 09:52 Dose: 1 tab - Labs Labs: 11/26/18 06:09 11/26/18 06:00 PT 12.8 SECONDS (9.7-12.2) H 11/24/18 14:16 INR 1.2 11/24/18 14:16 APTT 32 SECONDS (21-34) 11/24/18 14:16 - Constitutional Appears: No Acute Distress - Head Exam Head Exam: ATRAUMATIC, NORMAL INSPECTION, NORMOCEPHALIC - Eye Exam Eye Exam: EOMI, Normal appearance, PERRL Pupil Exam: NORMAL ACCOMODATION, PERRL - ENT Exam ENT Exam: Mucous Membranes Moist, Normal Exam - Neck Exam Neck Exam: Full ROM, Normal Inspection. absent: Lymphadenopathy - Respiratory Exam Respiratory Exam: Clear to Ausculation Bilateral, NORMAL BREATHING PATTERN - Cardiovascular Exam Cardiovascular Exam: REGULAR RHYTHM, +S1, +S2. absent: Murmur - GI/Abdominal Exam GI & Abdominal Exam: Soft, Normal Bowel Sounds. absent: Tenderness - Rectal Exam Rectal Exam: NORMAL INSPECTION - Extremities Exam Extremities Exam: Full ROM, Normal Capillary Refill, Normal Inspection. absent: Joint Swelling, Pedal Edema - Back Exam Back Exam: NORMAL INSPECTION - Neurological Exam Neurological Exam: Alert, Awake, CN II-XII Intact, Normal Gait, Oriented x3 - Psychiatric Exam Psychiatric exam: Normal Affect, Normal Mood - Skin Skin Exam: Dry, Intact, Normal Color, Warm Assessment and Plan (1) ESRD (end stage renal disease) on dialysis Status: Acute (2) Fever Status: Acute (3) Line sepsis associated with dialysis catheter Status: Acute (4) Bacteremia Status: Acute (5) Bacteremia due to Gram-negative bacteria Status: Acute - Assessment and Plan (Free Text) Assessment: IV rx renewed will need replacement of lines with line holiday
--- NOTE | 2018-11-26 17:22 | PCM.PROC ---
Procedures Attestation:: I certify that I have explained the specified Operation(s) or Procedure(s), risks, benefits and reasonable alternatives to the Patient and/or other person responsible. The opportunity was given to ask questions and all questions answered - Central Line Placement Right Femoral Hemodialysis Access Aseptic technique was employed throughout the procedure: Hand Hygiene done prior to procedure, Full sterile barriers (mask, hair cover, sterile gown, sterile gloves), Full body sterile drape, Chloraprep Antiseptic: 2 minute prep for Femoral CVP Time Out Performed: Yes Pt. Placed on Pulse Ox Monitor: Yes Central Line Prep: Chlorhexidine-Alcohol Combination Local Anesthesia Used: Lidocaine 1% (3cc) Amount of Anesthesia Used (mls): 3 Ultrasound Used for Placement: Yes Central Line Lumen Inserted: double Central Line Length: 16 cm Post Procedure: Sutured in Place, Good Blood Return, All Ports Aspirated, Flushed, Capped, Sterile Dressing Applied Secured by: Suture Post procedure dressing: Gauze, Chlorhexidine disc (Biopatch) Post Procedure X-Ray: No Patient Tolerated Procedure: Well, No Complications Immediate Complications: None Additional Comments: Written consent obtained. No immediate complications. Good flow from catheter. Patient tolerated procedure.
[2018-11-26] MEDS: Oxycodone/Acetaminophen 5/325 mg Tab PO PRN (17:27)
--- NOTE | 2018-11-26 21:27 | CP.PCM.PN ---
Subjective - Date & Time of Evaluation Date of Evaluation: 11/26/18 Time of Evaluation: 21:25 - Subjective Subjective: Patient had a hemodialysis access line inserted through the right femoral vein today, because the AV shunt is not working yet. Patient also received one unit of PRC during dialysis today. Feels better, with appetite, afebrile. Objective - Vital Signs/Intake and Output Vital Signs (last 24 hours): Temp Pulse Resp BP Pulse Ox 98.4 F 70 12 100/57 L 100 11/26/18 20:55 11/26/18 20:55 11/26/18 20:55 11/26/18 20:55 11/26/18 20:55 Intake and Output: 11/26/18 11/27/18 18:59 06:59 Intake Total 776 325 Output Total 200 0 Balance 576 325 - Medications Medications: Current Medications Acetaminophen (Tylenol 325mg Tab) 650 mg PO Q6 PRN PRN Reason: Fever >100.4 F Last Admin: 11/26/18 12:40 Dose: 650 mg Calcium Acetate (Phoslo) 667 mg PO TID [facility] Last Admin: 11/26/18 17:32 Dose: 667 mg Diphenhydramine HCl (Benadryl) 25 mg PO Q8 PRN PRN Reason: itchiness Last Admin: 11/24/18 19:52 Dose: 25 mg Docusate Sodium (Colace) 100 mg PO BID [facility] Last Admin: 11/26/18 17:32 Dose: 100 mg Heparin Sodium (Porcine) (Heparin) 5,000 units SC Q8 [facility] Last Admin: 11/26/18 06:50 Dose: 5,000 units Meropenem 500 mg/ Sodium (Chloride) 100 mls @ 100 mls/hr IVPB Q12H [facility]; Protocol Last Admin: 11/26/18 10:15 Dose: 100 mls/hr Megestrol Acetate (Megace) 400 mg PO BID [facility] Last Admin: 11/26/18 17:33 Dose: 400 mg Metoprolol Succinate (Toprol Xl) 25 mg PO DAILY [facility] Last Admin: 11/26/18 09:40 Dose: Not Given Oxycodone/Acetaminophen (Percocet 5/325 Mg Tab) 1 tab PO Q4 PRN PRN Reason: mod pain 4-6 Stop: 11/27/18 19:29 Last Admin: 11/26/18 17:27 Dose: 1 tab Pantoprazole Sodium (Protonix Ec Tab) 40 mg PO DAILY [facility] Last Admin: 11/26/18 09:53 Dose: 40 mg Rosuvastatin Calcium (Crestor) 5 mg PO HS [facility] Last Admin: 11/25/18 21:46 Dose: 5 mg Vitamin B Complex/Vit C/Folic Acid (Nephro-Valeria) 1 tab PO DAILY [facility] Last Admin: 11/26/18 09:52 Dose: 1 tab - Labs Labs: 11/26/18 06:09 11/26/18 06:00 PT 12.8 SECONDS (9.7-12.2) H 11/24/18 14:16 INR 1.2 11/24/18 14:16 APTT 32 SECONDS (21-34) 11/24/18 14:16 - Constitutional Appears: No Acute Distress, Chronically Ill - Head Exam Head Exam: NORMOCEPHALIC - Eye Exam Eye Exam: Normal appearance - ENT Exam ENT Exam: Normal Exam - Neck Exam Neck Exam: Normal Inspection - Respiratory Exam Respiratory Exam: Clear to Ausculation Bilateral - Cardiovascular Exam Cardiovascular Exam: REGULAR RHYTHM - GI/Abdominal Exam GI & Abdominal Exam: Soft, Normal Bowel Sounds - Rectal Exam Rectal Exam: Deferred - Extremities Exam Extremities Exam: Normal Inspection - Back Exam Back Exam: NORMAL INSPECTION - Neurological Exam Neurological Exam: Alert, Awake, Oriented x3 - Psychiatric Exam Psychiatric exam: Anxious - Skin Skin Exam: Dry, Intact, Normal Color, Warm Assessment and Plan (1) Fever Assessment & Plan: Line sepsis. Permacath removed. HD via right femoral vein access. Blood cultures reveals G(-) rods. On Merem IV. Status: Acute (2) ESRD (end stage renal disease) on dialysis Status: Acute (3) Hypertension Status: Acute
[2018-11-27 06:33] LABS: BASO # 0.1 K/uL (0.0-0.2); BASO % 0.8 % (0.0-2.0); EOS # 0.1 K/uL (0.0-0.7); EOS % 1.2 % (0.0-4.0); LYMPH # 1.2 K/uL (1.0-4.3); LYMPH % 20.1 % (20.0-40.0); MEAN CORPUSCULAR HEMOGLOBIN 31.8 pg (27.0-31.0); MEAN CORPUSCULAR HGB CONC 33.5 g/dL (33.0-37.0); MEAN PLATELET VOLUME 8.6 fL (7.2-11.7); MONO # 0.7 K/uL (0.0-0.8); MONO % 11.1 % (0.0-10.0); NEUT # 4.1 K/uL (1.8-7.0); NEUT % 66.8 % (50.0-75.0); RBC 3.27 Mil/uL (3.80-5.20); RED CELL DISTRIBUTION WIDTH 16.5 % (11.5-14.5); WHITE BLOOD COUNT 6.1 K/uL (4.8-10.8)
[2018-11-27 06:35] LABS: CALCIUM 7.9 mg/dl (8.6-10.4)
[2018-11-27 06:39] LABS: HEMOGLOBIN 10.4 g/dL (11.0-16.0)
--- NOTE | 2018-11-27 09:26 | CP.PCM.PN ---
Subjective - Date & Time of Evaluation Date of Evaluation: 11/27/18 Time of Evaluation: 09:23 - Subjective Subjective: Events noted On treatment for cath bacteremia New fem cath placed, prior permcath removed s/p blood transfusion with dialysis last PM alert, weak, otherwise same AV fistula patent but small- unable to be used at dialysis Objective - Vital Signs/Intake and Output Vital Signs (last 24 hours): Temp Pulse Resp BP Pulse Ox 98.7 F 79 21 112/56 L 96 11/27/18 08:00 11/27/18 08:03 11/27/18 08:03 11/27/18 08:03 11/27/18 08:00 Intake and Output: 11/27/18 11/27/18 06:59 18:59 Intake Total 625 0 Output Total 1000 400 Balance -375 -400 - Medications Medications: Current Medications Acetaminophen (Tylenol 325mg Tab) 650 mg PO Q6 PRN PRN Reason: Fever >100.4 F Last Admin: 11/26/18 12:40 Dose: 650 mg Calcium Acetate (Phoslo) 667 mg PO TID [facility] Last Admin: 11/26/18 17:32 Dose: 667 mg Diphenhydramine HCl (Benadryl) 25 mg PO Q8 PRN PRN Reason: itchiness Last Admin: 11/24/18 19:52 Dose: 25 mg Docusate Sodium (Colace) 100 mg PO BID [facility] Last Admin: 11/26/18 17:32 Dose: 100 mg Heparin Sodium (Porcine) (Heparin) 5,000 units SC Q8 [facility] Last Admin: 11/26/18 06:50 Dose: 5,000 units Meropenem 500 mg/ Sodium (Chloride) 100 mls @ 100 mls/hr IVPB Q12H [facility]; Protocol Last Admin: 11/26/18 22:02 Dose: 100 mls/hr Megestrol Acetate (Megace) 400 mg PO BID [facility] Last Admin: 11/26/18 17:33 Dose: 400 mg Metoprolol Succinate (Toprol Xl) 25 mg PO DAILY [facility] Last Admin: 11/26/18 09:40 Dose: Not Given Oxycodone/Acetaminophen (Percocet 5/325 Mg Tab) 1 tab PO Q4 PRN PRN Reason: mod pain 4-6 Stop: 11/27/18 19:29 Last Admin: 11/26/18 17:27 Dose: 1 tab Pantoprazole Sodium (Protonix Ec Tab) 40 mg PO DAILY [facility] Last Admin: 11/26/18 09:53 Dose: 40 mg Rosuvastatin Calcium (Crestor) 5 mg PO HS [facility] Last Admin: 11/26/18 22:03 Dose: 5 mg Vitamin B Complex/Vit C/Folic Acid (Nephro-Valeria) 1 tab PO DAILY [facility] Last Admin: 11/26/18 09:52 Dose: 1 tab - Labs Labs: 11/27/18 06:17 11/27/18 06:17 PT 12.8 SECONDS (9.7-12.2) H 11/24/18 14:16 INR 1.2 11/24/18 14:16 APTT 32 SECONDS (21-34) 11/24/18 14:16 - Constitutional Appears: Non-toxic, No Acute Distress, Cachectic, Chronically Ill - Head Exam Head Exam: ATRAUMATIC, NORMAL INSPECTION - Eye Exam Eye Exam: EOMI, Normal appearance - Neck Exam Neck Exam: Normal Inspection. absent: Tenderness - Respiratory Exam Respiratory Exam: Clear to Ausculation Bilateral, NORMAL BREATHING PATTERN - Cardiovascular Exam Cardiovascular Exam: REGULAR RHYTHM, +S1 - GI/Abdominal Exam GI & Abdominal Exam: Soft. absent: Tenderness - Extremities Exam Extremities Exam: Normal Inspection. absent: Tenderness - Neurological Exam Neurological Exam: Awake, CN II-XII Intact - Skin Skin Exam: Dry, Warm Assessment and Plan (1) ESRD (end stage renal disease) Status: Acute (2) Hypertensive chronic kidney disease with stage 5 chronic kidney disease or end stage renal disease Status: Acute (3) Line sepsis associated with dialysis catheter Status: Acute (4) Hypertension Status: Chronic - Assessment and Plan (Free Text) Plan: dialysis MWF IV ABs eventually needs revision or new AV access when bacteremia clears might need new permcath PD not likely an option- has no help at home
[2018-11-27] MEDS: Pantoprazole 40 mg EC Tab PO SCH (09:32)
[2018-11-27] MEDS: Metoprolol Succinate 25 mg XL Tab PO SCH (09:32)
[2018-11-27] MEDS: Megestrol Acetate 40 mg/ml Cup PO SCH ×2 (09:32→17:14)
[2018-11-27] MEDS: Multivitamin Vitamin B Complex (Nephro-Vite) Tab PO SCH (09:32)
[2018-11-27] MEDS: Meropenem 500 MG in Sodium Chloride 0.9% 100 ML IVPB SCH ×2 (10:07→22:10)
--- NOTE | 2018-11-27 17:40 | CP.PCM.PCO ---
Physician Communication Note - Physician Communication Note Physician Communication Note: no permacath placement until cultures neg x 5 days please
--- NOTE | 2018-11-27 17:41 | CP.PCM.PN ---
Subjective - Date & Time of Evaluation Date of Evaluation: 11/27/18 Time of Evaluation: 08:00 - Subjective Subjective: events noted line removed new temp catheter in place await repeat cultures Objective - Vital Signs/Intake and Output Vital Signs (last 24 hours): Temp Pulse Resp BP Pulse Ox 98.8 F 70 17 107/58 L 98 11/27/18 16:00 11/27/18 16:00 11/27/18 16:00 11/27/18 15:48 11/27/18 16:00 Intake and Output: 11/27/18 11/27/18 06:59 18:59 Intake Total 625 800 Output Total 1000 400 Balance -375 400 - Medications Medications: Current Medications Acetaminophen (Tylenol 325mg Tab) 650 mg PO Q6 PRN PRN Reason: Fever >100.4 F Last Admin: 11/26/18 12:40 Dose: 650 mg Calcium Acetate (Phoslo) 667 mg PO TID [facility] Last Admin: 11/27/18 17:14 Dose: 667 mg Diphenhydramine HCl (Benadryl) 25 mg PO Q8 PRN PRN Reason: itchiness Last Admin: 11/24/18 19:52 Dose: 25 mg Docusate Sodium (Colace) 100 mg PO BID [facility] Last Admin: 11/27/18 17:14 Dose: 100 mg Heparin Sodium (Porcine) (Heparin) 5,000 units SC Q8 [facility] Last Admin: 11/26/18 06:50 Dose: 5,000 units Meropenem 500 mg/ Sodium (Chloride) 100 mls @ 100 mls/hr IVPB Q12H [facility]; Protocol Last Admin: 11/27/18 10:07 Dose: 100 mls/hr Megestrol Acetate (Megace) 400 mg PO BID [facility] Last Admin: 11/27/18 17:14 Dose: 400 mg Metoprolol Succinate (Toprol Xl) 25 mg PO DAILY [facility] Last Admin: 11/27/18 09:32 Dose: 25 mg Oxycodone/Acetaminophen (Percocet 5/325 Mg Tab) 1 tab PO Q4 PRN PRN Reason: mod pain 4-6 Stop: 11/27/18 19:29 Last Admin: 11/26/18 17:27 Dose: 1 tab Pantoprazole Sodium (Protonix Ec Tab) 40 mg PO DAILY [facility] Last Admin: 11/27/18 09:32 Dose: 40 mg Rosuvastatin Calcium (Crestor) 5 mg PO HS [facility] Last Admin: 11/26/18 22:03 Dose: 5 mg Vitamin B Complex/Vit C/Folic Acid (Nephro-Valeria) 1 tab PO DAILY [facility] Last Admin: 11/27/18 09:32 Dose: 1 tab - Labs Labs: 11/27/18 06:17 11/27/18 06:17 PT 12.8 SECONDS (9.7-12.2) H 11/24/18 14:16 INR 1.2 11/24/18 14:16 APTT 32 SECONDS (21-34) 11/24/18 14:16 - Constitutional Appears: Well - Head Exam Head Exam: ATRAUMATIC, NORMAL INSPECTION, NORMOCEPHALIC - Eye Exam Eye Exam: EOMI, Normal appearance, PERRL Pupil Exam: NORMAL ACCOMODATION, PERRL - ENT Exam ENT Exam: Mucous Membranes Moist, Normal Exam - Neck Exam Neck Exam: Full ROM, Normal Inspection. absent: Lymphadenopathy - Respiratory Exam Respiratory Exam: Clear to Ausculation Bilateral, NORMAL BREATHING PATTERN - Cardiovascular Exam Cardiovascular Exam: REGULAR RHYTHM, +S1, +S2. absent: Murmur - GI/Abdominal Exam GI & Abdominal Exam: Soft, Normal Bowel Sounds. absent: Tenderness - Rectal Exam Rectal Exam: NORMAL INSPECTION - Extremities Exam Extremities Exam: Full ROM, Normal Capillary Refill, Normal Inspection. absent: Joint Swelling, Pedal Edema - Back Exam Back Exam: NORMAL INSPECTION - Neurological Exam Neurological Exam: Alert, Awake, CN II-XII Intact, Normal Gait, Oriented x3 - Psychiatric Exam Psychiatric exam: Normal Affect, Normal Mood - Skin Skin Exam: Dry, Intact, Normal Color, Warm Assessment and Plan (1) ESRD (end stage renal disease) on dialysis Status: Acute (2) Fever Status: Acute (3) Line sepsis associated with dialysis catheter Status: Acute (4) Bacteremia Status: Acute (5) Bacteremia due to Gram-negative bacteria Status: Acute - Assessment and Plan (Free Text) Assessment: IV rx renewed
--- NOTE | 2018-11-27 18:54 | CP.PCM.PN ---
Subjective - Date & Time of Evaluation Date of Evaluation: 11/27/18 Time of Evaluation: 18:52 - Subjective Subjective: Patient had HD today. Feels better with better appetite and afebrile. Blood cultures grew Klebsiella Pneumonia sensitive to Cefazolin. Objective - Vital Signs/Intake and Output Vital Signs (last 24 hours): Temp Pulse Resp BP Pulse Ox 98.8 F 81 17 107/58 L 98 11/27/18 16:00 11/27/18 18:00 11/27/18 18:00 11/27/18 15:48 11/27/18 16:00 Intake and Output: 11/27/18 11/27/18 06:59 18:59 Intake Total 625 1000 Output Total 1000 400 Balance -375 600 - Medications Medications: Current Medications Acetaminophen (Tylenol 325mg Tab) 650 mg PO Q6 PRN PRN Reason: Fever >100.4 F Last Admin: 11/26/18 12:40 Dose: 650 mg Calcium Acetate (Phoslo) 667 mg PO TID [facility] Last Admin: 11/27/18 17:14 Dose: 667 mg Diphenhydramine HCl (Benadryl) 25 mg PO Q8 PRN PRN Reason: itchiness Last Admin: 11/24/18 19:52 Dose: 25 mg Docusate Sodium (Colace) 100 mg PO BID [facility] Last Admin: 11/27/18 17:14 Dose: 100 mg Heparin Sodium (Porcine) (Heparin) 5,000 units SC Q8 [facility] Last Admin: 11/26/18 06:50 Dose: 5,000 units Meropenem 500 mg/ Sodium (Chloride) 100 mls @ 100 mls/hr IVPB Q12H [facility]; Protocol Last Admin: 11/27/18 10:07 Dose: 100 mls/hr Megestrol Acetate (Megace) 400 mg PO BID [facility] Last Admin: 11/27/18 17:14 Dose: 400 mg Metoprolol Succinate (Toprol Xl) 25 mg PO DAILY [facility] Last Admin: 11/27/18 09:32 Dose: 25 mg Oxycodone/Acetaminophen (Percocet 5/325 Mg Tab) 1 tab PO Q4 PRN PRN Reason: mod pain 4-6 Stop: 11/27/18 19:29 Last Admin: 11/26/18 17:27 Dose: 1 tab Pantoprazole Sodium (Protonix Ec Tab) 40 mg PO DAILY [facility] Last Admin: 11/27/18 09:32 Dose: 40 mg Rosuvastatin Calcium (Crestor) 5 mg PO HS [facility] Last Admin: 11/26/18 22:03 Dose: 5 mg Vitamin B Complex/Vit C/Folic Acid (Nephro-Valeria) 1 tab PO DAILY [facility] Last Admin: 11/27/18 09:32 Dose: 1 tab - Labs Labs: 11/27/18 06:17 11/27/18 06:17 PT 12.8 SECONDS (9.7-12.2) H 11/24/18 14:16 INR 1.2 11/24/18 14:16 APTT 32 SECONDS (21-34) 11/24/18 14:16 - Constitutional Appears: No Acute Distress, Chronically Ill - Head Exam Head Exam: NORMOCEPHALIC - Eye Exam Eye Exam: Normal appearance Pupil Exam: NORMAL ACCOMODATION - ENT Exam ENT Exam: Normal Exam - Neck Exam Neck Exam: Normal Inspection - Respiratory Exam Respiratory Exam: Clear to Ausculation Bilateral - Cardiovascular Exam Cardiovascular Exam: REGULAR RHYTHM - GI/Abdominal Exam GI & Abdominal Exam: Soft, Normal Bowel Sounds - Rectal Exam Rectal Exam: Deferred - Extremities Exam Extremities Exam: Normal Inspection - Back Exam Back Exam: NORMAL INSPECTION - Neurological Exam Neurological Exam: Alert, Awake, Oriented x3 - Psychiatric Exam Psychiatric exam: Anxious - Skin Skin Exam: Dry, Intact, Normal Color, Warm Assessment and Plan (1) Fever Assessment & Plan: Line sepsis. Bacteremia with Klebsiella. On IV Merem. Status: Acute (2) ESRD (end stage renal disease) on dialysis Assessment & Plan: HD as per Nephrologists. Status: Acute (3) Hypertension Assessment & Plan: To continue same meds. Status: Acute
[2018-11-28] MEDS: Pantoprazole 40 mg EC Tab PO SCH (09:04)
[2018-11-28] MEDS: Multivitamin Vitamin B Complex (Nephro-Vite) Tab PO SCH (09:04)
[2018-11-28] MEDS: Metoprolol Succinate 25 mg XL Tab PO SCH (09:05)
[2018-11-28] MEDS: Megestrol Acetate 40 mg/ml Cup PO SCH ×2 (09:05→17:18)
[2018-11-28] MEDS: Meropenem 500 MG in Sodium Chloride 0.9% 100 ML IVPB SCH ×2 (13:21→22:30)
--- NOTE | 2018-11-28 13:26 | CP.PCM.PN ---
Subjective - Date & Time of Evaluation Date of Evaluation: 11/28/18 Time of Evaluation: 13:23 - Subjective Subjective: seen on dialysis poor cath flows noted on treatment for bacteremia s/p blood transfusion still weak, appetite poor Objective - Vital Signs/Intake and Output Vital Signs (last 24 hours): Temp Pulse Resp BP Pulse Ox 98 F 73 15 127/65 95 11/28/18 12:00 11/28/18 12:00 11/28/18 12:00 11/28/18 12:00 11/28/18 12:00 Intake and Output: 11/28/18 11/28/18 06:59 18:59 Intake Total 300 Balance 300 - Medications Medications: Current Medications Acetaminophen (Tylenol 325mg Tab) 650 mg PO Q6 PRN PRN Reason: Fever >100.4 F Last Admin: 11/26/18 12:40 Dose: 650 mg Calcium Acetate (Phoslo) 667 mg PO TID [facility] Last Admin: 11/28/18 09:04 Dose: 667 mg Diphenhydramine HCl (Benadryl) 25 mg PO Q8 PRN PRN Reason: itchiness Last Admin: 11/24/18 19:52 Dose: 25 mg Docusate Sodium (Colace) 100 mg PO BID [facility] Last Admin: 11/28/18 09:04 Dose: 100 mg Heparin Sodium (Porcine) (Heparin) 5,000 units SC Q8 [facility] Last Admin: 11/26/18 06:50 Dose: 5,000 units Meropenem 500 mg/ Sodium (Chloride) 100 mls @ 100 mls/hr IVPB Q12H [facility]; Protocol Last Admin: 11/27/18 22:10 Dose: 100 mls/hr Megestrol Acetate (Megace) 400 mg PO BID [facility] Last Admin: 11/28/18 09:05 Dose: Not Given Metoprolol Succinate (Toprol Xl) 25 mg PO DAILY [facility] Last Admin: 11/28/18 09:05 Dose: Not Given Pantoprazole Sodium (Protonix Ec Tab) 40 mg PO DAILY [facility] Last Admin: 11/28/18 09:04 Dose: 40 mg Rosuvastatin Calcium (Crestor) 5 mg PO HS [facility] Last Admin: 11/27/18 22:10 Dose: 5 mg Vitamin B Complex/Vit C/Folic Acid (Nephro-Valeria) 1 tab PO DAILY [facility] Last Admin: 11/28/18 09:04 Dose: 1 tab - Labs Labs: 11/27/18 06:17 11/27/18 06:17 PT 12.8 SECONDS (9.7-12.2) H 11/24/18 14:16 INR 1.2 11/24/18 14:16 APTT 32 SECONDS (21-34) 11/24/18 14:16 - Constitutional Appears: No Acute Distress, Chronically Ill - Head Exam Head Exam: ATRAUMATIC, NORMAL INSPECTION - Eye Exam Eye Exam: EOMI, Normal appearance - Neck Exam Neck Exam: Normal Inspection. absent: Tenderness - Respiratory Exam Respiratory Exam: Clear to Ausculation Bilateral, NORMAL BREATHING PATTERN - Cardiovascular Exam Cardiovascular Exam: REGULAR RHYTHM, +S1 - GI/Abdominal Exam GI & Abdominal Exam: Soft. absent: Tenderness - Extremities Exam Extremities Exam: Normal Inspection. absent: Tenderness - Neurological Exam Neurological Exam: Awake, CN II-XII Intact - Skin Skin Exam: Dry, Warm Assessment and Plan (1) ESRD (end stage renal disease) Status: Acute (2) Hypertensive chronic kidney disease with stage 5 chronic kidney disease or end stage renal disease Status: Acute (3) Line sepsis associated with dialysis catheter Status: Acute (4) Hypertension Status: Chronic - Assessment and Plan (Free Text) Plan: IV ABs dialysis MWF Try 1 needle AV fistula next dialysis; return to cath ESAs
--- NOTE | 2018-11-28 18:06 | CP.PCM.PN ---
Subjective - Date & Time of Evaluation Date of Evaluation: 11/28/18 Time of Evaluation: 07:00 - Subjective Subjective: afebrile alert nad BP better Objective - Vital Signs/Intake and Output Vital Signs (last 24 hours): Temp Pulse Resp BP Pulse Ox 98.6 F 78 18 114/62 97 11/28/18 16:00 11/28/18 16:00 11/28/18 16:00 11/28/18 16:00 11/28/18 16:00 Intake and Output: 11/28/18 11/28/18 06:59 18:59 Intake Total 300 350 Balance 300 350 - Medications Medications: Current Medications Acetaminophen (Tylenol 325mg Tab) 650 mg PO Q6 PRN PRN Reason: Fever >100.4 F Last Admin: 11/26/18 12:40 Dose: 650 mg Calcium Acetate (Phoslo) 667 mg PO TID [facility] Last Admin: 11/28/18 17:18 Dose: 667 mg Diphenhydramine HCl (Benadryl) 25 mg PO Q8 PRN PRN Reason: itchiness Last Admin: 11/24/18 19:52 Dose: 25 mg Docusate Sodium (Colace) 100 mg PO BID [facility] Last Admin: 11/28/18 17:18 Dose: 100 mg Epoetin Santosh (Procrit) 10,000 unit IV MWF [facility] Heparin Sodium (Porcine) (Heparin) 5,000 units SC Q8 [facility] Last Admin: 11/26/18 06:50 Dose: 5,000 units Meropenem 500 mg/ Sodium (Chloride) 100 mls @ 100 mls/hr IVPB Q12H [facility]; Protocol Last Admin: 11/28/18 13:21 Dose: 100 mls/hr Megestrol Acetate (Megace) 400 mg PO BID [facility] Last Admin: 11/28/18 17:18 Dose: 400 mg Metoprolol Succinate (Toprol Xl) 25 mg PO DAILY [facility] Last Admin: 11/28/18 09:05 Dose: Not Given Pantoprazole Sodium (Protonix Ec Tab) 40 mg PO DAILY [facility] Last Admin: 11/28/18 09:04 Dose: 40 mg Rosuvastatin Calcium (Crestor) 5 mg PO HS [facility] Last Admin: 11/27/18 22:10 Dose: 5 mg Vitamin B Complex/Vit C/Folic Acid (Nephro-Valeria) 1 tab PO DAILY [facility] Last Admin: 11/28/18 09:04 Dose: 1 tab - Labs Labs: 11/27/18 06:17 11/27/18 06:17 PT 12.8 SECONDS (9.7-12.2) H 11/24/18 14:16 INR 1.2 11/24/18 14:16 APTT 32 SECONDS (21-34) 11/24/18 14:16 - Constitutional Appears: Non-toxic, Chronically Ill - Head Exam Head Exam: NORMOCEPHALIC - Eye Exam Eye Exam: absent: Scleral icterus - ENT Exam ENT Exam: Mucous Membranes Dry - Neck Exam Neck Exam: absent: Lymphadenopathy - Respiratory Exam Respiratory Exam: Decreased Breath Sounds - Cardiovascular Exam Cardiovascular Exam: REGULAR RHYTHM - GI/Abdominal Exam GI & Abdominal Exam: Distended, Soft - Rectal Exam Rectal Exam: Deferred - Exam Exam: NORMAL INSPECTION - Extremities Exam Extremities Exam: absent: Pedal Edema - Back Exam Back Exam: absent: CVA tenderness (L), CVA tenderness (R) - Neurological Exam Neurological Exam: Alert, Awake, CN II-XII Intact, Oriented x3 - Psychiatric Exam Psychiatric exam: Depressed - Skin Skin Exam: Dry Assessment and Plan (1) ESRD (end stage renal disease) on dialysis Status: Acute (2) Fever Status: Acute (3) Line sepsis associated with dialysis catheter Status: Acute (4) Bacteremia Status: Acute (5) Bacteremia due to Gram-negative bacteria Status: Acute - Assessment and Plan (Free Text) Assessment: await repeat cultures before permacath placement cont IV rx for min 14 days after first negative culture
--- NOTE | 2018-11-28 21:32 | CP.PCM.PN ---
Subjective - Date & Time of Evaluation Date of Evaluation: 11/28/18 Time of Evaluation: 21:29 - Subjective Subjective: Dr Rubio's evaluation appreciated. Patient has no complaint. Blood culture repeated today. Will try HD through the AV shunt again on Saturday. If AV shunt not mature yet, patient will need another Permacath inserted and the right femoral catheter removed. Objective - Vital Signs/Intake and Output Vital Signs (last 24 hours): Temp Pulse Resp BP Pulse Ox 98.6 F 78 18 114/62 97 11/28/18 16:00 11/28/18 16:00 11/28/18 16:00 11/28/18 16:00 11/28/18 16:00 Intake and Output: 11/28/18 11/29/18 18:59 06:59 Intake Total 550 Balance 550 - Medications Medications: Current Medications Acetaminophen (Tylenol 325mg Tab) 650 mg PO Q6 PRN PRN Reason: Fever >100.4 F Last Admin: 11/26/18 12:40 Dose: 650 mg Calcium Acetate (Phoslo) 667 mg PO TID [facility] Last Admin: 11/28/18 17:18 Dose: 667 mg Diphenhydramine HCl (Benadryl) 25 mg PO Q8 PRN PRN Reason: itchiness Last Admin: 11/24/18 19:52 Dose: 25 mg Docusate Sodium (Colace) 100 mg PO BID [facility] Last Admin: 11/28/18 17:18 Dose: 100 mg Epoetin Santosh (Procrit) 10,000 unit IV MWF [facility] Heparin Sodium (Porcine) (Heparin) 5,000 units SC Q8 [facility] Last Admin: 11/26/18 06:50 Dose: 5,000 units Meropenem 500 mg/ Sodium (Chloride) 100 mls @ 100 mls/hr IVPB Q12H [facility]; Protocol Last Admin: 11/28/18 13:21 Dose: 100 mls/hr Megestrol Acetate (Megace) 400 mg PO BID [facility] Last Admin: 11/28/18 17:18 Dose: 400 mg Metoprolol Succinate (Toprol Xl) 25 mg PO DAILY [facility] Last Admin: 11/28/18 09:05 Dose: Not Given Pantoprazole Sodium (Protonix Ec Tab) 40 mg PO DAILY [facility] Last Admin: 11/28/18 09:04 Dose: 40 mg Rosuvastatin Calcium (Crestor) 5 mg PO [facility] Last Admin: 11/27/18 22:10 Dose: 5 mg Vitamin B Complex/Vit C/Folic Acid (Nephro-Valeria) 1 tab PO DAILY [facility] Last Admin: 11/28/18 09:04 Dose: 1 tab - Labs Labs: 11/27/18 06:17 11/27/18 06:17 PT 12.8 SECONDS (9.7-12.2) H 11/24/18 14:16 INR 1.2 11/24/18 14:16 APTT 32 SECONDS (21-34) 11/24/18 14:16 - Constitutional Appears: No Acute Distress, Chronically Ill - Head Exam Head Exam: NORMOCEPHALIC - Eye Exam Eye Exam: Normal appearance Pupil Exam: NORMAL ACCOMODATION - ENT Exam ENT Exam: Normal Exam - Neck Exam Neck Exam: Normal Inspection - Respiratory Exam Respiratory Exam: NORMAL BREATHING PATTERN - Cardiovascular Exam Cardiovascular Exam: REGULAR RHYTHM - GI/Abdominal Exam GI & Abdominal Exam: Soft, Normal Bowel Sounds - Rectal Exam Rectal Exam: Deferred - Extremities Exam Extremities Exam: Normal Inspection - Back Exam Back Exam: NORMAL INSPECTION - Neurological Exam Neurological Exam: Alert, Awake, Oriented x3 - Psychiatric Exam Psychiatric exam: Anxious - Skin Skin Exam: Normal Color, Warm Assessment and Plan (1) Fever Status: Resolved (2) ESRD (end stage renal disease) on dialysis Status: Acute (3) Hypertension Status: Acute (4) Bacteremia due to Klebsiella pneumoniae Assessment & Plan: On IV Merem. Status: Acute
[2018-11-29] MEDS: Multivitamin Vitamin B Complex (Nephro-Vite) Tab PO SCH (09:56)
[2018-11-29] MEDS: Pantoprazole 40 mg EC Tab PO SCH (09:57)
[2018-11-29] MEDS: Megestrol Acetate 40 mg/ml Cup PO SCH ×2 (09:57→17:46)
[2018-11-29] MEDS: Metoprolol Succinate 25 mg XL Tab PO SCH (09:57)
[2018-11-29] MEDS: Meropenem 500 MG in Sodium Chloride 0.9% 100 ML IVPB SCH ×2 (10:00→22:39)
--- NOTE | 2018-11-29 11:45 | CP.PCM.PN ---
Subjective - Date & Time of Evaluation Date of Evaluation: 11/29/18 Time of Evaluation: 11:43 - Subjective Subjective: still weak on AB no pain appetite fair decreased urine no rash no abdominal pain no palpitations no fever no headache no cough Objective - Vital Signs/Intake and Output Vital Signs (last 24 hours): Temp Pulse Resp BP Pulse Ox 98.3 F 77 20 123/68 95 11/29/18 07:54 11/29/18 07:54 11/29/18 07:54 11/29/18 07:54 11/29/18 07:54 Intake and Output: 11/29/18 11/29/18 06:59 18:59 Intake Total 250 Balance 250 - Medications Medications: Current Medications Acetaminophen (Tylenol 325mg Tab) 650 mg PO Q6 PRN PRN Reason: Fever >100.4 F Last Admin: 11/26/18 12:40 Dose: 650 mg Calcium Acetate (Phoslo) 667 mg PO TID [facility] Last Admin: 11/29/18 09:56 Dose: 667 mg Diphenhydramine HCl (Benadryl) 25 mg PO Q8 PRN PRN Reason: itchiness Last Admin: 11/24/18 19:52 Dose: 25 mg Docusate Sodium (Colace) 100 mg PO BID [facility] Last Admin: 11/29/18 09:57 Dose: 100 mg Epoetin Santosh (Procrit) 10,000 unit IV MWF [facility] Heparin Sodium (Porcine) (Heparin) 5,000 units SC Q8 [facility] Last Admin: 11/26/18 06:50 Dose: 5,000 units Meropenem 500 mg/ Sodium (Chloride) 100 mls @ 100 mls/hr IVPB Q12H [facility]; Protocol Last Admin: 11/29/18 10:00 Dose: 100 mls/hr Megestrol Acetate (Megace) 400 mg PO BID [facility] Last Admin: 11/29/18 09:57 Dose: 400 mg Metoprolol Succinate (Toprol Xl) 25 mg PO DAILY [facility] Last Admin: 11/29/18 09:57 Dose: 25 mg Pantoprazole Sodium (Protonix Ec Tab) 40 mg PO DAILY [facility] Last Admin: 11/29/18 09:57 Dose: 40 mg Rosuvastatin Calcium (Crestor) 5 mg PO HS [facility] Last Admin: 11/28/18 22:25 Dose: 5 mg Vitamin B Complex/Vit C/Folic Acid (Nephro-Valeria) 1 tab PO DAILY [facility] Last Admin: 11/29/18 09:56 Dose: 1 tab - Labs Labs: 11/27/18 06:17 11/27/18 06:17 PT 12.8 SECONDS (9.7-12.2) H 11/24/18 14:16 INR 1.2 11/24/18 14:16 APTT 32 SECONDS (21-34) 11/24/18 14:16 - Constitutional Appears: No Acute Distress, Chronically Ill - Head Exam Head Exam: ATRAUMATIC, NORMAL INSPECTION - Eye Exam Eye Exam: EOMI - ENT Exam ENT Exam: Mucous Membranes Moist - Neck Exam Neck Exam: Full ROM. absent: Lymphadenopathy - Respiratory Exam Respiratory Exam: Clear to Ausculation Bilateral, NORMAL BREATHING PATTERN - Cardiovascular Exam Cardiovascular Exam: REGULAR RHYTHM. absent: Rubs - GI/Abdominal Exam GI & Abdominal Exam: Soft. absent: Tenderness - Extremities Exam Extremities Exam: absent: Pedal Edema - Neurological Exam Neurological Exam: Alert, Awake, Oriented x3 Assessment and Plan - Assessment and Plan (Free Text) Assessment: CVC infection HD anemia complete AB HD on Saturday, use 1 needle in [place] hemoglobin better post transfusion
--- NOTE | 2018-11-29 23:44 | CP.PCM.PN ---
Subjective - Date & Time of Evaluation Date of Evaluation: 11/29/18 Time of Evaluation: 18:30 - Subjective Subjective: Patient has no complaint. Afebrile. Repeated blood cultures negative. Objective - Vital Signs/Intake and Output Vital Signs (last 24 hours): Temp Pulse Resp BP Pulse Ox 98.6 F 79 20 129/79 95 11/29/18 17:44 11/29/18 17:44 11/29/18 17:44 11/29/18 17:44 11/29/18 17:44 Intake and Output: 11/29/18 11/30/18 18:59 06:59 Intake Total 300 Balance 300 - Medications Medications: Current Medications Acetaminophen (Tylenol 325mg Tab) 650 mg PO Q6 PRN PRN Reason: Fever >100.4 F Last Admin: 11/29/18 21:39 Dose: 650 mg Calcium Acetate (Phoslo) 667 mg PO TID [facility] Last Admin: 11/29/18 17:46 Dose: 667 mg Diphenhydramine HCl (Benadryl) 25 mg PO Q8 PRN PRN Reason: itchiness Last Admin: 11/24/18 19:52 Dose: 25 mg Docusate Sodium (Colace) 100 mg PO BID [facility] Last Admin: 11/29/18 17:47 Dose: 100 mg Epoetin Santosh (Procrit) 10,000 unit IV MWF [facility] Heparin Sodium (Porcine) (Heparin) 5,000 units SC Q8 [facility] Last Admin: 11/26/18 06:50 Dose: 5,000 units Meropenem 500 mg/ Sodium (Chloride) 100 mls @ 100 mls/hr IVPB Q12H [facility]; Protocol Last Admin: 11/29/18 22:39 Dose: 100 mls/hr Megestrol Acetate (Megace) 400 mg PO BID [facility] Last Admin: 11/29/18 17:46 Dose: 400 mg Metoprolol Succinate (Toprol Xl) 25 mg PO DAILY [facility] Last Admin: 11/29/18 09:57 Dose: 25 mg Pantoprazole Sodium (Protonix Ec Tab) 40 mg PO DAILY [facility] Last Admin: 11/29/18 09:57 Dose: 40 mg Rosuvastatin Calcium (Crestor) 5 mg PO HS [facility] Last Admin: 11/29/18 21:30 Dose: 5 mg Vitamin B Complex/Vit C/Folic Acid (Nephro-Valeria) 1 tab PO DAILY [facility] Last Admin: 11/29/18 09:56 Dose: 1 tab - Labs Labs: 11/27/18 06:17 11/27/18 06:17 PT 12.8 SECONDS (9.7-12.2) H 11/24/18 14:16 INR 1.2 11/24/18 14:16 APTT 32 SECONDS (21-34) 11/24/18 14:16 - Constitutional Appears: No Acute Distress, Chronically Ill - Head Exam Head Exam: NORMOCEPHALIC - Eye Exam Eye Exam: Normal appearance Pupil Exam: NORMAL ACCOMODATION - ENT Exam ENT Exam: TM's Normal Bilaterally - Neck Exam Neck Exam: Normal Inspection - Respiratory Exam Respiratory Exam: Clear to Ausculation Bilateral, NORMAL BREATHING PATTERN - Cardiovascular Exam Cardiovascular Exam: REGULAR RHYTHM - GI/Abdominal Exam GI & Abdominal Exam: Soft, Normal Bowel Sounds - Rectal Exam Rectal Exam: Deferred - Extremities Exam Extremities Exam: Normal Inspection - Back Exam Back Exam: NORMAL INSPECTION - Neurological Exam Neurological Exam: Alert, Awake, Oriented x3 - Psychiatric Exam Psychiatric exam: Anxious - Skin Skin Exam: Dry, Intact Assessment and Plan (1) Fever Status: Resolved (2) ESRD (end stage renal disease) on dialysis Status: Chronic (3) Hypertension Status: Resolved (4) Bacteremia due to Klebsiella pneumoniae Assessment & Plan: On IV antibiotics. Status: Acute
[2018-11-30] MEDS: Multivitamin Vitamin B Complex (Nephro-Vite) Tab PO SCH (09:08)
[2018-11-30] MEDS: Megestrol Acetate 40 mg/ml Cup PO SCH ×2 (09:09→17:23)
[2018-11-30] MEDS: Pantoprazole 40 mg EC Tab PO SCH (09:09)
[2018-11-30] MEDS: Metoprolol Succinate 25 mg XL Tab PO SCH (09:10)
[2018-11-30] MEDS: Meropenem 500 MG in Sodium Chloride 0.9% 100 ML IVPB SCH ×2 (10:09→22:03)
--- NOTE | 2018-11-30 16:10 | CP.PCM.PN ---
Subjective - Date & Time of Evaluation Date of Evaluation: 11/30/18 Time of Evaluation: 09:00 - Subjective Subjective: repeat cultures neg thus far Objective - Vital Signs/Intake and Output Vital Signs (last 24 hours): Temp Pulse Resp BP Pulse Ox 98.1 F 78 20 112/51 L 97 11/30/18 15:00 11/30/18 15:00 11/30/18 15:00 11/30/18 15:00 11/30/18 15:00 Intake and Output: 11/30/18 11/30/18 06:59 18:59 Intake Total 350 Balance 350 - Medications Medications: Current Medications Acetaminophen (Tylenol 325mg Tab) 650 mg PO Q6 PRN PRN Reason: Fever >100.4 F Last Admin: 11/29/18 21:39 Dose: 650 mg Calcium Acetate (Phoslo) 667 mg PO TID [facility] Last Admin: 11/30/18 13:11 Dose: 667 mg Diphenhydramine HCl (Benadryl) 25 mg PO Q8 PRN PRN Reason: itchiness Last Admin: 11/24/18 19:52 Dose: 25 mg Docusate Sodium (Colace) 100 mg PO BID [facility] Last Admin: 11/30/18 09:09 Dose: 100 mg Epoetin Santosh (Procrit) 10,000 unit IV MWF [facility] Heparin Sodium (Porcine) (Heparin) 5,000 units SC Q8 [facility] Last Admin: 11/26/18 06:50 Dose: 5,000 units Meropenem 500 mg/ Sodium (Chloride) 100 mls @ 100 mls/hr IVPB Q12H [facility]; Protocol Last Admin: 11/30/18 10:09 Dose: 100 mls/hr Megestrol Acetate (Megace) 400 mg PO BID [facility] Last Admin: 11/30/18 09:09 Dose: 400 mg Metoprolol Succinate (Toprol Xl) 25 mg PO DAILY [facility] Last Admin: 11/30/18 09:10 Dose: 25 mg Pantoprazole Sodium (Protonix Ec Tab) 40 mg PO DAILY [facility] Last Admin: 11/30/18 09:09 Dose: 40 mg Rosuvastatin Calcium (Crestor) 5 mg PO HS [facility] Last Admin: 11/29/18 21:30 Dose: 5 mg Vitamin B Complex/Vit C/Folic Acid (Nephro-Valeria) 1 tab PO DAILY [facility] Last Admin: 11/30/18 09:08 Dose: 1 tab - Labs Labs: 11/27/18 06:17 11/27/18 06:17 PT 12.8 SECONDS (9.7-12.2) H 11/24/18 14:16 INR 1.2 11/24/18 14:16 APTT 32 SECONDS (21-34) 11/24/18 14:16 - Constitutional Appears: Well - Head Exam Head Exam: ATRAUMATIC, NORMAL INSPECTION, NORMOCEPHALIC - Eye Exam Eye Exam: EOMI, Normal appearance, PERRL Pupil Exam: NORMAL ACCOMODATION, PERRL - ENT Exam ENT Exam: Mucous Membranes Moist, Normal Exam - Neck Exam Neck Exam: Full ROM, Normal Inspection. absent: Lymphadenopathy - Respiratory Exam Respiratory Exam: Clear to Ausculation Bilateral, NORMAL BREATHING PATTERN - Cardiovascular Exam Cardiovascular Exam: REGULAR RHYTHM, +S1, +S2. absent: Murmur - GI/Abdominal Exam GI & Abdominal Exam: Soft, Normal Bowel Sounds. absent: Tenderness - Rectal Exam Rectal Exam: NORMAL INSPECTION - Extremities Exam Extremities Exam: Full ROM, Normal Capillary Refill, Normal Inspection. absent: Joint Swelling, Pedal Edema - Back Exam Back Exam: NORMAL INSPECTION - Neurological Exam Neurological Exam: Alert, Awake, CN II-XII Intact, Normal Gait, Oriented x3 - Psychiatric Exam Psychiatric exam: Normal Affect, Normal Mood - Skin Skin Exam: Dry, Intact, Normal Color, Warm Assessment and Plan (1) ESRD (end stage renal disease) on dialysis Status: Chronic (2) Fever Status: Resolved (3) Line sepsis associated with dialysis catheter Status: Acute (4) Bacteremia Status: Acute (5) Bacteremia due to Gram-negative bacteria Status: Acute - Assessment and Plan (Free Text) Assessment: cont iv rx for 14 days after first neg blood c/s for possible permacath placement this week
--- NOTE | 2018-11-30 22:38 | CP.PCM.PN ---
Subjective - Date & Time of Evaluation Date of Evaluation: 11/30/18 Time of Evaluation: 18:00 - Subjective Subjective: Patient has no complaint, Afebrile, Repeated blood cultures negative. For a Permacath palacement this week. Objective - Vital Signs/Intake and Output Vital Signs (last 24 hours): Temp Pulse Resp BP Pulse Ox 98.1 F 78 20 112/51 L 97 11/30/18 15:00 11/30/18 15:00 11/30/18 15:00 11/30/18 15:00 11/30/18 15:00 Intake and Output: 11/30/18 12/01/18 18:59 06:59 Intake Total 350 Balance 350 - Medications Medications: Current Medications Acetaminophen (Tylenol 325mg Tab) 650 mg PO Q6 PRN PRN Reason: Fever >100.4 F Last Admin: 11/29/18 21:39 Dose: 650 mg Calcium Acetate (Phoslo) 667 mg PO TID [facility] Last Admin: 11/30/18 17:23 Dose: 667 mg Diphenhydramine HCl (Benadryl) 25 mg PO Q8 PRN PRN Reason: itchiness Last Admin: 11/24/18 19:52 Dose: 25 mg Docusate Sodium (Colace) 100 mg PO BID [facility] Last Admin: 11/30/18 17:23 Dose: 100 mg Epoetin Santosh (Procrit) 10,000 unit IV MWF [facility] Heparin Sodium (Porcine) (Heparin) 5,000 units SC Q8 [facility] Last Admin: 11/26/18 06:50 Dose: 5,000 units Meropenem 500 mg/ Sodium (Chloride) 100 mls @ 100 mls/hr IVPB Q12H [facility]; Protocol Last Admin: 11/30/18 22:03 Dose: 100 mls/hr Megestrol Acetate (Megace) 400 mg PO BID [facility] Last Admin: 11/30/18 17:23 Dose: 400 mg Metoprolol Succinate (Toprol Xl) 25 mg PO DAILY [facility] Last Admin: 11/30/18 09:10 Dose: 25 mg Pantoprazole Sodium (Protonix Ec Tab) 40 mg PO DAILY [facility] Last Admin: 11/30/18 09:09 Dose: 40 mg Rosuvastatin Calcium (Crestor) 5 mg PO HS [facility] Last Admin: 11/30/18 21:25 Dose: 5 mg Vitamin B Complex/Vit C/Folic Acid (Nephro-Valeria) 1 tab PO DAILY [facility] Last Admin: 11/30/18 09:08 Dose: 1 tab - Labs Labs: 11/27/18 06:17 11/27/18 06:17 PT 12.8 SECONDS (9.7-12.2) H 11/24/18 14:16 INR 1.2 11/24/18 14:16 APTT 32 SECONDS (21-34) 11/24/18 14:16 - Constitutional Appears: No Acute Distress, Chronically Ill - Head Exam Head Exam: NORMOCEPHALIC - Eye Exam Eye Exam: Normal appearance Pupil Exam: NORMAL ACCOMODATION - ENT Exam ENT Exam: Normal Exam - Neck Exam Neck Exam: Normal Inspection - Respiratory Exam Respiratory Exam: Clear to Ausculation Bilateral, NORMAL BREATHING PATTERN - Cardiovascular Exam Cardiovascular Exam: REGULAR RHYTHM - GI/Abdominal Exam GI & Abdominal Exam: Soft, Normal Bowel Sounds - Rectal Exam Rectal Exam: Deferred - Extremities Exam Extremities Exam: Normal Inspection - Back Exam Back Exam: NORMAL INSPECTION - Neurological Exam Neurological Exam: Alert, Awake, Oriented x3 - Psychiatric Exam Psychiatric exam: Anxious - Skin Skin Exam: Dry, Normal Color, Warm Assessment and Plan (1) Fever Status: Resolved (2) ESRD (end stage renal disease) on dialysis Status: Chronic (3) Hypertension Status: Resolved (4) Bacteremia due to Klebsiella pneumoniae Assessment & Plan: Still on IV Merem. Status: Acute
[2018-12-01] MEDS: Pantoprazole 40 mg EC Tab PO SCH (09:20)
[2018-12-01] MEDS: Multivitamin Vitamin B Complex (Nephro-Vite) Tab PO SCH (09:20)
[2018-12-01] MEDS: Metoprolol Succinate 25 mg XL Tab PO SCH (09:20)
[2018-12-01] MEDS: Megestrol Acetate 40 mg/ml Cup PO SCH ×2 (09:20→17:35)
[2018-12-01] MEDS: Epoetin Alfa 10,000 unit/ml Dialysis IV SCH (10:13)
[2018-12-01] MEDS: Meropenem 500 MG in Sodium Chloride 0.9% 100 ML IVPB SCH ×3 (11:07→22:10)
--- NOTE | 2018-12-01 11:14 | CP.PCM.PN ---
Subjective - Date & Time of Evaluation Date of Evaluation: 12/01/18 Time of Evaluation: 11:12 - Subjective Subjective: seen at dialysis UF 1300ml using 1 needle AV fistula post blood transfusion;Hg increased more responsive no new complaint will need revision AV fistula Objective - Vital Signs/Intake and Output Vital Signs (last 24 hours): Temp Pulse Resp BP Pulse Ox 98.3 F 87 18 142/82 99 12/01/18 09:15 12/01/18 09:15 12/01/18 09:15 12/01/18 10:15 12/01/18 09:15 Intake and Output: 12/01/18 12/01/18 06:59 18:59 Intake Total 100 Balance 100 - Medications Medications: Current Medications Acetaminophen (Tylenol 325mg Tab) 650 mg PO Q6 PRN PRN Reason: Fever >100.4 F Last Admin: 11/29/18 21:39 Dose: 650 mg Calcium Acetate (Phoslo) 667 mg PO TID [facility] Last Admin: 12/01/18 09:20 Dose: 667 mg Diphenhydramine HCl (Benadryl) 25 mg PO Q8 PRN PRN Reason: itchiness Last Admin: 11/24/18 19:52 Dose: 25 mg Docusate Sodium (Colace) 100 mg PO BID [facility] Last Admin: 12/01/18 09:20 Dose: 100 mg Epoetin Santosh (Procrit) 10,000 unit IV MWF [facility] Last Admin: 12/01/18 10:13 Dose: 10,000 unit Heparin Sodium (Porcine) (Heparin) 5,000 units SC Q8 [facility] Last Admin: 11/26/18 06:50 Dose: 5,000 units Meropenem 500 mg/ Sodium (Chloride) 100 mls @ 100 mls/hr IVPB Q12H [facility]; Protoc ol Last Admin: 12/01/18 11:07 Dose: Not Given Megestrol Acetate (Megace) 400 mg PO BID [facility] Last Admin: 12/01/18 09:20 Dose: 400 mg Metoprolol Succinate (Toprol Xl) 25 mg PO DAILY [facility] Last Admin: 12/01/18 09:20 Dose: Not Given Pantoprazole Sodium (Protonix Ec Tab) 40 mg PO DAILY [facility] Last Admin: 12/01/18 09:20 Dose: 40 mg Rosuvastatin Calcium (Crestor) 5 mg PO HS [facility] Last Admin: 11/30/18 21:25 Dose: 5 mg Vitamin B Complex/Vit C/Folic Acid (Nephro-Valeria) 1 tab PO DAILY [facility] Last Admin: 12/01/18 09:20 Dose: 1 tab - Labs Labs: 11/27/18 06:17 11/27/18 06:17 PT 12.8 SECONDS (9.7-12.2) H 11/24/18 14:16 INR 1.2 11/24/18 14:16 APTT 32 SECONDS (21-34) 11/24/18 14:16 - Constitutional Appears: No Acute Distress, Cachectic, Chronically Ill - Head Exam Head Exam: ATRAUMATIC, NORMAL INSPECTION - Eye Exam Eye Exam: EOMI, Normal appearance - Neck Exam Neck Exam: Normal Inspection. absent: Tenderness - Respiratory Exam Respiratory Exam: Clear to Ausculation Bilateral, NORMAL BREATHING PATTERN - Cardiovascular Exam Cardiovascular Exam: REGULAR RHYTHM, +S1 - GI/Abdominal Exam GI & Abdominal Exam: Soft. absent: Tenderness - Extremities Exam Extremities Exam: Normal Inspection. absent: Tenderness - Neurological Exam Neurological Exam: Awake, CN II-XII Intact - Skin Skin Exam: Dry, Warm Assessment and Plan (1) ESRD (end stage renal disease) Status: Acute (2) Hypertensive chronic kidney disease with stage 5 chronic kidney disease or end stage renal disease Status: Acute (3) Line sepsis associated with dialysis catheter Status: Acute (4) Hypertension Status: Chronic - Assessment and Plan (Free Text) Plan: treat line sepsis dialysis MWF Await av f revision, new permcath
--- NOTE | 2018-12-01 12:09 | CP.PCM.PN ---
Subjective - Date & Time of Evaluation Date of Evaluation: 12/01/18 Time of Evaluation: 09:00 - Subjective Subjective: repeat cultures so far neg for possible permacath placemetn dr townsend wants revision of av fistula cont rx Objective - Vital Signs/Intake and Output Vital Signs (last 24 hours): Temp Pulse Resp BP Pulse Ox 98.3 F 87 18 128/80 99 12/01/18 09:15 12/01/18 09:15 12/01/18 09:15 12/01/18 11:15 12/01/18 09:15 Intake and Output: 12/01/18 12/01/18 06:59 18:59 Intake Total 100 Balance 100 - Medications Medications: Current Medications Acetaminophen (Tylenol 325mg Tab) 650 mg PO Q6 PRN PRN Reason: Fever >100.4 F Last Admin: 11/29/18 21:39 Dose: 650 mg Calcium Acetate (Phoslo) 667 mg PO TID [facility] Last Admin: 12/01/18 09:20 Dose: 667 mg Diphenhydramine HCl (Benadryl) 25 mg PO Q8 PRN PRN Reason: itchiness Last Admin: 11/24/18 19:52 Dose: 25 mg Docusate Sodium (Colace) 100 mg PO BID [facility] Last Admin: 12/01/18 09:20 Dose: 100 mg Epoetin Santosh (Procrit) 10,000 unit IV MWF [facility] Last Admin: 12/01/18 10:13 Dose: 10,000 unit Heparin Sodium (Porcine) (Heparin) 5,000 units SC Q8 [facility] Last Admin: 11/26/18 06:50 Dose: 5,000 units Meropenem 500 mg/ Sodium (Chloride) 100 mls @ 100 mls/hr IVPB Q12H [facility]; Protocol Last Admin: 12/01/18 11:07 Dose: Not Given Megestrol Acetate (Megace) 400 mg PO BID [facility] Last Admin: 12/01/18 09:20 Dose: 400 mg Metoprolol Succinate (Toprol Xl) 25 mg PO DAILY [facility] Last Admin: 12/01/18 09:20 Dose: Not Given Pantoprazole Sodium (Protonix Ec Tab) 40 mg PO DAILY [facility] Last Admin: 12/01/18 09:20 Dose: 40 mg Rosuvastatin Calcium (Crestor) 5 mg PO HS [facility] Last Admin: 11/30/18 21:25 Dose: 5 mg Vitamin B Complex/Vit C/Folic Acid (Nephro-Valeria) 1 tab PO DAILY [facility] Last Admin: 12/01/18 09:20 Dose: 1 tab - Labs Labs: 11/27/18 06:17 11/27/18 06:17 PT 12.8 SECONDS (9.7-12.2) H 11/24/18 14:16 INR 1.2 11/24/18 14:16 APTT 32 SECONDS (21-34) 11/24/18 14:16 - Constitutional Appears: Well - Head Exam Head Exam: ATRAUMATIC, NORMAL INSPECTION, NORMOCEPHALIC - Eye Exam Eye Exam: EOMI, Normal appearance, PERRL Pupil Exam: NORMAL ACCOMODATION, PERRL - ENT Exam ENT Exam: Mucous Membranes Moist, Normal Exam - Neck Exam Neck Exam: Full ROM, Normal Inspection. absent: Lymphadenopathy - Respiratory Exam Respiratory Exam: Clear to Ausculation Bilateral, NORMAL BREATHING PATTERN - Cardiovascular Exam Cardiovascular Exam: REGULAR RHYTHM, +S1, +S2. absent: Murmur - GI/Abdominal Exam GI & Abdominal Exam: Soft, Normal Bowel Sounds. absent: Tenderness - Rectal Exam Rectal Exam: NORMAL INSPECTION - Extremities Exam Extremities Exam: Full ROM, Normal Capillary Refill, Normal Inspection. absent: Joint Swelling, Pedal Edema - Back Exam Back Exam: NORMAL INSPECTION - Neurological Exam Neurological Exam: Alert, Awake, CN II-XII Intact, Normal Gait, Oriented x3 - Psychiatric Exam Psychiatric exam: Normal Affect, Normal Mood - Skin Skin Exam: Dry, Intact, Normal Color, Warm Assessment and Plan (1) ESRD (end stage renal disease) on dialysis Status: Chronic (2) Fever Status: Resolved (3) Line sepsis associated with dialysis catheter Status: Acute (4) Bacteremia Status: Acute (5) Bacteremia due to Gram-negative bacteria Status: Acute - Assessment and Plan (Free Text) Assessment: orders signed
--- NOTE | 2018-12-01 21:21 | CP.PCM.PN ---
Subjective - Date & Time of Evaluation Date of Evaluation: 12/01/18 Time of Evaluation: 21:18 - Subjective Subjective: Patient HD this AM using the AV shunt and the right femoral catheter. All blood cultures are negative. Objective - Vital Signs/Intake and Output Vital Signs (last 24 hours): Temp Pulse Resp BP Pulse Ox 98.7 F 95 H 20 161/78 H 98 12/01/18 16:38 12/01/18 16:38 12/01/18 16:38 12/01/18 16:38 12/01/18 16:38 Intake and Output: 12/01/18 12/02/18 18:59 06:59 Intake Total 100 Balance 100 - Medications Medications: Current Medications Acetaminophen (Tylenol 325mg Tab) 650 mg PO Q6 PRN PRN Reason: Fever >100.4 F Last Admin: 11/29/18 21:39 Dose: 650 mg Calcium Acetate (Phoslo) 667 mg PO TID [facility] Last Admin: 12/01/18 17:35 Dose: 667 mg Diphenhydramine HCl (Benadryl) 25 mg PO Q8 PRN PRN Reason: itchiness Last Admin: 11/24/18 19:52 Dose: 25 mg Docusate Sodium (Colace) 100 mg PO BID [facility] Last Admin: 12/01/18 17:35 Dose: 100 mg Epoetin Santosh (Procrit) 10,000 unit IV MWF [facility] Last Admin: 12/01/18 10:13 Dose: 10,000 unit Heparin Sodium (Porcine) (Heparin) 5,000 units SC Q8 [facility] Last Admin: 11/26/18 06:50 Dose: 5,000 units Meropenem 500 mg/ Sodium (Chloride) 100 mls @ 100 mls/hr IVPB Q12H [facility]; Protocol Last Admin: 12/01/18 14:11 Dose: 100 mls/hr Megestrol Acetate (Megace) 400 mg PO BID [facility] Last Admin: 12/01/18 17:35 Dose: 400 mg Metoprolol Succinate (Toprol Xl) 25 mg PO DAILY [facility] Last Admin: 12/01/18 09:20 Dose: Not Given Pantoprazole Sodium (Protonix Ec Tab) 40 mg PO DAILY [facility] Last Admin: 12/01/18 09:20 Dose: 40 mg Rosuvastatin Calcium (Crestor) 5 mg PO HS [facility] Last Admin: 11/30/18 21:25 Dose: 5 mg Vitamin B Complex/Vit C/Folic Acid (Nephro-Valeria) 1 tab PO DAILY [facility] Last Admin: 12/01/18 09:20 Dose: 1 tab - Labs Labs: 11/27/18 06:17 11/27/18 06:17 PT 12.8 SECONDS (9.7-12.2) H 11/24/18 14:16 INR 1.2 11/24/18 14:16 APTT 32 SECONDS (21-34) 11/24/18 14:16 - Constitutional Appears: No Acute Distress, Chronically Ill - Head Exam Head Exam: NORMAL INSPECTION - Eye Exam Eye Exam: Normal appearance Pupil Exam: NORMAL ACCOMODATION - ENT Exam ENT Exam: Normal Exam - Neck Exam Neck Exam: Normal Inspection - Respiratory Exam Respiratory Exam: Clear to Ausculation Bilateral - Cardiovascular Exam Cardiovascular Exam: REGULAR RHYTHM - GI/Abdominal Exam GI & Abdominal Exam: Soft, Normal Bowel Sounds - Rectal Exam Rectal Exam: Deferred - Extremities Exam Extremities Exam: Normal Inspection - Back Exam Back Exam: NORMAL INSPECTION - Neurological Exam Neurological Exam: Alert, Awake, Oriented x3 - Psychiatric Exam Psychiatric exam: Anxious - Skin Skin Exam: Dry, Intact, Normal Color, Warm Assessment and Plan (1) Fever Status: Resolved (2) ESRD (end stage renal disease) on dialysis Assessment & Plan: Needs revision of the AV shunt in the left wrist. Status: Chronic (3) Hypertension Status: Resolved (4) Bacteremia due to Klebsiella pneumoniae Assessment & Plan: On IV antibiotic. Status: Acute
--- NOTE | 2018-12-02 09:03 | CP.PCM.PN ---
Subjective - Date & Time of Evaluation Date of Evaluation: 12/02/18 Time of Evaluation: 09:02 - Subjective Subjective: seen and examined cultures neg afebrile bianca goldberg used last hd, 1 needle. Objective - Vital Signs/Intake and Output Vital Signs (last 24 hours): Temp Pulse Resp BP Pulse Ox 98.1 F 73 20 117/63 98 12/02/18 07:00 12/02/18 07:00 12/02/18 07:00 12/02/18 07:00 12/02/18 07:00 Intake and Output: 12/02/18 12/02/18 06:59 18:59 Intake Total 420 Balance 420 - Medications Medications: Current Medications Acetaminophen (Tylenol 325mg Tab) 650 mg PO Q6 PRN PRN Reason: Fever >100.4 F Last Admin: 11/29/18 21:39 Dose: 650 mg Calcium Acetate (Phoslo) 667 mg PO TID [facility] Last Admin: 12/01/18 17:35 Dose: 667 mg Diphenhydramine HCl (Benadryl) 25 mg PO Q8 PRN PRN Reason: itchiness Last Admin: 11/24/18 19:52 Dose: 25 mg Docusate Sodium (Colace) 100 mg PO BID [facility] Last Admin: 12/01/18 17:35 Dose: 100 mg Epoetin Santosh (Procrit) 10,000 unit IV MWF [facility] Last Admin: 12/01/18 10:13 Dose: 10,000 unit Heparin Sodium (Porcine) (Heparin) 5,000 units SC Q8 [facility] Last Admin: 11/26/18 06:50 Dose: 5,000 units Meropenem 500 mg/ Sodium (Chloride) 100 mls @ 100 mls/hr IVPB Q12H [facility]; Protocol Last Admin: 12/01/18 22:10 Dose: 100 mls/hr Megestrol Acetate (Megace) 400 mg PO BID [facility] Last Admin: 12/01/18 17:35 Dose: 400 mg Metoprolol Succinate (Toprol Xl) 25 mg PO DAILY [facility] Last Admin: 12/01/18 09:20 Dose: Not Given Pantoprazole Sodium (Protonix Ec Tab) 40 mg PO DAILY [facility] Last Admin: 12/01/18 09:20 Dose: 40 mg Rosuvastatin Calcium (Crestor) 5 mg PO HS [facility] Last Admin: 12/01/18 21:39 Dose: 5 mg Vitamin B Complex/Vit C/Folic Acid (Nephro-Valeria) 1 tab PO DAILY [facility] Last Admin: 12/01/18 09:20 Dose: 1 tab - Labs Labs: 11/27/18 06:17 11/27/18 06:17 PT 12.8 SECONDS (9.7-12.2) H 11/24/18 14:16 INR 1.2 11/24/18 14:16 APTT 32 SECONDS (21-34) 11/24/18 14:16 - Constitutional Appears: No Acute Distress, Chronically Ill - Head Exam Head Exam: NORMAL INSPECTION, NORMOCEPHALIC - Eye Exam Eye Exam: Normal appearance, PERRL - ENT Exam ENT Exam: Mucous Membranes Moist, Normal Exam - Neck Exam Neck Exam: Full ROM, Normal Inspection - Respiratory Exam Respiratory Exam: Clear to Ausculation Bilateral, NORMAL BREATHING PATTERN - Cardiovascular Exam Cardiovascular Exam: REGULAR RHYTHM, RRR - GI/Abdominal Exam GI & Abdominal Exam: Distended, Soft, Normal Bowel Sounds - Extremities Exam Extremities Exam: Full ROM, Normal Inspection - Neurological Exam Neurological Exam: Alert, Awake, Oriented x3 - Psychiatric Exam Psychiatric exam: Normal Affect, Normal Mood - Skin Skin Exam: Dry, Intact Assessment and Plan (1) ESRD (end stage renal disease) on dialysis Status: Chronic (2) Fever Status: Resolved (3) Hypertension Status: Resolved (4) Line sepsis associated with dialysis catheter Status: Acute - Assessment and Plan (Free Text) Assessment: maintain hd permcath placement leo revision christina w/ hd
[2018-12-02] MEDS: Pantoprazole 40 mg EC Tab PO SCH (09:28)
[2018-12-02] MEDS: Multivitamin Vitamin B Complex (Nephro-Vite) Tab PO SCH (09:28)
[2018-12-02] MEDS: Megestrol Acetate 40 mg/ml Cup PO SCH ×2 (09:28→17:38)
[2018-12-02] MEDS: Metoprolol Succinate 25 mg XL Tab PO SCH (09:28)
[2018-12-02] MEDS: Meropenem 500 MG in Sodium Chloride 0.9% 100 ML IVPB SCH ×2 (11:19→22:14)
--- NOTE | 2018-12-02 11:25 | CP.PCM.PN ---
Subjective - Date & Time of Evaluation Date of Evaluation: 12/02/18 Time of Evaluation: 08:00 - Subjective Subjective: afeb repeat cultures negative Objective - Vital Signs/Intake and Output Vital Signs (last 24 hours): Temp Pulse Resp BP Pulse Ox 98.1 F 73 20 117/63 98 12/02/18 07:00 12/02/18 07:00 12/02/18 07:00 12/02/18 07:00 12/02/18 07:00 Intake and Output: 12/02/18 12/02/18 06:59 18:59 Intake Total 420 Balance 420 - Medications Medications: Current Medications Acetaminophen (Tylenol 325mg Tab) 650 mg PO Q6 PRN PRN Reason: Fever >100.4 F Last Admin: 11/29/18 21:39 Dose: 650 mg Calcium Acetate (Phoslo) 667 mg PO TIDCC [facility] Diphenhydramine HCl (Benadryl) 25 mg PO Q8 PRN PRN Reason: itchiness Last Admin: 11/24/18 19:52 Dose: 25 mg Docusate Sodium (Colace) 100 mg PO BID [facility] Last Admin: 12/02/18 09:28 Dose: 100 mg Epoetin Santosh (Procrit) 10,000 unit IV MWF [facility] Last Admin: 12/01/18 10:13 Dose: 10,000 unit Heparin Sodium (Porcine) (Heparin) 5,000 units SC Q8 [facility] Last Admin: 11/26/18 06:50 Dose: 5,000 units Meropenem 500 mg/ Sodium (Chloride) 100 mls @ 100 mls/hr IVPB Q12H [facility]; Protocol Last Admin: 12/02/18 11:19 Dose: 100 mls/hr Megestrol Acetate (Megace) 400 mg PO BID [facility] Last Admin: 12/02/18 09:28 Dose: 400 mg Metoprolol Succinate (Toprol Xl) 25 mg PO DAILY [facility] Last Admin: 12/02/18 09:28 Dose: 25 mg Pantoprazole Sodium (Protonix Ec Tab) 40 mg PO DAILY [facility] Last Admin: 12/02/18 09:28 Dose: 40 mg Rosuvastatin Calcium (Crestor) 5 mg PO HS [facility] Last Admin: 12/01/18 21:39 Dose: 5 mg Vitamin B Complex/Vit C/Folic Acid (Nephro-Valeria) 1 tab PO DAILY [facility] Last Admin: 12/02/18 09:28 Dose: 1 tab - Labs Labs: 11/27/18 06:17 11/27/18 06:17 PT 12.8 SECONDS (9.7-12.2) H 11/24/18 14:16 INR 1.2 11/24/18 14:16 APTT 32 SECONDS (21-34) 11/24/18 14:16 - Constitutional Appears: Non-toxic, Chronically Ill - Head Exam Head Exam: NORMOCEPHALIC - Eye Exam Eye Exam: absent: Scleral icterus - ENT Exam ENT Exam: Mucous Membranes Dry - Neck Exam Neck Exam: absent: Lymphadenopathy - Respiratory Exam Respiratory Exam: Decreased Breath Sounds - Cardiovascular Exam Cardiovascular Exam: REGULAR RHYTHM - GI/Abdominal Exam GI & Abdominal Exam: Distended, Soft - Rectal Exam Rectal Exam: Deferred - Exam Exam: NORMAL INSPECTION Assessment and Plan (1) ESRD (end stage renal disease) on dialysis Status: Chronic (2) Fever Status: Resolved (3) Line sepsis associated with dialysis catheter Status: Acute (4) Bacteremia Status: Acute (5) Bacteremia due to Gram-negative bacteria Status: Acute - Assessment and Plan (Free Text) Assessment: improving on IV rx repeat c/s neg d/c on IV Rx for 6 doses - ancef 2g and Genta 80mg
--- NOTE | 2018-12-02 23:40 | CP.PCM.PN ---
Subjective - Date & Time of Evaluation Date of Evaluation: 12/02/18 Time of Evaluation: 19:45 - Subjective Subjective: Patient seen by DR Sepulveda> No plan for AV revision or Permacath insertion yet. For HD in AM. Afebrile, feels good. Objective - Vital Signs/Intake and Output Vital Signs (last 24 hours): Temp Pulse Resp BP Pulse Ox 98.6 F 81 96 H 123/68 20 L 12/02/18 16:25 12/02/18 16:25 12/02/18 16:25 12/02/18 16:25 12/02/18 16:25 Intake and Output: 12/02/18 12/03/18 18:59 06:59 Intake Total 300 350 Balance 300 350 - Medications Medications: Current Medications Acetaminophen (Tylenol 325mg Tab) 650 mg PO Q6 PRN PRN Reason: Fever >100.4 F Last Admin: 12/02/18 23:08 Dose: 650 mg Calcium Acetate (Phoslo) 667 mg PO TIDCC [facility] Last Admin: 12/02/18 17:38 Dose: 667 mg Diphenhydramine HCl (Benadryl) 25 mg PO Q8 PRN PRN Reason: itchiness Last Admin: 11/24/18 19:52 Dose: 25 mg Docusate Sodium (Colace) 100 mg PO BID [facility] Last Admin: 12/02/18 17:38 Dose: 100 mg Epoetin Santosh (Procrit) 10,000 unit IV MWF [facility] Last Admin: 12/01/18 10:13 Dose: 10,000 unit Heparin Sodium (Porcine) (Heparin) 5,000 units SC Q8 [facility] Last Admin: 11/26/18 06:50 Dose: 5,000 units Meropenem 500 mg/ Sodium (Chloride) 100 mls @ 100 mls/hr IVPB Q12H [facility]; Protocol Last Admin: 12/02/18 22:14 Dose: 100 mls/hr Megestrol Acetate (Megace) 400 mg PO BID [facility] Last Admin: 12/02/18 17:38 Dose: 400 mg Metoprolol Succinate (Toprol Xl) 25 mg PO DAILY [facility] Last Admin: 12/02/18 09:28 Dose: 25 mg Pantoprazole Sodium (Protonix Ec Tab) 40 mg PO DAILY [facility] Last Admin: 12/02/18 09:28 Dose: 40 mg Rosuvastatin Calcium (Crestor) 5 mg PO HS [facility] Last Admin: 12/02/18 22:14 Dose: 5 mg Vitamin B Complex/Vit C/Folic Acid (Nephro-Valeria) 1 tab PO DAILY [facility] Last Admin: 12/02/18 09:28 Dose: 1 tab - Labs Labs: 11/27/18 06:17 11/27/18 06:17 PT 12.8 SECONDS (9.7-12.2) H 11/24/18 14:16 INR 1.2 11/24/18 14:16 APTT 32 SECONDS (21-34) 11/24/18 14:16 - Constitutional Appears: No Acute Distress, Chronically Ill - Head Exam Head Exam: NORMAL INSPECTION - Eye Exam Eye Exam: Normal appearance Pupil Exam: NORMAL ACCOMODATION - ENT Exam ENT Exam: Normal Exam - Neck Exam Neck Exam: Normal Inspection - Respiratory Exam Respiratory Exam: Clear to Ausculation Bilateral - Cardiovascular Exam Cardiovascular Exam: REGULAR RHYTHM - GI/Abdominal Exam GI & Abdominal Exam: Soft, Normal Bowel Sounds - Rectal Exam Rectal Exam: Deferred - Extremities Exam Extremities Exam: Normal Inspection - Back Exam Back Exam: NORMAL INSPECTION - Neurological Exam Neurological Exam: Alert, Awake, Oriented x3 - Psychiatric Exam Psychiatric exam: Anxious - Skin Skin Exam: Dry, Intact, Normal Color Assessment and Plan (1) Fever Status: Resolved (2) ESRD (end stage renal disease) on dialysis Assessment & Plan: HD as per Nephrologists. Status: Chronic (3) Hypertension Status: Resolved (4) Bacteremia due to Klebsiella pneumoniae Assessment & Plan: On IV Merem. Status: Acute
[2018-12-03] MEDS: Epoetin Alfa 10,000 unit/ml Dialysis IV SCH (10:32)
[2018-12-03] MEDS: Multivitamin Vitamin B Complex (Nephro-Vite) Tab PO SCH (10:45)
[2018-12-03] MEDS: Megestrol Acetate 40 mg/ml Cup PO SCH ×2 (10:45→17:07)
[2018-12-03] MEDS: Metoprolol Succinate 25 mg XL Tab PO SCH (10:46)
[2018-12-03] MEDS: Pantoprazole 40 mg EC Tab PO SCH (10:46)
[2018-12-03] MEDS: Meropenem 500 MG in Sodium Chloride 0.9% 100 ML IVPB SCH (13:21)
--- NOTE | 2018-12-03 14:17 | CP.PCM.PN ---
Subjective - Date & Time of Evaluation Date of Evaluation: 12/03/18 Time of Evaluation: 14:11 - Subjective Subjective: more alert; afebrile now for line bacteremia using AV F 1 needle appetite better Objective - Vital Signs/Intake and Output Vital Signs (last 24 hours): Temp Pulse Resp BP Pulse Ox 97.8 F 83 18 140/82 98 12/03/18 12:00 12/03/18 12:00 12/03/18 12:00 12/03/18 12:00 12/03/18 12:00 Intake and Output: 12/03/18 12/03/18 06:59 18:59 Intake Total 500 Balance 500 - Medications Medications: Current Medications Acetaminophen (Tylenol 325mg Tab) 650 mg PO Q6 PRN PRN Reason: Fever >100.4 F Last Admin: 12/02/18 23:08 Dose: 650 mg Calcium Acetate (Phoslo) 667 mg PO TIDCC [facility] Last Admin: 12/03/18 13:27 Dose: 667 mg Diphenhydramine HCl (Benadryl) 25 mg PO Q8 PRN PRN Reason: itchiness Last Admin: 11/24/18 19:52 Dose: 25 mg Docusate Sodium (Colace) 100 mg PO BID [facility] Last Admin: 12/03/18 10:45 Dose: Not Given Epoetin Santosh (Procrit) 10,000 unit IV MWF [facility] Last Admin: 12/03/18 10:32 Dose: 10,000 unit Heparin Sodium (Porcine) (Heparin) 5,000 units SC Q8 [facility] Last Admin: 11/26/18 06:50 Dose: 5,000 units Megestrol Acetate (Megace) 400 mg PO BID [facility] Last Admin: 12/03/18 10:45 Dose: Not Given Metoprolol Succinate (Toprol Xl) 25 mg PO DAILY [facility] Last Admin: 12/03/18 10:46 Dose: Not Given Pantoprazole Sodium (Protonix Ec Tab) 40 mg PO DAILY [facility] Last Admin: 12/03/18 10:46 Dose: Not Given Rosuvastatin Calcium (Crestor) 5 mg PO HS [facility] Last Admin: 12/02/18 22:14 Dose: 5 mg Vitamin B Complex/Vit C/Folic Acid (Nephro-Valeria) 1 tab PO DAILY [facility] Last Admin: 12/03/18 10:45 Dose: Not Given - Labs Labs: 11/27/18 06:17 11/27/18 06:17 PT 12.8 SECONDS (9.7-12.2) H 11/24/18 14:16 INR 1.2 11/24/18 14:16 APTT 32 SECONDS (21-34) 11/24/18 14:16 - Constitutional Appears: No Acute Distress, Chronically Ill - Head Exam Head Exam: ATRAUMATIC, NORMAL INSPECTION - Eye Exam Eye Exam: EOMI, Normal appearance - Neck Exam Neck Exam: Normal Inspection. absent: Tenderness - Respiratory Exam Respiratory Exam: Clear to Ausculation Bilateral, NORMAL BREATHING PATTERN - Cardiovascular Exam Cardiovascular Exam: REGULAR RHYTHM, +S1 - GI/Abdominal Exam GI & Abdominal Exam: Soft. absent: Tenderness - Extremities Exam Extremities Exam: Normal Inspection. absent: Pedal Edema, Tenderness - Neurological Exam Neurological Exam: Awake, CN II-XII Intact - Skin Skin Exam: Dry, Warm Assessment and Plan (1) ESRD (end stage renal disease) Status: Acute (2) Hypertensive chronic kidney disease with stage 5 chronic kidney disease or end stage renal disease Status: Acute (3) Line sepsis associated with dialysis catheter Status: Acute (4) Hypertension Status: Chronic - Assessment and Plan (Free Text) Plan: dialysis MWF IV ABs await AV fistula maturation- can discuss with vascular needs repeat labs
[2018-12-03 15:46] VITALS: BP 138/76; PULSE 99; RESP 20; TEMP 99.4; O2SAT 96
[2018-12-03] MEDS ORDERED: Gentamicin 80 mg in 0.9% NS 80 MG/100 ML BAG IVPB SCH (16:00)
--- NOTE | 2018-12-03 17:33 | CP.PCM.PN ---
Subjective - Date & Time of Evaluation Date of Evaluation: 12/03/18 Time of Evaluation: 17:33 - Subjective Subjective: alert, oriented x3, denies sob chest pain or any distress, NAD. Objective - Vital Signs/Intake and Output Vital Signs (last 24 hours): Temp Pulse Resp BP Pulse Ox 99.4 F 99 H 20 138/76 96 12/03/18 15:00 12/03/18 15:00 12/03/18 15:00 12/03/18 15:00 12/03/18 15:00 Intake and Output: 12/03/18 12/03/18 06:59 18:59 Intake Total 500 340 Balance 500 340 - Medications Medications: Current Medications Acetaminophen (Tylenol 325mg Tab) 650 mg PO Q6 PRN PRN Reason: Fever >100.4 F Last Admin: 12/02/18 23:08 Dose: 650 mg Calcium Acetate (Phoslo) 667 mg PO [facility] Last Admin: 12/03/18 17:10 Dose: 667 mg Diphenhydramine HCl (Benadryl) 25 mg PO Q8 PRN PRN Reason: itchiness Last Admin: 11/24/18 19:52 Dose: 25 mg Docusate Sodium (Colace) 100 mg PO BID [facility] Last Admin: 12/03/18 17:07 Dose: 100 mg Epoetin Santosh (Procrit) 10,000 unit [place] [facility] Last Admin: 12/03/18 10:32 Dose: 10,000 unit Heparin Sodium (Porcine) (Heparin) 5,000 units SC Q8 [facility] Last Admin: 11/26/18 06:50 Dose: 5,000 units Cefazolin Sodium 2,000 mg/ (Sodium Chloride) 50 mls @ 100 mls/hr IVPB [facility] Protocol Last Admin: 12/03/18 16:58 Dose: 100 mls/hr Gentamicin Sulfate/Sodium Chloride (Gentamicin 80mg/100ml Ns) 80 mg in 100 mls @ 100 mls/hr IVPB [facility]; Protocol Stop: 12/15/18 09:59 Megestrol Acetate (Megace) 400 mg PO BID [facility] Last Admin: 12/03/18 17:07 Dose: 400 mg Metoprolol Succinate (Toprol Xl) 25 mg PO DAILY [facility] Last Admin: 12/03/18 10:46 Dose: Not Given Pantoprazole Sodium (Protonix Ec Tab) 40 mg PO DAILY [facility] Last Admin: 12/03/18 10:46 Dose: Not Given Rosuvastatin Calcium (Crestor) 5 mg PO HS [facility] Last Admin: 12/02/18 22:14 Dose: 5 mg Vitamin B Complex/Vit C/Folic Acid (Nephro-Valeria) 1 tab PO DAILY [facility] Last Admin: 12/03/18 10:45 Dose: Not Given - Labs Labs: 11/27/18 06:17 11/27/18 06:17 PT 12.8 SECONDS (9.7-12.2) H 11/24/18 14:16 INR 1.2 11/24/18 14:16 APTT 32 SECONDS (21-34) 11/24/18 14:16 Assessment and Plan - Assessment and Plan (Free Text) Assessment: 78 YR old female with ESRD, admitted with line sepsis, seen and examined. Alert and orientedx3, denies acute pain or distress. Discussed with DR Nazario, DR Rubio and DR Thomas, plan to discharge back to [facility] today. Will continue with 5 more doses of gentamycin and ancef as ordered. Continue with dialysis MWF. First dose of ancef and gentamycin will be given today.
--- NOTE | 2018-12-03 20:02 | CP.PCM.PN ---
Subjective - Date & Time of Evaluation Date of Evaluation: 12/03/18 Time of Evaluation: 20:00 - Subjective Subjective: Patient has no complaint. Had HD this morning using the AV shunt in the left wrist and the right groin femoral catheter. For discharge to [facility] subacute rehab with IV Gentamycin 80 mg IVPB MWF and Ancef 2g IVPB on MWF for 5 more doses. Objective - Vital Signs/Intake and Output Vital Signs (last 24 hours): Temp Pulse Resp BP Pulse Ox 99.4 F 99 H 20 138/76 96 12/03/18 15:00 12/03/18 15:00 12/03/18 15:00 12/03/18 15:00 12/03/18 15:00 Intake and Output: 12/03/18 12/04/18 18:59 06:59 Intake Total 340 Balance 340 - Medications Medications: Current Medications Acetaminophen (Tylenol 325mg Tab) 650 mg PO Q6 PRN PRN Reason: Fever >100.4 F Last Admin: 12/02/18 23:08 Dose: 650 mg Calcium Acetate (Phoslo) 667 mg PO TIDCC [facility] Last Admin: 12/03/18 17:10 Dose: 667 mg Diphenhydramine HCl (Benadryl) 25 mg PO Q8 PRN PRN Reason: itchiness Last Admin: 11/24/18 19:52 Dose: 25 mg Docusate Sodium (Colace) 100 mg PO BID [facility] Last Admin: 12/03/18 17:07 Dose: 100 mg Epoetin Santosh (Procrit) 10,000 unit IV MWF [facility] Last Admin: 12/03/18 10:32 Dose: 10,000 unit Heparin Sodium (Porcine) (Heparin) 5,000 units SC Q8 [facility] Last Admin: 11/26/18 06:50 Dose: 5,000 units Cefazolin Sodium 2,000 mg/ (Sodium Chloride) 50 mls @ 100 mls/hr IVPB [facility]; Protocol Last Admin: 12/03/18 16:58 Dose: 100 mls/hr Gentamicin Sulfate/Sodium Chloride (Gentamicin 80mg/100ml Ns) 80 mg in 100 mls @ 100 mls/hr IVPB [facility]; Protocol Stop: 12/15/18 09:59 Last Admin: 12/03/18 17:41 Dose: 100 mls/hr Megestrol Acetate (Megace) 400 mg PO BID [facility] Last Admin: 12/03/18 17:07 Dose: 400 mg Metoprolol Succinate (Toprol Xl) 25 mg PO DAILY [facility] Last Admin: 12/03/18 10:46 Dose: Not Given Pantoprazole Sodium (Protonix Ec Tab) 40 mg PO DAILY [facility] Last Admin: 12/03/18 10:46 Dose: Not Given Rosuvastatin Calcium (Crestor) 5 mg PO HS [facility] Last Admin: 12/02/18 22:14 Dose: 5 mg Vitamin B Complex/Vit C/Folic Acid (Nephro-Valeria) 1 tab PO DAILY [facility] Last Admin: 12/03/18 10:45 Dose: Not Given - Labs Labs: 11/27/18 06:17 11/27/18 06:17 PT 12.8 SECONDS (9.7-12.2) H 11/24/18 14:16 INR 1.2 11/24/18 14:16 APTT 32 SECONDS (21-34) 11/24/18 14:16 - Constitutional Appears: No Acute Distress, Chronically Ill - Head Exam Head Exam: NORMOCEPHALIC - Eye Exam Eye Exam: Normal appearance Pupil Exam: NORMAL ACCOMODATION - ENT Exam ENT Exam: Normal Exam - Neck Exam Neck Exam: Normal Inspection - Respiratory Exam Respiratory Exam: Clear to Ausculation Bilateral - Cardiovascular Exam Cardiovascular Exam: REGULAR RHYTHM - GI/Abdominal Exam GI & Abdominal Exam: Soft, Normal Bowel Sounds - Rectal Exam Rectal Exam: Deferred - Exam Exam: NORMAL INSPECTION - Back Exam Back Exam: NORMAL INSPECTION - Neurological Exam Neurological Exam: Alert, Awake, Oriented x3 - Psychiatric Exam Psychiatric exam: Anxious - Skin Skin Exam: Dry, Intact, Normal Color, Warm Assessment and Plan (1) Fever Status: Resolved (2) ESRD (end stage renal disease) on dialysis Status: Chronic (3) Hypertension Status: Resolved (4) Bacteremia due to Klebsiella pneumoniae Assessment & Plan: Now on Ancef and Gentamycin IV. Status: Acute
--- NOTE | 2018-12-05 17:34 | CARD ---
APPROVED REPORT Date of service: 11/24/2018 EKG Measurement Heart [id number] <Conclusion> Normal sinus rhythm Low voltage QRS Cannot rule out Anterior infarct, age undetermined Abnormal ECG
--- NOTE | 2018-12-06 09:40 | CP.PCM.DIS ---
Provider - Provider Date of Admission: 11/24/18 15:11 Attending physician: Justin Nazario MD Primary care physician: Dr Justin Nazario Consults: 11/24/18 19:35 Physician Consult Routine Comment: Consulting Provider: Luke Rubio Consulting Physician: Luke Rubio Reason for Consult: Fever. ESRD on HD. Recent line sepsis with E Coli. 11/24/18 21:19 Critical Care Consult Stat Comment: Consulting Provider: Justin Nazario Consulting Physician: Justin Nazario Reason for Consult: hypotenstion 11/25/18 09:19 Critical Care Consult Stat Comment: Consulting Provider: Alireza Moody Consulting Physician: Alireza Moody Reason for Consult: hypotension 11/25/18 12:46 General Surgery Consult Routine Comment: Consulting Provider: Jignesh Mckeon Jr. Consulting Physician: Jignesh Mckeon Jr. Reason for Consult: Permacath removal, infected 11/25/18 12:58 Nephrology Consult Routine Comment: Consulting Provider: Ajay Thomas Consulting Physician: Ajay Thomas Reason for Consult: hx of ESRD on HD MWF, sepsis from portcath Time Spent in preparation of Discharge (in minutes): 45 Diagnosis - Discharge Diagnosis (1) Fever Status: Resolved (2) ESRD (end stage renal disease) on dialysis Status: Chronic (3) Hypertension Status: Resolved (4) Bacteremia due to Klebsiella pneumoniae Status: Acute Hospital Course - Lab Results Lab Results: Micro Results 11/28/18 10:00 Blood-During Dialysis Blood Culture - Final NO GROWTH AFTER 5 DAYS 11/28/18 10:00 Blood-During Dialysis Gram Stain - Final TEST NOT PERFORMED 11/28/18 10:00 Blood-During Dialysis Blood Culture - Final NO GROWTH AFTER 5 DAYS 11/28/18 10:00 Blood-During Dialysis Gram Stain - Final TEST NOT PERFORMED 11/29/18 06:21 Naris MRSA Culture - Final MRSA NOT DETECTED 11/24/18 15:23 Blood Blood Culture - Final Klebsiella Pneumoniae 11/24/18 15:23 Blood Gram Stain - Final 11/24/18 14:20 Blood-Venous Blood Culture - Final Klebsiella Pneumoniae Ssp Pneu 11/24/18 14:20 Blood-Venous Gram Stain - Final 11/24/18 14:16 Blood-Thru Central Line Blood Culture - Final Klebsiella Pneumoniae Ssp Pneu 11/24/18 14:16 Blood-Thru Central Line Gram Stain - Final 11/25/18 14:49 Naris MRSA Culture (Admit) - Final MRSA NOT DETECTED 11/25/18 05:47 Urine Random Urine Culture - Final No Growth (<1,000 CFU/ML) Most Recent Lab Values WBC 6.1 K/uL (4.8-10.8) 11/27/18 06:17 RBC 3.27 Mil/uL (3.80-5.20) L 11/27/18 06:17 Hgb 10.4 g/dL (11.0-16.0) L D 11/27/18 06:17 Hct 31.1 % (34.0-47.0) L 11/27/18 06:17 MCV 95.0 fL (81.0-99.0) D 11/27/18 06:17 MCH 31.8 pg (27.0-31.0) H 11/27/18 06:17 MCHC 33.5 g/dL (33.0-37.0) 11/27/18 06:17 RDW 16.5 % (11.5-14.5) H 11/27/18 06:17 Plt Count 98 K/uL (130-400) L 11/27/18 06:17 MPV 8.6 fL (7.2-11.7) 11/27/18 06:17 Neut % (Auto) 66.8 % (50.0-75.0) 11/27/18 06:17 Lymph % (Auto) 20.1 % (20.0-40.0) 11/27/18 06:17 Appling % (Auto) 11.1 % (0.0-10.0) H 11/27/18 06:17 Eos % (Auto) 1.2 % (0.0-4.0) 11/27/18 06:17 Baso % (Auto) 0.8 % (0.0-2.0) 11/27/18 06:17 Neut # (Auto) 4.1 K/uL (1.8-7.0) 11/27/18 06:17 Lymph # (Auto) 1.2 K/uL (1.0-4.3) 11/27/18 06:17 Appling # (Auto) 0.7 K/uL (0.0-0.8) 11/27/18 06:17 Eos # (Auto) 0.1 K/uL (0.0-0.7) 11/27/18 06:17 Baso # (Auto) 0.1 K/uL (0.0-0.2) 11/27/18 06:17 Neutrophils % (Manual) 79 % (50-75) H 11/24/18 14:16 Band Neutrophils % 9 % (0-2) H 11/24/18 14:16 Lymphocytes % (Manual) 6 % (20-40) L 11/24/18 14:16 Monocytes % (Manual) 6 % (0-10) 11/24/18 14:16 Platelet Estimate Slightly decreased (NORMAL) L 11/24/18 14:16 Anisocytosis (manual) Slight 11/24/18 14:16 PT 12.8 SECONDS (9.7-12.2) H 11/24/18 14:16 INR 1.2 11/24/18 14:16 APTT 32 SECONDS (21-34) 11/24/18 14:16 pO2 38 mm/Hg (30-55) 11/24/18 14:30 VBG pH 7.53 (7.32-7.43) H 11/24/18 14:30 VBG pCO2 45 mmHg (40-60) 11/24/18 14:30 VBG HCO3 34.7 mmol/L 11/24/18 14:30 VBG Total CO2 39.0 mmol/L (22-28) H 11/24/18 14:30 VBG O2 Sat (Calc) 80.3 % (40-65) H 11/24/18 14:30 VBG Base Excess 13.2 mmol/L (0.0-2.0) H 11/24/18 14:30 VBG Potassium 3.6 mmol/L (3.6-5.2) 11/24/18 14:30 Sodium 139.0 mmol/l (132-148) 11/24/18 14:30 Chloride 103.0 mmol/L (98-107) 11/24/18 14:30 Glucose 121 mg/dl (65-105) H 11/24/18 14:30 Lactate 1.8 mmol/L (0.7-2.1) 11/24/18 14:30 Sodium 136 mmol/L (132-148) 11/27/18 06:17 Potassium 5.4 mmol/L (3.6-5.2) H 11/27/18 06:17 Chloride 99 mmol/L (98-107) 11/27/18 06:17 Carbon Dioxide 27 mmol/L (22-30) 11/27/18 06:17 Anion Gap 16 (10-20) 11/27/18 06:17 BUN 48 mg/dL (7-17) H 11/27/18 06:17 Creatinine 4.3 mg/dL (0.7-1.2) H 11/27/18 06:17 Est GFR ( Amer) 12 11/27/18 06:17 Est GFR (Non-Af Amer) 10 11/27/18 06:17 Random Glucose 104 mg/dL (65-105) 11/27/18 06:17 Lactic Acid 0.8 mmol/L (0.7-2.1) 11/25/18 08:18 Calcium 7.9 mg/dl (8.6-10.4) L 11/27/18 06:17 Phosphorus 3.7 mg/dL (2.5-4.5) 11/27/18 06:17 Magnesium 2.3 mg/dL (1.6-2.3) 11/27/18 06:17 % Saturation 15 (20-55) L 11/28/18 14:34 Ferritin 1230.0 ng/mL 11/28/18 14:34 Total Bilirubin 0.8 mg/dL (0.2-1.3) 11/26/18 06:00 AST 60 U/L (14-36) H D 11/26/18 06:00 ALT 36 U/L (9-52) 11/26/18 06:00 Alkaline Phosphatase 125 U/L (38-126) 11/26/18 06:00 Total Protein 5.9 g/dL (6.3-8.3) L 11/26/18 06:00 Albumin 2.9 g/dL (3.5-5.0) L D 11/26/18 06:00 Globulin 2.9 gm/dL (2.2-3.9) 11/26/18 06:00 Albumin/Globulin Ratio 1.0 (1.0-2.1) 11/26/18 06:00 Venous Blood Potassium 3.6 mmol/L (3.6-5.2) 11/24/18 14:30 Urine Color Yellow (YELLOW) 11/25/18 05:47 Urine Clarity Clear (Clear) 11/25/18 05:47 Urine pH 8.0 (5.0-8.0) 11/25/18 05:47 Ur Specific Mitchell 1.013 (1.003-1.030) 11/25/18 05:47 Urine Protein 2+ mg/dL (NEGATIVE) H 11/25/18 05:47 Urine Glucose (UA) Normal mg/dL (Normal) 11/25/18 05:47 Urine Ketones Negative mg/dL (NEGATIVE) 11/25/18 05:47 Urine Blood Negative (NEGATIVE) 11/25/18 05:47 Urine Nitrate Negative (NEGATIVE) 11/25/18 05:47 Urine Bilirubin Negative (NEGATIVE) 11/25/18 05:47 Urine Urobilinogen Normal mg/dL (0.2-1.0) 11/25/18 05:47 Ur Leukocyte Esterase Neg Catr[place]ito/uL (Negative) 11/25/18 05:47 Urine WBC (Auto) 1 /hpf (0-5) 11/25/18 05:47 Urine RBC (Auto) < 1 /hpf (0-3) 11/25/18 05:47 Ur Squamous Epith Cells 1 /hpf (0-5) 11/25/18 05:47 Urine Bacteria Rare (<OCC) 11/25/18 05:47 Hep Bs Antigen Negative (NEGATIVE) 11/26/18 06:00 Influenza Typ A,B (EIA) Negative for flu a/b (NEGATIVE) 11/24/18 14:32 Blood Type O POSITIVE 11/26/18 08:43 Blood Type Confirm Cancelled 11/26/18 08:43 Antibody Screen Negative 11/26/18 08:43 - Hospital Course Hospital Course: 78 years old [place] lady was transferred from a subacute rehabillitation center for fever, poor appetite and generalized weakness of 3-4 days duration. Known to have a hypertension, a COPD, an ESRD on HD secondary to a polycystic kidney disease, she was hospitalized in August 2018 for a line sepsis wit E Coli. A permacath was inserted by Dr Sepulveda at that time and the old one was removed. She was transferred to [facility] for continued IV antibiotics and physical therapy. In the ED at [facility] she was hypotensive in spite of IVF. She was monitored in CCU, started on Vancomycin and Zosyn for a presumed line sepsis. The next day, her Permacath was removed and a new dialysis line was inserted in the right groin. She was evaluated by Dr Conley ( Supervisor [facility]), Dr Derick Jr ( Vascular) and Dr Rubio ( infectious disease). Her IV antibiotic was switched to Merem 500 mg IV q 12 h. She improved rapidly, became afebrile, with better appetite, normal BP. Blood cultures revealed Klebsiella pneumonia sensitive to Ancef. Repeated blood cultures were negative. HD was performed through the AV shunt at her left wrist and her right femoral line. She was discharged to [facility] on 12/03/2018 in a stable condition. He will receive 5 more doses of Ancef 2 g IV on HD days and Gentamycin 80 mg IVPB on HD days. She will be followed at the [facility] by her Nephrologists. - Date & Time of H&P Date of H&P: 11/24/18 Discharge Exam - Head Exam Head Exam: NORMOCEPHALIC - Eye Exam Eye Exam: Normal appearance Pupil Exam: NORMAL ACCOMODATION - ENT Exam ENT Exam: Normal Exam - Neck Exam Neck exam: Normal Inspection - Respiratory Exam Respiratory Exam: Clear to PA & Lateral, NORMAL BREATHING PATTERN, UNREMARKABLE - Cardiovascular Exam Cardiovascular Exam: REGULAR RHYTHM - GI/Abdominal Exam GI & Abdominal Exam: Normal Bowel Sounds, Soft - Rectal Exam Rectal Exam: Deferred - Extremities Exam Extremities exam: normal inspection - Back Exam Back exam: NORMAL INSPECTION - Neurological Exam Neurological exam: Alert, Normal Gait, Oriented x3 - Psychiatric Exam Psychiatric exam: Anxious - Skin Skin Exam: Dry, Intact, Normal Color, Warm Discharge Plan - Discharge Medications Prescriptions: ceFAZolin [Ancef] 2,000 mg IVPB MWF #5 vial Gentamicin 80 mg in 0.9% NS [Gentamicin 80mg/100ml NS] 80 mg IV MWF #5 bag - Follow Up Plan Condition: GOOD Disposition: REHAB FACILITY/REHAB UNIT Instructions: Central Line Infections (DC), Chronic Kidney Disease (DC) Referrals: Ajay Thomas MD [Staff Provider] - Luke Rubio MD [Staff Provider] - Justin Nazario MD [Staff Provider] -
== END 2018-12-03 22:30 | DRG 314 ==
LOC: C.ER 12:31 → C.9E 15:11 → C.5S 11-25 06:25 → C.9E 11-25 08:55 → C.9I 11-25 12:54 → C.3T 11-28 22:39
PROVIDERS: ADMIT Internal Medicine Cardiovascular Disease; ATTEND Internal Medicine Cardiovascular Disease
PROC: 5A1D70Z Performance of Urinary Filtration, Intermittent, Less than 6 Hours Per Day (ICD-10-PCS; principal; 2018-11-26)
PROC: 06HY33Z Insertion of Infusion Device into Lower Vein, Percutaneous Approach (ICD-10-PCS; 2018-11-26)
PROC: 5A1D70Z Performance of Urinary Filtration, Intermittent, Less than 6 Hours Per Day (ICD-10-PCS; 2018-11-28)
PROC: 5A1D70Z Performance of Urinary Filtration, Intermittent, Less than 6 Hours Per Day (ICD-10-PCS; 2018-12-01)
PROC: 5A1D70Z Performance of Urinary Filtration, Intermittent, Less than 6 Hours Per Day (ICD-10-PCS; 2018-12-03)
DX: T82.7XXA Infection and inflammatory reaction due to other cardiac and vascular devices, implants and grafts, initial encounter (principal); N18.6 End stage renal disease; A41.50 Gram-negative sepsis, unspecified; I12.0 Hypertensive chronic kidney disease with stage 5 chronic kidney disease or end stage renal disease; Q61.3 Polycystic kidney, unspecified; E78.5 Hyperlipidemia, unspecified; Z99.2 Dependence on renal dialysis; M81.0 Age-related osteoporosis without current pathological fracture; J44.9 Chronic obstructive pulmonary disease, unspecified; D64.9 Anemia, unspecified; G89.29 Other chronic pain; B96.20 Unspecified Escherichia coli [E. coli] as the cause of diseases classified elsewhere; B96.1 Klebsiella pneumoniae [K. pneumoniae] as the cause of diseases classified elsewhere